=== PATIENT | female | born 1970 | race African-American/Black ===

== ENCOUNTER 2016-12-22 17:27 | Emergency (ER) | payer MEDICARE, OTHER ==
--- NOTE | 2016-12-22 18:18 | ER Document Report ---
ED Medical Screen (RME) - General Mode of Arrival: Ambulatory Information source: Patient TRAVEL OUTSIDE OF THE [place] IN LAST 30 DAYS: No - General Chief Complaint: R arm pain, swollen face Stated Complaint: RIGHT ARM PAIN/SWOLLEN FACE Time Seen by Provider: 12/22/16 18:12 Notes: Patient is a 46-year-old female that presents to the emergency department today with complaints of right-sided arm pain. Patient is on blood thinners (20 mg Eloquis) secondary to a "clotting problem". Patient is a MWF dialysis patient with a clot in her left upper chest. (TA GREGORY) - Related Data Allergies/Adverse Reactions: montelukast sodium [From Singulair] Allergy (Intermediate, Verified 05/28/16 07: 24) Shortness of Breath codeine Allergy (Mild, Verified 05/28/16 07:24) Swelling of Throat erythromycin base [Erythromycin Base] Allergy (Verified 05/28/16 07:24) sob, hives hydrocodone bitartrate [From Vicodin] Allergy (Verified 05/28/16 07:24) sob, hives ondansetron HCl [From Zofran] Allergy (Verified 05/28/16 07:24) sob, rash oxycodone HCl [From Percocet] Allergy (Verified 05/28/16 07:24) sob, rash penicillin G [Penicillin G] Allergy (Verified 05/28/16 07:24) sob, rash latex Allergy (Severe, Uncoded 07/25/15 11:47) sob, hives adhesives Adverse Reaction (Severe, Uncoded 07/25/15 11:47) hung Past Medical History - Social History Family history: Hypertension, Other - kidney failure - Past Medical History Cardiac Medical History: Reports: Hx Hypertension Pulmonary Medical History: Reports: Hx Asthma, Hx Pneumonia, Hx Sleep Apnea Neurological Medical History: Reports: Hx Migraine Endocrine Medical History: Reports: Hx Hypothyroidism Renal/ Medical History: Reports: Hx End Stage Renal Disease, Hx Hemodialysis. Denies: Hx Peritoneal Dialysis GI Medical History: Reports: Hx Gastroesophageal Reflux Disease, Hx Ulcer Musculoskeltal Medical History: Reports Hx Arthritis Past Surgical History: Reports: Hx Appendectomy, Hx Hysterectomy, Hx Oral Surgery, Hx Thyroid Surgery - thyroidectomy, Hx Tubal Ligation, Hx Vascular Surgery - left port in chest-put in on 06/23/12 - Immunizations Immunizations up to date: Yes Hx Diphtheria, Pertussis, Tetanus Vaccination: Yes Review of Systems - Review of Systems Neurological/Psychological: See HPI, Other - pain in right arm pit area Course - Re-evaluation Re-evalutation: 12/22/16 19:08 I personally performed the services described in the documentation, reviewed and edited the documentation which was dictated to the scribe in my presence, and it accurately records my words and actions. (ARLEY VELÁSQUEZ) - Vital Signs Vital signs: Temp Pulse Resp BP Pulse Ox 98.7 F 96 20 145/99 H 97 12/22/16 17:42 12/22/16 17:42 12/22/16 19:00 12/22/16 17:42 12/22/16 17:42 Scribe Documentation - Scribe Written by Traceye:: Dudley Edward, 12/22/2016 [id number] acting as scribe for :: Estelita
--- NOTE | 2016-12-22 18:41 | ER Document Report ---
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 Described as a constant, stabbing, moderate pain. Nothing improves or worsens the pain. No history of similar symptoms in the past. Denies any associated weakness, numbness but does state that she feels that her arm is somewhat more swollen than normal. She has not seen her primary care doctor regarding today's concerns. TRAVEL OUTSIDE OF THE [place] IN LAST 30 DAYS: No - Related Data Allergies/Adverse Reactions: montelukast sodium [From Singulair] Allergy (Intermediate, Verified 12/22/16 19: 10) Shortness of Breath codeine Allergy (Mild, Verified 12/22/16 19:10) Swelling of Throat erythromycin base [Erythromycin Base] Allergy (Verified 12/22/16 19:10) sob, hives hydrocodone bitartrate [From Vicodin] Allergy (Verified 12/22/16 19:10) sob, hives ondansetron HCl [From Zofran] Allergy (Verified 12/22/16 19:10) sob, rash oxycodone HCl [From Percocet] Allergy (Verified 12/22/16 19:10) sob, rash penicillin G [Penicillin G] Allergy (Verified 12/22/16 19:10) sob, rash latex Allergy (Severe, Uncoded 12/22/16 19:10) sob, hives adhesives Adverse Reaction (Severe, Uncoded 12/22/16 19:10) hung Past Medical History - General Information source: Patient - Social History Smoking Status: Never Smoker Frequency of alcohol use: None Drug Abuse: None Lives with: Spouse/Significant other Family History: Reviewed & Not Pertinent - Past Medical History Cardiac Medical History: Reports: Hx Hypertension Pulmonary Medical History: Reports: Hx Asthma, Hx Pneumonia, Hx Sleep Apnea Neurological Medical History: Reports: Hx Migraine Endocrine Medical History: Reports: Hx Hypothyroidism Renal/ Medical History: Reports: Hx End Stage Renal Disease, Hx Hemodialysis. Denies: Hx Peritoneal Dialysis GI Medical History: Reports: Hx Gastroesophageal Reflux Disease, Hx Ulcer Musculoskeltal Medical History: Reports Hx Arthritis Past Surgical History: Reports: Hx Appendectomy, Hx Hysterectomy, Hx Oral Surgery, Hx Thyroid Surgery - thyroidectomy, Hx Tubal Ligation, Hx Vascular Surgery - left port in chest-put in on 06/23/12 - Immunizations Immunizations up to date: Yes Hx Diphtheria, Pertussis, Tetanus Vaccination: Yes Hx Pneumococcal Vaccination: 05/19/13 Review of Systems - Review of Systems Notes: Constitutional: Negative for fever. HENT: Negative for sore throat. Eyes: Negative for visual changes. Cardiovascular: Negative for chest pain. Respiratory: Negative for shortness of breath. Gastrointestinal: Negative for abdominal pain, vomiting or diarrhea. Genitourinary: Negative for dysuria. Musculoskeletal: Negative for back pain. Positive for right arm pain Skin: Negative for rash. Neurological: Negative for headaches, weakness or numbness. 10 point ROS negative except as marked above and in HPI. Physical Exam - Vital signs Vitals: Temp Pulse Resp BP Pulse Ox 98.7 F 96 18 145/99 H 97 12/22/16 17:42 12/22/16 17:42 12/22/16 17:42 12/22/16 17:42 12/22/16 17:42 Interpretation: Hypertensive Notes: PHYSICAL EXAMINATION: GENERAL: Well-appearing, well-nourished and in no acute distress. HEAD: Atraumatic, normocephalic. EYES: Pupils equal round and reactive to light, extraocular movements intact, sclera anicteric, conjunctiva are normal. ENT: nares patent, oropharynx clear without exudates. Moist mucous membranes. NECK: Normal range of motion, supple without lymphadenopathy LUNGS: Breath sounds clear to auscultation bilaterally and equal. No wheezes rales or rhonchi. HEART: Regular rate and rhythm without murmurs ABDOMEN: Soft, nontender, normoactive bowel sounds. No guarding, no rebound. No masses appreciated. EXTREMITIES: Normal range of motion, no pitting or edema. No cyanosis. Palpation of the right axillary region with appreciable lymphadenopathy that is soft, mobile NEUROLOGICAL: No focal neurological deficits. Moves all extremities spontaneously and on command. PSYCH: Normal mood, normal affect. SKIN: Warm, Dry, normal turgor, no rashes or lesions noted. Course - Re-evaluation Re-evalutation: 12/22/16 18:37 Presentation of right axillary pain without any appreciable swelling to the right side versus left. There is some palpable pain to the right axillary lymph nodes suggestive of likely reactive lymphadenopathy is source of patient' s pain from an unclear source at this time. No breast mass or swelling and again given that the lymphadenopathy is painful is to be atypical for malignancy presentation. Given her history of prior clots will obtain a right upper extremity ultrasound to evaluate for an acute DVT although again this seems unlikely given history and patient's antiplatelet status on apixaban. 12/22/16 22:29 Patient's venous and arterial ultrasound does not demonstrate any new acute clot. This report was received from Dr. Morrissey. Again this is consistent with my suspicion the patient likely has axillary lymphadenopathy.At this time will discharge with return precautions and follow-up recommendations. Verbal discharge instructions given a the bedside and opportunity for questions given. Medication warnings reviewed. Patient is in agreement with this plan and has verbalized understanding of return precautions and the need for primary care follow-up in the next 24-72 hours. - Vital Signs Vital signs: Temp Pulse Resp BP Pulse Ox 98.7 F 96 20 145/99 H 97 12/22/16 17:42 12/22/16 17:42 12/22/16 19:00 12/22/16 17:42 12/22/16 17:42 - Laboratory Result Diagrams: 12/22/16 18:50 12/22/16 18:50 Laboratory results interpreted by me: 12/22/16 12/22/16 12/22/16 18:50 18:50 18:50 RBC 3.05 L Hgb 10.2 L Hct 30.1 L MCV 99 H RDW 16.6 H PT 17.2 H BUN 28 H Creatinine 7.22 H Est GFR ( Amer) 7 L Est GFR (Non-Af Amer) 6 L Direct Bilirubin 0.5 H Discharge - Discharge Clinical Impression: Axillary lymphadenopathy Condition: Good Disposition: HOME, SELF-CARE Additional Instructions: Your symptoms appear to be related to inflamed lymph nodes in your right arm pit. This should resolve in the next 7-10 days. Your ultrasounds today do not show any new clots. Please follow closely with your primary care doctor. Return for any worsening of your symptoms of any increased pain, weakness, numbness, fever greater than 101, or any other symptoms that are worrisome to you. You may purchase a product called Aspercreme with lidocaine to apply to the area as needed for pain.
[2016-12-22 19:13] LABS: ABSOLUTE BASOPHILS # (AUTO) 0.1 10^3/uL (0.0-0.2); ABSOLUTE EOSINOPHILS # (AUTO) 0.2 10^3/uL (0.0-0.6); ABSOLUTE LYMPHOCYTES (AUTO) 1.3 10^3/uL (0.5-4.7); ABSOLUTE NEUT (AUTO) 5.2 10^3/uL (1.7-8.2); BASOPHILS % (AUTO) 0.7 % (0-2); EOSINOPHILS % (AUTO) 2.1 % (0-6); HEMATOCRIT 30.1 % (36.0-47.0); HEMOGLOBIN 10.2 g/dL (12.0-15.5); HGB HCT DIFFERENCE 0.5; MEAN CORPUSCULAR HEMOGLOBIN 33.3 pg (27.0-33.4); MEAN CORPUSCULAR HGB CONC 33.7 g/dL (32.0-36.0); MEAN CORPUSCULAR VOLUME 99 fl (80-97); MONOCYTES % (AUTO) 12.4 % (3-13); RED BLOOD COUNT 3.05 10^6/uL (3.72-5.28); RED CELL DISTRIBUTION WIDTH 16.6 % (11.5-14.0); SEGMENTED NEUTROPHILS % (AUTO) 67.8 % (42-78); WHITE BLOOD COUNT 7.7 10^3/uL (4.0-10.5)
[2016-12-22 19:19] LABS: PROTHROMBIN TIME 17.2 SEC (11.4-15.4)
[2016-12-22 19:20] LABS: PARTIAL THROMBOPLASTIN TIME 35.5 SEC (23.5-35.8)
[2016-12-22 19:35] LABS: ALANINE AMINOTRANSFERASE 24 U/L (9-52); ALBUMIN 4.1 g/dL (3.5-5.0); ALKALINE PHOSPHATASE 81 U/L (38-126); ANION GAP 17 (5-19); ASPARTATE AMINO TRANSFERASE 27 U/L (14-36); BILIRUBIN,DIRECT 0.5 mg/dL (0.0-0.4); BILIRUBIN,TOTAL 0.5 mg/dL (0.2-1.3); BLOOD UREA NITROGEN 28 mg/dL (7-20); CARBON DIOXIDE 24 mmol/L (22-30); CHLORIDE 98 mmol/L (98-107); CREATININE RESULT 7.22 mg/dL (0.52-1.25); GLUCOSE 89 mg/dL (75-110); POTASSIUM 4.4 mmol/L (3.6-5.0); SODIUM 138.5 mmol/L (137-145); TOTAL PROTEIN 7.3 g/dL (6.3-8.2)
[2016-12-22 22:47] VITALS: BP 142/80
--- NOTE | 2016-12-22 23:24 | XCELERA REPORT ---
[address] [address] Upper Extremity Venous Evaluation Name: DESIREE ARITA Age: 46 yrs Gender: Female : 1970 Patient Status: Emergency Patient Location: ER Study Date: 12/22/2016 07:52 PM Procedure: Unilateral duplex scan of the right upper extremity veins was performed, including responses to compression and other maneuvers. Reason For Study: h/o clots, R axillary pain Ordering Physician: ARLEY VELÁSQUEZ Performed By: Lavinia Brian Right Side Venous Evaluation Shrunken, Internal Jugular vein with no flow. Otherwise normal vessel filling wall to wall, compression and augmentation as well as Colour flow down to the forearm veins. Left Sided Venous Evaluation Incidental finding of occluded Internal Jugular vein. Critical Findings Discussed with Dr Marie at about 2230. 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 : ARLEY VELÁSQUEZ > Lukas Morrissey
--- NOTE | 2016-12-22 23:28 | XCELERA REPORT ---
[address] [address] Upper Extremity Arterial Evaluation Name: DESIREE ARITA Age: 46 yrs Gender: Female : 1970 Patient Status: Emergency Patient Location: ER Study Date: 12/22/2016 08:16 PM Procedure: A duplex scan of the upper extremity arteries was performed on the right. Reason For Study: h/o clots, R axillary pain Ordering Physician: ARLEY VELÁSQUEZ Performed By: Lavinia Brian Measurements and Calculations Right Left Prox SCLA PSV 123.8 cm/sec Ax A PSV 73.1 cm/sec Prox Brach A PSV 78.6 cm/sec Dist Brach A PSV 72.7 cm/sec Dist Rad A PSV 91.7 cm/sec Dist Ulnar A PSV 58.9 cm/sec Ax A PSV 73.1 cm/sec Dist Brach A PSV 72.7 cm/sec Dist Rad A PSV 91.7 cm/sec Dist Ulnar A PSV 58.9 cm/sec Prox Brach A PSV 78.6 cm/sec Right Side Arterial Evaluation Normal velocity and triphasic waveforms noted from the Common Carotid artery to the forearm vessels. 0 % stenosis noted. Critical Findings Calld in to Dr Marie at about 2230. Interpretation Summary No hemodynamically significant lesions noted in the right upper extremity arteries, on duplex imaging, at rest. : ARLEY VELÁSQUEZ [place] >
== END 2016-12-22 22:45 | disposition home or self-care (01) ==
LOC: ER 17:27
DX: R59.0 Localized enlarged lymph nodes (principal); M79.601 Pain in right arm; I10 Essential (primary) hypertension; I12.0 Hypertensive chronic kidney disease with stage 5 chronic kidney disease or end stage renal disease; N18.6 End stage renal disease; Z99.2 Dependence on renal dialysis; Z88.0 Allergy status to penicillin; Z88.3 Allergy status to other anti-infective agents; Z88.6 Allergy status to analgesic agent; Z91.040 Latex allergy status; Z90.710 Acquired absence of both cervix and uterus
CPT/HCPCS: 36415; 80053; 85025; 85610; 85730; 93931; 93971; 99284

== ENCOUNTER 2017-03-09 10:03 | Emergency (ER) | payer MEDICARE, OTHER, MEDICAID ==
[2017-03-09] MEDS ORDERED: HYDROMORPHONE HCL INJ/PF 2 MG/ML AMPULE IM ONE (10:13)
[2017-03-09] MEDS ORDERED: HYDROMORPHONE HCL INJ/PF 2 MG/ML AMPULE IV ONE (10:16)
--- NOTE | 2017-03-09 10:17 | ER Document Report ---
ED Medical Screen (RME) - General Chief Complaint: Back Pain Stated Complaint: BACK PAIN Time Seen by Provider: 03/09/17 10:09 Notes: Patient presents complaining of severe low back pain. It does radiate across both sides of her low back. She states she has not had this pain to this degree in the past. It did start this morning and has gotten worse. No problems with urination. Patient is a dialysis patient but states she does make urine. No recent injuries or trauma. She states she has had over 80 abdominal surgeries but no current abdominal complaints. TRAVEL OUTSIDE OF THE [place] IN LAST 30 DAYS: No - Related Data Allergies/Adverse Reactions: montelukast sodium [From Singulair] Allergy (Intermediate, Verified 03/09/17 10: 07) Shortness of Breath codeine Allergy (Mild, Verified 03/09/17 10:07) Swelling of Throat erythromycin base [Erythromycin Base] Allergy (Verified 03/09/17 10:07) sob, hives hydrocodone bitartrate [From Vicodin] Allergy (Verified 03/09/17 10:07) sob, hives ondansetron HCl [From Zofran] Allergy (Verified 03/09/17 10:07) sob, rash oxycodone HCl [From Percocet] Allergy (Verified 03/09/17 10:07) sob, rash penicillin G [Penicillin G] Allergy (Verified 03/09/17 10:07) sob, rash latex Allergy (Severe, Uncoded 03/09/17 10:07) sob, hives adhesives Adverse Reaction (Severe, Uncoded 03/09/17 10:07) hung Past Medical History - Social History Chew tobacco use (# tins/day): No Frequency of alcohol use: None Drug Abuse: None Family history: Hypertension, Other - kidney failure - Past Medical History Cardiac Medical History: Reports: Hx Hypertension Pulmonary Medical History: Reports: Hx Asthma, Hx Pneumonia, Hx Sleep Apnea Neurological Medical History: Reports: Hx Migraine Endocrine Medical History: Reports: Hx Hypothyroidism Renal/ Medical History: Reports: Hx End Stage Renal Disease, Hx Hemodialysis. Denies: Hx Peritoneal Dialysis GI Medical History: Reports: Hx Gastroesophageal Reflux Disease, Hx Ulcer Musculoskeltal Medical History: Reports Hx Arthritis Past Surgical History: Reports: Hx Appendectomy, Hx Hysterectomy, Hx Oral Surgery, Hx Thyroid Surgery - thyroidectomy, Hx Tubal Ligation, Hx Vascular Surgery - left port in chest-put in on 06/23/12 - Immunizations Immunizations up to date: Yes Hx Diphtheria, Pertussis, Tetanus Vaccination: Yes Physical Exam - Vital signs Vitals: Temp Pulse Resp BP Pulse Ox 98.5 F 94 18 148/103 H 98 03/09/17 10:06 03/09/17 10:06 03/09/17 10:06 03/09/17 10:06 03/09/17 10:06 Course - Vital Signs Vital signs: Temp Pulse Resp BP Pulse Ox 98.5 F 94 18 148/103 H 98 03/09/17 10:06 03/09/17 10:06 03/09/17 10:06 03/09/17 10:06 03/09/17 10:06
[2017-03-09 10:52] LABS: ABSOLUTE EOSINOPHILS # (AUTO) 0.5 10^3/uL (0.0-0.6); ABSOLUTE LYMPHOCYTES (AUTO) 1.5 10^3/uL (0.5-4.7); ABSOLUTE MONOCYTES (AUTO) 0.8 10^3/uL (0.1-1.4); ABSOLUTE NEUT (AUTO) 7.4 10^3/uL (1.7-8.2); BASOPHILS % (AUTO) 0.4 % (0-2); EOSINOPHILS % (AUTO) 4.5 % (0-6); HEMATOCRIT 32.7 % (36.0-47.0); HGB HCT DIFFERENCE 0.3; LYMPHOCYTES % (AUTO) 14.6 % (13-45); MEAN CORPUSCULAR HEMOGLOBIN 32.9 pg (27.0-33.4); MEAN CORPUSCULAR HGB CONC 33.7 g/dL (32.0-36.0); MEAN CORPUSCULAR VOLUME 98 fl (80-97); RED BLOOD COUNT 3.36 10^6/uL (3.72-5.28); RED CELL DISTRIBUTION WIDTH 15.3 % (11.5-14.0); SEGMENTED NEUTROPHILS % (AUTO) 72.5 % (42-78); WHITE BLOOD COUNT 10.2 10^3/uL (4.0-10.5)
[2017-03-09 11:03] LABS: APPEARANCE,URINE CLEAR; BILIRUBIN,URINE NEGATIVE (NEGATIVE); GLUCOSE, URINE 50 mg/dL (NEGATIVE); KETONES,URINE NEGATIVE (NEGATIVE); LEUKOCYTE ESTERASE,URINE NEGATIVE (NEGATIVE); NITRITE,URINE NEGATIVE (NEGATIVE); PROTEIN,URINE NEGATIVE (NEGATIVE); URINE SPECIFIC GRAVITY 1.003; UROBILINOGEN,URINE NEGATIVE mg/dL (<2.0)
[2017-03-09] MEDS ORDERED: METOCLOPRAMIDE HCL INJ/PF 10 MG/2 ML SDV IV ONE (11:18)
[2017-03-09 11:26] LABS: ALANINE AMINOTRANSFERASE 27 U/L (9-52); ALBUMIN 4.8 g/dL (3.5-5.0); ALKALINE PHOSPHATASE 143 U/L (38-126); ANION GAP 17 (5-19); ASPARTATE AMINO TRANSFERASE 28 U/L (14-36); BILIRUBIN,DIRECT 0.5 mg/dL (0.0-0.4); BILIRUBIN,TOTAL 0.5 mg/dL (0.2-1.3); BLOOD UREA NITROGEN 17 mg/dL (7-20); CALCIUM 9.5 mg/dL (8.4-10.2); CARBON DIOXIDE 26 mmol/L (22-30); CHLORIDE 98 mmol/L (98-107); CREATININE RESULT 5.67 mg/dL (0.52-1.25); GLUCOSE 81 mg/dL (75-110); POTASSIUM 3.4 mmol/L (3.6-5.0); SODIUM 141.4 mmol/L (137-145); TOTAL PROTEIN 8.4 g/dL (6.3-8.2)
[2017-03-09] MEDS ORDERED: PROMETHAZINE HCL 25 MG TABLET PO ONE (12:22)
[2017-03-09] MEDS ORDERED: DIAZEPAM INJ 10 MG/2 ML DISP.SYRIN IV ONE (13:01)
--- NOTE | 2017-03-09 13:01 | ER Document Report ---
ED General - General Chief Complaint: Back Pain Stated Complaint: BACK PAIN Time Seen by Provider: 03/09/17 10:09 Mode of Arrival: Ambulatory Information source: Patient Notes: 46-year-old female who receives dialysis on Wednesdays and Fridays who was at dialysis today presents with complaints of back spasm. Patient not denies any abdominal pain denies any fevers chills nausea vomiting or diarrhea Patient notes similar episode in the past when she had a kidney infection TRAVEL OUTSIDE OF THE [place] IN LAST 30 DAYS: No - HPI Onset: This morning Onset/Duration: Sudden Quality of pain: Achy Severity: Mild Pain Level: 1 Associated symptoms: Body/muscle aches Exacerbated by: Movement Relieved by: Denies Similar symptoms previously: No Recently seen / treated by doctor: No - Related Data Allergies/Adverse Reactions: montelukast sodium [From Singulair] Allergy (Intermediate, Verified 03/09/17 10: 07) Shortness of Breath codeine Allergy (Mild, Verified 03/09/17 10:07) Swelling of Throat erythromycin base [Erythromycin Base] Allergy (Verified 03/09/17 10:07) sob, hives hydrocodone bitartrate [From Vicodin] Allergy (Verified 03/09/17 10:07) sob, hives ondansetron HCl [From Zofran] Allergy (Verified 03/09/17 10:07) sob, rash oxycodone HCl [From Percocet] Allergy (Verified 03/09/17 10:07) sob, rash penicillin G [Penicillin G] Allergy (Verified 03/09/17 10:07) sob, rash latex Allergy (Severe, Uncoded 03/09/17 10:07) sob, hives adhesives Adverse Reaction (Severe, Uncoded 03/09/17 10:07) hung Past Medical History - Social History Smoking Status: Never Smoker Cigarette use (# per day): No Chew tobacco use (# tins/day): No Smoking Education Provided: No Frequency of alcohol use: None Drug Abuse: None Family History: Reviewed & Not Pertinent - Past Medical History Cardiac Medical History: Reports: Hx Hypertension Pulmonary Medical History: Reports: Hx Asthma, Hx Pneumonia, Hx Sleep Apnea Neurological Medical History: Reports: Hx Migraine Endocrine Medical History: Reports: Hx Hypothyroidism Renal/ Medical History: Reports: Hx End Stage Renal Disease, Hx Hemodialysis. Denies: Hx Peritoneal Dialysis GI Medical History: Reports: Hx Gastroesophageal Reflux Disease, Hx Ulcer Musculoskeltal Medical History: Reports Hx Arthritis Past Surgical History: Reports: Hx Appendectomy, Hx Hysterectomy, Hx Oral Surgery, Hx Thyroid Surgery - thyroidectomy, Hx Tubal Ligation, Hx Vascular Surgery - left port in chest-put in on 06/23/12 - Immunizations Immunizations up to date: Yes Hx Diphtheria, Pertussis, Tetanus Vaccination: Yes Hx Pneumococcal Vaccination: 05/19/13 Review of Systems - Review of Systems Notes: REVIEW OF SYSTEMS: CONSTITUTIONAL : Denies fever, chills, or sweats. Denies recent illness. EENT: Denies eye, ear, throat, or mouth pain or symptoms. Denies nasal or sinus congestion or discharge. Denies throat, tongue, or mouth swelling or difficulty swallowing. CARDIOVASCULAR: Denies chest pain. Denies palpitations or racing or irregular heart beat. Denies ankle edema. RESPIRATORY: Denies cough, cold, or chest congestion. Denies shortness of breath, difficulty breathing, or wheezing. GASTROINTESTINAL: Denies abdominal pain or distention. Denies nausea, vomiting , or diarrhea. Denies blood in vomitus, stools, or per rectum. Denies black, tarry stools. Denies constipation. GENITOURINARY: Denies difficulty urinating, painful urination, burning, frequency, blood in urine, or discharge. FEMALE GENITOURINARY: Denies vaginal bleeding, heavy or abnormal periods, irregular periods. Denies vaginal discharge or odor. MUSCULOSKELETAL: Admits to bilateral flank pain worsened with movement SKIN: Denies rash, lesions or sores. HEMATOLOGIC : Denies easy bruising or bleeding. LYMPHATIC: Denies swollen, enlarged glands. NEUROLOGICAL: Denies confusion or altered mental status. Denies passing out or loss of consciousness. Denies dizziness or lightheadedness. Denies headache. Denies weakness or paralysis or loss of use of either side. Denies problems with gait or speech. Denies sensory loss, numbness, or tingling. Denies seizures. PSYCHIATRIC: Denies anxiety or stress. Denies depression, suicidal ideation, or homicidal ideation. ALL OTHER SYSTEMS REVIEWED AND NEGATIVE. PHYSICAL EXAMINATION: GENERAL: Well-appearing, well-nourished and in no acute distress. HEAD: Atraumatic, normocephalic. EYES: Pupils equal round and reactive to light, extraocular movements intact, conjunctiva are normal. ENT: Nares patent, oropharynx clear without exudates. Moist mucous membranes. NECK: Normal range of motion, supple without lymphadenopathy LUNGS: Breath sounds clear to auscultation bilaterally and equal. No wheezes rales or rhonchi. HEART: Regular rate and rhythm without murmurs ABDOMEN: Soft, nontender, nondistended abdomen. No guarding, no rebound. No masses appreciated. Female : deferred Musculoskeletal: Tenderness on palpation of bilateral flanks, no CVA tenderness NEUROLOGICAL: Cranial nerves grossly intact. Normal speech, normal gait. Normal sensory, motor exams PSYCH: Normal mood, normal affect. SKIN: Warm, Dry, normal turgor, no rashes or lesions noted. Dictation was performed using [employer] voice recognition software Physical Exam - Vital signs Vitals: Temp Pulse Resp BP Pulse Ox 98.5 F 94 18 148/103 H 98 03/09/17 10:06 03/09/17 10:06 03/09/17 10:06 03/09/17 10:03/09/17 10:06 Course - Re-evaluation Re-evalutation: 03/09/17 16:24 Patient's incision is consistent with a musculoskeletal spasm. Otherwise she is in no distress Lab work noted no significant abnormality no signs of infection Patient will be treated with Valium and very close follow-up with primary care physician After performing a Medical Screening Examination, I estimate there is LOW risk for EXPANDING OR RUPTURED ABDOMINAL AORTIC ANEURYSM, CAUDA EQUINA SYNDROME, EPIDURAL MASS LESION, or HERNIATED DISK CAUSING SEVERE SPINAL STENOSIS, thus I consider the discharge disposition reasonable. I have reevaluated this patient multiple times and no significant life threatening changes are noted. The patient and I have discussed the diagnosis and risks, and we agree with discharging home and close follow-up. We also discussed returning to the Emergency Department immediately if new or worsening symptoms occur with the understanding that symptoms and presentations can change. We have discussed the symptoms which are most concerning (e.g., saddle anesthesia, urinary or bowel incontinence or retention, changing or worsening pain) that necessitate immediate return. - Vital Signs Vital signs: Temp Pulse Resp BP Pulse Ox 97.8 F 87 16 136/89 H 97 03/09/17 13:44 03/09/17 13:44 03/09/17 13:44 03/09/17 13:44 03/09/17 13:44 - Laboratory Result Diagrams: 03/09/17 10:40 03/09/17 10:40 Laboratory results interpreted by me: 03/09/17 03/09/17 03/09/17 10:40 10:40 10:40 RBC 3.36 L Hgb 11.0 L Hct 32.7 L MCV 98 H RDW 15.3 H Potassium 3.4 L Creatinine 5.67 H Est GFR ( Amer) 10 L Est GFR (Non-Af Amer) 8 L Direct Bilirubin 0.5 H Alkaline Phosphatase 143 H Total Protein 8.4 H Urine Glucose (UA) 50 H Urine Blood SMALL H Discharge - Discharge Clinical Impression: Flank pain Chronic kidney disease Qualifiers: Chronic kidney disease stage: on chronic dialysis Qualified Code(s): N18.6 - End stage renal disease; Z99.2 - Dependence on renal dialysis Condition: Stable Disposition: HOME, SELF-CARE Instructions: Low Back Pain ([facility]) Prescriptions: Diazepam [Valium 5 mg Tablet] 5 mg PO QIDP PRN #15 tablet PRN Reason: Referrals: JOSE ALEJANDRO GASTELUM DO [Primary Care Provider] - Follow up tomorrow
[2017-03-09 13:45] VITALS: BP 136/89
== END 2017-03-09 13:46 | disposition home or self-care (01) ==
LOC: ER 10:03
DX: N18.6 End stage renal disease (principal); R10.9 Unspecified abdominal pain; M54.9 Dorsalgia, unspecified; Z99.2 Dependence on renal dialysis
CPT/HCPCS: 99283; 96372; 96374; 96375; 36415; 85025; 80053; 81001; J3360; J2765; J1170; A9270

== ENCOUNTER 2017-09-01 19:29 | Observation (INO) | payer MEDICARE, OTHER, MEDICAID ==
--- NOTE | 2017-09-01 20:18 | RADIOLOGY REPORT (SQ) ---
EXAM DESCRIPTION: CT HEAD WITHOUT COMPLETED DATE/TIME: 09/01/2017 8:04 pm REASON FOR STUDY: EYE ISSUES ON ELEQUIS COMPARISON: 07/26/2014. TECHNIQUE: Axial images acquired through the brain without intravenous contrast. Images reviewed wi th bone, brain and subdural windows. Images stored on PACS. All CT scanners at this facility use dose modulation, iterative reconstruction, and/or weight based d osing when appropriate to reduce radiation dose to as low as reasonably achievable (ALARA). [facility]: Dose Right [facility]: CareDose [facility]: Dose Right [facility]: Teradose 4D [facility]: DealerSocket RADIATION DOSE: CT Rad equipment meets quality standard of care and radiation dose reduction techniq ues were employed. CTDIvol: 64.6 mGy. DLP: 1034 mGy-cm. mGy. LIMITATIONS: None. FINDINGS: VENTRICLES: Normal size and contour. CEREBRUM: No masses. No hemorrhage. No midline shift. No evidence for acute infarction. Normal gra y/white matter differentiation. No areas of low density in the white matter. CEREBELLUM: No masses. No hemorrhage. No alteration of density. No evidence for acute infarction. EXTRAAXIAL SPACES: No fluid collections. No masses. ORBITS AND GLOBE: No intra- or extraconal masses. Normal contour of globe without masses. CALVARIUM: No fracture. PARANASAL SINUSES: No fluid or mucosal thickening. SOFT TISSUES: No mass or hematoma. OTHER: No other significant finding. IMPRESSION: NORMAL BRAIN CT WITHOUT CONTRAST. EVIDENCE OF ACUTE STROKE: NO. COMMENT: Quality ID # [id number]: Final reports with documentation of one or more dose reduction techniques (e.g., Automated exposure control, adjustment of the mA and/or kV according to patient size, use of iterative reconstruction technique) TECHNICAL DOCUMENTATION: JOB ID: [id number]- All Rights Reserved
--- NOTE | 2017-09-01 20:23 | RADIOLOGY REPORT (SQ) ---
EXAM DESCRIPTION: CT ORBIT/SELLA WITHOUT COMPLETED DATE/TIME: 09/01/2017 8:04 pm REASON FOR STUDY: Eye Problem COMPARISON: None. TECHNIQUE: Noncontrasted images through the orbits windowed for bone and soft tissue. Additional co kayley and sagittal reconstructed images reviewed. All images stored on PACS. All CT scanners at this facility use dose modulation, iterative reconstruction, and/or weight based d osing when appropriate to reduce radiation dose to as low as reasonably achievable (ALARA). [facility]: Dose Right [facility]: CareDose [facility]: Dose Right [facility]: Teradose 4D [facility]: Smart PulseOn RADIATION DOSE: CT Rad equipment meets quality standard of care and radiation dose reduction techniq ues were employed. CTDIvol: 30.4 mGy. DLP: 365 mGy-cm. mGy. LIMITATIONS: None. FINDINGS: FACIAL BONES: No fracture or bone lesion. ORBITS: Intact. No fracture. Symmetric intact globes and retroorbital soft tissues. Bilateral prop tosis. PARANASAL SINUSES: Clear. No significant mucosal thickening, mass or fluid. No nasal polyps. Maxilla ry sinus outlets are patent. SOFT TISSUES: No mass or edema. INFERIOR BRAIN: Limited view. No acute findings. OTHER: No other significant finding. IMPRESSION: BILATERAL PROPTOSIS. NO OTHER FINDINGS. TECHNICAL DOCUMENTATION: JOB ID: [id number] Quality ID # [id number]: Final reports with documentation of one or more dose reduction techniques (e.g., Au tomated exposure control, adjustment of the mA and/or kV according to patient size, use of iterative reconstruction technique) 2010 [employer]- All Rights Reserved
--- NOTE | 2017-09-01 20:28 | ER Document Report ---
ED Medical Screen (RME) - General Mode of Arrival: Ambulatory Information source: Patient TRAVEL OUTSIDE OF THE [place] IN LAST 30 DAYS: No - HPI Patient complains to provider of: Right eye bleeding and swelling Onset: This morning Associated Symptoms: Other - see notes above <CYNDIE BYRD - Last Filed: 09/01/17 20:19> <RADHA STREETER - Last Filed: 09/03/17 10:57> - General Chief Complaint: Eye Problem Stated Complaint: EYE PROBLEM Time Seen by Provider: 09/01/17 20:08 Notes: 47 year old female with history of blood clots (treated with Eliquis) presents to the ED referred from her coroner technician complaining of right eye bleeding and pain that started earlier today. Patient reports that she was playing with her grandchild when she felt like she had something in her right eye. Patient looked at a mirror and saw some bleeding. Over the course of the next few hours the patient noticed increasing bleeding. Patient is additionally complaining of dizziness, right eye swelling, and blurry vision out of the right eye. Jackhammer Operator: Dr. Mejia (CYNDIE BYRD) - Related Data Allergies/Adverse Reactions: montelukast sodium [From Singulair] Allergy (Intermediate, Verified 03/09/17 10: 07) Shortness of Breath codeine Allergy (Mild, Verified 03/09/17 10:07) Swelling of Throat erythromycin base [Erythromycin Base] Allergy (Verified 03/09/17 10:07) sob, hives hydrocodone bitartrate [From Vicodin] Allergy (Verified 03/09/17 10:07) sob, hives ondansetron HCl [From Zofran] Allergy (Verified 03/09/17 10:07) sob, rash oxycodone HCl [From Percocet] Allergy (Verified 03/09/17 10:07) sob, rash penicillin G [Penicillin G] Allergy (Verified 03/09/17 10:07) sob, rash latex Allergy (Severe, Uncoded 03/09/17 10:07) sob, hives adhesives Adverse Reaction (Severe, Uncoded 03/09/17 10:07) hung Past Medical History - General Information source: Patient - Social History Chew tobacco use (# tins/day): No Frequency of alcohol use: None Drug Abuse: None Family history: Hypertension, Other - kidney failure - Past Medical History Cardiac Medical History: Reports: Hx Hypertension Pulmonary Medical History: Reports: Hx Asthma, Hx Pneumonia, Hx Sleep Apnea Neurological Medical History: Reports: Hx Migraine Endocrine Medical History: Reports: Hx Hypothyroidism Renal/ Medical History: Reports: Hx End Stage Renal Disease, Hx Hemodialysis. Denies: Hx Peritoneal Dialysis GI Medical History: Reports: Hx Gastroesophageal Reflux Disease, Hx Ulcer Musculoskeltal Medical History: Reports Hx Arthritis Past Surgical History: Reports: Hx Appendectomy, Hx Hysterectomy, Hx Oral Surgery, Hx Thyroid Surgery - thyroidectomy, Hx Tubal Ligation, Hx Vascular Surgery - left port in chest-put in on 06/23/12 - Immunizations Immunizations up to date: Yes Hx Diphtheria, Pertussis, Tetanus Vaccination: Yes <CYNDIE BYRD - Last Filed: 09/01/17 20:19> Review of Systems - Review of Systems Constitutional: No symptoms reported EENT: See HPI, Eye pain - right, Blurred vision - right, Other - right eye bleeding Cardiovascular: No symptoms reported Respiratory: No symptoms reported Gastrointestinal: No symptoms reported Genitourinary: No symptoms reported Female Genitourinary: No symptoms reported Musculoskeletal: No symptoms reported Skin: No symptoms reported Hematologic/Lymphatic: No symptoms reported Neurological/Psychological: No symptoms reported -: Yes All other systems reviewed and negative <CYNDIE BYRD - Last Filed: 09/01/17 20:19> Physical Exam - General General appearance: Alert In distress: None - HEENT Head: Normocephalic, Atraumatic Eyes: Other - unilateral hemiopsia to the right eye. No: Normal Conjunctiva: Other - Subconjnctival hematoma. No hyphema. Pupils: PERRL Anterior chamber: Normal. No: Hyphema - Respiratory Respiratory status: No respiratory distress Breath sounds: Normal - Cardiovascular Rhythm: Regular Heart sounds: Normal auscultation - Abdominal Inspection: Normal - Back Back: Normal - Neurological Neuro grossly intact: Yes Cognition: Normal Orientation: AAOx4 Stefanie Coma Scale Eye Opening: Spontaneous Stefanie Coma Scale Verbal: Oriented Stefanie Coma Scale Motor: Obeys Commands Harris Coma Scale Total: 15 Cerebellar coordination: Gait ataxia - mild, Truncal ataxia - mild. No: Normal <CYNDIE BYRD - Last Filed: 09/01/17 20:19> - Vital signs Vitals: Temp Pulse Resp BP Pulse Ox 98.7 F 98 18 145/88 H 96 09/01/17 20:23 09/01/17 20:23 09/01/17 20:23 09/01/17 20:23 09/01/17 20:23 Course - Laboratory Result Diagrams: 09/01/17 22:25 09/02/17 04:50 <RADHA STREETER - Last Filed: 09/03/17 10:57> - Vital Signs Vital signs: Temp Pulse Resp BP Pulse Ox 97.8 F 88 16 136/81 H 98 09/02/17 11:45 09/02/17 11:45 09/02/17 11:45 09/02/17 11:45 09/02/17 11:45 - Laboratory Laboratory results interpreted by me: 09/01/17 09/01/17 09/01/17 22:25 22:25 22:25 WBC 11.5 H RBC 3.58 L Hgb 11.6 L Hct 35.3 L MCV 99 H RDW 14.4 H PT 18.6 H BUN 42 H Creatinine 10.05 H Est GFR ( Amer) 5 L Est GFR (Non-Af Amer) 4 L Doctor's Discharge <CYNDIE BYRD - Last Filed: 09/01/17 20:19> <RADHA STREETER - Last Filed: 09/03/17 10:57> - Discharge Clinical Impression: Ataxia Headache Qualifiers: Headache type: unspecified Headache chronicity pattern: acute headache Intractability: not intractable Qualified Code(s): R51 - Headache Subconjunctival bleed Qualifiers: Laterality: right Qualified Code(s): H11.31 - Conjunctival hemorrhage, right eye Condition: Good Disposition: HOME, SELF-CARE Scribe Documentation - Scribe Written by Scribe:: Dudley Whalen, [id number] acting as scribe for :: Maximiliano <CYNDIE BYRD - Last Filed: 09/01/17 20:19>
[2017-09-01 22:41] LABS: ABSOLUTE EOSINOPHILS # (AUTO) 0.1 10^3/uL (0.0-0.6); ABSOLUTE LYMPHOCYTES (AUTO) 2.7 10^3/uL (0.5-4.7); ABSOLUTE MONOCYTES (AUTO) 1.4 10^3/uL (0.1-1.4); ABSOLUTE NEUT (AUTO) 7.2 10^3/uL (1.7-8.2); BASOPHILS % (AUTO) 0.4 % (0-2); EOSINOPHILS % (AUTO) 1.1 % (0-6); HEMATOCRIT 35.3 % (36.0-47.0); HEMOGLOBIN 11.6 g/dL (12.0-15.5); LYMPHOCYTES % (AUTO) 23.7 % (13-45); MEAN CORPUSCULAR HEMOGLOBIN 32.3 pg (27.0-33.4); MEAN CORPUSCULAR HGB CONC 32.8 g/dL (32.0-36.0); MEAN CORPUSCULAR VOLUME 99 fl (80-97); MONOCYTES % (AUTO) 12.3 % (3-13); PLATELET COUNT 192 10^3/uL (150-450); RED BLOOD COUNT 3.58 10^6/uL (3.72-5.28); RED CELL DISTRIBUTION WIDTH 14.4 % (11.5-14.0); SEGMENTED NEUTROPHILS % (AUTO) 62.5 % (42-78); TOTAL CELLS COUNTED % (AUTO) 100 %; WHITE BLOOD COUNT 11.5 10^3/uL (4.0-10.5)
[2017-09-01 22:48] LABS: INTERNATIONAL RATION (INR) 1.46; PROTHROMBIN TIME 18.6 SEC (11.4-15.4)
[2017-09-01 22:59] LABS: ALBUMIN 4.9 g/dL (3.5-5.0); ANION GAP 18 (5-19); BLOOD UREA NITROGEN 42 mg/dL (7-20); CALCIUM 9.3 mg/dL (8.4-10.2); CARBON DIOXIDE 24 mmol/L (22-30); CHLORIDE 102 mmol/L (98-107); GLUCOSE 96 mg/dL (75-110); POTASSIUM 3.8 mmol/L (3.6-5.0); SODIUM 143.7 mmol/L (137-145); TOTAL PROTEIN 7.6 g/dL (6.3-8.2)
[2017-09-01 23:00] LABS: ALANINE AMINOTRANSFERASE 19 U/L (9-52); ALKALINE PHOSPHATASE 83 U/L (38-126); ASPARTATE AMINO TRANSFERASE 16 U/L (14-36); BILIRUBIN,TOTAL 0.3 mg/dL (0.2-1.3)
[2017-09-01] MEDS ORDERED: FENTANYL CITRATE INJ/PF 100 MCG/2 ML AMPUL IV ONE (23:14)
--- NOTE | 2017-09-01 23:52 | ER Document Report ---
ED General - General Chief Complaint: Eye Problem Stated Complaint: EYE PROBLEM Time Seen by Provider: 09/01/17 20:08 Mode of Arrival: Ambulatory Notes: Patient is a 47-year-old female who presents with complaint of onset of symptoms just before lunch this morning. She says that she started to have some headache. She denies some blurred vision worse in the right eye. She then noticed that her gait was off. She does have a history of a clotting disorder is on Eliquis. She eventually developed some conjunctival hemorrhage in the right eye. She saw Dr. Hay who referred her to Dr. Mejia. Dr. Mejia is the operations logistics analyst. He did evaluate her. I did talk to him on phone. He says that she has some subconjunctival hemorrhage as well as some hemianopsia. Eye pressures since office were normal. He said he want her to be checked make sure is no evidence of intracranial hemorrhage being that she is on blood thinners. See if this was negative. She is going follow-up in his office in a week. She currently says that he still has mild headache that is almost completely resolved. Headache was not sudden onset. She does admit that she is having difficulty walking. She says she feels as if the floor is unsteady and floating. She has never had symptoms like this before. She does have a history of some clotting in her jugular veins. TRAVEL OUTSIDE OF THE [place] IN LAST 30 DAYS: No - Related Data Allergies/Adverse Reactions: montelukast sodium [From Singulair] Allergy (Intermediate, Verified 03/09/17 10: 07) Shortness of Breath codeine Allergy (Mild, Verified 03/09/17 10:07) Swelling of Throat erythromycin base [Erythromycin Base] Allergy (Verified 03/09/17 10:07) sob, hives hydrocodone bitartrate [From Vicodin] Allergy (Verified 03/09/17 10:07) sob, hives ondansetron HCl [From Zofran] Allergy (Verified 03/09/17 10:07) sob, rash oxycodone HCl [From Percocet] Allergy (Verified 03/09/17 10:07) sob, rash penicillin G [Penicillin G] Allergy (Verified 03/09/17 10:07) sob, rash latex Allergy (Severe, Uncoded 03/09/17 10:07) sob, hives adhesives Adverse Reaction (Severe, Uncoded 03/09/17 10:07) hung Past Medical History - General Information source: Patient - Social History Smoking Status: Never Smoker Chew tobacco use (# tins/day): No Frequency of alcohol use: None Drug Abuse: None Family History: Reviewed & Not Pertinent Patient has suicidal ideation: No Patient has homicidal ideation: No - Past Medical History Cardiac Medical History: Reports: Hx Hypertension Pulmonary Medical History: Reports: Hx Asthma, Hx Pneumonia, Hx Sleep Apnea Neurological Medical History: Reports: Hx Migraine Endocrine Medical History: Reports: Hx Hypothyroidism Renal/ Medical History: Reports: Hx End Stage Renal Disease, Hx Hemodialysis. Denies: Hx Peritoneal Dialysis GI Medical History: Reports: Hx Gastroesophageal Reflux Disease, Hx Ulcer Musculoskeltal Medical History: Reports Hx Arthritis Past Surgical History: Reports: Hx Appendectomy, Hx Hysterectomy, Hx Oral Surgery, Hx Thyroid Surgery - thyroidectomy, Hx Tubal Ligation, Hx Vascular Surgery - left port in chest-put in on 06/23/12 - Immunizations Immunizations up to date: Yes Hx Diphtheria, Pertussis, Tetanus Vaccination: Yes Hx Pneumococcal Vaccination: 05/19/13 Review of Systems - Review of Systems Notes: My Normal Review Basic REVIEW OF SYSTEMS: CONSTITUTIONAL : Denies fever, chills, or sweats. Denies recent illness. EENT: Subconjunctival hemorrhage in the right eye. CARDIOVASCULAR: Denies chest pain. RESPIRATORY: Denies cough, cold, or chest congestion. Denies shortness of breath, difficulty breathing, or wheezing. GASTROINTESTINAL: Denies abdominal pain. Denies nausea, vomiting, or diarrhea. Denies constipation. Last BM: MUSCULOSKELETAL: Denies neck or back pain or joint pain or swelling. SKIN: Denies rash or skin lesions. NEUROLOGICAL: Denies altered mental status or loss of consciousness. Denies headache. Denies weakness or paralysis or loss of use of either side. Denies problems with gait or speech. Denies sensory or motor loss. ALL OTHER SYSTEMS REVIEWED AND NEGATIVE. Physical Exam - Vital signs Vitals: Temp Pulse Resp BP Pulse Ox 98.7 F 98 18 145/88 H 96 09/01/17 20:23 09/01/17 20:23 09/01/17 20:23 09/01/17 20:23 09/01/17 20:23 - Notes Notes: General Appearance: Well nourished, alert, cooperative, no acute distress, no obvious discomfort. Vitals: reviewed, See vital signs table. Head: no swelling or tenderness to the head Eyes: PERRL, EOMI, subconjunctival hemorrhage in the right eye. Patient does seem to have decreased vision over the right lateral gaze. She does have good extraocular motion. Left eye seems to have appropriate vision. Patient's right pupil is slightly dilated in comparison to the left; however, Dr. Mejia says that he did dilate his pupil prior to patient coming to the ER. Mouth: No decreasd moisture Neck: Supple, no neck tenderness, No thyromegaly Lungs: No wheezing, No rales, No rhonci, No accessory muscle use, good air exchange bilaterally. Heart: Normal rate, Regular rythm, No murmur, no rub Abdomen: Normal BS, soft, No rigidity, No abdominal tenderness, No guarding, no rebound, no abdominal masses, no organomegaly Extremities: strength 5/5 in all extremities, good pulses in all extremities, no swelling or tenderness in the extremities, no edema. Skin: warm, dry, appropriate color, no rash Neuro: speech clear, oriented x 3, normal affect, responds appropriately to questions. Cranial nerves II through XII are intact with exception of of visual field defect in right lateral gaze. When patient stands she is very unsteady on her feet. If I do not support her then she would fall. She is unable to take any steps for due to her unsteadiness. On finger-nose testing patient misses her nose every time and has a hard time hit my finger. Cerebellar signs are abnormal. Course - Re-evaluation Re-evalutation: 09/02/17 00:02 I did speak with the halfway house counselor who says that we have the ability to dialyze patient in the am. Patient's vending machine collector is Dr. Matta. 09/02/17 04:42 Patient's requested that I did speak with Dr. Matta before she is willing to be admitted. I did speak with Dr. Matta says she is able to dialyze the patient this morning and explained to her why we are admitting the patient. She is agreeable to this. I did speak with hospitalist, Dr. Brown, who agreed to admit the patient. My concern is that patient could potentially have cerebral infarct based on her major defect or cerebellar signs with ataxia, coordination of the extremities, and her history of clotting disorder. I did discuss this with the patient and her their understanding of this. Patient says she does not have any metal in her body and therefore should be able to have an MRI obtained in the morning. Dictation of this chart was performed using voice recognition software; therefore, there may be some unintended grammatical errors. - Vital Signs Vital signs: Temp Pulse Resp BP Pulse Ox 97.9 F 93 15 155/97 H 99 09/02/17 01:16 09/02/17 01:16 09/02/17 03:27 09/02/17 01:16 09/02/17 03:27 - Laboratory Result Diagrams: 09/01/17 22:25 09/01/17 22:25 Laboratory results interpreted by me: 09/01/17 09/01/17 09/01/17 22:25 22:25 22:25 WBC 11.5 H RBC 3.58 L Hgb 11.6 L Hct 35.3 L MCV 99 H RDW 14.4 H PT 18.6 H BUN 42 H Creatinine 10.05 H Est GFR ( Amer) 5 L Est GFR (Non-Af Amer) 4 L Discharge - Discharge Clinical Impression: Ataxia Headache Qualifiers: Headache type: unspecified Headache chronicity pattern: acute headache Intractability: not intractable Qualified Code(s): R51 - Headache Subconjunctival bleed Qualifiers: Laterality: right Qualified Code(s): H11.31 - Conjunctival hemorrhage, right eye Condition: Stable Disposition: ADMITTED OBSERVATION Admitting Provider: Hospitalist Unit Admitted: Telemetry
[2017-09-02] MEDS ORDERED: DOCUSATE SODIUM 100 MG CAPSULE PO PRN ×2 (01:13→10:03)
[2017-09-02] MEDS ORDERED: ACETAMINOPHEN 325 MG TABLET PO PRN (01:13)
[2017-09-02] MEDS ORDERED: TRAMADOL HCL 50 MG TABLET PO PRN (01:13)
--- NOTE | 2017-09-02 01:45 | PDOC H&P ---
History of Present Illness Admission Date/PCP: 09/02/17 00:09 JOSE ALEJANDRO GASTELUM DO Patient complains of: Redness of the eye and disequilibrium History of Present Illness: DESIREE ARITA is a 47 year old female who was in her normal state of health until the day prior to her admission. At that time she developed redness of her eye and so went to see an title i assistant. She was diagnosed as a sub- conjunctival hemorrhage, however it also appeared that she had a field cut. She was referred to the emergency room. Here she was evaluated including a CT and was admitted to our care. Past Medical History Cardiac Medical History: Reports: Hypertension Pulmonary Medical History: Reports: Asthma, Pneumonia, Sleep Apnea Neurological Medical History: Reports: Migraine Endocrine Medical History: Reports: Hypothyroidism Renal/ Medical History: Reports: End Stage Renal Disease GI Medical History: Reports: Gastroesophageal Reflux Disease Musculoskeltal Medical History: Reports: Arthritis Hematology: Reports: Anemia Past Surgical History Past Surgical History: Reports: Appendectomy, Hysterectomy, Tubal Ligation, Vascular Surgery - left port in chest-put in on 06/23/12 Social History Information Source: Patient Lives with: Family Smoking Status: Never Smoker Frequency of Alcohol Use: None Hx Recreational Drug Use: No Drugs: None Hx Prescription Drug Abuse: No - Advance Directive Resuscitation Status: Full Code Family History Family History: None Parental Family History Reviewed: Yes Children Family History Reviewed: Yes Sibling(s) Family History Reviewed.: Yes Medication/Allergy Home Medications: Albuterol Sulfate [Ventolin HFA MDI 8 gm (ER Disp)] 90 mcg IH Q6H PRN 11/05/11 Docusate Sodium [Colace 100 mg Capsule] 100 mg PO DAILY PRN 11/05/11 Levothyroxine Sodium [Synthroid 0.1 mg Tablet] 150 mcg PO DAILY 11/05/11 Omeprazole [Prilosec 20 mg Capsule] 20 mg PO BID 11/05/11 Butalb/Acetaminophen/Caffeine [Fioricet (50-325-40 mg) Tablet] 1 tab PO ASDIR PRN 12/14/12 Aspirin [Aspirin 81 mg Chewable Tablet] 81 mg PO DAILY 01/13/13 Methocarbamol 500 mg PO TID PRN 02/23/13 Amlodipine/Atorvastatin [Amlodipine-Atorvast 10-10 mg] 1 each PO DAILY 03/28/16 Apixaban [Eliquis 5 mg Tablet] 5 mg PO BID 03/28/16 Budesonide/Formoterol Fumarate [Symbicort Hfa 160-4.5 Mcg Inhaler 6 gm] 2 puff IH Q12 03/28/16 Calcium Acetate [Phoslo] 667 mg PO TID 03/28/16 Calcium Carbonate [Calcium] 500 mg PO BID 03/28/16 Fluticasone Propionate [Flonase Nasal Scio 50 Mcg/Scio 16 gm] 2 sprays NASL Q12 03/28/16 Folic Acid/Vit B Complex and C [Denise-Joshua Tablet] 0.8 mg PO DAILY 03/28/16 Hydralazine HCl 100 mg PO BID 03/28/16 Metoprolol Tartrate [Lopressor 50 mg Tablet] 50 mg PO Q12H 03/28/16 Morphine Sulfate [Morphine Ir 15 mg Tablet] 15 mg PO DAILY PRN 03/28/16 Promethazine HCl [Phenergan 25 mg Tablet] 25 mg PO ASDIR PRN 03/28/16 Sevelamer Carbonate [Renvela] 800 mg PO TID 03/28/16 Sodium Bicarbonate 650 mg PO DAILY 03/28/16 Diazepam [Valium 5 mg Tablet] 5 mg PO QIDP PRN #15 tablet 03/09/17 Allergies/Adverse Reactions: montelukast sodium [From Singulair] Allergy (Intermediate, Verified 03/09/17 10: 07) Shortness of Breath codeine Allergy (Mild, Verified 03/09/17 10:07) Swelling of Throat erythromycin base [Erythromycin Base] Allergy (Verified 03/09/17 10:07) sob, hives hydrocodone bitartrate [From Vicodin] Allergy (Verified 03/09/17 10:07) sob, hives ondansetron HCl [From Zofran] Allergy (Verified 03/09/17 10:07) sob, rash oxycodone HCl [From Percocet] Allergy (Verified 03/09/17 10:07) sob, rash penicillin G [Penicillin G] Allergy (Verified 03/09/17 10:07) sob, rash latex Allergy (Severe, Uncoded 03/09/17 10:07) sob, hives adhesives Adverse Reaction (Severe, Uncoded 03/09/17 10:07) hung Review of Systems Constitutional: PRESENT: headache(s). ABSENT: anorexia, chills, fatigue, fever( s), night sweats, weakness Eyes: PRESENT: as per HPI Ears: ABSENT: hearing changes Nose, Mouth, and Throat: PRESENT: headache(s) Cardiovascular: ABSENT: dyspnea on exertion, edema, orthropnea, palpitations Respiratory: ABSENT: cough, dyspnea, hemoptysis Gastrointestinal: ABSENT: constipation, diarrhea Genitourinary: ABSENT: dysuria Neurological: PRESENT: dizziness, vertigo. ABSENT: abnormal gait, abnormal movements, abnormal speech, confusion, convulsions, focal weakness, frequent falls, lack of coordination, restless legs, syncope Psychiatric: ABSENT: anxiety, depression Hematologic/Lymphatic: ABSENT: easy bleeding, easy bruising Physical Exam Vital Signs: Temp Pulse Resp BP Pulse Ox 97.9 F 93 14 155/97 H 95 09/02/17 01:16 09/02/17 01:16 09/02/17 01:16 09/02/17 01:16 09/02/17 01:16 General appearance: PRESENT: no acute distress, cooperative, well-nourished, other - High facies Head exam: PRESENT: atraumatic, normocephalic Eye exam: PRESENT: EOMI, PERRLA. ABSENT: nystagmus Ear exam: PRESENT: normal external ear exam Neck exam: ABSENT: carotid bruit, JVD, meningismus Respiratory exam: PRESENT: clear to auscultation diego, symmetrical, unlabored. ABSENT: accessory muscle use Cardiovascular exam: PRESENT: systolic murmur, tachycardia. ABSENT: irregular rhythm GI/Abdominal exam: PRESENT: normal bowel sounds, soft. ABSENT: guarding, organolmegaly, tenderness Rectal exam: PRESENT: deferred Extremities exam: ABSENT: joint swelling Musculoskeletal exam: ABSENT: deformity, tenderness Neurological exam: PRESENT: alert, awake, oriented to person, oriented to place , oriented to time, oriented to situation, other - Right temporal quadrantanopsia Psychiatric exam: PRESENT: appropriate affect, normal mood. ABSENT: agitated, anxious Skin exam: PRESENT: dry, warm Results Laboratory Results: 09/01/17 09/01/17 09/01/17 22:25 22:25 22:25 WBC 11.5 H Hgb 11.6 L Hct 35.3 L Plt Count 192 PT 18.6 H INR 1.46 Sodium 143.7 Potassium 3.8 Chloride 102 Carbon Dioxide 24 Anion Gap 18 BUN 42 H Creatinine 10.05 H EKG Comments: pending Impressions: Head CT 09/01/17 00:00 IMPRESSION: NORMAL BRAIN CT WITHOUT CONTRAST. EVIDENCE OF ACUTE STROKE: NO. Orbit CT 09/01/17 00:00 IMPRESSION: BILATERAL PROPTOSIS. NO OTHER FINDINGS. Assessment & Plan - Diagnosis (1) TIA (transient ischemic attack) Qualifiers: Transient cerebral ischemia type: other Qualified Code(s): G45.8 - Other transient cerebral ischemic attacks and related syndromes Is this a current diagnosis for this admission?: Yes (2) ESRD (end stage renal disease) on dialysis Is this a current diagnosis for this admission?: Yes (3) Rheumatoid arthritis Qualifiers: Rheumatoid arthritis location: unspecified site Rheumatoid factor presence : unspecified presence Qualified Code(s): M06.9 - Rheumatoid arthritis, unspecified Is this a current diagnosis for this admission?: Yes (4) HTN (hypertension) Qualifiers: Hypertension type: unspecified Qualified Code(s): I10 - Essential (primary ) hypertension Is this a current diagnosis for this admission?: Yes (5) Asthma Qualifiers: Asthma severity: mild Asthma persistence: unspecified Asthma complication type: uncomplicated Qualified Code(s): J45.909 - Unspecified asthma, uncomplicated Is this a current diagnosis for this admission?: Yes (6) Headache Qualifiers: Headache type: unspecified Headache chronicity pattern: acute headache Intractability: not intractable Qualified Code(s): R51 - Headache Is this a current diagnosis for this admission?: Yes (7) Subconjunctival bleed Qualifiers: Laterality: right Qualified Code(s): H11.31 - Conjunctival hemorrhage, right eye Is this a current diagnosis for this admission?: Yes (8) Migraine Qualifiers: Migraine type: without aura Status migrainosus presence: without status migrainosus Intractability: not intractable Qualified Code(s): G43.009 - Migraine without aura, not intractable, without status migrainosus Is this a current diagnosis for this admission?: Yes - Time Time Spent: 30 to 50 Minutes - Plan Summary Plan Summary: Patient has a history of hypercoagulable syndrome. She is currently on Eliquis for management of this. CT does not show acute hemorrhage. She will have an MRI later this morning. For further evaluation of her murmur she will have a 2D echo. She will continue on prednisone for treatment of her rheumatoid arthritis. She will not be placed on DVT prophylaxis as she has therapeutically anticoagulated.
[2017-09-02 05:11] LABS: ANION GAP 15 (5-19); BLOOD UREA NITROGEN 47 mg/dL (7-20); CALCIUM 9.1 mg/dL (8.4-10.2); CARBON DIOXIDE 23 mmol/L (22-30); CHLORIDE 103 mmol/L (98-107); CHOLESTEROL 148.26 mg/dL (0-200); GLUCOSE 91 mg/dL (75-110); SODIUM 141.1 mmol/L (137-145); TRIGLYCERIDES 77 mg/dL (<150)
[2017-09-02 05:21] LABS: DIRECT LDL 55 mg/dL (<100)
[2017-09-02] MEDS ORDERED: LANSOPRAZOLE 30 MG TAB.RAP.DR PO SCH (06:00)
--- NOTE | 2017-09-02 09:59 | RADIOLOGY REPORT (SQ) ---
EXAM DESCRIPTION: MRI HEAD WITHOUT COMPLETED DATE/TIME: 09/02/2017 7:53 am REASON FOR STUDY: cva COMPARISON: MRI brain 06/16/2011, 12/13/2013 CT soft tissue neck 12/09/2011 CT brain 09/01/2017 TECHNIQUE: Multiplanar imaging includes non-contrasted T1, T2, FLAIR, and diffusion with ADC map seq uences. Images stored on PACS. Additional thin section axial and coronal T1 and fat-sat T2 images through the orbits were obtained. LIMITATIONS: None. FINDINGS: ANATOMY: No development of anomalies. Normal vascular flow voids. Pituitary fossa demonstr ates an empty sella, stable compared to previous studies best shown on sagittal image 13. CSF SPACES: Normal in size and contour. No hemorrhage. CEREBRUM: Sulci and gyri normal in size and contour. Normal white matter signal on FLAIR imaging. No evidence of hemorrhage, mass, or extraaxial fluid collection. POSTERIOR FOSSA: No signal alteration. No hemorrhage. No edema, masses or mass effect. Internal hoa tory canals, cerebello-pontine angles, mastoids normal. DIFFUSION IMAGING: Negative for acute or sub-acute infarction. ORBITS: There is stable mild bilateral proptosis, unchanged from 2010. Globes, optic nerves, intra a nd extraconal orbital fat unremarkable. PARANASAL SINUSES: No fluid levels. Mucosa normal. OTHER: No other significant finding. IMPRESSION: NORMAL MRI OF THE BRAIN WITHOUT INTRAVENOUS GADOLINIUM CONTRAST. EVIDENCE OF ACUTE STROKE: NO. TECHNICAL DOCUMENTATION: JOB ID: [id number]- All Rights Reserved
[2017-09-02] MEDS ORDERED: (PENDING PHARMACY ID) (Sennosides [Senna] 8.6 MG) PO PRN (10:03)
[2017-09-02] MEDS ORDERED: HYDROMORPHONE HCL 2 MG TABLET PO PRN (10:03)
[2017-09-02] MEDS ORDERED: METHOCARBAMOL 500 MG TABLET PO PRN (10:03)
[2017-09-02] MEDS ORDERED: PROMETHAZINE HCL 25 MG TABLET PO PRN (10:03)
[2017-09-02] MEDS ORDERED: CALCIUM ACETATE 667 MG CAPSULE PO PRN (10:03)
[2017-09-02] MEDS ORDERED: BUTALB/ACETAMINOPHEN/CAFFEINE 1 TAB EACH PO PRN (10:03)
[2017-09-02] MEDS ORDERED: DIPHENHYDRAMINE HCL 25 MG CAPSULE PO PRN (10:03)
[2017-09-02] MEDS ORDERED: DIAZEPAM 5 MG TABLET PO PRN (10:03)
[2017-09-02] MEDS ORDERED: (PENDING PHARMACY ID) (Hydralazine Hcl [Hydralazine Hcl] 100 MG) PO SCH (10:15)
[2017-09-02] MEDS ORDERED: (PENDING PHARMACY ID) (Levothyroxine Sodium [Synthroid] 137 MCG) PO SCH (10:15)
[2017-09-02] MEDS ORDERED: CALCIUM ACETATE 667 MG CAPSULE PO SCH (11:00)
[2017-09-02] MEDS ORDERED: SENNOSIDES/DOCUSATE 8.6-50 MG 1 EACH TABLET PO PRN (11:19)
[2017-09-02] MEDS ORDERED: AMLODIPINE BESYLATE 10 MG TABLET PO ONE (11:30)
[2017-09-02] MEDS ORDERED: ASPIRIN 81 MG TABLET, ENT COATED PO SCH (12:00)
[2017-09-02] MEDS ORDERED: SODIUM BICARBONATE 650 MG TABLET PO SCH (12:00)
[2017-09-02 12:07] VITALS: BP 136/81
--- NOTE | 2017-09-02 12:13 | RADIOLOGY REPORT (SQ) ---
EXAM DESCRIPTION: CAROTID DOPPLER COMPLETED DATE/TIME: 09/02/2017 12:04 pm REASON FOR STUDY: cva COMPARISON: None. TECHNIQUE: Grayscale ultrasound, Doppler velocity and spectra, and color Doppler images acquired of the extra-cranial carotid and vertebral arteries. Images stored on PACS. LIMITATIONS: None. FINDINGS: RIGHT CAROTID CCA Velocities: Within normal limits. ICA Velocities Peak systolic 0.96 m/s. End diastolic 0.46 m/s. Proximal ICA/CCA peak systolic ratio 1.1. Spectra normal. No significant plaque. LEFT CAROTID CCA Velocities: Within normal limits. ICA Velocities Peak systolic 1.01 m/s. End diastolic 0.35 m/s. Proximal ICA/CCA peak systolic ratio 1.8. Spectra normal. No significant plaque. VERTEBRAL ARTERIES: Antegrade flow. Normal waveforms. SUBCLAVIAN ARTERIES: Not imaged. OTHER: No other significant finding. IMPRESSION: NO HEMODYNAMICALLY SIGNIFICANT STENOSIS. COMMENT: Quality ID #[id number]: Velocity criteria are extrapolated from the diameter data as defined by t he Society of Radiologists in Ultrasound Consensus Conference. Radiology 2003: 229; 340-346. TECHNICAL DOCUMENTATION: JOB ID: [id number] [employer]- All Rights Reserved
--- NOTE | 2017-09-02 15:49 | DISCHARGE SUMMARY E ---
Discharge Summary NAME: DESIREE ARITA : 1970 AGE: 47Y ADMITTED: 09/02/2017 DISCHARGED: 09/02/2017 CODE STATUS: FULL CODE. PRIMARY CARE PROVIDER: Marina Peralta MD OUTPATIENT JACK STRIP ASSEMBLER: Emi Matta MD OUTPATIENT CARTOGRAPHIC DRAFTER: Stephan Vasquez MD DISCHARGE DIAGNOSES 1. SUBCONJUNCTIVAL HEMORRHAGE AND SUBSEQUENT DIFFICULTY WITH VISION WHICH IS NOW RESOLVED. 2. END-STAGE RENAL DISEASE WITH DIALYSIS. 3. RHEUMATOID ARTHRITIS. 4. HYPERTENSION. 5. ASTHMA. 6. HISTORY OF MIGRAINE HEADACHES. 7. HYPERTENSION. DISCHARGE MEDICATIONS: 1. Humira 40 mg subcu every 2 weeks. 2. Norvasc 10 mg p.o. daily. 3. Aspirin 81 mg p.o. daily. 4. Fioricet 50/325/40 one tablet p.o. q.6 h. p.r.n. 5. PhosLo as directed. 6. PhosLo with meals. 7. Valium 5 mg p.o. t.i.d. p.r.n. 8. Benadryl 25 mg p.o. daily p.r.n. 9. Colace 100 mg p.o. b.i.d. p.r.n. 10. Auryxia 420 mg p.o. before meals. 11. Flonase 2 sprays nasally daily. 12. Advair 500/50 one inhalation daily. 13. Renal capsule 0.8 mg p.o. daily. 14. Hydralazine 100 mg p.o. q.12 h. 15. Dilaudid 1 mg p.o. q.4 h. p.r.n.. 16. Synthroid 137 mcg p.o. daily. 17. Lidoderm 5% one patch daily. 18. Robaxin 1000 mg p.o. b.i.d. p.r.n. 19. Lopressor 100 mg p.o. q.12 h. 20. Bactroban 2% ointment 1 topical application b.i.d. 21. Omeprazole 20 mg p.o. daily. 22. Prednisone 5 mg p.o. daily. 23. Phenergan 25 mg p.o. q.8 h. p.r.n. 24. Senna 8.6 mg p.o. daily p.r.n. 25. Sodium bicarbonate 650 mg p.o. daily. DIET: Renal. ACTIVITY: As tolerated. CONDITION: Stable DIAGNOSTICS: Lab values are as follows: Hematology on 09/01/2017: WBC of 11.5 Hemoglobin 11.6, hematocrit 35.3, platelet count is 192,000. Coagulation on 09/01/2017: PT is 18.6, INR is 1.46. Chemistry obtained on 09/02/2017: Sodium is 141, potassium is 4.0, chloride is 103, carbon dioxide is 23, BUN 47, creatinine is 10.38, glucose 91, calcium is 9.1, bilirubin 0.3, AST 16, ALT is 19, alk phos 83, total protein is 7.6, albumin 4.9. Triglycerides are 77, cholesterol 148, LDL of 55, VLDL of 15, HDL is 58. Head CT obtained on 09/01/2017 reveals a normal brain CT without contrast. CT of the orbitus obtained on 09/01/2017 reveals no significant findings. Head MRI obtained on 09/02/2017 reveals normal MRI of the brain. Carotid Doppler study obtained on 09/02/2017 reveals no hemodynamically significant stenosis. EKG obtained on 09/02/2017 sinus. PHYSICAL EXAMINATION: GENERAL: On examination, the patient is a well-developed, well-nourished 47-year-old female who is awake, alert and oriented to person, place, time and situation. She is verbal, conversational, ambulatory. Does not appear to be in any acute distress. VITAL SIGNS: As follows: Temperature is 97.8, pulse 88, respirations 16, blood pressure is 136/81, oxygen saturation is 98% on room air. SKIN: Warm and dry. No rashes. Not diaphoretic. HEENT: Pupils equal, round, reactive to light and accommodation. Conjunctivae pink. There is no evidence of JVP. CARDIOVASCULAR: Heart is regular; there is no murmur or rub. CHEST: Is clear, symmetrical, unlabored. ABDOMEN: Soft, nontender, nondistended. BACK: No CVA tenderness or sacral edema. EXTREMITIES: No clubbing, cyanosis, edema. PSYCHIATRIC: Appropriate affect, pleasant mood. HISTORY OF PRESENT ILLNESS: The patient is a 47-year-old female with a past medical history of end-stage renal disease. The patient presented to the emergency department with a chief complaint of redness of the eye and disequilibrium. The patient had been seen earlier in the day by Dr. Vasquez with hematology. The patient appeared to have a subconjunctival hemorrhage and therefore was referred to ophthalmology. The patient subsequently had her eye dilated and during the patient's exam, it appeared she had limited peripheral vision. The patient stated she walked outside after having her eyes dilated and felt dizzy and almost overwhelmed. The patient communicated this to her weaving instructor who recommended the patient come to the emergency department for evaluation. Upon presentation in the emergency department, the patient was found to have blood pressures in acceptable range. No evidence of unilateral weakness, no difficulty swallowing, and the patient was referred to the hospitalist for observation and management. HOSPITAL COURSE: Patient was observed in continuous telemetry. The patient had significant improvement of symptoms over the course of the day. The patient was resumed on her home medications. The patient's MRI and carotid Doppler's were found to be unremarkable. The patient had no unexplained symptomatology. I did discuss discharge with the patient; she was quite eager with this. I asked the patient to contact [facility] to see if she could dialyze today as today is one of her regular days, or tomorrow. The patient was agreeable to this and the patient proceeded with discharge. However, [facility] notified the patient that she should dialyze here and not go to the center; however, the patient's discharge still stands. The patient most likely will be dialyzed on site here, and she can follow up at her regular day at [facility]. DISCHARGE PLAN: The patient is advised to follow up with primary care provider within 1 to 2 weeks for hospital followup. Time spent on this discharge including assessment, plan, physical examination, patient education, and review of records, multispecialty collaboration, and multiple visits is 60 minutes. DICTATING PHYSICIAN: FANG MARADIAGA NP [id number] PHY#: [id number] ID: [id number] JOB#: [id number] ACCT: [id number] cc:JASPER MCGHEE M.D. FANG MARADIAGA NP > MTDD
[2017-09-02] MEDS ORDERED: HYDRALAZINE HCL 50 MG TABLET PO SCH (18:00)
[2017-09-02] MEDS ORDERED: METOPROLOL TARTRATE 50 MG TABLET PO SCH (18:00)
[2017-09-02] MEDS ORDERED: MUPIROCIN 2% OINTMENT 22 GM TP SCH (18:00)
[2017-09-03] MEDS ORDERED: LEVOTHYROXINE SODIUM 0.025 MG TABLET PO SCH (06:00)
[2017-09-03] MEDS ORDERED: LANSOPRAZOLE 15 MG TAB.RAP.DR PO SCH (06:00)
[2017-09-03] MEDS ORDERED: LEVOTHYROXINE SODIUM 0.112 MG TABLET PO SCH (06:00)
--- NOTE | 2017-09-03 09:55 | XCELERA REPORT ---
[address] [address] Transthoracic Echocardiogram Report Name: DESIREE ARITA Age: 47 yrs Gender: Female : 1970 Patient Status: Inpatient Patient [address] Study Date: 09/02/2017 09:23 AM Height: 64 in Weight: 154 lb BSA: 1.8 m2 Procedure: A complete two-dimensional transthoracic echocardiogram was performed (2D, M-mode, spectral and color flow Doppler). The study was technically adequate with some images being suboptimal in quality. Reason For Study: cva Ordering Physician: JASPER MCGHEE Performed By: Lavinia Brian Interpretation Summary The left ventricular ejection fraction is normal. Doppler measurements suggest impaired left ventricular relaxation, which is associated with grade I/IV or mild diastolic dysfunction There is mild concentric left ventricular hypertrophy. The left ventricle is grossly normal size. Wall motion cannot be accurately commented on, but no definite regional wall motion abnormalities noted. The right ventricular systolic function is normal. The right atrium is normal in size The left atrial size is normal. There is a trace amount of mitral regurgitation There is no mitral valve stenosis. There is no aortic valve stenosis No aortic regurgitation is present. The aortic root is not well visualized. The inferior vena cava appeared normal and decreased > 50% with respiration (RAP 5-10 mmHg) There is no pericardial effusion. MMode/2D Measurements & Calculations RVDd: 3.2 cm LVIDd: 3.7 cm FS: 38.7 % Ao root diam: 2.7 cm IVSd: 0.99 cm LVIDs: 2.3 cm EDV(Teich): 58.1 ml LVPWd: 0.95 cm ESV(Teich): 17.5 ml Ao root area: 5.9 cm2 EF(Teich): 69.9 % Doppler Measurements & Calculations MV E max collins: MV dec slope: Ao V2 max: LV V1 max P.6 cm/sec 153.5 cm/sec 4.2 mmHg MV A max collins: 616.2 cm/sec2 Ao max PG: LV V1 max: 91.4 cm/sec MV dec time: 9.4 mmHg 102.7 cm/sec MV E/A: 0.85 0.13 sec PA V2 max: TR max collins: 83.7 cm/sec 284.2 cm/sec PA max PG: TR max P.4 mmHg 2.8 mmHg Left Ventricle The left ventricle is grossly normal size. There is mild concentric left ventricular hypertrophy. The left ventricular ejection fraction is normal. Doppler measurements suggest impaired left ventricular relaxation, which is associated with grade I/IV or mild diastolic dysfunction. Wall motion cannot be accurately commented on, but no definite regional wall motion abnormalities noted. Right Ventricle The right ventricle is grossly normal size. There is normal right ventricular wall thickness. The right ventricular systolic function is normal. Atria The right atrium is normal in size. The left atrial size is normal. Interarterial septum not well visualized and not well dopplered. Cannot comment on ASD/PFO presence. Mitral Valve The mitral valve is grossly normal. There is no mitral valve stenosis. There is a trace amount of mitral regurgitation. Aortic Valve The aortic valve is grossly normal. There is no aortic valve stenosis. No aortic regurgitation is present. Tricuspid Valve The tricuspid valve is not well visualized, but is grossly normal. There is no tricuspid stenosis. There is a mild amount of tricuspid regurgitation. There is mild pulmonary hypertension by echo. Right ventricular systolic pressure is estimated to be elevated at 30-40mmHg. Pulmonic Valve The pulmonic valve is not well visualized. Great Vessels The aortic root is not well visualized. The inferior vena cava appeared normal and decreased > 50% with respiration (RAP 5-10 mmHg). Effusions There is no pericardial effusion. : JASPER MCGHEE > Han Lott
[2017-09-03] MEDS ORDERED: PREDNISONE 5 MG TABLET PO SCH (10:00)
[2017-09-03] MEDS ORDERED: LIDOCAINE 5% (700 MG) TRANSDERMAL ADH..PATCH TP SCH (10:00)
[2017-09-03] MEDS ORDERED: FLUTICASONE/SALMETEROL DISKUS 500-50 MCG/DOSE IH SCH (10:00)
[2017-09-03] MEDS ORDERED: AMLODIPINE BESYLATE 10 MG TABLET PO SCH (10:00)
[2017-09-03] MEDS ORDERED: FLUTICASONE NASAL SPRAY 50 MCG/SPRY 120 SPRAY/16 GM NASL SCH (10:00)
== END 2017-09-02 12:00 | disposition home or self-care (01) ==
LOC: ER 19:29 → EH 09-02 00:09
PROVIDERS: ADMIT Internal Medicine; ATTEND Internal Medicine
DX: H11.31 Conjunctival hemorrhage, right eye (principal); I12.0 Hypertensive chronic kidney disease with stage 5 chronic kidney disease or end stage renal disease; N18.6 End stage renal disease; J45.909 Unspecified asthma, uncomplicated; Z99.2 Dependence on renal dialysis; M06.9 Rheumatoid arthritis, unspecified; G43.009 Migraine without aura, not intractable, without status migrainosus; E03.9 Hypothyroidism, unspecified; H53.461 Homonymous bilateral field defects, right side; D68.59 Other primary thrombophilia; R26.81 Unsteadiness on feet; R26.0 Ataxic gait; Z86.69 Personal history of other diseases of the nervous system and sense organs; Z90.49 Acquired absence of other specified parts of digestive tract; Z79.899 Other long term (current) drug therapy; Z79.01 Long term (current) use of anticoagulants
CPT/HCPCS: 99285; 96374; 36415 ×2; 85025; 85610; 80048; 80053; 80061; 93306; 93880; 70551; 70450; 70480; 97163; 97167; A9270 ×3; J3010; J3490; G8978; G8979; G8980; G8987; G8988; G8989; G0378

== ENCOUNTER 2017-10-11 18:33 | Emergency (ER) | payer MEDICARE, OTHER, MEDICAID ==
[2017-10-11] MEDS ORDERED: DEXAMETHASONE SOD PHOS INJ 10 MG/1 ML VIAL IV ONE (18:43)
[2017-10-11] MEDS ORDERED: LORAZEPAM INJ 2 MG/1 ML VIAL IV ONE (18:43)
[2017-10-11] MEDS ORDERED: RACEPINEPHRINE HCL 2.25% NEB 0.5 ML AMPUL NEB ONE (18:43)
[2017-10-11] MEDS ORDERED: LIDOCAINE 2% INJ-PF (20 MG/ML) 10 ML AMPUL NEB ONE (18:43)
--- NOTE | 2017-10-11 18:45 | ER Document Report ---
ED General - General Chief Complaint: Respiratory Distress Stated Complaint: DIFFICULTY BREATHING Time Seen by Provider: 10/11/17 18:43 Cannot obtain history due to: Unstable vital signs Notes: Patient is a 47-year-old female with a past medical history of chronic kidney disease, dialysis dependent who presents in acute respiratory distress. Initial history is quite limited secondary to patient's distress. She has apparently had a laundromat prior to arrival. She had acute onset of severe shortness of breath with drooling, and feeling like she was unable to take a deep breath in. She has no history of similar symptoms in the past. She has no history of restrictive or obstructive lung disease. She did not miss dialysis, last session was yesterday. History is otherwise limited secondary to the acuity of this patient's presentation. TRAVEL OUTSIDE OF THE [place] IN LAST 30 DAYS: No - Related Data Allergies/Adverse Reactions: montelukast sodium [From Singulair] Allergy (Intermediate, Verified 10/11/17 18: 34) Shortness of Breath codeine Allergy (Mild, Verified 10/11/17 18:34) Swelling of Throat erythromycin base [Erythromycin Base] Allergy (Verified 10/11/17 18:34) sob, hives hydrocodone bitartrate [From Vicodin] Allergy (Verified 10/11/17 18:34) sob, hives ondansetron HCl [From Zofran] Allergy (Verified 10/11/17 18:34) sob, rash oxycodone HCl [From Percocet] Allergy (Verified 10/11/17 18:34) sob, rash penicillin G [Penicillin G] Allergy (Verified 10/11/17 18:34) sob, rash latex Allergy (Severe, Uncoded 10/11/17 18:34) sob, hives adhesives Adverse Reaction (Severe, Uncoded 10/11/17 18:34) hung Past Medical History - General Information source: Patient, Relative - Social History Smoking Status: Never Smoker Frequency of alcohol use: None Drug Abuse: None Lives with: Family Family History: Reviewed & Not Pertinent - Past Medical History Cardiac Medical History: Reports: Hx Hypertension Pulmonary Medical History: Reports: Hx Asthma, Hx Pneumonia, Hx Sleep Apnea Neurological Medical History: Reports: Hx Migraine Endocrine Medical History: Reports: Hx Hypothyroidism Renal/ Medical History: Reports: Hx End Stage Renal Disease, Hx Hemodialysis. Denies: Hx Peritoneal Dialysis GI Medical History: Reports: Hx Gastroesophageal Reflux Disease, Hx Ulcer Musculoskeltal Medical History: Reports Hx Arthritis Past Surgical History: Reports: Hx Appendectomy, Hx Hysterectomy, Hx Oral Surgery, Hx Thyroid Surgery - thyroidectomy, Hx Tubal Ligation, Hx Vascular Surgery - left port in chest-put in on 06/23/12 - Immunizations Immunizations up to date: Yes Hx Diphtheria, Pertussis, Tetanus Vaccination: Yes Hx Pneumococcal Vaccination: 05/19/13 Review of Systems - Review of Systems Notes: Constitutional: Negative for fever. HENT: Positive for throat tightness, difficulty swallowing Eyes: Negative for visual changes. Cardiovascular: Negative for chest pain. Respiratory: Positive for shortness of breath. Gastrointestinal: Negative for abdominal pain, positive for nausea Genitourinary: Negative for dysuria. Musculoskeletal: Negative for back pain. Skin: Negative for rash. Neurological: Negative for headaches, weakness or numbness. 10 point ROS negative except as marked above and in HPI. Physical Exam - Vital signs Vitals: Resp BP Pulse Ox 27 H 151/109 H 100 10/11/17 18:44 10/11/17 18:44 10/11/17 18:44 Interpretation: Tachypneic Notes: PHYSICAL EXAMINATION: GENERAL: Appears extremely uncomfortable, in distress HEAD: Atraumatic, normocephalic. EYES: Pupils equal round and reactive to light, extraocular movements intact, sclera anicteric, conjunctiva are normal. ENT: nares patent, no oropharyngeal edema or swelling, hypersalivation NECK:supple without lymphadenopathy LUNGS: Mild inspiratory stridor. Good air movement throughout. Moderate respiratory distress. HEART: Regular tachycardia without murmurs ABDOMEN: Soft, nontender, normoactive bowel sounds. No guarding, no rebound. No masses appreciated. EXTREMITIES: Normal range of motion, no pitting or edema. No cyanosis. NEUROLOGICAL: No focal neurological deficits. Moves all extremities spontaneously and on command. PSYCH: Moderately anxious but appropriate to situation SKIN: Warm, Dry, normal turgor, no rashes or lesions noted. Course - Re-evaluation Re-evalutation: 10/11/17 18:44 Patient presents in acute respiratory distress, mild stridor on inspiration, although good air movement throughout, no wheezing or rales. Patient appears to be extremely uncomfortable, unable to phonate. Patient was immediately brought to room and I immediately assess the patient. She was immediately placed on telemetry. Racemic epinephrine nebulizer as well as nebulized lidocaine were initiated. An IV access was established. Patient was given 10 mg of dexamethasone IV. She has also been given 2 mg of lorazepam as she is extremely anxious and this may be contributing to vocal cord spasming at this time. A stat portable soft tissue neck as well as chest x-ray have been ordered. Laboratories will be obtained. Patient is critically ill at this time will require frequent reassessments given her respiratory distress and risk for respiratory decompensation. 10/11/17 19:24 Patient's work of breathing is gradually improving. She is not able to speak. Will continue to reassess frequently. 10/11/17 20:04 Patient's work of breathing is markedly improved, she no longer has any stridor. She is resting calmly. Respiratory rate of 13, 100% on room air. Will continue to monitor. Soft tissue neck and chest x-ray are negative for any acute findings. 10/11/17 20:22 Patient continues to do very well, drinking fluids now without any difficulty. Vitals remain within normal limits. Speaking without difficulty. At this time will discharge with return precautions and follow-up recommendations. Verbal discharge instructions given a the bedside and opportunity for questions given. Medication warnings reviewed. Patient is in agreement with this plan and has verbalized understanding of return precautions and the need for primary care follow-up in the next 24-72 hours. - Vital Signs Vital signs: Temp Pulse Resp BP Pulse Ox 98.2 F 26 H 136/81 H 100 10/11/17 20:34 10/11/17 20:01 10/11/17 20:01 10/11/17 20:01 - Laboratory Result Diagrams: 10/11/17 18:50 10/11/17 18:50 Laboratory results interpreted by me: 10/11/17 10/11/17 18:50 18:50 WBC 13.9 H RBC 3.38 L Hgb 10.9 L Hct 32.8 L RDW 14.2 H Absolute Neutrophils 8.5 H BUN 39 H Creatinine 10.68 H Est GFR ( Amer) 5 L Est GFR (Non-Af Amer) 4 L - Diagnostic Test Radiology reviewed: Image reviewed, Reports reviewed Radiology results interpreted by me: 10/12/17 03:04 Chest x-ray: No acute infiltrate or pneumothorax Critical Care Note - Critical Care Note Total time excluding time spent on procedures (mins): 38 Comments: Critical care time spent obtaining history from patient or surrogate, discussions with consultants, development of treatment plan with patient or surrogate, evaluation of patient's response to treatment, examination of patient , ordering and performing treatments and interventions, ordering and review of laboratory studies, re-evaluation of patient's condition, ordering and review of radiographic studies and review of old charts Discharge - Discharge Clinical Impression: Respiratory distress, Stridor, Spasm of vocal cords Condition: Good Disposition: HOME, SELF-CARE Additional Instructions: You were seen today for severe shortness of breath likely due to vocal cord spasming. Your symptoms have improved here with treatment. Please return to the emergency department immediately if you develop recurrence of your symptoms , feel he cannot breathe, persistent vomiting in the past out, or have any other symptoms that are worrisome to you. Referrals: JOSE ALEJANDRO GASTELUM, [Primary Care Provider] - Follow up as needed
[2017-10-11 19:01] LABS: ABSOLUTE BASOPHILS # (AUTO) 0.1 10^3/uL (0.0-0.2); ABSOLUTE EOSINOPHILS # (AUTO) 0.2 10^3/uL (0.0-0.6); ABSOLUTE LYMPHOCYTES (AUTO) 3.8 10^3/uL (0.5-4.7); ABSOLUTE MONOCYTES (AUTO) 1.2 10^3/uL (0.1-1.4); ABSOLUTE NEUT (AUTO) 8.5 10^3/uL (1.7-8.2); BASOPHILS % (AUTO) 0.9 % (0-2); EOSINOPHILS % (AUTO) 1.5 % (0-6); HEMATOCRIT 32.8 % (36.0-47.0); HEMOGLOBIN 10.9 g/dL (12.0-15.5); LYMPHOCYTES % (AUTO) 27.6 % (13-45); MEAN CORPUSCULAR HEMOGLOBIN 32.1 pg (27.0-33.4); MEAN CORPUSCULAR HGB CONC 33.1 g/dL (32.0-36.0); MEAN CORPUSCULAR VOLUME 97 fl (80-97); MONOCYTES % (AUTO) 8.8 % (3-13); PLATELET COUNT 159 10^3/uL (150-450); RED BLOOD COUNT 3.38 10^6/uL (3.72-5.28); RED CELL DISTRIBUTION WIDTH 14.2 % (11.5-14.0); SEGMENTED NEUTROPHILS % (AUTO) 61.2 % (42-78); TOTAL CELLS COUNTED % (AUTO) 100 %; WHITE BLOOD COUNT 13.9 10^3/uL (4.0-10.5)
[2017-10-11 19:30] LABS: ANION GAP 17 (5-19); BLOOD UREA NITROGEN 39 mg/dL (7-20); CALCIUM 8.9 mg/dL (8.4-10.2); CARBON DIOXIDE 22 mmol/L (22-30); CHLORIDE 103 mmol/L (98-107); GLUCOSE 108 mg/dL (75-110); POTASSIUM 4.2 mmol/L (3.6-5.0); SODIUM 142.2 mmol/L (137-145)
--- NOTE | 2017-10-11 20:01 | RADIOLOGY REPORT (SQ) ---
EXAM DESCRIPTION: SOFT TISSUE NECK COMPLETED DATE/TIME: 10/11/2017 7:39 pm REASON FOR STUDY: stridor, respiratory distress COMPARISON: None. NUMBER OF VIEWS: Two views. TECHNIQUE: AP and lateral radiographic image of the soft tissues of the neck. LIMITATIONS: Positioning. Neck not extended. FINDINGS: EPIGLOTTIS: Not well visualized. PREVERTEBRAL SOFT TISSUES: Normal. No soft tissue swelling. SUBGLOTTIC AREA: Normal. No narrowing. RETROPHARYNGEAL SPACE: Normal. No soft tissue masses. BONES: No significant findings. LUNG APICES: Normal. OTHER: No radiopaque foreign body. No other significant finding. IMPRESSION: NEGATIVE STUDY OF THE SOFT TISSUES OF THE NECK. TECHNICAL DOCUMENTATION: JOB ID: [id number] [employer]- All Rights Reserved Reading location - IP/workstation name: [email or web address]
--- NOTE | 2017-10-11 20:02 | RADIOLOGY REPORT (SQ) ---
EXAM DESCRIPTION: CHEST SINGLE VIEW COMPLETED DATE/TIME: 10/11/2017 7:39 pm REASON FOR STUDY: stridor, respiratory distress COMPARISON: 05/28/2016 EXAM PARAMETERS: NUMBER OF VIEWS: One view. TECHNIQUE: Single frontal radiographic view of the chest acquired. RADIATION DOSE: NA LIMITATIONS: None. FINDINGS: LUNGS AND PLEURA: No opacities, masses or pneumothorax. No pleural effusion. MEDIASTINUM AND HILAR STRUCTURES: No masses. Contour normal. HEART AND VASCULAR STRUCTURES: Stable heart size. BONES: No acute findings. HARDWARE: None in the chest. OTHER: Left-sided central line with tip overlying cavoatrial junction. IMPRESSION: NO ACUTE RADIOGRAPHIC FINDING IN THE CHEST. TECHNICAL DOCUMENTATION: JOB ID: [id number] [employer]- All Rights Reserved Reading location - IP/workstation name: [email or web address]
[2017-10-11 20:07] VITALS: BP 136/81
== END 2017-10-11 20:43 | disposition home or self-care (01) ==
LOC: ER 18:33
DX: J80 Acute respiratory distress syndrome (principal); J38.5 Laryngeal spasm; I12.0 Hypertensive chronic kidney disease with stage 5 chronic kidney disease or end stage renal disease; N18.6 End stage renal disease; Z99.2 Dependence on renal dialysis; Z90.710 Acquired absence of both cervix and uterus; Z88.6 Allergy status to analgesic agent; Z88.0 Allergy status to penicillin; Z91.040 Latex allergy status; Z88.3 Allergy status to other anti-infective agents
CPT/HCPCS: 94640; 99285; 96374; 96375; 36415; 85025; 80048; 71045; 70360; J2060; J3490 ×2; J1100

== ENCOUNTER 2018-01-07 08:51 | Emergency (ER) | payer MEDICARE, OTHER, MEDICAID ==
--- NOTE | 2018-01-07 10:19 | ER Document Report ---
ED Dialysis Cath/Shunt Problem - General Chief Complaint: Dialysis Catheter Problem Stated Complaint: PORT ISSUE Time Seen by Provider: 01/07/18 09:37 Notes: 47-year-old female patient to the emergency department after accidentally cutting the access port to her dialysis catheter located in the left subclavian chest. Had significant amount of bleeding. Denies any shortness of breath or pain at this time. States that the catheter was placed by her vascular surgeon at [facility] in [facility]. TRAVEL OUTSIDE OF THE [place] IN LAST 30 DAYS: No - HPI Onset: Just prior to arrival Onset/Duration: Sudden - Related Data Allergies/Adverse Reactions: montelukast sodium [From Singulair] Allergy (Intermediate, Verified 10/11/17 18: 34) Shortness of Breath codeine Allergy (Mild, Verified 10/11/17 18:34) Swelling of Throat erythromycin base [Erythromycin Base] Allergy (Verified 10/11/17 18:34) sob, hives hydrocodone bitartrate [From Vicodin] Allergy (Verified 10/11/17 18:34) sob, hives ondansetron HCl [From Zofran] Allergy (Verified 10/11/17 18:34) sob, rash oxycodone HCl [From Percocet] Allergy (Verified 10/11/17 18:34) sob, rash penicillin G [Penicillin G] Allergy (Verified 10/11/17 18:34) sob, rash latex Allergy (Severe, Uncoded 10/11/17 18:34) sob, hives adhesives Adverse Reaction (Severe, Uncoded 10/11/17 18:34) hung Past Medical History - General Information source: Patient - Social History Smoking Status: Never Smoker Frequency of alcohol use: None Drug Abuse: None Lives with: Family Family History: Reviewed & Not Pertinent Patient has suicidal ideation: No Patient has homicidal ideation: No - Past Medical History Cardiac Medical History: Reports: Hx Hypertension Pulmonary Medical History: Reports: Hx Asthma, Hx Pneumonia, Hx Sleep Apnea Neurological Medical History: Reports: Hx Migraine Endocrine Medical History: Reports: Hx Hypothyroidism Renal/ Medical History: Reports: Hx End Stage Renal Disease, Hx Hemodialysis. Denies: Hx Peritoneal Dialysis GI Medical History: Reports: Hx Gastroesophageal Reflux Disease, Hx Ulcer Musculoskeltal Medical History: Reports Hx Arthritis Past Surgical History: Reports: Hx Appendectomy, Hx Hysterectomy, Hx Oral Surgery, Hx Thyroid Surgery - thyroidectomy, Hx Tubal Ligation, Hx Vascular Surgery - left port in chest-put in on 06/23/12 - Immunizations Immunizations up to date: Yes Hx Diphtheria, Pertussis, Tetanus Vaccination: Yes Hx Pneumococcal Vaccination: 05/19/13 Review of Systems - Review of Systems Constitutional: No symptoms reported EENT: No symptoms reported Cardiovascular: No symptoms reported Respiratory: Short of breath Gastrointestinal: No symptoms reported Hematologic/Lymphatic: See HPI, Blood clots, Easy bleeding, Easy bruising Physical Exam - Vital signs Vitals: Resp 7 L 01/07/18 11:00 Interpretation: Normal - Respiratory Respiratory status: No respiratory distress Chest status: Nontender, Other - She has a dialysis catheter left subclavian area. There is small amount of blood coming out of the severed port Breath sounds: Normal Chest palpation: Normal - Cardiovascular Rhythm: Regular Heart sounds: Normal auscultation Murmur: Yes - Abdominal Inspection: Normal Distension: No distension Bowel sounds: Normal Tenderness: Nontender Organomegaly: No organomegaly - Neurological Neuro grossly intact: Yes Cognition: Normal Orientation: AAOx4 Walton Coma Scale Eye Opening: Spontaneous Stefanie Coma Scale Verbal: Oriented Walton Coma Scale Motor: Obeys Commands Walton Coma Scale Total: 15 Speech: Normal Motor strength normal: LUE, RUE, LLE, RLE Sensory: Normal - Skin Skin Temperature: Warm Skin Moisture: Dry Skin Color: Normal Course - Re-evaluation Re-evalutation: 01/07/18 11:23 Surgeon called immediately after evaluating patient. Clamp was placed across the severed port. No active bleeding at this time. Chest x-ray and labs ordered. Consulted with vascular surgeon at [facility]. Will transfer there. This is at patient's request. 01/07/18 13:02 Patient stable for transfer at this time - Vital Signs Vital signs: Temp Pulse Resp BP Pulse Ox 98.7 F 12 151/91 H 98 01/07/18 12:06 01/07/18 12:07 01/07/18 12:07 01/07/18 12:07 - Laboratory Result Diagrams: 01/07/18 11:45 01/07/18 11:45 Laboratory results interpreted by me: 01/07/18 11:45 RBC 3.65 L MCV 100 H RDW 14.8 H Discharge - Discharge Clinical Impression: Dialysis catheter clot or failure Condition: Good Disposition: [facility] Referrals: JOSE ALEJANDRO GASTELUM DO [Primary Care Provider] - Follow up as needed
--- NOTE | 2018-01-07 11:15 | RADIOLOGY REPORT (SQ) ---
EXAM DESCRIPTION: CHEST SINGLE VIEW COMPLETED DATE/TIME: 01/07/2018 10:58 am REASON FOR STUDY: sob COMPARISON: 10/11/2017 EXAM PARAMETERS: NUMBER OF VIEWS: One view. TECHNIQUE: Single frontal radiographic view of the chest acquired. RADIATION DOSE: NA LIMITATIONS: None. FINDINGS: LUNGS AND PLEURA: No opacities, masses or pneumothorax. No pleural effusion. MEDIASTINUM AND HILAR STRUCTURES: No masses. Contour normal. HEART AND VASCULAR STRUCTURES: Heart normal in size. Normal vasculature. BONES: No acute findings. HARDWARE: A dual-lumen catheter remains in place on the left. OTHER: No other significant finding. IMPRESSION: No acute cardiopulmonary imaging findings. TECHNICAL DOCUMENTATION: JOB ID: [id number] [employer]- All Rights Reserved Reading location - IP/workstation name: [email or web address]
[2018-01-07 12:14] LABS: ABSOLUTE LYMPHOCYTES (AUTO) 1.7 10^3/uL (0.5-4.7); ABSOLUTE MONOCYTES (AUTO) 1.1 10^3/uL (0.1-1.4); ABSOLUTE NEUT (AUTO) 6.8 10^3/uL (1.7-8.2); BASOPHILS % (AUTO) 0.3 % (0-2); EOSINOPHILS % (AUTO) 0.3 % (0-6); HEMATOCRIT 36.6 % (36.0-47.0); LYMPHOCYTES % (AUTO) 17.3 % (13-45); MEAN CORPUSCULAR HEMOGLOBIN 32.9 pg (27.0-33.4); MEAN CORPUSCULAR HGB CONC 32.7 g/dL (32.0-36.0); MEAN CORPUSCULAR VOLUME 100 fl (80-97); MONOCYTES % (AUTO) 11.4 % (3-13); PLATELET COUNT 188 10^3/uL (150-450); RED BLOOD COUNT 3.65 10^6/uL (3.72-5.28); RED CELL DISTRIBUTION WIDTH 14.8 % (11.5-14.0); SEGMENTED NEUTROPHILS % (AUTO) 70.7 % (42-78); TOTAL CELLS COUNTED % (AUTO) 100 %; WHITE BLOOD COUNT 9.6 10^3/uL (4.0-10.5)
--- NOTE | 2018-01-07 12:57 | PDOC CONSULTATION ---
Consultation Consult Date: 01/07/18 Consult reason:: Cut arterial port of HD catheter History of Present Illness Admission Date/PCP: JOSE ALEJANDRO GASTELUM DO Patient complains of: bleeding from cut arterial port of HD catheter History of Present Illness: DESIREE ARITA is a 47 year old female who inadvertently cut the arterial port of HD catheter this am. A lot of bleeding noted and went to ED immediately. Had HD catheter placed in [place] and HD here at [place]. Last HD yesterday. Patient is on Xarelto for hypercoagulable condition. Past Medical History Cardiac Medical History: Reports: Hypertension Pulmonary Medical History: Reports: Asthma, Pneumonia, Sleep Apnea Neurological Medical History: Reports: Migraine Endocrine Medical History: Reports: Hypothyroidism Renal/ Medical History: Reports: End Stage Renal Disease GI Medical History: Reports: Gastroesophageal Reflux Disease Musculoskeltal Medical History: Reports: Arthritis Hematology: Reports: Anemia Past Surgical History Past Surgical History: Reports: Appendectomy, Hysterectomy, Tubal Ligation, Vascular Surgery - left port in chest-put in on 06/23/12 Social History Lives with: Family Smoking Status: Never Smoker Frequency of Alcohol Use: None Hx Recreational Drug Use: No Drugs: None Hx Prescription Drug Abuse: No Family History Family History: Reviewed & Not Pertinent Parental Family History Reviewed: Yes Children Family History Reviewed: No Sibling(s) Family History Reviewed.: No Medication/Allergy Home Medications: Adalimumab [Humira Pen] 40 mg SQ [id number] 09/02/17 Amlodipine Besylate [Norvasc 10 mg Tablet] 10 mg PO DAILY 09/02/17 Aspirin [Ecotrin 81 mg EC Tablet] 81 mg PO DAILY 09/02/17 Butalb/Acetaminophen/Caffeine [Fioricet (50-325-40 mg) Tablet] 1 tab PO Q6HP PRN 09/02/17 Calcium Acetate [Phoslo 667 mg Capsule] 1,334 mg PO ASDIR PRN 09/02/17 Calcium Acetate [Phoslo 667 mg Capsule] 2,668 mg PO AC 09/02/17 Diazepam [Valium 5 mg Tablet] 5 mg PO TIDP PRN 09/02/17 Diphenhydramine HCl [Benadryl 25 mg Capsule] 25 mg PO DAILYP PRN 09/02/17 Docusate Sodium [Colace 100 mg Capsule] 100 mg PO BIDP PRN 09/02/17 Ferric Citrate [Auryxia] 420 mg PO AC 09/02/17 Fluticasone Propionate [Flonase Nasal Hills 50 Mcg/[place]ills 16 gm] 2 sprays NASL DAILY 09/02/17 Fluticasone/Salmeterol [Advair 500-50 Diskus 28 Dose] 1 inh IH DAILY 09/02/17 Folic Acid/Vit B Complex and C [Denise-Joshua Tablet] 0.8 mg PO DAILY 09/02/17 Hydralazine HCl 100 mg PO Q12 09/02/17 Hydromorphone HCl [Dilaudid 2 mg Tablet] 1 mg PO Q4HP PRN 09/02/17 Levothyroxine Sodium [Synthroid] 137 mcg PO Q6AM 09/02/17 Lidocaine [Lidoderm 5% (700 mg) Transdermal Patch] 1 patch TP DAILY 09/02/17 Methocarbamol [Robaxin 500 mg Tablet] 1,000 mg PO BID PRN 09/02/17 Metoprolol Tartrate [Lopressor 50 mg Tablet] 100 mg PO Q12 09/02/17 Mupirocin [Bactroban 2% Ointment 22 gm] 1 applic TP BID 09/02/17 Omeprazole 20 mg PO DAILY 09/02/17 Prednisone [Deltasone 5 mg Tablet] 5 mg PO DAILY 09/02/17 Promethazine HCl [Phenergan 25 mg Tablet] 25 mg PO Q8HP PRN 09/02/17 Sennosides [Senna] 8.6 mg PO DAILYP PRN 09/02/17 Sodium Bicarbonate [Sodium Bicarbonate 650 mg Tablet] 650 mg PO DAILY 09/02/17 Allergies/Adverse Reactions: montelukast sodium [From Singulair] Allergy (Intermediate, Verified 10/11/17 18: 34) Shortness of Breath codeine Allergy (Mild, Verified 10/11/17 18:34) Swelling of Throat erythromycin base [Erythromycin Base] Allergy (Verified 10/11/17 18:34) sob, hives hydrocodone bitartrate [From Vicodin] Allergy (Verified 10/11/17 18:34) sob, hives ondansetron HCl [From Zofran] Allergy (Verified 10/11/17 18:34) sob, rash oxycodone HCl [From Percocet] Allergy (Verified 10/11/17 18:34) sob, rash penicillin G [Penicillin G] Allergy (Verified 10/11/17 18:34) sob, rash latex Allergy (Severe, Uncoded 10/11/17 18:34) sob, hives adhesives Adverse Reaction (Severe, Uncoded 10/11/17 18:34) hung Review of Systems Constitutional: PRESENT: other - no fever/chills Eyes: PRESENT: other - no visual/hearing changes Cardiovascular: PRESENT: other - no chest pains/cough Neurological: PRESENT: other - no seizures Hematologic/Lymphatic: PRESENT: other - no easy bruising Physical Exam Vital Signs: Temp Pulse Resp BP Pulse Ox 98.7 F 12 151/91 H 98 01/07/18 12:06 01/07/18 12:07 01/07/18 12:07 01/07/18 12:07 Intake & Output 01/06/18 01/07/18 01/08/18 06:59 06:59 06:59 Weight 68.039 kg General appearance: PRESENT: no acute distress Head exam: PRESENT: atraumatic Eye exam: PRESENT: conjunctiva pink Mouth exam: PRESENT: moist Neck exam: PRESENT: full ROM Respiratory exam: PRESENT: clear to auscultation diego Cardiovascular exam: PRESENT: RRR, other - Left Internal Jugular HD catheter with complete transection of one port(arterial end). Has blood coming out with deep breathing and air blood going back in with some air on deep breathing. This was immediately clamped. No significant amount of air ingress. Pulses: PRESENT: normal radial pulses Vascular exam: PRESENT: normal capillary refill GI/Abdominal exam: PRESENT: soft Rectal exam: PRESENT: deferred Extremities exam: PRESENT: full ROM Musculoskeletal exam: PRESENT: ambulatory Neurological exam: PRESENT: alert, oriented to person, oriented to place, oriented to time, oriented to situation Psychiatric exam: PRESENT: appropriate affect Skin exam: PRESENT: normal color, warm Results Laboratory Results: 01/07/18 11:45 01/07/18 11:45 01/07/18 01/07/18 11:45 11:45 WBC 9.6 RBC 3.65 L Hgb 12.0 Hct 36.6 MCV 100 H MCH 32.9 MCHC 32.7 RDW 14.8 H Plt Count 188 Seg Neutrophils % 70.7 Lymphocytes % 17.3 Monocytes % 11.4 Eosinophils % 0.3 Basophils % 0.3 Absolute Neutrophils 6.8 Absolute Lymphocytes 1.7 Absolute Monocytes 1.1 Absolute Eosinophils 0.0 Absolute Basophils 0.0 Sodium Cancelled Potassium Cancelled Chloride Cancelled Carbon Dioxide Cancelled Anion Gap Cancelled BUN Cancelled Creatinine Cancelled Est GFR ( Amer) Cancelled Est GFR (Non-Af Amer) Cancelled Glucose Cancelled Calcium Cancelled Total Bilirubin Cancelled AST Cancelled ALT Cancelled Alkaline Phosphatase Cancelled Total Protein Cancelled Albumin Cancelled Impressions: Chest X-Ray 01/07/18 10:18 IMPRESSION: No acute cardiopulmonary imaging findings. Assessment & Plan - Diagnosis (1) Hemodialysis catheter dysfunction Is this a current diagnosis for this admission?: Yes - Time Time Spent: 30 to 50 Minutes - Plan Summary Plan Summary: Cut catheter end clamped with a hemostat. Since patient on Xarelto and catheter placed in [place], they have better knowledge of the patient and they can fixed the HD catheter problem better than we can. OK to transfer patient to [place].
[2018-01-07 13:06] VITALS: BP 134/90
[2018-01-07 13:22] LABS: ALANINE AMINOTRANSFERASE 21 U/L (9-52); ALBUMIN 4.2 g/dL (3.5-5.0); ALKALINE PHOSPHATASE 65 U/L (38-126); ANION GAP 17 (5-19); ASPARTATE AMINO TRANSFERASE 35 U/L (14-36); BILIRUBIN,DIRECT 0.5 mg/dL (0.0-0.4); BILIRUBIN,TOTAL 0.5 mg/dL (0.2-1.3); BLOOD UREA NITROGEN 38 mg/dL (7-20); CALCIUM 9.2 mg/dL (8.4-10.2); CARBON DIOXIDE 27 mmol/L (22-30); CHLORIDE 104 mmol/L (98-107); GLUCOSE 77 mg/dL (75-110); POTASSIUM 4.3 mmol/L (3.6-5.0); SODIUM 147.5 mmol/L (137-145); TOTAL PROTEIN 7.2 g/dL (6.3-8.2)
== END 2018-01-07 13:17 | disposition short-term general hospital (02) ==
LOC: ER 08:51
DX: Z49.01 Encounter for fitting and adjustment of extracorporeal dialysis catheter (principal); I12.0 Hypertensive chronic kidney disease with stage 5 chronic kidney disease or end stage renal disease; N18.6 End stage renal disease; J45.909 Unspecified asthma, uncomplicated; R06.02 Shortness of breath; Z88.8 Allergy status to other drugs, medicaments and biological substances; Z88.5 Allergy status to narcotic agent; Z88.1 Allergy status to other antibiotic agents; Z88.0 Allergy status to penicillin; Z91.040 Latex allergy status
CPT/HCPCS: 36415; 71045; 80053; 85025; 99285

== ENCOUNTER 2018-02-18 20:12 | Emergency (ER) | payer MEDICARE, OTHER, MEDICAID ==
[2018-02-18] MEDS ORDERED: HYDROMORPHONE HCL 2 MG TABLET PO ONE (21:59)
[2018-02-18] MEDS ORDERED: VALACYCLOVIR HCL 500 MG TABLET PO ONE (21:59)
[2018-02-18 23:34] LABS: ABSOLUTE EOSINOPHILS # (AUTO) 0.3 10^3/uL (0.0-0.6); ABSOLUTE LYMPHOCYTES (AUTO) 2.1 10^3/uL (0.5-4.7); ABSOLUTE MONOCYTES (AUTO) 1.1 10^3/uL (0.1-1.4); ABSOLUTE NEUT (AUTO) 4.6 10^3/uL (1.7-8.2); BASOPHILS % (AUTO) 0.6 % (0-2); HEMATOCRIT 35.9 % (36.0-47.0); LYMPHOCYTES % (AUTO) 25.3 % (13-45); MEAN CORPUSCULAR HEMOGLOBIN 32.7 pg (27.0-33.4); MEAN CORPUSCULAR HGB CONC 33.5 g/dL (32.0-36.0); MEAN CORPUSCULAR VOLUME 98 fl (80-97); PLATELET COUNT 168 10^3/uL (150-450); RED BLOOD COUNT 3.67 10^6/uL (3.72-5.28); RED CELL DISTRIBUTION WIDTH 14.2 % (11.5-14.0); SEGMENTED NEUTROPHILS % (AUTO) 56.1 % (42-78); TOTAL CELLS COUNTED % (AUTO) 100 %; WHITE BLOOD COUNT 8.2 10^3/uL (4.0-10.5)
[2018-02-18 23:52] LABS: ALANINE AMINOTRANSFERASE 21 U/L (9-52); ALBUMIN 4.5 g/dL (3.5-5.0); ALKALINE PHOSPHATASE 98 U/L (38-126); ANION GAP 16 (5-19); ASPARTATE AMINO TRANSFERASE 21 U/L (14-36); BILIRUBIN,DIRECT 0.5 mg/dL (0.0-0.4); BILIRUBIN,TOTAL 0.5 mg/dL (0.2-1.3); BLOOD UREA NITROGEN 35 mg/dL (7-20); CALCIUM 9.4 mg/dL (8.4-10.2); CARBON DIOXIDE 27 mmol/L (22-30); CHLORIDE 100 mmol/L (98-107); GLUCOSE 85 mg/dL (75-110); POTASSIUM 4.2 mmol/L (3.6-5.0); SODIUM 143.1 mmol/L (137-145); TOTAL PROTEIN 7.4 g/dL (6.3-8.2)
--- NOTE | 2018-02-19 00:07 | ER Document Report ---
ED General - General Chief Complaint: Nausea/Vomiting/Diarrhea Stated Complaint: BACK PAIN,NAUSEA Time Seen by Provider: 02/18/18 21:56 Mode of Arrival: Ambulatory Information source: Patient Notes: Patient with complaint of right flank pain and rash to right flank. Patient reports that the pain started Thursday and the rash started a few days later. Patient also reports that she vomited several days ago twice but has not since. Denies any fevers or urinary symptoms. Patient is a dialysis patient. TRAVEL OUTSIDE OF THE [place] IN LAST 30 DAYS: No - Related Data Allergies/Adverse Reactions: montelukast sodium [From Singulair] Allergy (Intermediate, Verified 02/21/18 13: 55) Shortness of Breath codeine Allergy (Mild, Verified 02/21/18 13:55) Swelling of Throat erythromycin base [Erythromycin Base] Allergy (Verified 02/21/18 13:55) sob, hives hydrocodone bitartrate [From Vicodin] Allergy (Verified 02/21/18 13:55) sob, hives ondansetron HCl [From Zofran] Allergy (Verified 02/21/18 13:55) sob, rash oxycodone HCl [From Percocet] Allergy (Verified 02/21/18 13:55) sob, rash penicillin G [Penicillin G] Allergy (Verified 02/21/18 13:55) sob, rash latex Allergy (Severe, Uncoded 02/21/18 13:55) sob, hives adhesives Adverse Reaction (Severe, Uncoded 02/21/18 13:55) hung Past Medical History - General Information source: Patient - Social History Smoking Status: Never Smoker Chew tobacco use (# tins/day): No Frequency of alcohol use: None Drug Abuse: None Family History: Reviewed & Not Pertinent Patient has suicidal ideation: No Patient has homicidal ideation: No - Past Medical History Cardiac Medical History: Reports: Hx Hypertension Pulmonary Medical History: Reports: Hx Asthma, Hx Pneumonia, Hx Sleep Apnea Neurological Medical History: Reports: Hx Migraine Endocrine Medical History: Reports: Hx Hypothyroidism Renal/ Medical History: Reports: Hx End Stage Renal Disease, Hx Hemodialysis. Denies: Hx Peritoneal Dialysis GI Medical History: Reports: Hx Gastroesophageal Reflux Disease, Hx Ulcer Musculoskeletal Medical History: Reports Hx Arthritis Past Surgical History: Reports: Hx Appendectomy, Hx Hysterectomy, Hx Oral Surgery, Hx Thyroid Surgery - thyroidectomy, Hx Tubal Ligation, Hx Vascular Surgery - left port in chest-put in on 06/23/12 - Immunizations Immunizations up to date: Yes Hx Diphtheria, Pertussis, Tetanus Vaccination: Yes Hx Pneumococcal Vaccination: 05/19/13 Review of Systems - Review of Systems Constitutional: No symptoms reported EENT: No symptoms reported Cardiovascular: No symptoms reported Respiratory: No symptoms reported Gastrointestinal: No symptoms reported Genitourinary: No symptoms reported Female Genitourinary: No symptoms reported Musculoskeletal: See HPI Skin: See HPI Hematologic/Lymphatic: No symptoms reported Neurological/Psychological: No symptoms reported Physical Exam - Vital signs Vitals: Temp Pulse Resp BP Pulse Ox 98 F 95 18 153/103 H 99 02/18/18 20:15 02/18/18 20:15 02/18/18 20:15 02/18/18 20:15 02/18/18 20:15 - Notes Notes: PHYSICAL EXAMINATION: GENERAL: Well-appearing, well-nourished and in no acute distress. HEAD: Atraumatic, normocephalic. EYES: Pupils equal round and reactive to light, extraocular movements intact, conjunctiva are normal. ENT: Nares patent, oropharynx clear without exudates. Moist mucous membranes. NECK: Normal range of motion, supple without lymphadenopathy LUNGS: Breath sounds clear to auscultation bilaterally and equal. No wheezes rales or rhonchi. HEART: Regular rate and rhythm without murmurs ABDOMEN: Soft, nontender, nondistended abdomen. No guarding, no rebound. No masses appreciated. Female : No CVA tenderness. Musculoskeletal: Normal range of motion, no pitting or edema. No cyanosis. NEUROLOGICAL: Cranial nerves grossly intact. Normal speech, normal gait. Normal sensory, motor exams PSYCH: Normal mood, normal affect. SKIN: Warm, Dry, normal turgor, Linear rash to right flank consistent with shingles. Course - Re-evaluation Re-evalutation: Linear rash to patients right flank consistent with shingles. Rash forde not cross the midline. Pain preceeded rash. Examination otherwise benign. Patient is a dialysis patient and her BUN/creatinine are elevated but at patient baseline. Will discharge patient on valacyclovir and analgesics. - Vital Signs Vital signs: Temp Pulse Resp BP Pulse Ox 97.8 F 88 18 121/79 97 02/19/18 00:24 02/19/18 00:24 02/18/18 20:15 02/19/18 00:26 02/19/18 00:24 - Laboratory Result Diagrams: 02/18/18 23:11 02/18/18 23:11 Laboratory results interpreted by me: 02/18/18 02/18/18 23:11 23:11 RBC 3.67 L Hct 35.9 L MCV 98 H RDW 14.2 H Monocytes % 14.0 H BUN 35 H Creatinine 11.22 H Est GFR ( Amer) 4 L Est GFR (Non-Af Amer) 4 L Direct Bilirubin 0.5 H Discharge - Discharge Clinical Impression: Shingles Qualifiers: Herpes zoster complications: without complications Qualified Code(s): B02.9 - Zoster without complications Condition: Stable Disposition: HOME, SELF-CARE Additional Instructions: Shingles You have shingles. Shingles is caused by the chicken pox virus, The virus has been surviving dormant in a nerve cell since you had chicken pox years ago. The virus has spread down a nerve root to reach the skin. Typically, an band-like area of pain and skin sensitivity develops, then small blisters erupt in the area. Shingles lasts two or three weeks, but sometimes leaves persistent pain. You are contagious -- you can give children chicken pox. But you can't give anyone shingles. Antiviral medicines (such as acyclovir or famciclovir) can help, but the rash usually worsens for about a week. Pain medication is often given if the area hurts. Antihistamines such as Benadryl may be necessary for itching if it does not respond to soda baths and calamine lotion. Sometimes cortisone medicine or nerve-block shots are necessary if pain is severe. If the area remains severely painful as the sores heal, or if you suspect an infection developing in the sores, see your doctor. Prescriptions: Morphine Sulfate [Morphine Ir 15 mg Tablet] 15 mg PO Q4HP PRN #12 tablet PRN Reason: Valacyclovir HCl [Valacyclovir] 1,000 mg PO Q8 #21 tablet Referrals: JOSE ALEJANDRO GASTELUM, [Primary Care Provider] - Follow up as needed
[2018-02-19] MEDS ORDERED: HYDROMORPHONE HCL 2 MG TABLET PO ONE (00:09)
[2018-02-19 00:27] VITALS: BP 121/79
== END 2018-02-19 00:27 | disposition home or self-care (01) ==
LOC: ER 20:12
DX: B02.9 Zoster without complications (principal); R11.2 Nausea with vomiting, unspecified; R19.7 Diarrhea, unspecified; Z88.1 Allergy status to other antibiotic agents; Z88.8 Allergy status to other drugs, medicaments and biological substances; Z88.0 Allergy status to penicillin; Z91.040 Latex allergy status; J45.909 Unspecified asthma, uncomplicated; G47.30 Sleep apnea, unspecified; E03.9 Hypothyroidism, unspecified; I12.0 Hypertensive chronic kidney disease with stage 5 chronic kidney disease or end stage renal disease; N18.6 End stage renal disease; Z99.2 Dependence on renal dialysis; K21.9 Gastro-esophageal reflux disease without esophagitis; M19.90 Unspecified osteoarthritis, unspecified site; Z90.710 Acquired absence of both cervix and uterus
CPT/HCPCS: 99283; 36415; 85025; 80053; A9270 ×3

== ENCOUNTER 2018-02-21 13:31 | Emergency (ER) | payer MEDICARE, OTHER, MEDICAID ==
--- NOTE | 2018-02-21 13:52 | ER Document Report ---
ED General - General Chief Complaint: Nausea/Vomiting Stated Complaint: NAUSEA/VOMITING Time Seen by Provider: 02/21/18 13:51 TRAVEL OUTSIDE OF THE [place] IN LAST 30 DAYS: No - Related Data Allergies/Adverse Reactions: montelukast sodium [From Singulair] Allergy (Intermediate, Verified 02/21/18 13: 34) Shortness of Breath codeine Allergy (Mild, Verified 02/21/18 13:34) Swelling of Throat erythromycin base [Erythromycin Base] Allergy (Verified 02/21/18 13:34) sob, hives hydrocodone bitartrate [From Vicodin] Allergy (Verified 02/21/18 13:34) sob, hives ondansetron HCl [From Zofran] Allergy (Verified 02/21/18 13:34) sob, rash oxycodone HCl [From Percocet] Allergy (Verified 02/21/18 13:34) sob, rash penicillin G [Penicillin G] Allergy (Verified 02/21/18 13:34) sob, rash latex Allergy (Severe, Uncoded 10/11/17 18:34) sob, hives adhesives Adverse Reaction (Severe, Uncoded 10/11/17 18:34) hung Past Medical History - Social History Family History: Reviewed & Not Pertinent - Past Medical History Cardiac Medical History: Reports: Hx Hypertension Pulmonary Medical History: Reports: Hx Asthma, Hx Pneumonia, Hx Sleep Apnea Neurological Medical History: Reports: Hx Migraine Endocrine Medical History: Reports: Hx Hypothyroidism Renal/ Medical History: Reports: Hx End Stage Renal Disease, Hx Hemodialysis. Denies: Hx Peritoneal Dialysis GI Medical History: Reports: Hx Gastroesophageal Reflux Disease, Hx Ulcer Musculoskeletal Medical History: Reports Hx Arthritis Past Surgical History: Reports: Hx Appendectomy, Hx Hysterectomy, Hx Oral Surgery, Hx Thyroid Surgery - thyroidectomy, Hx Tubal Ligation, Hx Vascular Surgery - left port in chest-put in on 06/23/12 - Immunizations Immunizations up to date: Yes Hx Diphtheria, Pertussis, Tetanus Vaccination: Yes Hx Pneumococcal Vaccination: 05/19/13 Physical Exam - Vital signs Vitals: Temp Pulse Resp BP Pulse Ox 98.7 F 95 16 146/88 H 97 02/21/18 13:39 02/21/18 13:39 02/21/18 13:39 02/21/18 13:39 02/21/18 13:39 Course - Vital Signs Vital signs: Temp Pulse Resp BP Pulse Ox 98.7 F 95 16 146/88 H 97 02/21/18 13:39 02/21/18 13:39 02/21/18 13:39 02/21/18 13:39 02/21/18 13:39 Discharge - Discharge Referrals: JOSE ALEJANDRO GASTELUM DO [Primary Care Provider] - Follow up as needed
[2018-02-21] MEDS ORDERED: METOCLOPRAMIDE HCL INJ/PF 10 MG/2 ML SDV IV ONE (13:53)
--- NOTE | 2018-02-21 13:55 | ER Document Report ---
ED Medical Screen (RME) - General Chief Complaint: Nausea/Vomiting Stated Complaint: NAUSEA/VOMITING Time Seen by Provider: 02/21/18 13:51 Mode of Arrival: Ambulatory Information source: Patient Notes: 47-year-old female with hypertension, end-stage renal disease, recent diagnosis of shingles presents with complaint of right flank pain, nausea, vomiting. Patient was seen here 2 days ago and diagnosed with shingles and sent home on acyclovir. She states since that time she has had consistent vomiting. She has been unable to tolerate any food fluids or medications. I have greeted and performed a rapid initial assessment of this patient. A comprehensive ED assessment and evaluation of the patient including analysis of labs and imaging ( if obtained) and completion of medical decision making will be conducted by an additional ED provider. PHYSICAL EXAMINATION: GENERAL: Well-appearing, well-nourished and in no acute distress. HEAD: Atraumatic, normocephalic. EYES: Pupils equal round extraocular movements intact, conjunctiva are normal. ENT: Nares patent NECK: Normal range of motion LUNGS: No respiratory distress Musculoskeletal: Normal range of motion NEUROLOGICAL: Normal speech, normal gait. PSYCH: Normal mood, normal affect. TRAVEL OUTSIDE OF THE [place] IN LAST 30 DAYS: No - Related Data Allergies/Adverse Reactions: montelukast sodium [From Singulair] Allergy (Intermediate, Verified 02/21/18 13: 55) Shortness of Breath codeine Allergy (Mild, Verified 02/21/18 13:55) Swelling of Throat erythromycin base [Erythromycin Base] Allergy (Verified 02/21/18 13:55) sob, hives hydrocodone bitartrate [From Vicodin] Allergy (Verified 02/21/18 13:55) sob, hives ondansetron HCl [From Zofran] Allergy (Verified 02/21/18 13:55) sob, rash oxycodone HCl [From Percocet] Allergy (Verified 02/21/18 13:55) sob, rash penicillin G [Penicillin G] Allergy (Verified 02/21/18 13:55) sob, rash latex Allergy (Severe, Uncoded 02/21/18 13:55) sob, hives adhesives Adverse Reaction (Severe, Uncoded 02/21/18 13:55) hung Past Medical History - Social History Chew tobacco use (# tins/day): No Frequency of alcohol use: None Drug Abuse: None Family history: Hypertension, Other - kidney failure - Past Medical History Cardiac Medical History: Reports: Hx Hypertension Pulmonary Medical History: Reports: Hx Asthma, Hx Pneumonia, Hx Sleep Apnea Neurological Medical History: Reports: Hx Migraine Endocrine Medical History: Reports: Hx Hypothyroidism Renal/ Medical History: Reports: Hx End Stage Renal Disease, Hx Hemodialysis. Denies: Hx Peritoneal Dialysis GI Medical History: Reports: Hx Gastroesophageal Reflux Disease, Hx Ulcer Musculoskeltal Medical History: Reports Hx Arthritis Past Surgical History: Reports: Hx Appendectomy, Hx Hysterectomy, Hx Oral Surgery, Hx Thyroid Surgery - thyroidectomy, Hx Tubal Ligation, Hx Vascular Surgery - left port in chest-put in on 06/23/12 - Immunizations Immunizations up to date: Yes Hx Diphtheria, Pertussis, Tetanus Vaccination: Yes Physical Exam - Vital signs Vitals: Temp Pulse Resp BP Pulse Ox 98.7 F 95 16 146/88 H 97 02/21/18 13:39 02/21/18 13:39 02/21/18 13:39 02/21/18 13:39 02/21/18 13:39 Course - Vital Signs Vital signs: Temp Pulse Resp BP Pulse Ox 98.7 F 95 16 146/88 H 97 02/21/18 13:39 02/21/18 13:39 02/21/18 13:39 02/21/18 13:39 02/21/18 13:39 Doctor's Discharge - Discharge Referrals: JOSE ALEJANDRO GASTELUM DO [Primary Care Provider] - Follow up as needed
--- NOTE | 2018-02-21 14:35 | ER Document Report ---
ED General - General Chief Complaint: Nausea/Vomiting Stated Complaint: NAUSEA/VOMITING Time Seen by Provider: 02/21/18 13:51 Mode of Arrival: Ambulatory Notes: 47-year-old female with a history of hypertension, end-stage renal disease, shingles presents emergency department with complaints of nausea, vomiting, generalized weakness. Patient states that she was seen in the emergency department 2 days ago and diagnosed with shingles. She was sent home on acyclovir. Patient states that she has had intermittent vomiting since then. She did not make her dialysis appointment on Thursday. Patient follows up with Dr. Matta, nephrology. TRAVEL OUTSIDE OF THE [place] IN LAST 30 DAYS: No - HPI Onset: Other - 4 days Onset/Duration: Constant Quality of pain: No pain Severity: None Associated symptoms: Nausea, Vomiting, Weakness Exacerbated by: Denies Relieved by: Denies Similar symptoms previously: No Recently seen / treated by doctor: Yes - Related Data Allergies/Adverse Reactions: montelukast sodium [From Singulair] Allergy (Intermediate, Verified 02/21/18 13: 55) Shortness of Breath codeine Allergy (Mild, Verified 02/21/18 13:55) Swelling of Throat erythromycin base [Erythromycin Base] Allergy (Verified 02/21/18 13:55) sob, hives hydrocodone bitartrate [From Vicodin] Allergy (Verified 02/21/18 13:55) sob, hives ondansetron HCl [From Zofran] Allergy (Verified 02/21/18 13:55) sob, rash oxycodone HCl [From Percocet] Allergy (Verified 02/21/18 13:55) sob, rash penicillin G [Penicillin G] Allergy (Verified 02/21/18 13:55) sob, rash latex Allergy (Severe, Uncoded 02/21/18 13:55) sob, hives adhesives Adverse Reaction (Severe, Uncoded 02/21/18 13:55) hung Past Medical History - General Information source: Patient - Social History Smoking Status: Never Smoker Chew tobacco use (# tins/day): No Frequency of alcohol use: None Drug Abuse: None Family History: Reviewed & Not Pertinent Patient has suicidal ideation: No Patient has homicidal ideation: No - Past Medical History Cardiac Medical History: Reports: Hx Hypertension Pulmonary Medical History: Reports: Hx Asthma, Hx Pneumonia, Hx Sleep Apnea Neurological Medical History: Reports: Hx Migraine Endocrine Medical History: Reports: Hx Hypothyroidism Renal/ Medical History: Reports: Hx End Stage Renal Disease, Hx Hemodialysis. Denies: Hx Peritoneal Dialysis GI Medical History: Reports: Hx Gastroesophageal Reflux Disease, Hx Ulcer Musculoskeletal Medical History: Reports Hx Arthritis Past Surgical History: Reports: Hx Appendectomy, Hx Hysterectomy, Hx Oral Surgery, Hx Thyroid Surgery - thyroidectomy, Hx Tubal Ligation, Hx Vascular Surgery - left port in chest-put in on 06/23/12 - Immunizations Immunizations up to date: Yes Hx Diphtheria, Pertussis, Tetanus Vaccination: Yes Hx Pneumococcal Vaccination: 05/19/13 Review of Systems - Review of Systems Constitutional: Weakness EENT: No symptoms reported Cardiovascular: No symptoms reported Respiratory: No symptoms reported Gastrointestinal: Nausea, Vomiting Genitourinary: No symptoms reported Female Genitourinary: No symptoms reported Musculoskeletal: No symptoms reported Skin: Lesions Hematologic/Lymphatic: No symptoms reported Neurological/Psychological: No symptoms reported -: Yes All other systems reviewed and negative Physical Exam - Vital signs Vitals: Temp Pulse Resp BP Pulse Ox 98.7 F 95 16 146/88 H 97 02/21/18 13:39 02/21/18 13:39 02/21/18 13:39 02/21/18 13:39 02/21/18 13:39 Interpretation: Normal - Notes Notes: PHYSICAL EXAMINATION: GENERAL: Well-appearing, well-nourished and in no acute distress. HEAD: Atraumatic, normocephalic. EYES: Pupils equal round and reactive to light, extraocular movements intact, conjunctiva are normal. ENT: Nares patent, oropharynx clear without exudates. Moist mucous membranes. NECK: Normal range of motion, supple without lymphadenopathy LUNGS: Breath sounds clear to auscultation bilaterally and equal. No wheezes rales or rhonchi. HEART: Regular rate and rhythm without murmurs ABDOMEN: Soft, nontender, nondistended abdomen. No guarding, no rebound. No masses appreciated. Female : deferred Musculoskeletal: Normal range of motion, no pitting or edema. No cyanosis. NEUROLOGICAL: Cranial nerves grossly intact. Normal speech, normal gait. Normal sensory, motor exams PSYCH: Normal mood, normal affect. SKIN: Warm, Dry, normal turgor, Shingles to R flank Course - Re-evaluation Re-evalutation: 02/21/18 17:32 I spoke with the patient's hog ringer, Dr. Matta. I went over the patient' s lab work with her. She does not feel that we need to treat the patient's potassium at this time. She feels that if we can control the patient's nausea then we can discharge her home and she can get outpatient dialysis tomorrow morning as scheduled. She does recommend a 500 cc bolus of fluids. On reevaluation, patient is feeling better. Nausea has resolved. Patient resting comfortably in the room. I discussed the plan of care with the patient and her family. They are agreeable with discharge home and getting dialysis done in the morning. Patient instructed to take the medication prescribed as directed, to follow-up with her primary care physician this week, and to return for worsening symptoms. - Vital Signs Vital signs: Temp Pulse Resp BP Pulse Ox 98.7 F 95 16 146/88 H 98 02/21/18 13:39 02/21/18 13:39 02/21/18 16:50 02/21/18 13:39 02/21/18 16:50 - Laboratory Result Diagrams: 02/21/18 15:06 02/21/18 15:06 Laboratory results interpreted by me: 02/21/18 02/21/18 02/21/18 15:06 15:06 16:11 RDW 14.2 H Potassium 5.3 H Chloride 95 L Anion Gap 20 H BUN 67 H Creatinine 18.18 H Est GFR ( Amer) 3 L Est GFR (Non-Af Amer) 2 L Urine Protein 30 H Urine Glucose (UA) 50 H Urine Blood SMALL H Discharge - Discharge Clinical Impression: Hyperkalemia Nausea & vomiting Qualifiers: Vomiting type: unspecified Vomiting Intractability: non-intractable Qualified Code(s): R11.2 - Nausea with vomiting, unspecified Renal failure Qualifiers: Renal failure chronicity: chronic Chronic kidney disease stage: unspecified stage Qualified Code(s): N18.9 - Chronic kidney disease, unspecified Condition: Stable Disposition: HOME, SELF-CARE Instructions: Antinausea Medication ([facility]) Prescriptions: Promethazine HCl [Phenergan 25 mg Tablet] 1 tab PO Q6H PRN #15 tablet PRN Reason: Referrals: JOSE ALEJANDRO GASTELUM DO [Primary Care Provider] - Follow up as needed
[2018-02-21 15:19] LABS: ABSOLUTE EOSINOPHILS # (AUTO) 0.1 10^3/uL (0.0-0.6); ABSOLUTE MONOCYTES (AUTO) 0.7 10^3/uL (0.1-1.4); ABSOLUTE NEUT (AUTO) 5.6 10^3/uL (1.7-8.2); BASOPHILS % (AUTO) 0.5 % (0-2); EOSINOPHILS % (AUTO) 0.7 % (0-6); HEMATOCRIT 36.9 % (36.0-47.0); HEMOGLOBIN 12.4 g/dL (12.0-15.5); LYMPHOCYTES % (AUTO) 13.3 % (13-45); MEAN CORPUSCULAR HEMOGLOBIN 32.8 pg (27.0-33.4); MEAN CORPUSCULAR HGB CONC 33.7 g/dL (32.0-36.0); MEAN CORPUSCULAR VOLUME 97 fl (80-97); MONOCYTES % (AUTO) 8.9 % (3-13); PLATELET COUNT 166 10^3/uL (150-450); RED CELL DISTRIBUTION WIDTH 14.2 % (11.5-14.0); SEGMENTED NEUTROPHILS % (AUTO) 76.6 % (42-78); TOTAL CELLS COUNTED % (AUTO) 100 %; WHITE BLOOD COUNT 7.3 10^3/uL (4.0-10.5)
[2018-02-21 15:42] LABS: BLOOD UREA NITROGEN 67 mg/dL (7-20); CALCIUM 9.2 mg/dL (8.4-10.2); GLUCOSE 79 mg/dL (75-110); POTASSIUM 5.3 mmol/L (3.6-5.0)
[2018-02-21 15:48] LABS: CARBON DIOXIDE 29 mmol/L (22-30); CHLORIDE 95 mmol/L (98-107)
[2018-02-21 15:59] LABS: ANION GAP 20 (5-19)
[2018-02-21] MEDS ORDERED: PROMETHAZINE HCL INJ 25 MG/1 ML VIAL IV ONE (16:40)
[2018-02-21] MEDS ORDERED: NORMAL SALINE 500 ML IV ONE (16:59)
[2018-02-21 17:10] LABS: APPEARANCE,URINE CLEAR; BILIRUBIN,URINE NEGATIVE (NEGATIVE); COLOR,URINE STRAW; GLUCOSE, URINE 50 mg/dL (NEGATIVE); KETONES,URINE NEGATIVE (NEGATIVE); LEUKOCYTE ESTERASE,URINE NEGATIVE (NEGATIVE); NITRITE,URINE NEGATIVE (NEGATIVE); PROTEIN,URINE 30 mg/dL (NEGATIVE); URINE SPECIFIC GRAVITY 1.006; UROBILINOGEN,URINE NEGATIVE mg/dL (<2.0)
[2018-02-21 17:51] VITALS: BP 157/96
== END 2018-02-21 18:01 | disposition home or self-care (01) ==
LOC: ER 13:31
DX: I12.0 Hypertensive chronic kidney disease with stage 5 chronic kidney disease or end stage renal disease (principal); N18.6 End stage renal disease; R11.2 Nausea with vomiting, unspecified; E87.5 Hyperkalemia; Z99.2 Dependence on renal dialysis; J45.909 Unspecified asthma, uncomplicated
CPT/HCPCS: 99284; 96361; 96374; 96375; 36415; 85025; 80048; 81001; J2765; J2550; J7040

== ENCOUNTER 2018-03-18 12:35 | Emergency (ER) | payer MEDICARE, OTHER, MEDICAID ==
--- NOTE | 2018-03-18 15:30 | ER Document Report ---
ED Medical Screen (RME) - General Chief Complaint: Dizziness Stated Complaint: DIZZY Time Seen by Provider: 03/18/18 15:22 Mode of Arrival: Ambulatory TRAVEL OUTSIDE OF THE [place] IN LAST 30 DAYS: No - HPI Notes: 03/18/18 15:30 47-year-old female with a medical history of end-stage renal disease, migraines , RA, asthma presents to the ED today for complaints of when she stands up, she has a racing heart, dizziness and feels like she is going to pass out, this started at 10 AM this morning. Has not tried any [id number] medications. Patient sees Dr. Peralta who is her primary care provider, Dr. Olson his design architect and Dr. Hans Renee whom she sees for blood clots in the past. Patient is on blood thinners and she does go to dialysis. Patient had dialysis yesterday at [facility], she states the symptoms started today not right after dialysis. Patient reports she was vomiting on Thursday but that has since resolved. S1-S2 regular, lungs CTA microcomputer technician +2 in BLE PERRLA I have greeted and performed a rapid initial assessment of this patient. A comprehensive ED assessment and evaluation of the patient, analysis of test results and completion of medical decision making process will be conducted by an additional ED providers. 03/18/18 15:33 - Related Data Allergies/Adverse Reactions: montelukast sodium [From Singulair] Allergy (Intermediate, Verified 03/18/18 15: 20) Shortness of Breath codeine Allergy (Mild, Verified 03/18/18 15:20) Swelling of Throat erythromycin base [Erythromycin Base] Allergy (Verified 03/18/18 15:20) sob, hives hydrocodone bitartrate [From Vicodin] Allergy (Verified 03/18/18 15:20) sob, hives ondansetron HCl [From Zofran] Allergy (Verified 03/18/18 15:20) sob, rash oxycodone HCl [From Percocet] Allergy (Verified 03/18/18 15:20) sob, rash penicillin G [Penicillin G] Allergy (Verified 03/18/18 15:20) sob, rash valacyclovir Allergy (Verified 03/18/18 15:20) latex Allergy (Severe, Uncoded 03/18/18 15:20) sob, hives adhesives Adverse Reaction (Severe, Uncoded 03/18/18 15:20) hung Past Medical History - Social History Family history: Hypertension, Other - kidney failure - Past Medical History Cardiac Medical History: Reports: Hx Hypertension Pulmonary Medical History: Reports: Hx Asthma, Hx Pneumonia, Hx Sleep Apnea Neurological Medical History: Reports: Hx Migraine Endocrine Medical History: Reports: Hx Hypothyroidism Renal/ Medical History: Reports: Hx End Stage Renal Disease, Hx Hemodialysis. Denies: Hx Peritoneal Dialysis GI Medical History: Reports: Hx Gastroesophageal Reflux Disease, Hx Ulcer Musculoskeltal Medical History: Reports Hx Arthritis Past Surgical History: Reports: Hx Appendectomy, Hx Hysterectomy, Hx Oral Surgery, Hx Thyroid Surgery - thyroidectomy, Hx Tubal Ligation, Hx Vascular Surgery - left port in chest-put in on 06/23/12 - Immunizations Immunizations up to date: Yes Hx Diphtheria, Pertussis, Tetanus Vaccination: Yes Physical Exam - Vital signs Vitals: Temp Pulse Resp BP Pulse Ox 98.3 F 120 H 18 134/90 H 99 03/18/18 13:01 03/18/18 13:01 03/18/18 13:01 03/18/18 13:01 03/18/18 13:01 Course - Vital Signs Vital signs: Temp Pulse Resp BP Pulse Ox 98.3 F 120 H 18 134/90 H 99 03/18/18 13:01 03/18/18 13:01 03/18/18 13:01 03/18/18 13:01 03/18/18 13:01 Doctor's Discharge - Discharge Referrals: JOSE ALEJANDRO PERALTA DO [Primary Care Provider] - Follow up as needed
--- NOTE | 2018-03-18 16:02 | RADIOLOGY REPORT (SQ) ---
EXAM DESCRIPTION: CHEST SINGLE VIEW COMPLETED DATE/TIME: 03/18/2018 3:53 pm REASON FOR STUDY: Palpitations, dizziness COMPARISON: 05/28/2016 EXAM PARAMETERS: NUMBER OF VIEWS: One view. TECHNIQUE: Single frontal radiographic view of the chest acquired. RADIATION DOSE: NA LIMITATIONS: None. FINDINGS: LUNGS AND PLEURA: No opacities, masses or pneumothorax. No pleural effusion. MEDIASTINUM AND HILAR STRUCTURES: No masses. Contour normal. HEART AND VASCULAR STRUCTURES: Heart normal in size. Normal vasculature. BONES: No acute findings. HARDWARE: Venous access catheter unchanged. OTHER: No other significant finding. IMPRESSION: NO ACUTE RADIOGRAPHIC FINDING IN THE CHEST. TECHNICAL DOCUMENTATION: JOB ID: [id number] [employer]- All Rights Reserved Reading location - IP/workstation name: [email or web address]
[2018-03-18 17:18] LABS: ABSOLUTE EOSINOPHILS # (AUTO) 0.2 10^3/uL (0.0-0.6); ABSOLUTE MONOCYTES (AUTO) 0.8 10^3/uL (0.1-1.4); ABSOLUTE NEUT (AUTO) 5.5 10^3/uL (1.7-8.2); BASOPHILS % (AUTO) 0.5 % (0-2); HEMOGLOBIN 11.5 g/dL (12.0-15.5); LYMPHOCYTES % (AUTO) 23.4 % (13-45); MEAN CORPUSCULAR HEMOGLOBIN 32.1 pg (27.0-33.4); MEAN CORPUSCULAR VOLUME 97 fl (80-97); MONOCYTES % (AUTO) 9.6 % (3-13); PLATELET COUNT 158 10^3/uL (150-450); RED CELL DISTRIBUTION WIDTH 14.7 % (11.5-14.0); SEGMENTED NEUTROPHILS % (AUTO) 64.5 % (42-78); TOTAL CELLS COUNTED % (AUTO) 100 %; WHITE BLOOD COUNT 8.5 10^3/uL (4.0-10.5)
[2018-03-18 17:32] LABS: ALANINE AMINOTRANSFERASE 16 U/L (9-52); ALBUMIN 4.6 g/dL (3.5-5.0); ALKALINE PHOSPHATASE 71 U/L (38-126); ANION GAP 18 (5-19); ASPARTATE AMINO TRANSFERASE 25 U/L (14-36); BILIRUBIN,DIRECT 0.5 mg/dL (0.0-0.4); BILIRUBIN,TOTAL 0.5 mg/dL (0.2-1.3); BLOOD UREA NITROGEN 34 mg/dL (7-20); CALCIUM 9.3 mg/dL (8.4-10.2); CREATINE KINASE 109 U/L (30-135); GLUCOSE 78 mg/dL (75-110); TOTAL PROTEIN 7.9 g/dL (6.3-8.2)
[2018-03-18 17:45] LABS: CREATINE KINASE MB 0.51 ng/mL (<4.55); NT PRO BNP 3430 pg/mL (<125)
[2018-03-18 17:47] LABS: CARBON DIOXIDE 27 mmol/L (22-30); CHLORIDE 101 mmol/L (98-107); POTASSIUM 4.5 mmol/L (3.6-5.0); SODIUM 146.2 mmol/L (137-145)
[2018-03-18 17:50] LABS: TROPONIN I < 0.012 ng/mL
--- NOTE | 2018-03-18 19:57 | ER Document Report ---
ED General - General Mode of Arrival: Ambulatory TRAVEL OUTSIDE OF THE [place] IN LAST 30 DAYS: No <REVA BOYLE - Last Filed: 03/18/18 20:05> <RADHA STREETER - Last Filed: 03/19/18 13:36> - General Chief Complaint: Dizziness Stated Complaint: DIZZY Time Seen by Provider: 03/18/18 15:22 Notes: Patient is a 47-year-old female with ESRD ( MWF dialysis) presents to the emergency department complaining of light headedness and heart palpitations onset this morning. Patient states she was vomiting 2 days ago and had dialysis yesterday further stating "all of that was too much for my system". She stated this morning she woke up and began to have lightheadedness when standing and shortness of breath on exertion. She also complains of heart palpitations further stating when standing it feels like her heart is pounding. She also reports having a cough. Patient states that she had similar symptoms 6 years ago which was attributed to dehydration. She states she was given fluids and felt better. (REVA BOYLE) - Related Data Allergies/Adverse Reactions: montelukast sodium [From Singulair] Allergy (Intermediate, Verified 03/18/18 15: 20) Shortness of Breath codeine Allergy (Mild, Verified 03/18/18 15:20) Swelling of Throat erythromycin base [Erythromycin Base] Allergy (Verified 03/18/18 15:20) sob, hives hydrocodone bitartrate [From Vicodin] Allergy (Verified 03/18/18 15:20) sob, hives ondansetron HCl [From Zofran] Allergy (Verified 03/18/18 15:20) sob, rash oxycodone HCl [From Percocet] Allergy (Verified 03/18/18 15:20) sob, rash penicillin G [Penicillin G] Allergy (Verified 03/18/18 15:20) sob, rash valacyclovir Allergy (Verified 03/18/18 15:20) latex Allergy (Severe, Uncoded 03/18/18 15:20) sob, hives adhesives Adverse Reaction (Severe, Uncoded 03/18/18 15:20) hung Past Medical History - General Information source: Patient - Social History Smoking Status: Never Smoker Chew tobacco use (# tins/day): No Frequency of alcohol use: None Drug Abuse: None Family History: Reviewed & Not Pertinent Patient has suicidal ideation: No Patient has homicidal ideation: No - Past Medical History Cardiac Medical History: Reports: Hx Hypertension Pulmonary Medical History: Reports: Hx Asthma, Hx Pneumonia, Hx Sleep Apnea Neurological Medical History: Reports: Hx Migraine Endocrine Medical History: Reports: Hx Hypothyroidism Renal/ Medical History: Reports: Hx End Stage Renal Disease, Hx Hemodialysis GI Medical History: Reports: Hx Gastroesophageal Reflux Disease, Hx Ulcer Musculoskeletal Medical History: Reports Hx Arthritis Past Surgical History: Reports: Hx Appendectomy, Hx Hysterectomy, Hx Oral Surgery, Hx Thyroid Surgery - thyroidectomy, Hx Tubal Ligation, Hx Vascular Surgery - left port in chest-put in on 06/23/12 - Immunizations Immunizations up to date: Yes Hx Diphtheria, Pertussis, Tetanus Vaccination: Yes Hx Pneumococcal Vaccination: 05/19/13 <REVA BOYLE - Last Filed: 03/18/18 20:05> Review of Systems - Review of Systems Constitutional: No symptoms reported EENT: No symptoms reported Cardiovascular: See HPI, Palpitations, Heart racing, Lightheaded Respiratory: No symptoms reported Gastrointestinal: No symptoms reported Genitourinary: No symptoms reported Female Genitourinary: No symptoms reported Musculoskeletal: No symptoms reported Skin: No symptoms reported Hematologic/Lymphatic: No symptoms reported Neurological/Psychological: No symptoms reported -: Yes All other systems reviewed and negative <REVA BOYLE - Last Filed: 03/18/18 20:05> Physical Exam <REVA BOYLE - Last Filed: 03/18/18 20:05> <RADHA STREETER - Last Filed: 03/19/18 13:36> - Vital signs Vitals: Temp Pulse Resp BP Pulse Ox 98.3 F 120 H 18 134/90 H 99 03/18/18 13:01 03/18/18 13:01 03/18/18 13:01 03/18/18 13:01 03/18/18 13:01 - Notes Notes: GENERAL: Alert, interacts well. No acute distress. HEAD: Normocephalic, atraumatic. EYES: Pupils equal, round, and reactive to light. Extraocular movements intact. ENT: Oral mucosa moist, tongue midline. NECK: Full range of motion. Supple. Trachea midline. LUNGS: Clear to auscultation bilaterally, no wheezes, rales, or rhonchi. No respiratory distress. Port in right anterior chest wall. HEART: Mild tachycardia. No murmurs, gallops, or rubs. ABDOMEN: Soft, non-tender. Non-distended. Bowel sounds present in all 4 quadrants. EXTREMITIES: Moves all 4 extremities spontaneously. No edema. NEUROLOGICAL: Alert and oriented x3. Normal speech. PSYCH: Normal affect, normal mood. SKIN: Warm, dry, normal turgor. No rashes or lesions noted. (REVA BOYLE) Course - Laboratory Result Diagrams: 03/18/18 16:48 03/18/18 16:15 <REVA BOYLE - Last Filed: 03/18/18 20:05> - Laboratory Result Diagrams: 03/18/18 16:48 03/18/18 16:15 <RADHA STREETER - Last Filed: 03/19/18 13:36> - Re-evaluation Re-evalutation: 03/18/18 23:14 Patient's labs within normal limits are trending within her baseline, no concerning EKG findings. Patient was provided 1 L of fluids. Afterwards, patient states that she feels much better was able to stand walk around the room without any symptoms. She did ask for work excuse to be able to rest for the next several days. Return precautions provided and she was instructed to call her instrument lens generator of her stay at the emergency department tonight. It appears that she was down on her fluid status as she had had multiple bouts of vomiting 2 days ago and then dialysis. 03/19/18 13:35 (RADHA STREETER) - Vital Signs Vital signs: Temp Pulse Resp BP Pulse Ox 98.3 F 120 H 21 H 145/95 H 100 03/18/18 23:25 03/18/18 13:01 03/18/18 23:25 03/18/18 23:25 03/18/18 23:25 - Laboratory Laboratory results interpreted by me: 03/18/18 03/18/18 03/18/18 16:15 16:15 16:48 RBC 3.60 L Hgb 11.5 L Hct 35.0 L RDW 14.7 H Sodium 146.2 H BUN 34 H Creatinine 9.12 H Est GFR ( Amer) 6 L Est GFR (Non-Af Amer) 5 L Phosphorus 6.0 H Direct Bilirubin 0.5 H NT-Pro-B Natriuret Pep 3430 H Urine Protein Urine Glucose (UA) 03/18/18 20:50 RBC Hgb Hct RDW Sodium BUN Creatinine Est GFR ( Amer) Est GFR (Non-Af Amer) Phosphorus Direct Bilirubin NT-Pro-B Natriuret Pep Urine Protein 30 H Urine Glucose (UA) 50 H Discharge <REVA BOYLE - Last Filed: 03/18/18 20:05> <RADHA STREETER - Last Filed: 03/19/18 13:36> - Discharge Clinical Impression: Dehydration Disposition: HOME, SELF-CARE Forms: Return to Work Referrals: JOSE ALEJANDRO GASTELUM, [Primary Care Provider] - Follow up as needed Scribe Attestation: 03/19/18 13:36 I personally performed the services described in the documentation, reviewed and edited the documentation which was dictated to the scribe in my presence, and it accurately records my words and actions. (RADHA STREETER) Scribe Documentation - Scribe Written by Traceye:: Dudley Hammond, 03/18/2018 20:00 acting as scribe for :: Maximiliano <REVA BOYLE - Last Filed: 03/18/18 20:05>
[2018-03-18] MEDS ORDERED: NORMAL SALINE 250 ML IV ONE (20:03)
[2018-03-18 21:45] LABS: APPEARANCE,URINE CLEAR; BILIRUBIN,URINE NEGATIVE (NEGATIVE); COLOR,URINE STRAW; GLUCOSE, URINE 50 mg/dL (NEGATIVE); KETONES,URINE NEGATIVE (NEGATIVE); LEUKOCYTE ESTERASE,URINE NEGATIVE (NEGATIVE); NITRITE,URINE NEGATIVE (NEGATIVE); PROTEIN,URINE 30 mg/dL (NEGATIVE); URINE SPECIFIC GRAVITY 1.005; UROBILINOGEN,URINE NEGATIVE mg/dL (<2.0)
[2018-03-18 23:32] VITALS: BP 145/95
--- NOTE | 2018-03-18 23:32 | EKG REPORT ---
SEVERITY:- BORDERLINE ECG - SINUS TACHYCARDIA LEFT AXIS DEVIATION BORDERLINE R WAVE PROGRESSION, ANTERIOR LEADS : Confirmed by: Kaylee Frausto MD 18-Mar-2018 23:31:58
== END 2018-03-18 23:33 | disposition home or self-care (01) ==
LOC: ER 12:35
DX: E86.0 Dehydration (principal); R42 Dizziness and giddiness; R00.2 Palpitations; E03.9 Hypothyroidism, unspecified; I12.0 Hypertensive chronic kidney disease with stage 5 chronic kidney disease or end stage renal disease; N18.6 End stage renal disease; Z99.2 Dependence on renal dialysis; Z88.6 Allergy status to analgesic agent; Z88.3 Allergy status to other anti-infective agents; Z98.51 Tubal ligation status; Z91.040 Latex allergy status; Z88.0 Allergy status to penicillin
CPT/HCPCS: 93005; 99284; 96360; 96361; 36415; 82553; 82550; 83735; 84100; 85025; 80053; 81001; 84484; 83880; 71045; 93010; J7050

== ENCOUNTER 2018-05-09 15:34 | Emergency (ER) | payer MEDICARE, OTHER ==
[2018-05-09] MEDS ORDERED: MAG HYDROX/AL HYDROX/SIMETH SUSP 30 ML UDCUP PO ONE (16:05)
[2018-05-09] MEDS ORDERED: METOCLOPRAMIDE HCL ORAL SOLN 10 MG/10 ML UDCUP PO ONE ×2 (16:05→20:42)
[2018-05-09] MEDS ORDERED: LIDOCAINE 2% VISCOUS SOLN 20 ML UDCUP PO ONE ×2 (16:05→20:42)
--- NOTE | 2018-05-09 16:07 | ER Document Report ---
ED Medical Screen (RME) - General Chief Complaint: Sore Throat Stated Complaint: SORE THROAT Time Seen by Provider: 05/09/18 16:05 Mode of Arrival: Ambulatory Information source: Patient Notes: This is a 47-year-old female with a history of end-stage renal disease ( hemodialysis), rheumatoid arthritis, asthma, VTE (Eliquis) and GI bleeding. Patient presents to the emergency room with pain on swallowing both with solids and liquids. Patient has had symptoms for the past month. TRAVEL OUTSIDE OF THE [place] IN LAST 30 DAYS: No - Related Data Allergies/Adverse Reactions: montelukast sodium [From Singulair] Allergy (Intermediate, Verified 05/09/18 15: 35) Shortness of Breath codeine Allergy (Mild, Verified 05/09/18 15:35) Swelling of Throat erythromycin base [Erythromycin Base] Allergy (Verified 05/09/18 15:35) sob, hives hydrocodone bitartrate [From Vicodin] Allergy (Verified 05/09/18 15:35) sob, hives ondansetron HCl [From Zofran] Allergy (Verified 05/09/18 15:35) sob, rash oxycodone HCl [From Percocet] Allergy (Verified 05/09/18 15:35) sob, rash penicillin G [Penicillin G] Allergy (Verified 05/09/18 15:35) sob, rash valacyclovir Allergy (Verified 05/09/18 15:35) latex Allergy (Severe, Uncoded 05/09/18 15:35) sob, hives adhesives Adverse Reaction (Severe, Uncoded 05/09/18 15:35) hung Past Medical History - Social History Family history: Hypertension, Other - kidney failure - Past Medical History Cardiac Medical History: Reports: Hx Hypertension Pulmonary Medical History: Reports: Hx Asthma, Hx Pneumonia, Hx Sleep Apnea Neurological Medical History: Reports: Hx Migraine Endocrine Medical History: Reports: Hx Hypothyroidism Renal/ Medical History: Reports: Hx End Stage Renal Disease, Hx Hemodialysis. Denies: Hx Peritoneal Dialysis GI Medical History: Reports: Hx Gastroesophageal Reflux Disease, Hx Ulcer Musculoskeltal Medical History: Reports Hx Arthritis Past Surgical History: Reports: Hx Appendectomy, Hx Hysterectomy, Hx Oral Surgery, Hx Thyroid Surgery - thyroidectomy, Hx Tubal Ligation, Hx Vascular Surgery - left port in chest-put in on 06/23/12 - Immunizations Immunizations up to date: Yes Hx Diphtheria, Pertussis, Tetanus Vaccination: Yes Physical Exam - Vital signs Vitals: Temp Pulse Resp BP Pulse Ox 98.7 F 122 H 18 143/85 H 96 05/09/18 15:38 05/09/18 15:38 05/09/18 15:38 05/09/18 15:38 05/09/18 15:38 Course - Vital Signs Vital signs: Temp Pulse Resp BP Pulse Ox 98.7 F 122 H 18 143/85 H 96 05/09/18 15:38 05/09/18 15:38 05/09/18 15:38 05/09/18 15:38 05/09/18 15:38 Doctor's Discharge - Discharge Referrals: JOSE ALEJANDRO GASTELUM DO [Primary Care Provider] - Follow up as needed
--- NOTE | 2018-05-09 17:10 | ER Document Report ---
ED General - General Chief Complaint: Sore Throat Stated Complaint: SORE THROAT Time Seen by Provider: 05/09/18 16:05 Mode of Arrival: Ambulatory Information source: Patient Notes: Patient is a 47-year-old female comes emergency room with a 1 month onset of difficulty swallowing. Patient states that she started having just small amounts of time when she had a difficult time swelling but in the last several days has become more constant. States that this morning felt like she was swallowing razor blades. She denies having any fever. Patient is a dialysis patient as well with a history of hypertension migraines and a clotting problem. She does still urinate. But says that it hurts when she drinks water or food. TRAVEL OUTSIDE OF THE [place] IN LAST 30 DAYS: No - HPI Onset: Other - Month Onset/Duration: Waxing and waning, Worse Quality of pain: Other - Razor blades Severity: Moderate Pain Level: 3 Associated symptoms: Sore throat Exacerbated by: Other - Swallowing Relieved by: Denies Similar symptoms previously: Yes Recently seen / treated by doctor: No - Related Data Allergies/Adverse Reactions: montelukast sodium [From Singulair] Allergy (Intermediate, Verified 05/09/18 15: 35) Shortness of Breath codeine Allergy (Mild, Verified 05/09/18 15:35) Swelling of Throat erythromycin base [Erythromycin Base] Allergy (Verified 05/09/18 15:35) sob, hives hydrocodone bitartrate [From Vicodin] Allergy (Verified 05/09/18 15:35) sob, hives ondansetron HCl [From Zofran] Allergy (Verified 05/09/18 15:35) sob, rash oxycodone HCl [From Percocet] Allergy (Verified 05/09/18 15:35) sob, rash penicillin G [Penicillin G] Allergy (Verified 05/09/18 15:35) sob, rash valacyclovir Allergy (Verified 05/09/18 15:35) latex Allergy (Severe, Uncoded 05/09/18 15:35) sob, hives adhesives Adverse Reaction (Severe, Uncoded 05/09/18 15:35) hung Past Medical History - General Information source: Patient - Social History Smoking Status: Never Smoker Cigarette use (# per day): No Chew tobacco use (# tins/day): No Smoking Education Provided: No Frequency of alcohol use: Social Drug Abuse: None Lives with: Family Family History: Reviewed & Not Pertinent Patient has suicidal ideation: No Patient has homicidal ideation: No - Past Medical History Cardiac Medical History: Reports: Hx Hypertension Pulmonary Medical History: Reports: Hx Asthma, Hx Pneumonia, Hx Sleep Apnea Neurological Medical History: Reports: Hx Migraine Endocrine Medical History: Reports: Hx Hypothyroidism Renal/ Medical History: Reports: Hx End Stage Renal Disease, Hx Hemodialysis. Denies: Hx Peritoneal Dialysis GI Medical History: Reports: Hx Gastroesophageal Reflux Disease, Hx Ulcer Musculoskeletal Medical History: Reports Hx Arthritis Past Surgical History: Reports: Hx Appendectomy, Hx Hysterectomy, Hx Oral Surgery, Hx Thyroid Surgery - thyroidectomy, Hx Tubal Ligation, Hx Vascular Surgery - left port in chest-put in on 06/23/12 - Immunizations Immunizations up to date: Yes Hx Diphtheria, Pertussis, Tetanus Vaccination: Yes Hx Pneumococcal Vaccination: 05/19/13 Review of Systems - Review of Systems Constitutional: No symptoms reported EENT: Throat pain, Difficulty swallowing Cardiovascular: No symptoms reported Respiratory: No symptoms reported Gastrointestinal: No symptoms reported Genitourinary: No symptoms reported Female Genitourinary: No symptoms reported Musculoskeletal: No symptoms reported Skin: No symptoms reported Hematologic/Lymphatic: No symptoms reported Neurological/Psychological: No symptoms reported -: Yes All other systems reviewed and negative Physical Exam - Vital signs Vitals: Temp Pulse Resp BP Pulse Ox 98.7 F 122 H 18 143/85 H 96 05/09/18 15:38 05/09/18 15:38 05/09/18 15:38 05/09/18 15:38 05/09/18 15:38 Interpretation: Hypertensive, Tachycardic - Notes Notes: Patient is a well-nourished well-developed female who is in no apparent distress. She is quite anxious though. Talks very fast. - General General appearance: Alert, Anxious - HEENT Head: Normocephalic, Atraumatic Eyes: Normal. No: Periorbital edema Conjunctiva: Normal Pupils: PERRL Ears: Normal External canal: Normal Tympanic membrane: Normal. No: Bulging, Hemotympanum, Injected, Loss of landmarks, Perforation, Purulent effusion, Retracted, Serous effusion Hearing loss: No: Left, Right, Conduction loss, Sensorineural loss Sinus: Maxillary, Redness, Swelling Nasal: Swelling, Clear rhinorrhea. No: Bloody discharge, Sebastien deformity, Ecchymosis, Epistaxis, Purulent discharge, Septal hematoma Mouth/Lips: Normal Mucous membranes: Moist Pharynx: Erythema, Post nasal drainage. No: Normal, Blood in hypopharynx, Exudate, Peritonsillar abscess, Retropharyngeal abscess, Tonsillar hypertrophy, Uvular edema, Potential airway comprom. Neck: Supple. No: Normal, Anterior cervical chain, Posterior cervical chain, Carotid bruit, Kernig's, Lymphadenopathy, Meningismus, Neck mass, Shotty nodes, Subcutaneous emphysema, Thyroid nodule, Thyromegally - Respiratory Chest status: Nontender Breath sounds: Normal. No: Rales, Rhonchi, Stridor, Wheezing Chest palpation: Normal - Cardiovascular Rhythm: Tachycardia Heart sounds: Normal auscultation Murmur: No - Abdominal Inspection: Normal Distension: No distension Bowel sounds: Normal Tenderness: Nontender. No: Tender, McBurney's point, Norman's sign, Guarding Organomegaly: No organomegaly. No: Hepatomegaly, Splenomegaly, Mass, Other - Neurological Neuro grossly intact: Yes Cognition: Normal Orientation: AAOx4 Stefanie Coma Scale Eye Opening: Spontaneous [place] Coma Scale Verbal: Oriented Stefanie Coma Scale Motor: Obeys Commands Stefanie Coma Scale Total: 15 Speech: Normal - Skin Skin Temperature: Hot Skin Moisture: Dry Skin Color: Normal Course - Re-evaluation Re-evalutation: 05/09/18 20:44 I have been on patient and evaluate her a couple times throughout her stay here. She got fair relief with the GI cocktail. I had a ordered inflammatory markers on patient and they were excessively high 84 and a sed rate and 324 on the CRP. I was a loss for explaining this. Patient had told me she only had a history of a clotting factor problem, a dialysis patient and migraine headache and hypertension. I did not look at patient's medications and therefore did not know that she had left out rheumatoid arthritis and her medications run out extensive list of stuff that would cause esophagitis. So I have talked to Dr. Marie and he is the one inform you of her past medical history that she did not. So we are going to go ahead and send her home with Carafjuan and I am going to give her another GI cocktail here. She is to follow-up with her primary care provider Roma tomorrow. She has a GI wilson but she does not remember who it is or what his name is but she knows where he is location is so she will push to see him again. She needs a upper GI ED in order to find out what is going on. Given her bleeding disorder it will take some combination of physicians to clear her for that procedure. - Vital Signs Vital signs: Temp Pulse Resp BP Pulse Ox 98.7 F 104 H 18 143/85 H 97 05/09/18 15:38 05/09/18 17:39 05/09/18 15:38 05/09/18 15:38 05/09/18 17:39 - Laboratory Result Diagrams: 05/09/18 18:00 05/09/18 18:00 Laboratory results interpreted by me: 05/09/18 05/09/18 05/09/18 18:00 18:00 19:50 WBC 11.6 H RBC 3.21 L Hgb 10.3 L Hct 30.7 L RDW 14.3 H Plt Count 142 L Monocytes % 13.6 H Absolute Neutrophils 8.3 H Absolute Monocytes 1.6 H ESR 82 H Chloride 97 L Carbon Dioxide 20 L Anion Gap 20 H BUN 56 H Creatinine 12.05 H Est GFR ( Amer) 4 L Est GFR (Non-Af Amer) 3 L Lactic Acid 0.6 L Direct Bilirubin 0.6 H C-Reactive Protein 323.5 H Discharge - Discharge Clinical Impression: Reflux esophagitis Condition: Stable Instructions: Antacid Therapy ([facility]), Esophagitis ([facility]), Prilosec (Acid Pump Inhibitor) ([facility]), Sucralfate ([facility]) Additional Instructions: Home tonight and rest. Her going to add Carafate to your regime before each meal and at bedtime. You need to follow-up with Dr. Brandon tomorrow and you need to see a GI wilson as soon as possible. Since you have seen someone in the past find out from her who it is and contact them. In the meantime continue with your omeprazole and the Carafate. Should you have any concerns or problems return to ER for repeat exam Prescriptions: Sucralfate [Carafate Susp 1 Gm/10 Ml Udcup] 10 ml PO QID #800 ml Forms: Elevated Blood Pressure Referrals: NIRAV,JOSE ALEJANDRO MARIA, DO [Primary Care Provider] - Follow up as needed
--- NOTE | 2018-05-09 17:39 | RADIOLOGY REPORT (SQ) ---
EXAM DESCRIPTION: SOFT TISSUE NECK COMPLETED DATE/TIME: 05/09/2018 5:27 pm REASON FOR STUDY: difficulty swallowing. COMPARISON: None. NUMBER OF VIEWS: Two views. TECHNIQUE: AP and lateral radiographic image of the soft tissues of the neck. LIMITATIONS: None. FINDINGS: EPIGLOTTIS: Normal. Contour normal. Aryepiglottic folds normal. PREVERTEBRAL SOFT TISSUES: Normal. No soft tissue swelling. SUBGLOTTIC AREA: Normal. No narrowing. RETROPHARYNGEAL SPACE: Normal. No soft tissue masses. BONES: No significant findings. LUNG APICES: Normal. OTHER: Left IJ tunneled catheter. . No other significant finding. IMPRESSION: No acute findings. TECHNICAL DOCUMENTATION: JOB ID: [id number] 2010 [employer]- All Rights Reserved Reading location - IP/workstation name: [employer]
[2018-05-09 18:08] LABS: ABSOLUTE EOSINOPHILS # (AUTO) 0.1 10^3/uL (0.0-0.6); ABSOLUTE LYMPHOCYTES (AUTO) 1.6 10^3/uL (0.5-4.7); ABSOLUTE MONOCYTES (AUTO) 1.6 10^3/uL (0.1-1.4); ABSOLUTE NEUT (AUTO) 8.3 10^3/uL (1.7-8.2); BASOPHILS % (AUTO) 0.2 % (0-2); EOSINOPHILS % (AUTO) 0.6 % (0-6); HEMATOCRIT 30.7 % (36.0-47.0); HEMOGLOBIN 10.3 g/dL (12.0-15.5); LYMPHOCYTES % (AUTO) 13.7 % (13-45); MEAN CORPUSCULAR HEMOGLOBIN 32.3 pg (27.0-33.4); MEAN CORPUSCULAR HGB CONC 33.7 g/dL (32.0-36.0); MEAN CORPUSCULAR VOLUME 96 fl (80-97); MONOCYTES % (AUTO) 13.6 % (3-13); PLATELET COUNT 142 10^3/uL (150-450); RED BLOOD COUNT 3.21 10^6/uL (3.72-5.28); RED CELL DISTRIBUTION WIDTH 14.3 % (11.5-14.0); SEGMENTED NEUTROPHILS % (AUTO) 71.9 % (42-78); TOTAL CELLS COUNTED % (AUTO) 100 %; WHITE BLOOD COUNT 11.6 10^3/uL (4.0-10.5)
[2018-05-09 18:34] LABS: ALANINE AMINOTRANSFERASE 23 U/L (9-52); ALKALINE PHOSPHATASE 95 U/L (38-126); ASPARTATE AMINO TRANSFERASE 17 U/L (14-36); BILIRUBIN,DIRECT 0.6 mg/dL (0.0-0.4); BILIRUBIN,TOTAL 0.6 mg/dL (0.2-1.3); BLOOD UREA NITROGEN 56 mg/dL (7-20); CALCIUM 8.4 mg/dL (8.4-10.2); CHLORIDE 97 mmol/L (98-107); GLUCOSE 84 mg/dL (75-110); POTASSIUM 4.9 mmol/L (3.6-5.0); TOTAL PROTEIN 7.3 g/dL (6.3-8.2)
[2018-05-09 18:37] LABS: CARBON DIOXIDE 20 mmol/L (22-30); SODIUM 137.3 mmol/L (137-145)
[2018-05-09 18:49] LABS: ERYTHROCYTE SEDIMENTATION RATE 82 mm/hr (0-20)
[2018-05-09 19:06] LABS: ANION GAP 20 (5-19)
[2018-05-09 19:07] LABS: C-REACTIVE PROTEIN 323.5 mg/L (<10.0)
--- NOTE | 2018-05-09 19:59 | RADIOLOGY REPORT (SQ) ---
EXAM DESCRIPTION: CHEST SINGLE VIEW COMPLETED DATE/TIME: 05/09/2018 7:43 pm REASON FOR STUDY: cough COMPARISON: 03/18/2018 TECHNIQUE: Single frontal radiographic view of the chest acquired. NUMBER OF VIEWS: One view. LIMITATIONS: None. FINDINGS: LUNGS AND PLEURA: No pneumothorax. No consolidation or pleural effusion. MEDIASTINUM AND HILAR STRUCTURES: Stable. HEART AND VASCULAR STRUCTURES: Stable. BONES: No acute findings. HARDWARE: Left IJ tunneled catheter in stable position. OTHER: No other significant finding. IMPRESSION: NO ACUTE FINDINGS. TECHNICAL DOCUMENTATION: JOB ID: [id number] [id number] 2010 [employer]- All Rights Reserved Reading location - IP/workstation name: [email or web address]
[2018-05-09] MEDS ORDERED: MAGNESIUM HYDROXIDE SUSP 30 ML UDCUP PO ONE (20:43)
[2018-05-09 20:53] LABS: APPEARANCE,URINE CLOUDY; BILIRUBIN,URINE NEGATIVE (NEGATIVE); COLOR,URINE COLORLESS; GLUCOSE, URINE 50 mg/dL (NEGATIVE); KETONES,URINE NEGATIVE (NEGATIVE); LEUKOCYTE ESTERASE,URINE NEGATIVE (NEGATIVE); NITRITE,URINE NEGATIVE (NEGATIVE); PROTEIN,URINE 30 mg/dL (NEGATIVE); URINE SPECIFIC GRAVITY 1.006; UROBILINOGEN,URINE NEGATIVE mg/dL (<2.0)
[2018-05-09 21:32] VITALS: BP 137/78
== END 2018-05-09 21:30 | disposition home or self-care (01) ==
LOC: ER 15:34
DX: K21.0 Gastro-esophageal reflux disease with esophagitis (principal); D68.9 Coagulation defect, unspecified; R13.10 Dysphagia, unspecified; R09.82 Postnasal drip; J34.89 Other specified disorders of nose and nasal sinuses; I12.0 Hypertensive chronic kidney disease with stage 5 chronic kidney disease or end stage renal disease; N18.6 End stage renal disease; Z99.2 Dependence on renal dialysis; J45.909 Unspecified asthma, uncomplicated; Z88.8 Allergy status to other drugs, medicaments and biological substances; Z88.5 Allergy status to narcotic agent; Z88.1 Allergy status to other antibiotic agents; Z88.0 Allergy status to penicillin; Z91.040 Latex allergy status; Z88.3 Allergy status to other anti-infective agents
CPT/HCPCS: 99283; 36415; 87070; 87880; 83605; 85025; 85652; 86140; 86308; 80053; 81001; 71045; 70360; J3490 ×2; A9270

== ENCOUNTER → 2018-06-08 | Outpatient (CLI) | payer MEDICARE, OTHER ==
--- NOTE | 2018-06-08 14:17 | RADIOLOGY REPORT (SQ) ---
EXAM DESCRIPTION: CERV SP 4 OR 5 VIEWS COMPLETED DATE/TIME: 06/08/2018 2:07 pm REASON FOR STUDY: M54.2 CERVICALGIA NECK PAIN M54.2 CERVICALGIA COMPARISON: February 2016 NUMBER OF VIEWS: Five views. TECHNIQUE: AP, lateral, obliques and odontoid radiographic images acquired of the cervical spine. LIMITATIONS: None. FINDINGS: MINERALIZATION: Normal. ALIGNMENT: There is some mild loss of the normal cervical lordosis P VERTEBRAE: Vertebral bodies of normal height. DISCS: There is decrease in the C4-C5 and to a lesser extent the C5-C6 disc space heights with associ ated osteophytic lipping FORAMINA: No osteophytes or foraminal narrowing. LATERAL AND POSTERIOR ELEMENTS: Facets, lateral masses and spinous processes without significant find ings. HARDWARE: None in the spine. SOFT TISSUES: No masses or calcifications. Lung apices clear. OTHER: No other significant finding. IMPRESSION: Degenerative changes as noted above TECHNICAL DOCUMENTATION: JOB ID: [id number] [employer]- All Rights Reserved Reading location - IP/workstation name: [email or web address]
== END ==
LOC: RAD 13:39
PROVIDERS: ATTEND Student in an Organized Health Care Education/Training Program
DX: M54.2 Cervicalgia (principal); M47.892 Other spondylosis, cervical region
CPT/HCPCS: 72050

== ENCOUNTER 2018-09-05 15:48 | Emergency (ER) | payer MEDICARE, OTHER ==
--- NOTE | 2018-09-05 16:18 | ER Document Report ---
ED Medical Screen (RME) - General Chief Complaint: Abdominal Pain Stated Complaint: PELVIC PAIN Time Seen by Provider: 09/05/18 16:09 Primary Care Provider: JOSE ALEJANDRO GASTELUM DO [Primary Care Provider] - Follow up as needed Notes: 48-year-old female patient on dialysis reports onset 3 days ago of suprapubic pelvic pain. She did go to dialysis on Thursday. The pain is not gotten any better. She notices that the pain is worse when she tries to walk and urinate. She states she usually urinates without difficulty but now it only trickles out and she is not urinating the volume that she should. She is not sure if she is actually being able to empty her bladder. I have greeted and performed a rapid initial assessment of this patient. A comprehensive ED assessment and evaluation of the patient, analysis of test results and completion of the medical decision making process will be conducted by additional ED providers. TRAVEL OUTSIDE OF THE [place] IN LAST 30 DAYS: No - Related Data Allergies/Adverse Reactions: montelukast sodium [From Singulair] Allergy (Intermediate, Verified 05/09/18 15:35) Shortness of Breath codeine Allergy (Mild, Verified 05/09/18 15:35) Swelling of Throat erythromycin base [Erythromycin Base] Allergy (Verified 05/09/18 15:35) sob, hives hydrocodone bitartrate [From Vicodin] Allergy (Verified 05/09/18 15:35) sob, hives ondansetron HCl [From Zofran] Allergy (Verified 05/09/18 15:35) sob, rash oxycodone HCl [From Percocet] Allergy (Verified 05/09/18 15:35) sob, rash penicillin G [Penicillin G] Allergy (Verified 05/09/18 15:35) sob, rash valacyclovir Allergy (Verified 05/09/18 15:35) latex Allergy (Severe, Uncoded 05/09/18 15:35) sob, hives adhesives Adverse Reaction (Severe, Uncoded 05/09/18 15:35) hung Past Medical History - Social History Chew tobacco use (# tins/day): No Frequency of alcohol use: None Drug Abuse: None Family history: Hypertension, Other - kidney failure - Past Medical History Cardiac Medical History: Reports: Hx Hypertension Pulmonary Medical History: Reports: Hx Asthma, Hx Pneumonia, Hx Sleep Apnea Neurological Medical History: Reports: Hx Migraine Endocrine Medical History: Reports: Hx Hypothyroidism Renal/ Medical History: Reports: Hx End Stage Renal Disease, Hx Hemodialysis, Hx Peritoneal Dialysis GI Medical History: Reports: Hx Gastroesophageal Reflux Disease, Hx Ulcer Musculoskeltal Medical History: Reports Hx Arthritis Past Surgical History: Reports: Hx Appendectomy, Hx Hysterectomy, Hx Oral Surgery, Hx Thyroid Surgery - thyroidectomy, Hx Tubal Ligation, Hx Vascular Surgery - left port in chest-put in on 06/23/12 - Immunizations Immunizations up to date: Yes Hx Diphtheria, Pertussis, Tetanus Vaccination: Yes Physical Exam - Vital signs Vitals: Temp Pulse Resp BP Pulse Ox 98.4 F 88 16 140/85 H 98 09/05/18 15:54 09/05/18 15:54 09/05/18 15:54 09/05/18 15:54 09/05/18 15:54 Course - Vital Signs Vital signs: Temp Pulse Resp BP Pulse Ox 98.4 F 88 16 140/85 H 98 09/05/18 15:54 09/05/18 15:54 09/05/18 15:54 09/05/18 15:54 09/05/18 15:54 Doctor's Discharge - Discharge Referrals: JOSE ALEJANDRO GASTELUM DO [Primary Care Provider] - Follow up as needed
[2018-09-05 16:46] LABS: ABSOLUTE BASOPHILS # (AUTO) 0.1 10^3/uL (0.0-0.2); ABSOLUTE EOSINOPHILS # (AUTO) 0.2 10^3/uL (0.0-0.6); ABSOLUTE LYMPHOCYTES (AUTO) 1.6 10^3/uL (0.5-4.7); ABSOLUTE MONOCYTES (AUTO) 0.9 10^3/uL (0.1-1.4); ABSOLUTE NEUT (AUTO) 6.5 10^3/uL (1.7-8.2); BASOPHILS % (AUTO) 0.7 % (0-2); EOSINOPHILS % (AUTO) 2.5 % (0-6); HEMATOCRIT 34.7 % (36.0-47.0); HEMOGLOBIN 11.6 g/dL (12.0-15.5); LYMPHOCYTES % (AUTO) 16.9 % (13-45); MEAN CORPUSCULAR HEMOGLOBIN 32.7 pg (27.0-33.4); MEAN CORPUSCULAR HGB CONC 33.3 g/dL (32.0-36.0); MEAN CORPUSCULAR VOLUME 98 fl (80-97); MONOCYTES % (AUTO) 9.8 % (3-13); PLATELET COUNT 173 10^3/uL (150-450); RED BLOOD COUNT 3.53 10^6/uL (3.72-5.28); RED CELL DISTRIBUTION WIDTH 14.4 % (11.5-14.0); SEGMENTED NEUTROPHILS % (AUTO) 70.1 % (42-78); TOTAL CELLS COUNTED % (AUTO) 100 %; WHITE BLOOD COUNT 9.3 10^3/uL (4.0-10.5)
--- NOTE | 2018-09-05 16:55 | ER Document Report ---
ED General - General Chief Complaint: Abdominal Pain Stated Complaint: PELVIC PAIN Time Seen by Provider: 09/05/18 16:09 Primary Care Provider: JOSE ALEJANDRO GASTELUM DO [Primary Care Provider] - Follow up as needed TRAVEL OUTSIDE OF THE [place] IN LAST 30 DAYS: No - HPI Notes: Patient is a 48-year-old female with a history of hypertension, end-stage renal disease (on dialysis every Thursday, Thursday, Thursday), asthma, appendectomy, and hysterectomy who presents to the emergency department complaining of suprapubic pain, increased urinary urgency with voiding small amounts, and occasional left flank pain that began over the last several days. She has had urinary retention in the past. Patient states that her last dialysis session was Thursday and she completed without any difficulties. She has otherwise been eating and drinking without difficulties. She is having normal bowel movements. No other recent illness. No other concerns or complaints. No vaginal odor or discharge. Patient states that she has no concern of STD or STI she is not sexually active. Denies any headache, fever, neck pain, URI, sore throat, chest pain, palpitations, syncope, cough, shortness of breath, wheeze, dyspnea, nausea/vomiting/diarrhea, loss of control of bowel or bladder, numbness /tingling, saddle anesthesia, muscle paralysis/weakness, or rash. - Related Data Allergies/Adverse Reactions: montelukast sodium [From Singulair] Allergy (Intermediate, Verified 05/09/18 15:35) Shortness of Breath codeine Allergy (Mild, Verified 05/09/18 15:35) Swelling of Throat erythromycin base [Erythromycin Base] Allergy (Verified 05/09/18 15:35) sob, hives hydrocodone bitartrate [From Vicodin] Allergy (Verified 05/09/18 15:35) sob, hives ondansetron HCl [From Zofran] Allergy (Verified 05/09/18 15:35) sob, rash oxycodone HCl [From Percocet] Allergy (Verified 05/09/18 15:35) sob, rash penicillin G [Penicillin G] Allergy (Verified 05/09/18 15:35) sob, rash valacyclovir Allergy (Verified 05/09/18 15:35) latex Allergy (Severe, Uncoded 05/09/18 15:35) sob, hives adhesives Adverse Reaction (Severe, Uncoded 05/09/18 15:35) hung Past Medical History - Social History Smoking Status: Never Smoker Chew tobacco use (# tins/day): No Frequency of alcohol use: None Drug Abuse: None Family History: Reviewed & Not Pertinent Patient has suicidal ideation: No Patient has homicidal ideation: No - Past Medical History Cardiac Medical History: Reports: Hx Hypertension Pulmonary Medical History: Reports: Hx Asthma, Hx Pneumonia, Hx Sleep Apnea Neurological Medical History: Reports: Hx Migraine Endocrine Medical History: Reports: Hx Hypothyroidism Renal/ Medical History: Reports: Hx End Stage Renal Disease, Hx Hemodialysis, Hx Peritoneal Dialysis GI Medical History: Reports: Hx Gastroesophageal Reflux Disease, Hx Ulcer Musculoskeletal Medical History: Reports Hx Arthritis Past Surgical History: Reports: Hx Appendectomy, Hx Hysterectomy, Hx Oral Surgery, Hx Thyroid Surgery - thyroidectomy, Hx Tubal Ligation, Hx Vascular Surgery - left port in chest-put in on 06/23/12 - Immunizations Immunizations up to date: Yes Hx Diphtheria, Pertussis, Tetanus Vaccination: Yes Hx Pneumococcal Vaccination: 05/19/13 Review of Systems - Review of Systems -: Yes All other systems reviewed and negative Physical Exam - Vital signs Vitals: Temp Pulse Resp BP Pulse Ox 98.4 F 88 16 140/85 H 98 09/05/18 15:54 09/05/18 15:54 09/05/18 15:54 09/05/18 15:54 09/05/18 15:54 - Notes Notes: PHYSICAL EXAMINATION: GENERAL: Well-appearing, well-nourished and in no acute distress. A&Ox4. Answers questions appropriately. HEAD: Atraumatic, normocephalic. EYES: Pupils equal round and reactive to light, extraocular movements intact, sc abdulkadir anicteric, conjunctiva are normal. ENT: Nares patent and without discharge. oropharynx clear without exudates. No tonsilar hypertrophy or erythema. Moist mucous membranes. NECK: Normal range of motion, supple without lymphadenopathy LUNGS: Breath sounds clear to auscultation bilaterally and equal. No wheezes rales or rhonchi. HEART: Regular rate and rhythm without murmurs, rubs, gallops. ABDOMEN: Soft, nondistended abdomen. No guarding, no rebound. No masses appreciated. Normal bowel sounds present. + mild left CVA tenderness. + mild suprapubic tenderness. Musculoskeletal: FROM to passive/active. Strength 5+/5. Extremities: No cyanosis, clubbing, or edema b/l. Peripheral pulses 2+. Capillary refill less than 3 seconds. NEUROLOGICAL: Cranial nerves grossly intact. Normal speech, normal gait. Normal sensory, motor exams PSYCH: Normal mood, normal affect. SKIN: Warm, Dry, normal turgor, no rashes or lesions noted. Course - Re-evaluation Re-evalutation: 09/05/18 18:02 Pt provided a urine sample of approx 5cc, but continued to feel the urge to urinate. A pimentel was placed and minimal to no urine was found so the pimentel was then removed. Her blood work is unremarkable, but her UA shows hematuria. Due to her flank pain and hematuria, we will obtain a CT scan for possible stone after review with Dr. Plummer. Pt is in agreement with plan. Patient is otherwise nontoxic-appearing and is tolerating p.o. without difficulty. 09/05/18 18:20 Patient is an afebrile, well-hydrated, 48-year-old female who presents to the emergency department with dysuria unspecified. Vitals are acceptable. PE is otherwise unremarkable. As mentioned above, lab work was unremarkable aside from the hematuria. CT unremarkable for acute pathology consistent to pain described. There is interval adenopathy noted near the pancreas which I will have the patient review with her PCM. Report provided. No further labs or imaging warranted. Patient is a surgical history significant for appendectomy a nd hysterectomy. Low suspicion/risk for acute appendicitis, bowel obstruction, acute cholecystitis, acute cholangitis, perforated diverticulitis, incarcerated hernia, pancreatitis, perforated ulcer, peritonitis, sepsis, pelvic inflammatory disease, ectopic , tubo-ovarian abscess, ovarian torsion, or other systemic emergent condition at this time. Patient is aware that her condition can change from initial presentation and she needs to monitor symptoms closely and seek medical attention if any acute changes. Conservative measures otherwise for symptoms. Recheck with your PCM in 3-5 days. Consider consult with a urologist. Return to the ED with any worsening/concerning symptoms otherwise as reviewed in discharge. Patient is in agreement. - Vital Signs Vital signs: Temp Pulse Resp BP Pulse Ox 98.4 F 88 16 140/85 H 98 09/05/18 15:54 09/05/18 15:54 09/05/18 15:54 09/05/18 15:54 09/05/18 15:54 - Laboratory Result Diagrams: 09/05/18 16:22 09/05/18 16:22 Laboratory results interpreted by me: 09/05/18 09/05/18 09/05/18 16:22 16:22 16:48 RBC 3.53 L Hgb 11.6 L Hct 34.7 L MCV 98 H RDW 14.4 H BUN 56 H Creatinine 11.58 H Est GFR ( Amer) 4 L Est GFR (Non-Af Amer) 3 L Direct Bilirubin 0.5 H Urine Protein 30 H Urine Glucose (UA) 50 H Urine Blood LARGE H Discharge - Discharge Clinical Impression: Dysuria, Suprapubic pain Condition: Stable Disposition: HOME, SELF-CARE Instructions: Abdominal Pain ([facility]) Additional Instructions: Maintain adequate fluid intake (i.e. water, cranberry juice) Proper hygenic technique Keep the skin clean Tylenol as needed Take medications as directed F/u with your PCM in 3-5 days for a recheck Keep dialysis session appointments Consider consult with a Urologist for ongoing/worsening symptoms. Return to the ED with any worsening symptoms and/or development of fever, headache, chest pain, palpitations, syncope, shortness of breath, trouble breathing, abdominal pain, n/v/d, blood in stool/urine, loss of control of bowel/bladder, urinary retention, or other worsening symptoms that are concerning to you. Forms: Elevated Blood Pressure Referrals: JOSE ALEJANDRO GASTELUM DO [Primary Care Provider] - Follow up in 3-5 days
[2018-09-05 17:07] LABS: ALANINE AMINOTRANSFERASE 27 U/L (9-52); ALBUMIN 4.5 g/dL (3.5-5.0); ALKALINE PHOSPHATASE 105 U/L (38-126); ANION GAP 12 (5-19); ASPARTATE AMINO TRANSFERASE 22 U/L (14-36); BILIRUBIN,DIRECT 0.5 mg/dL (0.0-0.4); BILIRUBIN,TOTAL 0.5 mg/dL (0.2-1.3); BLOOD UREA NITROGEN 56 mg/dL (7-20); CALCIUM 8.6 mg/dL (8.4-10.2); CARBON DIOXIDE 29 mmol/L (22-30); CHLORIDE 99 mmol/L (98-107); GLUCOSE 88 mg/dL (75-110); POTASSIUM 4.6 mmol/L (3.6-5.0); SODIUM 140.4 mmol/L (137-145); TOTAL PROTEIN 7.1 g/dL (6.3-8.2)
[2018-09-05 17:27] LABS: APPEARANCE,URINE SLIGHTLY-CLOUDY; BILIRUBIN,URINE NEGATIVE (NEGATIVE); COLOR,URINE STRAW; GLUCOSE, URINE 50 mg/dL (NEGATIVE); KETONES,URINE NEGATIVE (NEGATIVE); LEUKOCYTE ESTERASE,URINE NEGATIVE (NEGATIVE); NITRITE,URINE NEGATIVE (NEGATIVE); PROTEIN,URINE 30 mg/dL (NEGATIVE); URINE SPECIFIC GRAVITY 1.006; UROBILINOGEN,URINE NEGATIVE mg/dL (<2.0)
--- NOTE | 2018-09-05 18:15 | RADIOLOGY REPORT (SQ) ---
EXAM DESCRIPTION: CT LTD RENAL STONE PROTOCOL ON COMPLETED DATE/TIME: 09/05/2018 6:02 pm REASON FOR STUDY: left flank, hematuria COMPARISON: 04/04/2015 TECHNIQUE: CT scan of the abdomen and pelvis performed without intravenous or oral contrast. Images reviewed with lung, soft tissue, and bone windows. Reconstructed coronal and sagittal MPR images revi ewed. All images stored on PACS. All CT scanners at this facility use dose modulation, iterative reconstruction, and/or weight based d osing when appropriate to reduce radiation dose to as low as reasonably achievable (ALARA). [facility]: Dose Right [facility]: CareDose [facility]: Dose Right [facility]: Teradose 4D [facility]: righTune RADIATION DOSE: mGy. LIMITATIONS: None. FINDINGS: LOWER CHEST: No significant findings. No nodules or infiltrates. NON-CONTRASTED LIVER, SPLEEN, ADRENALS: Evaluation limited by lack of IV contrast. No identified sign ificant masses. PANCREAS: Pancreas is very poorly defined and there appears to be extensive adenopathy along the panc reas and the upper aorta caval chain. Difficult to assess because of lack of IV contrast. GALLBLADDER: No identified stones by CT criteria. No inflammatory changes to suggest cholecystitis. RIGHT KIDNEY AND URETER: Renal atrophy. No significant calcifications. No hydronephrosis or hydro ureter. LEFT KIDNEY AND URETER: Renal atrophy. No significant calcifications. No hydronephrosis or hydrou reter. AORTA AND RETROPERITONEUM: No aneurysm. No retroperitoneal masses or adenopathy. BOWEL AND PERITONEAL CAVITY: No obvious masses or inflammatory changes. No free fluid. Diverticulosi s. APPENDIX: Normal. PELVIS, BLADDER, AND ABDOMINAL WALL:No abnormal masses. No free fluid. Bladder normal. BONES: No significant findings. OTHER: No other significant finding. IMPRESSION: Apparent interval development of upper abdominal adenopathy along the pancreas and upper aortocaval chain. Difficult to assess because of lack of IV contrast and low BMI. Small kidneys. No obstruction. COMMENT: Quality ID # [id number]: Final reports with documentation of one or more dose reduction techniques (e.g., Automated exposure control, adjustment of the mA and/or kV according to patient size, use of iterative reconstruction technique) TECHNICAL DOCUMENTATION: JOB ID: [id number] [employer]- All Rights Reserved Reading location - IP/workstation name: [email or web address]
[2018-09-05 19:26] VITALS: BP 148/88
== END 2018-09-05 19:26 | disposition home or self-care (01) ==
LOC: ER 15:48
DX: R10.2 Pelvic and perineal pain (principal); R30.0 Dysuria; I12.0 Hypertensive chronic kidney disease with stage 5 chronic kidney disease or end stage renal disease; N18.6 End stage renal disease; Z99.2 Dependence on renal dialysis; K21.9 Gastro-esophageal reflux disease without esophagitis; Z90.710 Acquired absence of both cervix and uterus; E03.9 Hypothyroidism, unspecified; Z88.6 Allergy status to analgesic agent; Z88.0 Allergy status to penicillin; Z91.040 Latex allergy status
CPT/HCPCS: 36415; 51701; 76380; 80053; 81001; 85025; 99284

== ENCOUNTER 2018-12-30 11:21 | Emergency (ER) | payer MEDICARE, OTHER ==
[2018-12-30] MEDS ORDERED: ACETAMINOPHEN 325 MG TABLET PO ONE (12:07)
[2018-12-30] MEDS ORDERED: NORMAL SALINE 1000 ML 250 ML IV ONE (12:08)
[2018-12-30 12:09] LABS: HEMATOCRIT 35.2 % (36.0-47.0); HEMOGLOBIN 11.6 g/dL (12.0-15.5); MEAN CORPUSCULAR HEMOGLOBIN 33.1 pg (27.0-33.4); MEAN CORPUSCULAR HGB CONC 33.1 g/dL (32.0-36.0); MEAN CORPUSCULAR VOLUME 100 fl (80-97); PLATELET COUNT 152 10^3/uL (150-450); RED BLOOD COUNT 3.52 10^6/uL (3.72-5.28); RED CELL DISTRIBUTION WIDTH 15.1 % (11.5-14.0); WHITE BLOOD COUNT 16.3 10^3/uL (4.0-10.5)
[2018-12-30 12:10] LABS: VENOUS BLOOD BASE EXCESS 1.9 mmol/L; VENOUS BLOOD HCO3 25.3 mmol/L (20-32); VENOUS BLOOD PCO2 36.1 mmHg (35-63); VENOUS BLOOD PH 7.46 (7.30-7.42)
[2018-12-30 12:15] LABS: PROTHROMBIN TIME 17.9 SEC (11.4-15.4)
--- NOTE | 2018-12-30 12:21 | ER Document Report ---
Entered by REVA BOYLE SCRIBE 12/30/18 1159 Acting as scribe for:FRANCIA BUENO MD ED General - General Chief Complaint: Breathing Difficulty Stated Complaint: BLEEDING AT SURGERY SITE/CATHETER Time Seen by Provider: 12/30/18 11:45 Primary Care Provider: JOSE ALEJANDRO GASTELUM DO [Primary Care Provider] - Follow up as needed Mode of Arrival: Ambulatory Information source: Patient Notes: Patient is a 48 year old female with ESRD (MWF dialysis) presents to the emergency department complaining of multiple symptoms including upper back pain, shortness of breath, fever and general malaise onset 5 days ago. Patient states her symptoms have been progressively worsening since. Patient states she does make urine. Patient states she had her PermCath replaced with a HeRO cath 1 week ago (12/23/18) at [facility]. She states the cath was replaced due to a complication and reports when the PermCath was removed, there was copious clots. She states the new cath was accessed on 12/27/18 and 12/29/18. Patient was previously prescribed Eliquis. She states she took a dose a Eliquis on 12/20/2018 and on 12/23/18. TRAVEL OUTSIDE OF THE [place] IN LAST 30 DAYS: No - Related Data Allergies/Adverse Reactions: montelukast sodium [From Singulair] Allergy (Intermediate, Verified 05/09/18 15:35) Shortness of Breath codeine Allergy (Mild, Verified 05/09/18 15:35) Swelling of Throat erythromycin base [Erythromycin Base] Allergy (Verified 05/09/18 15:35) sob, hives hydrocodone bitartrate [From Vicodin] Allergy (Verified 05/09/18 15:35) sob, hives ondansetron HCl [From Zofran] Allergy (Verified 05/09/18 15:35) sob, rash oxycodone HCl [From Percocet] Allergy (Verified 05/09/18 15:35) sob, rash penicillin G [Penicillin G] Allergy (Verified 05/09/18 15:35) sob, rash valacyclovir Allergy (Verified 05/09/18 15:35) latex Allergy (Severe, Uncoded 05/09/18 15:35) sob, hives adhesives Adverse Reaction (Severe, Uncoded 05/09/18 15:35) hung Past Medical History - General Information source: Patient - Social History Smoking Status: Never Smoker Cigarette use (# per day): No Chew tobacco use (# tins/day): No Smoking Education Provided: No Frequency of alcohol use: None Family History: Reviewed & Not Pertinent - Past Medical History Cardiac Medical History: Reports: Hx Hypertension Pulmonary Medical History: Reports: Hx Asthma, Hx Pneumonia, Hx Sleep Apnea Neurological Medical History: Reports: Hx Migraine Endocrine Medical History: Reports: Hx Hypothyroidism Renal/ Medical History: Reports: Hx End Stage Renal Disease, Hx Hemodialysis, Hx Peritoneal Dialysis GI Medical History: Reports: Hx Gastroesophageal Reflux Disease, Hx Ulcer Musculoskeletal Medical History: Reports Hx Arthritis Past Surgical History: Reports: Hx Appendectomy, Hx Hysterectomy, Hx Oral Surgery, Hx Thyroid Surgery - thyroidectomy, Hx Tubal Ligation, Hx Vascular Surgery - left port in chest-put in on 06/23/12 - Immunizations Immunizations up to date: Yes Hx Diphtheria, Pertussis, Tetanus Vaccination: Yes Hx Pneumococcal Vaccination: 05/19/13 Review of Systems - Review of Systems Constitutional: See HPI, Fever, Malaise EENT: No symptoms reported Cardiovascular: No symptoms reported Respiratory: See HPI, Short of breath Gastrointestinal: No symptoms reported Genitourinary: No symptoms reported Female Genitourinary: No symptoms reported Musculoskeletal: See HPI, Back pain Skin: No symptoms reported Hematologic/Lymphatic: No symptoms reported Neurological/Psychological: No symptoms reported -: Yes All other systems reviewed and negative Physical Exam - Vital signs Vitals: Temp 101.4 F H 12/30/18 14:37 - Notes Notes: GENERAL: Alert, interacts well. Appears very uncomfortable.. HEAD: Normocephalic, atraumatic. EYES: Pupils equal, round, and reactive to light. Extraocular movements intact. ENT: Oral mucosa moist, tongue midline. NECK: Full range of motion. Supple. Trachea midline. LUNGS: The patient is tachypneic with shallow respirations. Clear to auscultation bilaterally, no wheezes, rales, or rhonchi. HEART: Tachycardic. No murmurs, gallops, or rubs. ABDOMEN: Soft, non-tender. Non-distended. Bowel sounds present in all 4 quadrants. No guarding, rigidity, or rebound. EXTREMITIES: Moves all 4 extremities spontaneously. LUE is ecchymotic and grossly swollen. The posterior medial surgical incision is healing well. The graft area is very tender to palpate and is erythematous. No lower extremity edema. Radial and dorsalis pedis pulses 2/4 bilaterally. No cyanosis. NEUROLOGICAL: Alert and oriented x3. Normal speech. PSYCH: Normal affect, normal mood. SKIN: Very warm, dry, normal turgor. No rashes or lesions noted. Course - Re-evaluation Re-evalutation: 12/30/18 15:23 The case was discussed with Dr. Martinez before doing the CTA, he called in a dialysis nurse to have her dialyzed after the procedure was done. After the CTA chest was done, Dr. Martinez came down see the patient. After further evaluation he has concluded the patient most likely has an infection of the newly placed hero graft, and may be becoming septic. He did discuss the case with Dr Coronado at [facility], she feels the patient should be transferred to [facility] where they will see if the graft needs to be removed. The [facility] transfer center called me and gave me the name of the accepting physician, and stated they expected to have a bed in the next 1 hour but were not certain. The plan at this time is to dialyze the patient. When a bed is assigned, then transport can be called to arrive about the time the patient finishes dialysis. She is receiving Fortaz and vancomycin on the recommendation of Dr. Martinez. She is also going to receive additional IV fluids to see if that will help with her tachycardia. - Vital Signs Vital signs: Temp Pulse Resp BP Pulse Ox 101.4 F H 12/30/18 14:37 - Laboratory Result Diagrams: 12/30/18 11:53 12/30/18 11:53 Laboratory results interpreted by me: 12/30/18 12/30/18 12/30/18 11:53 11:53 11:53 WBC 16.3 H RBC 3.52 L Hgb 11.6 L Hct 35.2 L MCV 100 H RDW 15.1 H Seg Neuts % (Manual) 88 H Lymphocytes % (Manual) 6 L Abs Neuts (Manual) 14.3 H PT 17.9 H VBG pH Sodium 135.7 L Chloride 94 L BUN 49 H Creatinine 11.30 H Est GFR ( Amer) 4 L Est GFR (Non-Af Amer) 4 L Direct Bilirubin 0.6 H 12/30/18 11:53 WBC RBC Hgb Hct MCV RDW Seg Neuts % (Manual) Lymphocytes % (Manual) Abs Neuts (Manual) PT VBG pH 7.46 H Sodium Chloride BUN Creatinine Est GFR ( Amer) Est GFR (Non-Af Amer) Direct Bilirubin - Diagnostic Test Radiology reviewed: Image reviewed, Reports reviewed - Chest x-ray is unremarkable. CTa of the chest is negative for pulmonary embolus. There are small pleural effusions and dependent airspace disease most consistent with atelectasis. - EKG Interpretation by Me EKG shows normal: Sinus rhythm, [place], Intervals, ST-T Waves. abnormal: QRS Complexes - Borderline R wave progression in anterior leads Rate: Tachycardia - 141 [place]/QRS: Left axis deviation - Transfer of Care Care transferred to following provider: Dr. Samuel Notes: 12/30/18 15:28 Patient care is turned over to Dr. Samuel. The current problem list and recommended plans have been discussed. She will follow patient during the time she is in the emergency room until she is transported to [facility]. Critical Care Note - Critical Care Note Total time excluding time spent on procedures (mins): 65 Discharge - Discharge Clinical Impression: Tachycardia, Infection of the HeRO dialysis graft, ESRD (end stage renal disease) on dialysis, Pleuritic chest pain Fever Qualifiers: Fever type: unspecified Qualified Code(s): R50.9 - Fever, unspecified Leukocytosis Qualifiers: Leukocytosis type: unspecified Qualified Code(s): D72.829 - Elevated white blood cell count, unspecified High blood pressure Qualifiers: Hypertension type: renovascular hypertension Qualified Code(s): I15.0 - Re novascular hypertension Condition: Good Disposition: [facility] Referrals: JOSE ALEJANDRO GASTELUM DO [Primary Care Provider] - Follow up as needed Scribe Attestation: 12/30/18 14:50 I personally performed the services described in the documentation, reviewed and edited the documentation which was dictated to the scribe in my presence, and it accurately records my words and actions. I personally performed the services described in the documentation, reviewed and edited the documentation which was dictated to the scribe in my presence, and it accurately records my words and actions.
[2018-12-30] MEDS ORDERED: METHYLPREDNISOLONE INJ 125 MG/2 ML SDV IV ONE (12:30)
[2018-12-30] MEDS ORDERED: DIPHENHYDRAMINE HCL 50 MG/ML VIAL IV ONE (12:30)
[2018-12-30 12:34] LABS: ABSOLUTE NEUTROPHILS# (MANUAL) 14.3 10^3/uL (1.7-8.2); BASOPHILS % (MANUAL) 0 % (0-2); EOSINOPHILS % (MANUAL) 0 % (0-6); LYMPHOCYTES % (MANUAL) 6 % (13-45); MONOCYTES % (MANUAL) 6 % (3-13); SEGMENTED NEUTROPHILS % (MAN) 88 % (42-78); TOTAL CELLS COUNTED 100
[2018-12-30 12:36] LABS: ALANINE AMINOTRANSFERASE 12 U/L (9-52); ALKALINE PHOSPHATASE 96 U/L (38-126); ANION GAP 17 (5-19); ASPARTATE AMINO TRANSFERASE 20 U/L (14-36); BILIRUBIN,DIRECT 0.6 mg/dL (0.0-0.4); BILIRUBIN,TOTAL 0.6 mg/dL (0.2-1.3); BLOOD UREA NITROGEN 49 mg/dL (7-20); CARBON DIOXIDE 25 mmol/L (22-30); CHLORIDE 94 mmol/L (98-107); CREATINE KINASE 126 U/L (30-135); GLUCOSE 104 mg/dL (75-110); SODIUM 135.7 mmol/L (137-145); TOTAL PROTEIN 7.3 g/dL (6.3-8.2)
[2018-12-30 12:37] LABS: ANISOCYTOSIS SLIGHT; PLATELET COMMENT ADEQUATE; PLATELET LARGE PRESENT
[2018-12-30 12:46] LABS: CREATINE KINASE MB 1.03 ng/mL (<4.55); TROPONIN I 0.027 ng/mL
--- NOTE | 2018-12-30 12:49 | RADIOLOGY REPORT (SQ) ---
EXAM DESCRIPTION: CHEST SINGLE VIEW COMPLETED DATE/TIME: 12/30/2018 12:29 pm REASON FOR STUDY: bed 4 sepsis protocol COMPARISON: None. EXAM PARAMETERS: NUMBER OF VIEWS: One view. TECHNIQUE: Single frontal radiographic view of the chest acquired. RADIATION DOSE: NA LIMITATIONS: None. FINDINGS: LUNGS AND PLEURA: No opacities, masses or pneumothorax. No pleural effusion. MEDIASTINUM AND HILAR STRUCTURES: No masses. Contour normal. HEART AND VASCULAR STRUCTURES: Heart normal in size. Normal vasculature. BONES: No acute findings. HARDWARE: None in the chest. OTHER: No other significant finding. IMPRESSION: NO ACUTE RADIOGRAPHIC FINDING IN THE CHEST. TECHNICAL DOCUMENTATION: JOB ID: [id number] [employer]- All Rights Reserved Reading location - IP/workstation name: [email or web address]
--- NOTE | 2018-12-30 14:34 | RADIOLOGY REPORT (SQ) ---
EXAM DESCRIPTION: CTA CHEST COMPLETED DATE/TIME: 12/30/2018 2:03 pm REASON FOR STUDY: Recent hero cath, fever, tachycardia, dyspnea COMPARISON: 03/27/2016 TECHNIQUE: CT scan of the chest performed using helical scanning technique with dynamic intravenous contrast injection. Images reviewed with lung, soft tissue and bone windows. Reconstructed coronal and sagittal MPR images reviewed. Additional 3 dimensional post-processing performed to develop Maximal Intensity Projection images (SC P). All images stored on PACS. All CT scanners at this facility use dose modulation, iterative reconstruction, and/or weight based d osing when appropriate to reduce radiation dose to as low as reasonably achievable (ALARA). [facility]: Dose Right [facility]: CareDose [facility]: Dose Right [facility]: Teradose 4D [facility]: ScaleArc CONTRAST TYPE AND DOSE: contrast/concentration: Isovue 350.00 mg/ml; Total Contrast Delivered: 77.0 ml; Total Saline Delivered: 80.0 ml Contrast bolus optimized for the pulmonary arteries. Not diagnostic for the aorta. RENAL FUNCTION: On hemodialysis. RADIATION DOSE: CT Rad equipment meets quality standard of care and radiation dose reduction techniq ues were employed. CTDIvol: 20.3 - 56.2 mGy. DLP: 762 mGy-cm. . LIMITATIONS: Motion. FINDINGS: LUNGS AND PLEURA: Small pleural effusions and dependent airspace disease most consistent w ith atelectasis. No infiltrate. AORTA AND GREAT VESSELS: No aneurysm. Contrast bolus not optimized for the aorta. HEART: Cardiomegaly. Small pericardial effusion. PULMONARY ARTERIES: No emboli visualized in the main pulmonary arteries or the segmental branches. HILAR AND MEDIASTINAL STRUCTURES: No identified masses or abnormal nodes. HARDWARE: None in the chest. UPPER ABDOMEN: No significant findings. Limited exam. THYROID AND OTHER SOFT TISSUES: No masses. No adenopathy. BONES: No acute or significant finding. 3D MIPS: Confirm above findings. OTHER: Left-sided central line tip in the cavoatrial junction. IMPRESSION: No evidence of pulmonary embolus. COMMENT: Quality ID # [id number]: Final reports with documentation of one or more dose reduction techniques (e.g., Automated exposure control, adjustment of the mA and/or kV according to patient size, use of iterative reconstruction technique) TECHNICAL DOCUMENTATION: JOB ID: [id number] [employer]- All Rights Reserved Reading location - IP/workstation name: [email or web address]
[2018-12-30] MEDS ORDERED: VANCOMYCIN HCL INJ 1000 MG VIAL IV ONE (14:42)
[2018-12-30] MEDS ORDERED: CEFTAZIDIME INJ 1 GM VIAL IV ONE (14:44)
--- NOTE | 2018-12-30 15:27 | PDOC CONSULTATION ---
Consultation Consult Date: 12/30/18 Provider Consulted: Kelsea SHAH Consult reason:: HD after having CTA. History of Present Illness Admission Date/PCP: JOSE ALEJANDRO GASTELUM DO History of Present Illness: DESIREE ARITA is a 48 year old female with a h/o ESRD on HD on thursday - and thursday , Hypertension, h/o recurrent DVT, Asthma, sleep apnea was admitted with a h/o fever , chills, bleeding from around the recently placed HERO dialysis graft at [facility] last . She had her last dialysis yesterday. She has pain of her left arm and its swollen and tender.She also c/o of a pleuritic mid back pain with ?dyspnea.No cough. Evaluations in the ER reveals she has tenderness over the left AVG which is swollen as well. Dr. Downs at the ER wanted to have a CT angiogram done because of questionable shortness of breath and it came back negative.Labs and medications were reviewed with Dr Birch. Past Medical History Cardiac Medical History: Reports: Hypertension-primary Pulmonary Medical History: Reports: Asthma, Pneumonia, Sleep Apnea Neurological Medical History: Reports: Migraine Endocrine Medical History: Reports: Hypothyroidism Renal/ Medical History: Reports: End Stage Renal Disease, Secondary Hyperparathyroidism GI Medical History: Reports: Gastroesophageal Reflux Disease Musculoskeltal Medical History: Reports: Arthritis Past Surgical History Past Surgical History: Reports: Appendectomy, Hysterectomy, Tubal Ligation, Vascular Surgery - left port in chest-put in on 06/23/12 Social History Smoking Status: Never Smoker Frequency of Alcohol Use: None Hx Recreational Drug Use: No Drugs: None Hx Prescription Drug Abuse: No Family History Parental Family History Reviewed: No Children Family History Reviewed: No Sibling(s) Family History Reviewed.: No Medication/Allergy Home Medications: Adalimumab [Humira Pen] 40 mg SQ [id number] 09/02/17 Amlodipine Besylate [Norvasc 10 mg Tablet] 10 mg PO DAILY 09/02/17 Aspirin [Ecotrin 81 mg EC Tablet] 81 mg PO DAILY 09/02/17 Butalb/Acetaminophen/Caffeine [Fioricet (50-325-40 mg) Tablet] 1 tab PO Q6HP PRN 09/02/17 Calcium Acetate [Phoslo 667 mg Capsule] 1,334 mg PO ASDIR PRN 09/02/17 Calcium Acetate [Phoslo 667 mg Capsule] 2,668 mg PO AC 09/02/17 Diazepam [Valium 5 mg Tablet] 5 mg PO TIDP PRN 09/02/17 Diphenhydramine HCl [Benadryl 25 mg Capsule] 25 mg PO DAILYP PRN 09/02/17 Docusate Sodium [Colace 100 mg Capsule] 100 mg PO BIDP PRN 09/02/17 Ferric Citrate [Auryxia] 420 mg PO AC 09/02/17 Fluticasone Propionate [Flonase Nasal [place] 50 Mcg/[place] 16 gm] 2 sprays NASL DAILY 09/02/17 Fluticasone/Salmeterol [Advair 500-50 Diskus 28 Dose] 1 inh IH DAILY 09/02/17 Folic Acid/Vit B Complex and C [Denise-Joshua Tablet] 0.8 mg PO DAILY 09/02/17 Hydralazine HCl 100 mg PO Q12 09/02/17 Hydromorphone HCl [Dilaudid 2 mg Tablet] 1 mg PO Q4HP PRN 09/02/17 Levothyroxine Sodium [Synthroid] 137 mcg PO Q6AM 09/02/17 Lidocaine [Lidoderm 5% (700 mg) Transdermal Patch] 1 patch TP DAILY 09/02/17 Methocarbamol [Robaxin 500 mg Tablet] 1,000 mg PO BID PRN 09/02/17 Metoprolol Tartrate [Lopressor 50 mg Tablet] 100 mg PO Q12 09/02/17 Mupirocin [Bactroban 2% Ointment 22 gm] 1 applic TP BID 09/02/17 Omeprazole 20 mg PO DAILY 09/02/17 Prednisone [Deltasone 5 mg Tablet] 5 mg PO DAILY 09/02/17 Promethazine HCl [Phenergan 25 mg Tablet] 25 mg PO Q8HP PRN 09/02/17 Sennosides [Senna] 8.6 mg PO DAILYP PRN 09/02/17 Sodium Bicarbonate [Sodium Bicarbonate 650 mg Tablet] 650 mg PO DAILY 09/02/17 Morphine Sulfate [Morphine Ir 15 mg Tablet] 15 mg PO Q4HP PRN #12 tablet 02/19/18 Valacyclovir HCl [Valacyclovir] 1,000 mg PO Q8 #21 tablet 02/19/18 Promethazine HCl [Phenergan 25 mg Tablet] 1 tab PO Q6H PRN #15 tablet 02/21/18 Sucralfate [Carafate Susp 1 Gm/10 Ml Udcup] 10 ml PO QID #800 ml 05/09/18 Allergies/Adverse Reactions: montelukast sodium [From Singulair] Allergy (Intermediate, Verified 05/09/18 15:35) Shortness of Breath codeine Allergy (Mild, Verified 05/09/18 15:35) Swelling of Throat erythromycin base [Erythromycin Base] Allergy (Verified 05/09/18 15:35) sob, hives hydrocodone bitartrate [From Vicodin] Allergy (Verified 05/09/18 15:35) sob, hives ondansetron HCl [From Zofran] Allergy (Verified 05/09/18 15:35) sob, rash oxycodone HCl [From Percocet] Allergy (Verified 05/09/18 15:35) sob, rash penicillin G [Penicillin G] Allergy (Verified 05/09/18 15:35) sob, rash valacyclovir Allergy (Verified 05/09/18 15:35) latex Allergy (Severe, Uncoded 05/09/18 15:35) sob, hives adhesives Adverse Reaction (Severe, Uncoded 05/09/18 15:35) hung Review of Systems Constitutional: PRESENT: chills, fatigue, fever(s), weakness. ABSENT: anorexia, headache(s) Nose, Mouth, and Throat: ABSENT: mouth pain, sore throat Cardiovascular: ABSENT: chest pain, dyspnea on exertion, edema, orthropnea, palpitations Respiratory: ABSENT: dyspnea, hemoptysis Gastrointestinal: ABSENT: abdominal pain, diarrhea, dysphagia, heartburn, hematemesis, hematochezia Genitourinary: ABSENT: difficulty urinating, dysuria, hematuria Integumentary: ABSENT: lesions, pruritus, rash Neurological: ABSENT: abnormal gait, abnormal movements, focal weakness, frequent falls Hematologic/Lymphatic: PRESENT: easy bleeding. ABSENT: easy bruising Physical Exam Vital Signs: Temp Pulse Resp BP Pulse Ox 101.4 F H 12/30/18 14:37 Intake & Output 12/29/18 12/30/18 12/31/18 06:59 06:59 06:59 Intake Total 250 Balance 250 General appearance: PRESENT: mild distress Eye exam: PRESENT: EOMI, PERRLA. ABSENT: periorbital swelling Ear exam: PRESENT: normal external ear exam Mouth exam: PRESENT: moist, neck supple Neck exam: ABSENT: lymphadenopathy, meningismus, tenderness, thyromegaly, tracheal deviation Respiratory exam: PRESENT: clear to auscultation diego. ABSENT: crackles Cardiovascular exam: PRESENT: +S1, +S2. ABSENT: diastolic murmur, rubs GI/Abdominal exam: PRESENT: normal bowel sounds, soft. ABSENT: organomegaly, tenderness Extremities exam: ABSENT: pedal edema Musculoskeletal exam: PRESENT: tenderness - Distended over the left upper arm area where the graft is. Her whole left arm is swollen all the way down. Neurological exam: PRESENT: alert, awake, oriented to person, oriented to place Psychiatric exam: PRESENT: appropriate affect Skin exam: ABSENT: cyanosis, erythema, mottled, rash Results Laboratory Results: 12/30/18 11:53 12/30/18 11:53 12/30/18 12/30/18 12/30/18 11:53 11:53 11:53 WBC 16.3 H RBC 3.52 L Hgb 11.6 L Hct 35.2 L MCV 100 H MCH 33.1 MCHC 33.1 RDW 15.1 H Plt Count 152 Seg Neutrophils % Not Reportable Lymphocytes % Not Reportable Monocytes % Not Reportable Eosinophils % Not Reportable Basophils % Not Reportable Absolute Neutrophils Not Reportable Absolute Lymphocytes Not Reportable Absolute Monocytes Not Reportable Absolute Eosinophils Not Reportable Absolute Basophils Not Reportable VBG pH VBG pCO2 VBG HCO3 VBG Base Excess Sodium 135.7 L Potassium 5.0 Chloride 94 L Carbon Dioxide 25 Anion Gap 17 BUN 49 H Creatinine 11.30 H Est GFR ( Amer) 4 L Est GFR (Non-Af Amer) 4 L Glucose 104 Lactic Acid 1.3 Calcium 9.0 Total Bilirubin 0.6 AST 20 ALT 12 Alkaline Phosphatase 96 Total Protein 7.3 Albumin 4.0 12/30/18 11:53 WBC RBC Hgb Hct MCV MCH MCHC RDW Plt Count Seg Neutrophils % Lymphocytes % Monocytes % Eosinophils % Basophils % Absolute Neutrophils Absolute Lymphocytes Absolute Monocytes Absolute Eosinophils Absolute Basophils VBG pH 7.46 H VBG pCO2 36.1 VBG HCO3 25.3 VBG Base Excess 1.9 Sodium Potassium Chloride Carbon Dioxide Anion Gap BUN Creatinine Est GFR ( Amer) Est GFR (Non-Af Amer) Glucose Lactic Acid Calcium Total Bilirubin AST ALT Alkaline Phosphatase Total Protein Albumin 05/23/19 05/23/19 11:53 11:53 Creatine Kinase 126 CK-MB (CK-2) 1.03 Troponin I 0.027 Impressions: Chest X-Ray 12/30/18 11:37 IMPRESSION: NO ACUTE RADIOGRAPHIC FINDING IN THE CHEST. Chest/Abdomen CTA 12/30/18 12:30 IMPRESSION: No evidence of pulmonary embolus. Assessment & Plan - Diagnosis (1) Infection of AV graft for dialysis Plan: Highly suggestive when patient is rather septic as well. As per discussions done with Dr. Birch immediate cultures are being done and stat antibiotics should be given to this patient. Further went on to have a discussion with Dr. Hester's ANP Junaid. She suggested patient be transferred back to them to make sure if this could be treated through and through or whether the graft need to be removed. If bed availability is an issue at [facility], then patient will need to be admitted under the hospitalist and I did discuss with Dr. Owusu/hospitalist who was also in the ER. I also discussed the case with Dr. Matta who will be covering this patient in my absence from today till Thursday. (2) ESRD (end stage renal disease) on dialysis Plan: Will get a temporary femoral dialysis catheter for a short HD as she just had a CTA done and she still has decent residual renal function left.Her full HD is due for tomorrow.I am off later today and DR Matta is covering me till Thursday. (3) Fever Qualifiers: Fever type: unspecified Qualified Code(s): R50.9 - Fever, unspecified Is this a current diagnosis for this admission?: Yes Plan: She is septic likely from the graft infection.She is scheduled for transfer back to Dr Hester at [facility] once bed available.Meanwhile cultures are being drawn and broad-spectrum antibiotics are being administered which will be repeated again tomorrow postdialysis. (4) HTN (hypertension) Qualifiers: Hypertension type: renovascular hypertension Qualified Code(s): I15.0 - Renovascular hypertension Plan: Currently uncontrolled.Titrate her meds. (5) Recurrent deep vein thrombosis (DVT) Plan: History of. And patient is on Eliquis and follows with heme oncologist for this. (6) Sepsis Plan: Patient is obviously septic as seen by symptoms and leukocytosis. Patient is being cultured followed by broad-spectrum antibiotics. There is a high likelihood that the patient can decompensate and discussions have been done appropriately with the ER physicians as well as the hospitalist.
[2018-12-30] MEDS ORDERED: LIDOCAINE 1% INJ (10 MG/ML) 10 ML MDV INJ ONE (15:59)
--- NOTE | 2018-12-30 17:39 | EKG REPORT ---
SEVERITY:- ABNORMAL ECG - SINUS TACHYCARDIA LAD, CONSIDER LAFB OR INFERIOR INFARCT BORDERLINE R WAVE PROGRESSION, ANTERIOR LEADS : Confirmed by: Han Lott 30-Dec-2018 17:37:43
--- NOTE | 2018-12-30 18:22 | PDOC PROGRESS REPORT ---
Subjective Progress Note for:: 12/30/18 Subjective:: I am seeing the patient during dialysis treatment this afternoon. So far patient is tolerating the procedure well to temporary trialysis catheter that was displaced for today's dialysis treatment. Patient received contrast for CTA and so does favor during dialysis treatment. Her blood pressure is elevated. Aside from the swelling on her left arm and left side of the chest that was initially noted by Dr. Martinez she otherwise does not have any other new complain ts. Reason For Visit: BLEEDING AT SURGERY SITE/CATHETER Physical Exam Vital Signs: Temp Pulse Resp BP Pulse Ox 101.4 F H 26 H 180/113 H 93 12/30/18 14:37 12/30/18 17:00 12/30/18 17:00 12/30/18 17:00 Intake & Output 12/29/18 12/30/18 12/31/18 06:59 06:59 06:59 Intake Total 250 Balance 250 Weight 68.3 kg Vitals during dialysis: Blood pressure 177/116, heart rate of 118, temperature of 101.1, oxygen saturation 97% and respiration of 19. Exam: General appearance: PRESENT: no acute distress, cooperative, well-developed, well-nourished Head exam: PRESENT: atraumatic, normocephalic; her face is swollen than usual. Eye exam: PRESENT: conjunctiva pink, PERRLA. ABSENT: scleral icterus Neck exam: ABSENT: JVD; there is an obvious swelling on the left side of the neck down to her left side of the chest Respiratory exam: PRESENT: Normal breath sounds. ABSENT: crackles, rales, rhonchi, unlabored, wheezes Cardiovascular exam: PRESENT: Regular rate rhythm -+S1, +S2. ABSENT: diastolic murmur, systolic murmur GI/Abdominal exam: PRESENT: normal bowel sounds, soft. ABSENT: guarding, mass, tenderness Extremities exam: ABSENT: No edema; as previously noted on previous earlier exams by other providers her left arm is swollen, bruised, and warm to touch it a good bruit over her hero graft. Neurological exam: PRESENT: alert, awake, oriented to person, place and time. Skin exam: PRESENT: dry, warm, Cardiovascular exam: PRESENT: +S1, +S2. ABSENT: diastolic murmur, rubs GI/Abdominal exam: PRESENT: normal bowel sounds, soft. ABSENT: organomegaly, tenderness Results Laboratory Results: 12/30/18 11:53 12/30/18 11:53 12/30/18 12/30/18 12/30/18 11:53 11:53 11:53 WBC 16.3 H RBC 3.52 L Hgb 11.6 L Hct 35.2 L MCV 100 H MCH 33.1 MCHC 33.1 RDW 15.1 H Plt Count 152 Seg Neutrophils % Not Reportable Lymphocytes % Not Reportable Monocytes % Not Reportable Eosinophils % Not Reportable Basophils % Not Reportable Absolute Neutrophils Not Reportable Absolute Lymphocytes Not Reportable Absolute Monocytes Not Reportable Absolute Eosinophils Not Reportable Absolute Basophils Not Reportable VBG pH VBG pCO2 VBG HCO3 VBG Base Excess Sodium 135.7 L Potassium 5.0 Chloride 94 L Carbon Dioxide 25 Anion Gap 17 BUN 49 H Creatinine 11.30 H Est GFR ( Amer) 4 L Est GFR (Non-Af Amer) 4 L Glucose 104 Lactic Acid 1.3 Calcium 9.0 Total Bilirubin 0.6 AST 20 ALT 12 Alkaline Phosphatase 96 Total Protein 7.3 Albumin 4.0 12/30/18 11:53 WBC RBC Hgb Hct MCV MCH MCHC RDW Plt Count Seg Neutrophils % Lymphocytes % Monocytes % Eosinophils % Basophils % Absolute Neutrophils Absolute Lymphocytes Absolute Monocytes Absolute Eosinophils Absolute Basophils VBG pH 7.46 H VBG pCO2 36.1 VBG HCO3 25.3 VBG Base Excess 1.9 Sodium Potassium Chloride Carbon Dioxide Anion Gap BUN Creatinine Est GFR ( Amer) Est GFR (Non-Af Amer) Glucose Lactic Acid Calcium Total Bilirubin AST ALT Alkaline Phosphatase Total Protein Albumin 12/30/18 12/30/18 11:53 11:53 Creatine Kinase 126 CK-MB (CK-2) 1.03 Troponin I 0.027 Impressions: Chest X-Ray 12/30/18 11:37 IMPRESSION: NO ACUTE RADIOGRAPHIC FINDING IN THE CHEST. Chest/Abdomen CTA 12/30/18 12:30 IMPRESSION: No evidence of pulmonary embolus. Assessment & Plan - Diagnosis (1) ESRD (end stage renal disease) on dialysis Is this a current diagnosis for this admission?: Yes Plan: We will do dialysis today for 1.5 hours, using the patient's right inguinal tri alysis catheter, with 2 potassium bath, blood flow rate of 350 mL per minute, dialysate flow rate of 800 mL per minute, ultrafiltration none, no heparin and no Procrit. Patient will be monitored by our dialysis nurse carefully throughout dialysis treatment. (2) HTN (hypertension) Qualifiers: Hypertension type: renovascular hypertension Qualified Code(s): I15.0 - Renovascular hypertension Is this a current diagnosis for this admission?: Yes (3) Infection of AV graft for dialysis Is this a current diagnosis for this admission?: Yes Plan: Dr. Martinez has discussed the case with Dr. Coronado's nurse practitioner at [facility] and the plan is to transfer the patient to [place] for further management. Fortunately the patient just got accepted for transfer and she has a low bed waiting for her. She will be transferred to [place] as soon as dialysis is completed today. (4) Sepsis Is this a current diagnosis for this admission?: Yes Plan: Due to the infected hero graft. Patient was already initiated on IV antibiotics here prior to transfer. - Time Time with patient: 15-25 minutes
[2018-12-30 18:46] LABS: APPEARANCE,URINE SLIGHTLY-CLOUDY; BILIRUBIN,URINE NEGATIVE (NEGATIVE); COLOR,URINE STRAW; GLUCOSE, URINE 50 mg/dL (NEGATIVE); KETONES,URINE NEGATIVE (NEGATIVE); LEUKOCYTE ESTERASE,URINE TRACE (NEGATIVE); NITRITE,URINE NEGATIVE (NEGATIVE); PROTEIN,URINE NEGATIVE (NEGATIVE); URINE SPECIFIC GRAVITY 1.006; UROBILINOGEN,URINE NEGATIVE mg/dL (<2.0)
[2018-12-30] MEDS ORDERED: HYDROMORPHONE HCL INJ/PF 2 MG/ML AMPULE IV ONE (19:14)
--- NOTE | 2018-12-30 19:36 | ER Document Report ---
Doctor's Note Notes: 12/30/18 19:36 Care of this patient was turned over to me at the end of Dr. Birch's shift. In short she is being transferred to [place] for sepsis and evaluation of her recent hero graft. Patient is stable. Her pain is controlled after some pain medication here. She has no acute complaints or concerns and is eager for tra nsfer. She is stable.
[2018-12-30 19:38] VITALS: BP 126/96
--- NOTE | 2018-12-30 22:55 | OPERATIVE REPORT E ---
Operative Report NAME: DESIREE ARITA : 1970 AGE: 48Y DATE OF SURGERY: 12/30/2018 ROOM: PREOPERATIVE DIAGNOSIS: PATIENT WITH INFECTED HERO HEMODIALYSIS SHUNT, NEEDED A TEMPORARY HEMODIALYSIS ACCESS. POSTOPERATIVE DIAGNOSIS: PATIENT WITH INFECTED HERO HEMODIALYSIS SHUNT, NEEDED A TEMPORARY HEMODIALYSIS ACCESS. OPERATION: Placement of Trialysis catheter in the right femoral vein under ultrasound guidance. SURGEON: CAIO GODINEZ M.D. ANESTHESIA: Local. INDICATIONS: This is a 48-year-old female who needed temporary hemodialysis access since the Hero shunt appears to be infected. PROCEDURE: Patient was placed in supine position and the right groin prepped and draped in the usual sterile fashion. With the use of the ultrasound, the right femoral vein was identified and anesthesia infiltrated around the groin area. Right femoral vein was then cannulated and blood aspirated, dark blood, nonpulsatile. Guidewire passed through the needle and needle removed. The puncture site dilated and a 30-cm Trialysis catheter inserted through the guidewire, inserted through the hub. All the 3 ports aspirated and bled easily and infused saline easily. The catheter was then anchored to the skin with 3-0 nylon. Sterile dressings placed over the operative site. Needle, instrument and sponge counts correct. Estimated blood loss was minimal. Transparent sterile dressings placed over the catheter. Patient tolerated procedure well. DICTATING PHYSICIAN: CAIO GODINEZ M.D. [id number] PHY#: [id number] ID: [id number] JOB#: [id number] ACCT: [id number] cc:CAIO GODINEZ M.D. >
== END 2018-12-30 19:58 | disposition short-term general hospital (02) ==
LOC: ER 11:21
DX: T85.79XA Infection and inflammatory reaction due to other internal prosthetic devices, implants and grafts, initial encounter (principal); R00.0 Tachycardia, unspecified; I12.0 Hypertensive chronic kidney disease with stage 5 chronic kidney disease or end stage renal disease; N18.6 End stage renal disease; R07.81 Pleurodynia; D72.829 Elevated white blood cell count, unspecified; I15.0 Renovascular hypertension; Z99.2 Dependence on renal dialysis; R06.02 Shortness of breath; M54.6 Pain in thoracic spine; R50.9 Fever, unspecified; R53.81 Other malaise
CPT/HCPCS: 93005; 36415; 87040; 87086; 82553; 82550; 85025; 85610; 87077; 87088; 80053; 81001; 84484; 87186; 82803; 83605; 71045; 71275; 93010; A9270; J0713; J1200; J2930; J1170; J7030; J3370

== ENCOUNTER 2019-01-18 19:36 | Emergency (ER) | payer MEDICARE, OTHER ==
--- NOTE | 2019-01-18 20:16 | ER Document Report ---
ED Medical Screen (RME) - General Chief Complaint: General Weakness Stated Complaint: WEAKNESS,POST OP BLEEDING Time Seen by Provider: 01/18/19 20:07 Primary Care Provider: JOSE ALEJANDRO GASTELUM DO [Primary Care Provider] - Follow up as needed Notes: Patient is a 48-year-old female known dialysis patient with a fistula in her left upper arm. Discharge from [facility] on Thursday for continued care of hospital- acquired pneumonia. States on Thursday patient went to dialysis. States today after physical therapy as well as with patient he noticed excessive bleeding from the left upper arm from the fistula site. states "it was just spurting everywhere." States he applied to pressure dressings and then presented to the emergency room. Patient and are stating that the patient was "feeling fine" all day until this episode of bleeding started. GENERAL: very lethargic, very weak, can sit up straight on commands but then slumped over to the right side. Patient is unable to do full CVA scale. Has no facial droop, no slurred speech, weakness in both arms she is unable to perform pronator drift. EXTREMITIES: Moves all 4 extremities spontaneously. Left upper extremity bandaged, no obvious bleeding noted. I have alerted charge nurse the patient needs placement into room. I have greeted and performed a rapid initial assessment of this patient. A comprehensive ED assessment and evaluation of the patient, analysis of test results and completion of the medical decision making process will be conducted by additional ED providers. I have specifically instructed the patient or family members with the patient to immediately return to any nursing staff should anything change in the patient's condition or with their chief complaint. This medical record was dictated with voice recognizing software. There may be grammatical, syntax errors that are unintended. TRAVEL OUTSIDE OF THE [place] IN LAST 30 DAYS: No - Related Data Allergies/Adverse Reactions: montelukast sodium [From Singulair] Allergy (Intermediate, Verified 01/10/19 19:15) Shortness of Breath codeine Allergy (Mild, Verified 01/10/19 19:15) Swelling of Throat erythromycin base [Erythromycin Base] Allergy (Verified 01/10/19 19:15) sob, hives hydrocodone bitartrate [From Vicodin] Allergy (Verified 01/10/19 19:15) sob, hives ondansetron HCl [From Zofran] Allergy (Verified 01/10/19 19:15) sob, rash oxycodone HCl [From Percocet] Allergy (Verified 01/10/19 19:15) sob, rash penicillin G [Penicillin G] Allergy (Verified 01/10/19 19:15) sob, rash valacyclovir Allergy (Verified 01/10/19 19:15) latex Allergy (Severe, Uncoded 01/10/19 19:15) sob, hives adhesives Adverse Reaction (Severe, Uncoded 01/10/19 19:15) hung Past Medical History - Social History Family history: Hypertension, Other - kidney failure - Past Medical History Cardiac Medical History: Reports: Hx Hypertension Pulmonary Medical History: Reports: Hx Asthma, Hx Pneumonia, Hx Sleep Apnea Neurological Medical History: Reports: Hx Migraine Endocrine Medical History: Reports: Hx Hypothyroidism Renal/ Medical History: Reports: Hx End Stage Renal Disease, Hx Hemodialysis, Hx Peritoneal Dialysis GI Medical History: Reports: Hx Gastroesophageal Reflux Disease, Hx Ulcer Musculoskeltal Medical History: Reports Hx Arthritis Past Surgical History: Reports: Hx Appendectomy, Hx Hysterectomy, Hx Oral Surgery, Hx Thyroid Surgery - thyroidectomy, Hx Tubal Ligation, Hx Vascular Surgery - left port in chest-put in on 06/23/12 - Immunizations Immunizations up to date: Yes Hx Diphtheria, Pertussis, Tetanus Vaccination: Yes Physical Exam - Vital signs Vitals: Temp Pulse Resp BP Pulse Ox 98.9 F 107 H 18 135/91 H 95 01/18/19 19:50 01/18/19 19:50 01/18/19 19:50 01/18/19 19:50 01/18/19 19:50 Course - Vital Signs Vital signs: Temp Pulse Resp BP Pulse Ox 98.9 F 107 H 18 135/91 H 95 01/18/19 19:50 01/18/19 19:50 01/18/19 19:50 01/18/19 19:50 01/18/19 19:50 Doctor's Discharge - Discharge Referrals: JOSE ALEJANDRO GASTELUM DO [Primary Care Provider] - Follow up as needed
[2019-01-18 21:10] LABS: ABSOLUTE BASOPHILS # (AUTO) 0.1 10^3/uL (0.0-0.2); ABSOLUTE LYMPHOCYTES (AUTO) 0.6 10^3/uL (0.5-4.7); ABSOLUTE MONOCYTES (AUTO) 1.1 10^3/uL (0.1-1.4); ABSOLUTE NEUT (AUTO) 6.6 10^3/uL (1.7-8.2); BASOPHILS % (AUTO) 0.8 % (0-2); EOSINOPHILS % (AUTO) 0.3 % (0-6); HEMATOCRIT 25.9 % (36.0-47.0); HEMOGLOBIN 8.6 g/dL (12.0-15.5); LYMPHOCYTES % (AUTO) 7.5 % (13-45); MEAN CORPUSCULAR HEMOGLOBIN 32.3 pg (27.0-33.4); MEAN CORPUSCULAR HGB CONC 33.4 g/dL (32.0-36.0); MEAN CORPUSCULAR VOLUME 97 fl (80-97); PLATELET COUNT 216 10^3/uL (150-450); RED BLOOD COUNT 2.67 10^6/uL (3.72-5.28); RED CELL DISTRIBUTION WIDTH 16.7 % (11.5-14.0); SEGMENTED NEUTROPHILS % (AUTO) 78.4 % (42-78); TOTAL CELLS COUNTED % (AUTO) 100 %; WHITE BLOOD COUNT 8.4 10^3/uL (4.0-10.5)
[2019-01-18 21:27] LABS: INTERNATIONAL RATION (INR) 1.31
--- NOTE | 2019-01-18 21:39 | RADIOLOGY REPORT (SQ) ---
EXAM DESCRIPTION: XR CHEST 2 VIEWS COMPLETED DATE/TME: 01/18/2019 20:13 CLINICAL HISTORY: 48 years Female weakness COMPARISON: 01/10/2019. FINDINGS: Cardiac size is stable. Moderate left and small right effusions with basilar atelectasis or infiltrate. This is improved when compared to the previous examination. IMPRESSION: Interval improvement in bilateral pleural effusions and basilar atelectasis or infiltrate when compared to the previous exam CLINICAL HISTORY: 48 years, Female, weakness COMPARISON: None. NUMBER OF VIEWS: TECHNIQUE: LIMITATIONS: None. FINDINGS: IMPRESSION: copyright 2010 [facility]- All Rights Reserved
--- NOTE | 2019-01-18 22:08 | ER Document Report ---
ED General - General Chief Complaint: General Weakness Stated Complaint: WEAKNESS,POST OP BLEEDING Time Seen by Provider: 01/18/19 20:07 Primary Care Provider: JOSE ALEJANDRO GASTELUM DO [Primary Care Provider] - Follow up as needed Notes: Patient is a 48-year-old female with chronic kidney disease with dialysis depend ence who presents with bleeding from a prior fistula site in her left upper extremity. Patient had a hero graft placed at [place] which subsequently became infected and required removal. A dressing was placed last week upon discharge from the hospital and she states that she has had some intermittent bloody oozing from the area since that time. The patient reports that earlier today she had a moderate to severe amount of bleeding from the area and saturating through multiple bandages and getting on her clothes and sheets. Bleeding was controlled with direct pressure. No obvious triggering factor. Symptoms were severe and present now resolved. States that since the episode she does feel f atigued and somewhat lightheaded but denies chest pain or shortness of breath. Has not seen her primary doctor regarding today's concerns. TRAVEL OUTSIDE OF THE [place] IN LAST 30 DAYS: No - Related Data Allergies/Adverse Reactions: montelukast sodium [From Singulair] Allergy (Intermediate, Verified 01/10/19 19:15) Shortness of Breath codeine Allergy (Mild, Verified 01/10/19 19:15) Swelling of Throat erythromycin base [Erythromycin Base] Allergy (Verified 01/10/19 19:15) sob, hives hydrocodone bitartrate [From Vicodin] Allergy (Verified 01/10/19 19:15) sob, hives ondansetron HCl [From Zofran] Allergy (Verified 01/10/19 19:15) sob, rash oxycodone HCl [From Percocet] Allergy (Verified 01/10/19 19:15) sob, rash penicillin G [Penicillin G] Allergy (Verified 01/10/19 19:15) sob, rash valacyclovir Allergy (Verified 01/10/19 19:15) latex Allergy (Severe, Uncoded 01/10/19 19:15) sob, hives adhesives Adverse Reaction (Severe, Uncoded 01/10/19 19:15) hung Past Medical History - General Information source: Patient - Social History Smoking Status: Never Smoker Frequency of alcohol use: None Drug Abuse: None Lives with: Family Family History: Reviewed & Not Pertinent Patient has suicidal ideation: No Patient has homicidal ideation: No - Past Medical History Cardiac Medical History: Reports: Hx Hypertension Pulmonary Medical History: Reports: Hx Asthma, Hx Pneumonia, Hx Sleep Apnea Neurological Medical History: Reports: Hx Migraine Endocrine Medical History: Reports: Hx Hypothyroidism Renal/ Medical History: Reports: Hx End Stage Renal Disease, Hx Hemodialysis, Hx Peritoneal Dialysis GI Medical History: Reports: Hx Gastroesophageal Reflux Disease, Hx Ulcer Musculoskeletal Medical History: Reports Hx Arthritis Past Surgical History: Reports: Hx Appendectomy, Hx Hysterectomy, Hx Oral Surgery, Hx Thyroid Surgery - thyroidectomy, Hx Tubal Ligation, Hx Vascular Surgery - left port in chest-put in on 06/23/12 - Immunizations Immunizations up to date: Yes Hx Diphtheria, Pertussis, Tetanus Vaccination: Yes Hx Pneumococcal Vaccination: 05/19/13 Review of Systems - Review of Systems Notes: Constitutional: Negative for fever. HENT: Negative for sore throat. Eyes: Negative for visual changes. Cardiovascular: Negative for chest pain. Respiratory: Negative for shortness of breath. Gastrointestinal: Negative for abdominal pain, vomiting or diarrhea. Genitourinary: Negative for dysuria. Musculoskeletal: Negative for back pain. Skin: Positive for wound to the left proximal biceps region Neurological: Negative for headaches, weakness or numbness. 10 point ROS negative except as marked above and in HPI. Physical Exam - Vital signs Vitals: Temp Pulse Resp BP Pulse Ox 98.9 F 107 H 18 135/91 H 95 01/18/19 19:50 01/18/19 19:50 01/18/19 19:50 01/18/19 19:50 01/18/19 19:50 Interpretation: Tachycardic Notes: PHYSICAL EXAMINATION: GENERAL: Well-appearing, well-nourished and in no acute distress. HEAD: Atraumatic, normocephalic. EYES: Pupils equal round and reactive to light, extraocular movements intact, sclera anicteric, conjunctiva are normal. ENT: nares patent, oropharynx clear without exudates. Moderately dry mucous membranes. NECK: Normal range of motion, supple without lymphadenopathy LUNGS: Breath sounds clear to auscultation bilaterally and equal. No wheezes rales or rhonchi. HEART: Regular rate and rhythm without murmurs ABDOMEN: Soft, nontender, normoactive bowel sounds. No guarding, no rebound. No masses appreciated. EXTREMITIES: no pitting or edema. No cyanosis. NEUROLOGICAL: No focal neurological deficits. Moves all extremities spontaneously and on command. PSYCH: Normal mood, normal affect. SKIN: Warm, Dry, normal turgor, there is an open wound to the left proximal biceps region with no active bleeding, induration or erythema Course - Re-evaluation Re-evalutation: 01/18/19 22:02 Patient presents with bleeding from a form of fistula, hero graft site, has terminated after direct pressure was applied at home. The graft was removed at [place] due to becoming infected and patient is currently dependent on a femoral dialysis catheter. There is no active bleeding at the time of my evaluation. The patient's hemoglobin is actually increased from 8.3-8.6. Patient is otherwise nontoxic appearance, vitals with exception of mild tachycardia which the patient does report is her baseline. Current heart rate is 106. Review of medical record does corroborate the patient has some mild tachycardia at baseline. Remainder of labs are at baseline. Wound has been cleaned, dressed and patient will be following up with her primary doctor. At this time will discharge with return precautions and follow-up recommendations. Verbal discharge instructions given a the bedside and opportunity for questions given. Medication warnings reviewed. Patient is in agreement with this plan and has verbalized understanding of return precautions and the need for primary care follow-up in the next 24-72 hours. - Vital Signs Vital signs: Temp Pulse Resp BP Pulse Ox 98.9 F 107 H 20 129/89 H 99 01/18/19 23:01 01/18/19 19:50 01/18/19 23:01 01/18/19 23:01 01/18/19 23:01 - Laboratory Result Diagrams: 01/18/19 20:50 01/18/19 21:48 Laboratory results interpreted by me: 01/18/19 01/18/19 01/18/19 20:50 20:50 21:48 RBC 2.67 L Hgb 8.6 L Hct 25.9 L RDW 16.7 H Seg Neutrophils % 78.4 H Lymphocytes % 7.5 L PT 17.0 H BUN 27 H Creatinine 8.50 H Est GFR ( Amer) 6 L Est GFR (Non-Af Amer) 5 L Calcium 8.2 L - Diagnostic Test Radiology reviewed: Image reviewed, Reports reviewed Radiology results interpreted by me: 01/18/19 22:06 Chest x-ray: No acute infiltrate Discharge - Discharge Clinical Impression: Hemorrhage from wound, Chronic anticoagulation Anemia Qualifiers: Anemia type: unspecified type Qualified Code(s): D64.9 - Anemia, unspecified Condition: Stable Disposition: HOME, SELF-CARE Additional Instructions: Your blood counts have actually improved from 8.3-8.6. Please return to the emergency department if you have recurrent bleeding, pass out, have worsening pain to the area, develop fever greater than 100.4 F, or have any other symptoms that are worrisome to you. Referrals: JOSE ALEJANDRO GASTELUM, [Primary Care Provider] - Follow up as needed
[2019-01-18 22:36] LABS: ANION GAP 12 (5-19); BLOOD UREA NITROGEN 27 mg/dL (7-20); CALCIUM 8.2 mg/dL (8.4-10.2); CARBON DIOXIDE 25 mmol/L (22-30); CHLORIDE 102 mmol/L (98-107); GLUCOSE 94 mg/dL (75-110); POTASSIUM 3.8 mmol/L (3.6-5.0); SODIUM 138.8 mmol/L (137-145)
[2019-01-18 23:21] VITALS: BP 129/89
--- NOTE | 2019-01-19 07:35 | EKG REPORT ---
SEVERITY:- BORDERLINE ECG - SINUS RHYTHM BORDERLINE LEFT AXIS DEVIATION CONSIDER ANTERIOR INFARCT : Confirmed by: Zach Hauser MD 19-Jan-2019 07:34:59
== END 2019-01-18 23:21 | disposition home or self-care (01) ==
LOC: ER 19:36
DX: R53.1 Weakness (principal); D64.9 Anemia, unspecified; T82.838A Hemorrhage due to vascular prosthetic devices, implants and grafts, initial encounter; Y84.1 Kidney dialysis as the cause of abnormal reaction of the patient, or of later complication, without mention of misadventure at the time of the procedure; I12.0 Hypertensive chronic kidney disease with stage 5 chronic kidney disease or end stage renal disease; N18.6 End stage renal disease; Z79.01 Long term (current) use of anticoagulants; Z99.2 Dependence on renal dialysis; Z90.710 Acquired absence of both cervix and uterus; Z91.040 Latex allergy status; Z88.3 Allergy status to other anti-infective agents
CPT/HCPCS: 36415; 71046; 80048; 85025; 85610; 85730; 93005; 93010; 99285

== ENCOUNTER 2019-01-27 06:58 | Emergency (ER) | payer MEDICARE, OTHER ==
[2019-01-27] MEDS ORDERED: OXYCODONE-ACETAMINOPHEN 5-325 MG TABLET PO ONE (08:09)
[2019-01-27] MEDS ORDERED: FENTANYL CITRATE INJ/PF 100 MCG/2 ML AMPUL IV ONE (08:58)
[2019-01-27 09:05] LABS: ABSOLUTE EOSINOPHILS # (AUTO) 0.2 10^3/uL (0.0-0.6); ABSOLUTE LYMPHOCYTES (AUTO) 0.9 10^3/uL (0.5-4.7); ABSOLUTE MONOCYTES (AUTO) 0.7 10^3/uL (0.1-1.4); HEMOGLOBIN 8.6 g/dL (12.0-15.5); RED CELL DISTRIBUTION WIDTH 17.3 % (11.5-14.0); TOTAL CELLS COUNTED % (AUTO) 100 %
[2019-01-27 09:13] LABS: ABSOLUTE NEUT (AUTO) 6.5 10^3/uL (1.7-8.2); BASOPHILS % (AUTO) 0.5 % (0-2); EOSINOPHILS % (AUTO) 2.8 % (0-6); HEMATOCRIT 26.5 % (36.0-47.0); LYMPHOCYTES % (AUTO) 10.7 % (13-45); MEAN CORPUSCULAR HEMOGLOBIN 32.1 pg (27.0-33.4); MEAN CORPUSCULAR HGB CONC 32.5 g/dL (32.0-36.0); MEAN CORPUSCULAR VOLUME 99 fl (80-97); MONOCYTES % (AUTO) 8.6 % (3-13); PLATELET COUNT 188 10^3/uL (150-450); RED BLOOD COUNT 2.68 10^6/uL (3.72-5.28); SEGMENTED NEUTROPHILS % (AUTO) 77.4 % (42-78); WHITE BLOOD COUNT 8.4 10^3/uL (4.0-10.5)
[2019-01-27] MEDS ORDERED: FENTANYL CITRATE INJ/PF 100 MCG/2 ML AMPUL IM ONE (09:15)
[2019-01-27 09:25] LABS: ANION GAP 13 (5-19); BLOOD UREA NITROGEN 62 mg/dL (7-20); CARBON DIOXIDE 27 mmol/L (22-30); CHLORIDE 100 mmol/L (98-107); GLUCOSE 76 mg/dL (75-110); POTASSIUM 4.7 mmol/L (3.6-5.0); SODIUM 139.7 mmol/L (137-145)
--- NOTE | 2019-01-27 10:18 | EKG REPORT ---
SEVERITY:- BORDERLINE ECG - SINUS RHYTHM BORDERLINE LEFT AXIS DEVIATION BORDERLINE R WAVE PROGRESSION, ANTERIOR LEADS : Confirmed by: Kaylee Frausto MD 27-Jan-2019 10:18:06
--- NOTE | 2019-01-27 10:38 | ER Document Report ---
ED General - General Chief Complaint: Chest Pain Stated Complaint: RAPID HEART RATE Time Seen by Provider: 01/27/19 08:07 Primary Care Provider: RADHA WHITAKER PA-C [Primary Care Provider] - Follow up as needed Notes: 48-year-old female presents with left arm pain, at the site of a explanted infected fistula which was explanted over a month ago. Is having pain ever since then but has worsened pain and warmth in the lateral area of her triceps. Wound continues to heal by secondary intention with slight bloody drainage. Denies fever. Blood pressure was good at dialysis but was slightly tachycardic. Sent here for further evaluation. Currently being dialyzed through right groin catheter. TRAVEL OUTSIDE OF THE [place] IN LAST 30 DAYS: No - Related Data Allergies/Adverse Reactions: montelukast sodium [From Singulair] Allergy (Intermediate, Verified 01/10/19 19:15) Shortness of Breath codeine Allergy (Mild, Verified 01/10/19 19:15) Swelling of Throat erythromycin base [Erythromycin Base] Allergy (Verified 01/10/19 19:15) sob, hives hydrocodone bitartrate [From Vicodin] Allergy (Verified 01/10/19 19:15) sob, hives ondansetron HCl [From Zofran] Allergy (Verified 01/10/19 19:15) sob, rash oxycodone HCl [From Percocet] Allergy (Verified 01/10/19 19:15) sob, rash penicillin G [Penicillin G] Allergy (Verified 01/10/19 19:15) sob, rash valacyclovir Allergy (Verified 01/10/19 19:15) latex Allergy (Severe, Uncoded 01/10/19 19:15) sob, hives adhesives Adverse Reaction (Severe, Uncoded 01/10/19 19:15) hung Past Medical History - Social History Smoking Status: Unknown if Ever Smoked Family History: Reviewed & Not Pertinent Patient has suicidal ideation: No Patient has homicidal ideation: No - Past Medical History Cardiac Medical History: Reports: Hx Hypertension Pulmonary Medical History: Reports: Hx Asthma, Hx Pneumonia, Hx Sleep Apnea Neurological Medical History: Reports: Hx Migraine Endocrine Medical History: Reports: Hx Hypothyroidism Renal/ Medical History: Reports: Hx End Stage Renal Disease, Hx Hemodialysis. Denies: Hx Peritoneal Dialysis GI Medical History: Reports: Hx Gastroesophageal Reflux Disease, Hx Ulcer Musculoskeletal Medical History: Reports Hx Arthritis Past Surgical History: Reports: Hx Appendectomy, Hx Hysterectomy, Hx Oral Surgery, Hx Thyroid Surgery - thyroidectomy, Hx Tubal Ligation, Hx Vascular Surgery - left port in chest-put in on 06/23/12 - Immunizations Immunizations up to date: Yes Hx Diphtheria, Pertussis, Tetanus Vaccination: Yes Hx Pneumococcal Vaccination: 05/19/13 Review of Systems - Review of Systems Notes: REVIEW OF SYSTEMS GEN: Denies fever, chills, weight loss ENT: Denies sore throat, nasal discharge, ear pain EYES: Denies blurry vision, eye pain, discharge CV: Denies chest pain, palpitations, edema RESP: Denies cough, shortness of breath, wheezing GI: Denies abdominal pain, nausea, vomiting, diarrhea MSK: Arm pain SKIN: Denies rash, skin lesions LYMPH: Denies swollen glands/lymph nodes NEURO: Denies headache, focal weakness or numbness, dizziness PSYCH: Denies depression, suicidal or homicidal ideation PHYSICAL EXAMINATION General: No acute distress, well-nourished Head: Atraumatic, normocephalic ENT: Mouth normal, oropharynx moist, no exudates or tonsillar enlargement Eyes: Conjunctiva normal, pupils equal, lids normal Neck: No JVD, supple, no guarding CVS: Normal rate, regular rhythm, no murmurs Resp: No resp distress, equal and normal breath sounds bilaterally GI: Nondistended, soft, no tenderness to palpation, no rebound or guarding Ext: Back: No CVA or midline TTP Skin: No rash, warm Lymphatic: No lymphadeopathy noted Neuro: Awake, alert. Face symmetric. GCS 15. Physical Exam - Vital signs Vitals: Temp Pulse Resp BP Pulse Ox 97.6 F 96 16 141/95 H 100 01/27/19 07:11 01/27/19 07:11 01/27/19 07:11 01/27/19 07:11 01/27/19 07:11 Course - Re-evaluation Re-evalutation: 01/27/19 13:05 Patient seen for evaluation above complaints. Suspect postoperative pain. Has history of DVT in left upper extremity. Order ultrasound. This shows chronic DVT in the IJ and subacute in the axillary. Already on Eliquis and aspirin, no signs of pulmonary embolus at this time. Her ultrasound also showed, per the tech some superficial femoral phlebitis next to the area of her explanted fistula. This could be the cause of her increasing pain. Already on anticoagulation recommend hot packs. There are no signs of infection of the wound at this time the patient stable to follow-up with her primary continue on all the same meds. Also asked her to [facility]. I have discussed with the patient there likely diagnosis, aftercare plan, follow-up plans and my usual and customary return precautions. They verbalized understanding of this. - Vital Signs Vital signs: Temp Pulse Resp BP Pulse Ox 98.3 F 96 14 131/104 H 96 01/27/19 10:49 01/27/19 07:11 01/27/19 11:00 01/27/19 10:49 01/27/19 11:00 - Laboratory Result Diagrams: 01/27/19 08:40 01/27/19 08:40 Laboratory results interpreted by me: 01/27/19 01/27/19 08:40 08:40 RBC 2.68 L Hgb 8.6 L Hct 26.5 L MCV 99 H RDW 17.3 H Lymphocytes % 10.7 L BUN 62 H Creatinine 11.05 H Est GFR ( Amer) 4 L Est GFR (Non-Af Amer) 4 L Calcium 8.0 L - Diagnostic Test Radiology reviewed: Reports reviewed Discharge - Discharge Clinical Impression: Superficial thrombophlebitis Qualifiers: Superficial thrombophlebitis-Involved body area: upper extremity Laterality: left Qualified Code(s): I80.8 - Phlebitis and thrombophlebitis of other sites Condition: Good Disposition: HOME, SELF-CARE Additional Instructions: There are some small vein clots in your armyou also have old ones in your neck and armpit, which is unchanged today. There is no sign of infection from your wound. Please follow-up with your vascular team within 1 week. Return to the emergency room for worse pain fever or pus from the wound. Referrals: RADHA WHITAKER PA-C [Primary Care Provider] - Follow up as needed
[2019-01-27 10:51] VITALS: BP 131/104
--- NOTE | 2019-01-27 13:53 | XCELERA REPORT ---
[address] [address] Upper Extremity Venous Evaluation Name: DESIREE ARITA Age: 48 yrs Gender: Female : 1970 Patient Status: Emergency Patient Location: ER Study Date: 01/27/2019 09:24 AM Procedure: Unilateral duplex scan of the left upper extremity veins was performed, including responses to compression and other maneuvers. Reason For Study: swelling pain recent graft explant Ordering Physician: CHLOE RUBIN Performed By: Salome Ontiveros Left Sided Venous Evaluation Abnormal vessel filling , partial compression and , some Colour flow, echogenic content, in the Internal Jugular veins. Also in Cephalic vein. Interpretation Summary Chronic DVT in both Internal Jugular veins. Superficial phlebitis in the Cephalic vein, on the left. : CHLOE RUBIN > Lukas Morrissey
== END 2019-01-27 11:18 | disposition home or self-care (01) ==
LOC: ER 06:58
DX: I80.8 Phlebitis and thrombophlebitis of other sites (principal); I82.C23 Chronic embolism and thrombosis of internal jugular vein, bilateral; I82.609 Acute embolism and thrombosis of unspecified veins of unspecified upper extremity; I12.0 Hypertensive chronic kidney disease with stage 5 chronic kidney disease or end stage renal disease; N18.6 End stage renal disease; Z99.2 Dependence on renal dialysis; J45.909 Unspecified asthma, uncomplicated; Z79.02 Long term (current) use of antithrombotics/antiplatelets; Z79.82 Long term (current) use of aspirin; Z98.890 Other specified postprocedural states; Z88.8 Allergy status to other drugs, medicaments and biological substances; Z88.5 Allergy status to narcotic agent; Z88.1 Allergy status to other antibiotic agents; Z88.0 Allergy status to penicillin; Z91.040 Latex allergy status; Z88.3 Allergy status to other anti-infective agents
CPT/HCPCS: 93005; 99284; 96372; 96374; 36415; 87040; 85025; 80048; 93971 ×2; 93010; J3010

== ENCOUNTER → 2019-03-07 | Outpatient (CLI) | payer MEDICARE, OTHER ==
--- NOTE | 2019-03-07 16:01 | XCELERA REPORT ---
[address] [address] Upper Extremity Venous Evaluation Name: DESIREE ARITA Age: 48 yrs Gender: Female : 1970 Patient Status: Outpatient Patient Location: Study Date: 03/07/2019 01:15 PM Procedure: Unilateral duplex scan of the left upper extremity veins was performed, including responses to compression and other maneuvers. Reason For Study: LUE SWELLING Ordering Physician: ILANA VICTORIA Performed By: Lavinia Brian Left Sided Venous Evaluation Abnormal vessel filling , no compression, echogenic content normal size in the left Internal Jugular vein. Similarly with less echogenicity in one of two Brachial veins. Normal flow otherwise down to the forearm veins. Critical Findings Discussed with YSABEL Victoria at about 1500. Interpretation Summary Continued evidence of left Internal Jugular DVT, Subacute in Brachial vein. : ILANA VICTORIA > Lukas Morrissey
== END ==
LOC: SP 12:39
PROVIDERS: ATTEND Physician Assistant Medical
DX: I74.2 Embolism and thrombosis of arteries of the upper extremities (principal)
CPT/HCPCS: 93971

== ENCOUNTER → 2019-06-21 | Outpatient (CLI) | payer MEDICARE, OTHER ==
--- NOTE | 2019-06-21 13:02 | XCELERA REPORT ---
[address] [address] Lower Extremity Arterial Evaluation Name: DESIREE ARITA Age: 48 yrs Gender: Female : 1970 Patient Status: Outpatient Patient Location: Study Date: 06/21/2019 08:11 AM Procedure: A color flow and duplex scan of the lower extremity arteries was performed bilaterally with velocity and waveform anaylsis. Reason For Study: PVD Ordering Physician: RADHA WHITAKER Performed By: Anshul Gallagher Measurements and Calculations Right Left TESTING ENGINEER PSV 158.9 142.2 cm/sec Prox PFA PSV -80.5 -82.9 cm/sec Prox SFA PSV 83.8 96.5 cm/sec Mid SFA PSV -104.8 -94.8 cm/sec Dist SFA PSV -77.3 -82.9 cm/sec Prox Pop A PSV 43.0 48.3 cm/sec Dist GLENIS PSV 16.3 65.3 cm/sec Dist DANCE HALL HOSTESS PSV 86.4 57.5 cm/sec Gordon Pedis PSV 50.3 46.3 cm/sec Right Side Arterial Evaluation Normal velocity and triphasic waveforms noted from the Common Femoral artery to the infrageniculate vessels . Ankle Brachial index not requested. Left Side Arterial Evaluation Normal velocity and triphasic waveforms noted from the Common Femoral artery to the infrageniculate vessels . Ankle Brachial index not requested. Interpretation Summary No hemodynamically significant lesions in the bilateral lower extremities, on duplex imaging, at rest. : RADHA WHITAKER > Lukas Morrissey
--- NOTE | 2019-06-21 13:05 | XCELERA REPORT ---
[address] [facility] [address] [facility] Ven[facility] Procedure: Color flow and duplex imaging bilaterally of the veins of the lower extremities as well as the Common Femoral veins. Right Sided Venous Evaluation A large bore hemodialysis catheter is present in the Femoral vein. Sited about the Sapheno Femoral junction. Normal vessel filling wall to wall, compression and augmentation as well as Colour flow down to the infrageniculate veins. Interpretation Summary No duplex evidence of DVT or obstruction in the bilateral lower extremities. A Hemodialysis catheter is noted in the right Femoral system. Name: DESIREE ARITA Age: 48 yrs Gender: Female : 1970 Patient Status: Outpatient Patient Location: Study Date: 06/21/2019 08:36 AM Reason For Study: PVD Ordering Physician: RADHA WHITAKER Performed By: Anshul Gallagher : RADHA WHITAKER > Lukas Morrissey
== END ==
LOC: SP 07:39
PROVIDERS: ATTEND Physician Assistant
DX: I73.9 Peripheral vascular disease, unspecified (principal)
CPT/HCPCS: 93925; 93970

== ENCOUNTER 2019-07-09 14:09 | Emergency (ER) | payer MEDICARE, OTHER ==
[2019-07-09] MEDS ORDERED: MORPHINE SULFATE IR 15 MG TABLET PO ONE ×2 (14:21→20:32)
[2019-07-09] MEDS ORDERED: PROMETHAZINE HCL 25 MG TABLET PO ONE (14:22)
--- NOTE | 2019-07-09 14:24 | ER Document Report ---
ED Medical Screen (RME) - General Chief Complaint: Leg Pain Stated Complaint: PAIN IN RIGHT THIGH/NAUSEA Time Seen by Provider: 07/09/19 14:18 Primary Care Provider: RADHA WHITAKER PA-C [Primary Care Provider] - Follow up as needed Mode of Arrival: Ambulatory Information source: Patient Notes: Patient is a 48-year-old female dialysis patient with history of DVTs presenting with right lower extremity pain. Patient reports pain in the region of the right thigh. She states pain started this morning and is severe. She denies any direct trauma to the area. She is wearing pants in triage so the evaluation is limited. I do not see any unilateral leg swelling on initial exam. She is on blood thinners. She has multiple medication allergies. I have greeted and performed a rapid initial assessment of this patient. A comprehensive ED assessment and evaluation of the patient, analysis of test results and completion of the medical decision making process will be conducted by additional ED providers. I have specifically instructed the patient or family members with the patient to immediately return to any nursing staff should anything change in the patient's condition or with their chief complaint. This medical record was dictated with voice recognizing software. There may be grammatical, syntax errors that are unintended. TRAVEL OUTSIDE OF THE [place] IN LAST 30 DAYS: No - Related Data Allergies/Adverse Reactions: montelukast sodium [From Singulair] Allergy (Intermediate, Verified 07/09/19 14:18) Shortness of Breath codeine Allergy (Mild, Verified 07/09/19 14:18) Swelling of Throat erythromycin base [Erythromycin Base] Allergy (Verified 07/09/19 14:18) sob, hives hydrocodone bitartrate [From Vicodin] Allergy (Verified 07/09/19 14:18) sob, hives ondansetron HCl [From Zofran] Allergy (Verified 07/09/19 14:18) sob, rash oxycodone HCl [From Percocet] Allergy (Verified 07/09/19 14:18) sob, rash penicillin G [Penicillin G] Allergy (Verified 07/09/19 14:18) sob, rash valacyclovir Allergy (Verified 07/09/19 14:18) latex Allergy (Severe, Uncoded 07/09/19 14:18) sob, hives adhesives Adverse Reaction (Severe, Uncoded 07/09/19 14:18) hung Past Medical History - Social History Chew tobacco use (# tins/day): No Frequency of alcohol use: None Drug Abuse: None Family history: Hypertension, Other - kidney failure - Past Medical History Cardiac Medical History: Reports: Hx Hypertension Pulmonary Medical History: Reports: Hx Asthma, Hx Pneumonia, Hx Sleep Apnea Neurological Medical History: Reports: Hx Migraine Endocrine Medical History: Reports: Hx Hypothyroidism Renal/ Medical History: Reports: Hx End Stage Renal Disease, Hx Hemodialysis. Denies: Hx Peritoneal Dialysis GI Medical History: Reports: Hx Gastroesophageal Reflux Disease, Hx Ulcer Musculoskeltal Medical History: Reports Hx Arthritis Past Surgical History: Reports: Hx Appendectomy, Hx Hysterectomy, Hx Oral Surgery, Hx Thyroid Surgery - thyroidectomy, Hx Tubal Ligation, Hx Vascular Surgery - left port in chest-put in on 06/23/12 - Immunizations Immunizations up to date: Yes Hx Diphtheria, Pertussis, Tetanus Vaccination: Yes Physical Exam - Vital signs Vitals: Temp Pulse Resp BP Pulse Ox 98.1 F 92 18 122/78 95 07/09/19 14:13 07/09/19 14:13 07/09/19 14:13 07/09/19 14:13 07/09/19 14:13 Course - Vital Signs Vital signs: Temp Pulse Resp BP Pulse Ox 98.1 F 92 18 122/78 95 07/09/19 14:13 07/09/19 14:13 07/09/19 14:13 07/09/19 14:13 07/09/19 14:13 Doctor's Discharge - Discharge Referrals: RADHA WHITAKER PA-C [Primary Care Provider] - Follow up as needed
--- NOTE | 2019-07-09 17:27 | ER Document Report ---
ED Extremity Problem, Lower - General Chief Complaint: Leg Pain Stated Complaint: PAIN IN RIGHT THIGH/NAUSEA Time Seen by Provider: 07/09/19 14:18 Primary Care Provider: RADHA WHITAKER PA-C [Primary Care Provider] - Follow up as needed Mode of Arrival: Ambulatory Notes: Patient is a 48-year-old female with a history of end-stage renal disease on dialysis and blood clot who presents to the emergency department with a chief complaint of right thigh pain. Patient reports she did wake up this morning with right anterior thigh pain. Patient reports she did attempt using muscle relaxer and heat with no relief. Patient reports she does have a history of DVTs. Patient reports last month she was diagnosed with a superficial blood clot to the left upper arm and around her neck area. Patient reports she is on Eliquis and aspirin for this. Patient denies injury or fall. TRAVEL OUTSIDE OF THE [place] IN LAST 30 DAYS: No - Related Data Allergies/Adverse Reactions: montelukast sodium [From Singulair] Allergy (Intermediate, Verified 07/09/19 14:18) Shortness of Breath codeine Allergy (Mild, Verified 07/09/19 14:18) Swelling of Throat erythromycin base [Erythromycin Base] Allergy (Verified 07/09/19 14:18) sob, hives hydrocodone bitartrate [From Vicodin] Allergy (Verified 07/09/19 14:18) sob, hives ondansetron HCl [From Zofran] Allergy (Verified 07/09/19 14:18) sob, rash oxycodone HCl [From Percocet] Allergy (Verified 07/09/19 14:18) sob, rash penicillin G [Penicillin G] Allergy (Verified 07/09/19 14:18) sob, rash valacyclovir Allergy (Verified 07/09/19 14:18) latex Allergy (Severe, Uncoded 07/09/19 14:18) sob, hives adhesives Adverse Reaction (Severe, Uncoded 07/09/19 14:18) hung Past Medical History - General Information source: Patient - Social History Smoking Status: Never Smoker Chew tobacco use (# tins/day): No Frequency of alcohol use: None Drug Abuse: None Lives with: Family Family History: Reviewed & Not Pertinent Patient has suicidal ideation: No Patient has homicidal ideation: No - Past Medical History Cardiac Medical History: Reports: Hx Hypertension Pulmonary Medical History: Reports: Hx Asthma, Hx Pneumonia, Hx Sleep Apnea EENT Medical History: Reports: None Neurological Medical History: Reports: Hx Migraine Endocrine Medical History: Reports: Hx Hypothyroidism Renal/ Medical History: Reports: Hx End Stage Renal Disease, Hx Hemodialysis. Denies: Hx Peritoneal Dialysis Malignancy Medical History: Reports: None GI Medical History: Reports: Hx Gastroesophageal Reflux Disease, Hx Ulcer Musculoskeletal Medical History: Reports Hx Arthritis Skin Medical History: Reports None Psychiatric Medical History: Reports: None Traumatic Medical History: Reports: None Infectious Medical History: Reports: None Past Surgical History: Reports: Hx Appendectomy, Hx Hysterectomy, Hx Oral Surgery, Hx Thyroid Surgery - thyroidectomy, Hx Tubal Ligation, Hx Vascular Surgery - left port in chest-put in on 06/23/12 - Immunizations Immunizations up to date: Yes Hx Diphtheria, Pertussis, Tetanus Vaccination: Yes Hx Pneumococcal Vaccination: 05/19/13 Review of Systems - Review of Systems Constitutional: No symptoms reported EENT: No symptoms reported Cardiovascular: No symptoms reported Respiratory: No symptoms reported Gastrointestinal: No symptoms reported Genitourinary: No symptoms reported Female Genitourinary: No symptoms reported Musculoskeletal: See HPI Skin: No symptoms reported Hematologic/Lymphatic: No symptoms reported Neurological/Psychological: No symptoms reported Physical Exam - Vital signs Vitals: Temp Pulse Resp BP Pulse Ox 98.1 F 92 18 122/78 95 07/09/19 14:13 07/09/19 14:13 07/09/19 14:13 07/09/19 14:13 07/09/19 14:13 Interpretation: Normal - Notes Notes: GENERAL: Well-appearing, well-nourished and in no acute distress. HEAD: Atraumatic, normocephalic. EYES: Pupils equal round and reactive to light, extraocular movements intact, sclera anicteric, conjunctiva are normal. ENT: TMs normal, nares patent, oropharynx clear without exudates. Moist mucous membranes. NECK: Normal range of motion, supple without lymphadenopathy or JVD. LUNGS: Breath sounds clear to auscultation bilaterally and equal. No wheezes rales or rhonchi. HEART: Regular rate and rhythm without murmurs, rubs or gallops. ABDOMEN: Soft, nontender, normoactive bowel sounds. No guarding, no rebound. No masses appreciated. BACK: No cervical, thoracic, lumbar midline tenderness. No saddle anesthesia, normal distal neurovascular exam. GENITOURINARY: Deferred. EXTREMITIES: Patient has a perm cath located to the upper anterior right thigh, 2x2 gauze dressing removing and there was dried blood noted at the insertion site but does not have any active bleeding, erythema or swelling. No obvious swelling to right upper thigh when compared to the left. NEUROLOGICAL: Cranial nerves II through XII grossly intact. Normal speech. PSYCH: Normal mood, normal affect. SKIN: Warm, Dry, normal turgor, no rashes or lesions noted. Course - Re-evaluation Re-evalutation: 07/09/19 17:26 Upon initial evaluation patient has not received her Doppler ultrasound as of yet. Patient reports that the dosage of pain medication and nausea medicine did help with her discomfort that was given in triage. Patient reports that she is concerned she potentially has a blood clot in her right upper thigh as she does have a history. Patient is on Eliquis and aspirin. Patient currently in no acute distress. Denies chest pain or shortness of breath. Patient reports she is a dialysis patient on Thursday, Thursday and Thursday and she did receive a full treatment yesterday. Patient reports the right upper thigh pain started today. 07/09/19 20:13 I did speak with Dr. Morrissey who is reading for ultrasound. He reports that the patient does have a clot around the perm cath in the right upper thigh. He reports this is considered a DVT because of its location in the femoral vein. Patient is already on adequate anticoagulation to include Eliquis, aspirin and does receive heparin at dialysis 3 times a week. I did discuss this with the patient and given her strict return precautions. I did inform her to follow-up with her surgeon on Thursday so they can further evaluate this. I did discuss this with my supervising physician Dr. Qureshi who is in agreement with discharge plane. Patient verbalized understanding. Patient did receive a dose of morphine by mouth earlier which she states did help with her pain. Patient reports she is allergic to multiple medications but has tolerated morphine in the past without any problems. - Vital Signs Vital signs: Temp Pulse Resp BP Pulse Ox 98.8 F 86 18 125/69 100 07/09/19 19:39 07/09/19 19:39 07/09/19 19:39 07/09/19 19:39 07/09/19 19:39 Discharge - Discharge Clinical Impression: Right leg pain DVT (deep venous thrombosis) Qualifiers: DVT location: lower extremity Affected thrombotic vein of extremity: femoral Chronicity: acute Laterality: right Qualified Code(s): I82.411 - Acute embolism and thrombosis of right femoral vein Condition: Stable Disposition: HOME, SELF-CARE Additional Instructions: *Today you are seen in the emergency department for right leg pain. It does appear that you have a DVT, which is a clot around the PermCath that is located in your right upper thigh. You are on adequate anticoagulation which is Eliquis, aspirin and even heparin that you receive at dialysis. I did speak with Dr. Morrissey who states you had a similar study performed 2 weeks ago and that there was clot at that time and it does appear to have gotten slightly worse. He does state that is okay to use the permacath for dialysis on Thursday. Please follow-up with dialysis on Thursday; you do need to make your surgeon and dialysis doctor aware of this so they can further evaluate this. Please continue taking your anticoagulation medication. I have given you a prescription for morphine. Do not drive or operate heavy machinery while on this medication. Please seek medical attention if you develop any severe swelling to your right upper leg, severe pain, shortness of breath, chest pain, leg discoloration, fever or any new or worsening symptoms. DVT Outpatient Treatment You have deep venous thrombosis (DVT) in your leg. DVT or phlebitis is blood clots within the large deep veins. This causes redness, warmth, and tenderness of the involved area. This problem is more likely to affect people who smoke, take estrogen, have had recent surgery, have been immobile, have had previous DVT, or who have serious underlying health conditions. Keep your legs elevated. A heating pad, 20 minutes every two hours, can help with leg pain. For now, keep walking to a minimum. Don't do any physical work, lifting, or exercise. If the doctor has recommended medication for you, it's important that you take it. DVT can cause serious complications. The clots can damage the valves in the veins, leading to chronic pain and swelling. If a clot breaks loose and floats upstream, it can stick in the lungs. A clot in the lungs, called pulmonary embolism, can be life-threatening. Call the doctor or return if you develop increasing leg pain and swelling, leg discoloration, fever, chest pain, or shortness of breath. Prescriptions: Morphine Sulfate [Morphine Ir 15 mg Tablet] 15 mg PO TID PRN #8 tablet PRN Reason: Referrals: RADHA WHITAKER PA-C [Primary Care Provider] - Follow up as needed
[2019-07-09 19:46] VITALS: BP 125/69
--- NOTE | 2019-07-10 14:35 | XCELERA REPORT ---
[address] [address] Lower Extremity Venous Evaluation Procedure: Color flow and duplex imaging of the veins of the right lower extremity as well as the left Common Femoral vein. Right Sided Venous Evaluation Abnormal vessel filling, partial compression. partial Colour flow , around dialysis catheter in Common Femoral. Veins distally normal, Iliac veins not visualized. Left Sided Venous Evaluation The left common femoral vein is fully compressible. Spontaneous and phasic flow is present in the left common femoral vein. Critical Findings Discussed with KATIE Nolan. In particular this finding is of questionable significance, since thrombus is frequently associated with indwelling venous catheters. The patient may be on anticoagulation. Interpretation Summary Thrombus(DVT), noted around and in relation to the catheter in the Common Femoral vein. The characteristics are comparable with chronic thrombus. Name: DESIREE ARITA Age: 48 yrs Gender: Female : 1970 Patient Status: Preadmit Patient Location: ER Study Date: 07/09/2019 06:21 PM Reason For Study: RLE pain, hx of DVT Ordering Physician: SAUMYA BUCKLEY Performed By: Lindsay Peck : SAUMYA BUCKLEY > Lukas Morrissey
== END 2019-07-09 20:40 | disposition home or self-care (01) ==
LOC: ER 14:09
DX: I82.411 Acute embolism and thrombosis of right femoral vein (principal); M79.651 Pain in right thigh; R11.0 Nausea; I12.0 Hypertensive chronic kidney disease with stage 5 chronic kidney disease or end stage renal disease; N18.6 End stage renal disease; Z99.2 Dependence on renal dialysis; Z91.040 Latex allergy status; Z88.0 Allergy status to penicillin; Z88.6 Allergy status to analgesic agent; Z88.3 Allergy status to other anti-infective agents
CPT/HCPCS: 99283; 93971 ×2; A9270 ×2

== ENCOUNTER 2019-10-09 19:43 | Emergency (ER) | payer MEDICARE, OTHER ==
[2019-10-09] MEDS ORDERED: PROMETHAZINE HCL INJ 25 MG/1 ML VIAL IV ONE (20:35)
[2019-10-09] MEDS ORDERED: HYDROMORPHONE HCL INJ/PF 2 MG/ML AMPULE IV ONE (20:35)
[2019-10-09 20:48] LABS: ABSOLUTE LYMPHOCYTES (AUTO) 0.8 10^3/uL (0.5-4.7); ABSOLUTE MONOCYTES (AUTO) 0.3 10^3/uL (0.1-1.4); ABSOLUTE NEUT (AUTO) 7.1 10^3/uL (1.7-8.2); HEMATOCRIT 37.9 % (36.0-47.0); HEMOGLOBIN 12.9 g/dL (12.0-15.5); LYMPHOCYTES % (AUTO) 9.6 % (13-45); MEAN CORPUSCULAR HEMOGLOBIN 33.4 pg (27.0-33.4); MEAN CORPUSCULAR VOLUME 98 fl (80-97); RED BLOOD COUNT 3.86 10^6/uL (3.72-5.28); RED CELL DISTRIBUTION WIDTH 16.3 % (11.5-14.0); SEGMENTED NEUTROPHILS % (AUTO) 86.4 % (42-78); TOTAL CELLS COUNTED % (AUTO) 100 %; WHITE BLOOD COUNT 8.2 10^3/uL (4.0-10.5)
--- NOTE | 2019-10-09 20:50 | ER Document Report ---
ED General - General Chief Complaint: Post Surgical Bleeding Stated Complaint: BLEEDING FROM DIALYSIS SHUNT Time Seen by Provider: 10/09/19 20:27 Primary Care Provider: RADHA WHITAKER PA-C [Primary Care Provider] - Follow up as needed TRAVEL OUTSIDE OF THE [place] IN LAST 30 DAYS: No - HPI Notes: Patient is a 49-year-old female who presents to the emergency department for evaluation. She has a complicated medical history. 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 She is currently a dialysis patient. They have been having difficulty with access. Earlier this week she had a tunneled catheter in her left femoral artery placed. This required revision, which was done earlier today. Patient started having a significant amount of bleeding from the area and was sent here in the emergency department for further evaluation. She is currently on Eliquis. She has pain in the groin area, she suspects is primarily from pressure to that area. Otherwise she is been eating and drinking normally. Taking her medications as prescribed. She currently p uts her pain at a 4 out of 5, worsened by pressure, nothing seems to make it better. - Related Data Allergies/Adverse Reactions: montelukast sodium [From Singulair] Allergy (Intermediate, Verified 07/09/19 14:18) Shortness of Breath codeine Allergy (Mild, Verified 07/09/19 14:18) Swelling of Throat banana Allergy (Verified 10/09/19 20:11) erythromycin base [Erythromycin Base] Allergy (Verified 07/09/19 14:18) sob, hives hydrocodone bitartrate [From Vicodin] Allergy (Verified 07/09/19 14:18) sob, hives ondansetron HCl [From Zofran] Allergy (Verified 07/09/19 14:18) sob, rash oxycodone HCl [From Percocet] Allergy (Verified 07/09/19 14:18) sob, rash penicillin G [Penicillin G] Allergy (Verified 07/09/19 14:18) sob, rash Penicillins Allergy (Verified 10/09/19 20:11) potassium Allergy (Verified 10/09/19 20:11) valacyclovir Allergy (Verified 07/09/19 14:18) latex Allergy (Severe, Uncoded 07/09/19 14:18) sob, hives analgesics Allergy (Uncoded 10/09/19 20:11) antiasthmatics Allergy (Uncoded 10/09/19 20:11) bronchodialators Allergy (Uncoded 10/09/19 20:11) iv contrast Allergy (Uncoded 10/09/19 20:11) microfiber tape Allergy (Uncoded 10/09/19 20:11) adhesives Adverse Reaction (Severe, Uncoded 07/09/19 14:18) hugn Home Medications: Advair 500 mcg daily, albuterol 2 puffs every 4 hours as need ed, amlodipine 10 mg daily, Eliquis 10 mg twice daily, aspirin 81 mg daily, Valium 5 mg 3 times daily as needed, Dilaudid 2 mg every 4 hours as needed, Fioricet 50/3 25/40 mg 1 every 6 hours as needed, Flonase 2 sprays daily in each nostril, lidocaine patch on for 12 hours daily, Robaxin 500 mg p.o. twice daily as needed, metoprolol milligrams twice daily, Mobic 7.5 mg twice daily, morphine 15 mg 3 times daily as needed, omeprazole 20 mg daily, magnesium oxide 400 mg orally on nondialysis days, Velphoro 2 tablets 3 times daily with meals, vitamin B12 p.o. daily, Actemra inject monthly, Denise-Joshua daily, sodium bicarbonate 650 mg daily, Synthroid 137 mcg daily Tums 2 tablets p.o. at bedtime Past Medical History - General Information source: Patient - Social History Smoking Status: Never Smoker Frequency of alcohol use: None Drug Abuse: None Family History: Reviewed & Not Pertinent Patient has suicidal ideation: No Patient has homicidal ideation: No - Past Medical History Cardiac Medical History: Reports: Hx Hypertension Pulmonary Medical History: Reports: Hx Asthma, Hx Pneumonia, Hx Sleep Apnea Neurological Medical History: Reports: Hx Migraine Endocrine Medical History: Reports: Hx Hypothyroidism Renal/ Medical History: Reports: Hx End Stage Renal Disease, Hx Hemodialysis. Denies: Hx Peritoneal Dialysis GI Medical History: Reports: Hx Gastroesophageal Reflux Disease, Hx Ulcer Musculoskeletal Medical History: Reports Hx Arthritis Past Surgical History: Reports: Hx Appendectomy, Hx Hysterectomy, Hx Oral Surgery, Hx Thyroid Surgery - thyroidectomy, Hx Tubal Ligation, Hx Vascular Surgery - left port in chest-put in on 06/23/12 - Immunizations Immunizations up to date: Yes Hx Diphtheria, Pertussis, Tetanus Vaccination: Yes Hx Pneumococcal Vaccination: 10/10/13 Review of Systems - Review of Systems Hematologic/Lymphatic: See HPI -: Yes All other systems reviewed and negative Physical Exam - Vital signs Vitals: Temp Pulse Resp BP Pulse Ox 98.5 F 90 20 201/81 H 100 10/09/19 19:49 10/09/19 19:49 10/09/19 19:49 10/09/19 19:49 10/09/19 19:49 - Notes Notes: Is a very pleasant 49-year-old female who appears her stated age, no acute distress. She does have facial edema and periorbital edema noted. Head is normocephalic and atraumatic, pupils are equal round, reactive to light. Oral mucosa is moist. Heart is regular in rhythm, lungs are clear to station bilaterally. Attention to the left groin yields a tunneled dialysis catheter in place. The most proximal incision is well approximated but does have small blood seeping from the area. She is neurovascularly intact distally to the left lower extremity. Skin is warm and dry. Patient is awake and alert, cooperative with examiner. Course - Re-evaluation Re-evalutation: 10/09/19 20:49 Patient presents to the emergency department for evaluation. She has bleeding from the site of her tunneled catheter. I did assess the area, small amount of Gelfoam was placed, ABD over top, and the patient placed in flexion at the hip to apply more pressure. We will reassess. Blood work is pending at this time, we will continue to monitor. 10/09/19 22:33 Patient had complete hemostasis after the application of Gelfoam. Pressure was removed and she continued to have good hemostasis. She is neurovascular intact distally. Her laboratory investigations revealed a mild hyperkalemia, but her blood pressure is down to 140/87. She is due to be dialyzed tomorrow. She is told that her potassium is mildly elevated, but this should be fine given her dialysis and less than 12 hours. She is told to leave the dressing on touch and in place. She is to return to the ER with worsening or new concerning symptoms of any sort. - Vital Signs Vital signs: Temp Pulse Resp BP Pulse Ox 98 F 73 18 140/87 H 100 10/09/19 22:29 10/09/19 22:29 10/09/19 22:29 10/09/19 22:29 10/09/19 22:29 - Laboratory Result Diagrams: 10/09/19 20:16 10/09/19 20:16 Laboratory results interpreted by me: 10/09/19 10/09/19 20:16 20:16 MCV 98 H RDW 16.3 H Lymph % (Auto) 9.6 L Seg Neutrophils % 86.4 H Potassium 5.4 H Carbon Dioxide 20 L BUN 93 H Creatinine 14.12 H Est GFR ( Amer) 3 L Est GFR (MDRD) Non-Af 3 L Glucose 131 H Calcium 8.1 L Discharge - Discharge Clinical Impression: Hyperkalemia, Postoperative bleeding from incision Condition: Stable Disposition: HOME, SELF-CARE Additional Instructions: On lab work today your potassium is mildly elevated at 5.4. This is not surprising given your need for dialysis. Please report to dialysis first thing tomorrow morning. Leave the bandage in place. If it starts bleeding again apply pressure. If you are unable to get it to stop bleeding after 30 minutes of well applied continuous pressure, return immediately to the emergency department for evaluation. Otherwise, contact your surgeon at [facility] and notify them of the bleeding issue you have had. Return to the ED with worsening or new concerning symptoms of any sort. Referrals: RADHA WHITAKER PA-C [Primary Care Provider] - Follow up as needed
[2019-10-09 20:58] LABS: ALBUMIN 4.5 g/dL (3.5-5.0); ALKALINE PHOSPHATASE 117 U/L (38-126); ANION GAP 17 (5-19); ASPARTATE AMINO TRANSFERASE 21 U/L (14-36); BILIRUBIN,DIRECT 0.4 mg/dL (0.0-0.4); BILIRUBIN,TOTAL 0.5 mg/dL (0.2-1.3); BLOOD UREA NITROGEN 93 mg/dL (7-20); CALCIUM 8.1 mg/dL (8.4-10.2); CARBON DIOXIDE 20 mmol/L (22-30); CHLORIDE 100 mmol/L (98-107); GLUCOSE 131 mg/dL (75-110); POTASSIUM 5.4 mmol/L (3.6-5.0); TOTAL PROTEIN 7.5 g/dL (6.3-8.2)
[2019-10-09 21:15] LABS: PLATELET COUNT 184 10^3/uL (150-450)
[2019-10-09 22:29] VITALS: BP 140/87
== END 2019-10-09 22:50 | disposition home or self-care (01) ==
LOC: ER 19:43
DX: T82.838A Hemorrhage due to vascular prosthetic devices, implants and grafts, initial encounter (principal); E87.5 Hyperkalemia; N18.6 End stage renal disease; Z99.2 Dependence on renal dialysis; Z79.01 Long term (current) use of anticoagulants; Z88.8 Allergy status to other drugs, medicaments and biological substances; Z79.899 Other long term (current) drug therapy; I10 Essential (primary) hypertension; J45.909 Unspecified asthma, uncomplicated
CPT/HCPCS: 99283; 96374; 96375; 86900; 86901; 36415; 86850; 85025; 80053; J1170; J2550

== ENCOUNTER → 2019-12-15 | Outpatient (CLI) | payer MEDICARE, OTHER ==
--- NOTE | 2019-12-15 16:14 | RADIOLOGY REPORT (SQ) ---
EXAM DESCRIPTION: VENOUS UNILATERAL LOWER IMAGES COMPLETED DATE/TIME: 12/15/2019 4:03 pm REASON FOR STUDY: RLE PAIN, SWELLING M79.661 PAIN IN RIGHT LOWER LEG R22.41 LOCALIZED SWELLING, MA SS AND LUMP, RIGHT LOWER LIMB COMPARISON: 07/09/2019 TECHNIQUE: Dynamic and static pond scale and color images acquired of the right leg venous system. S elected spectral images acquired with additional compression and augmentation maneuvers. The contrala teral common femoral vein and saphenofemoral junction were also imaged. Images stored on PACS. LIMITATIONS: None. FINDINGS: COMMON FEMORAL: Normal phasicity, compression and augmentation. No visualized echogenic ma terial on pond scale. No defects on color images. FEMORAL: Normal compression and augmentation. No visualized echogenic material on pond scale. No defe cts on color images. POPLITEAL: Normal compression, augmentation. No visualized echogenic material on pond scale. No defec ts on color images. CALF VESSELS: Normal compression, augmentation. No visualized echogenic material on pond scale. No de fects on color images. GSV and SSV: Normal compression, augmentation. No visualized echogenic material on pond scale. No def ects on color images. ANY DEEP VENOUS INSUFFICIENCY: Not evaluated. ANY EVIDENCE OF POPLITEAL CYST: No. OTHER: No other significant finding. CONTRALATERAL COMMON FEMORAL VEIN AND SAPHENOFEMORAL JUNCTION: Normal phasicity, compression and augmentation. No visualized echogenic material on pond scale. No de fects on color images. IMPRESSION: NO EVIDENCE DVT OR SVT IN THE RIGHT LEG. TECHNICAL DOCUMENTATION: JOB ID: [id number] 2010 [employer]- All Rights Reserved Reading location - IP/workstation name: [email or web address]
== END ==
LOC: SP 15:10
PROVIDERS: ATTEND Physician Assistant Medical
DX: M79.661 Pain in right lower leg (principal); M79.89 Other specified soft tissue disorders
CPT/HCPCS: 93971

== ENCOUNTER 2019-12-27 09:23 | Emergency (ER) | payer MEDICARE, OTHER ==
--- NOTE | 2019-12-27 09:34 | ER Document Report ---
ED Medical Screen (RME) - General Chief Complaint: Headache, Worst Ever Stated Complaint: HEAD PAIN Time Seen by Provider: 12/27/19 09:27 Mode of Arrival: Wheelchair Information source: Patient Notes: 49-year-old female patient presenting to the emergency department chief complaint of headache. Patient reports headache started last night, she thought it was a migraine. She states she took migraine medication without relief. Headache is located in the frontal area she states it is very severe. She reports this is the worst headache she is ever had. She also reports a family history of brain aneurysm. Patient crying clutching her head in triage. I have greeted and performed a rapid initial assessment of this patient. A comprehensive ED assessment and evaluation of the patient, analysis of test results and completion of the medical decision making process will be conducted by additional ED providers. I have specifically instructed the patient or family members with the patient to immediately return to any nursing staff should anything change in the patient's condition or with their chief complaint. TRAVEL OUTSIDE OF THE [place] IN LAST 30 DAYS: No - Related Data Allergies/Adverse Reactions: montelukast sodium [From Singulair] Allergy (Intermediate, Verified 07/09/19 14:18) Shortness of Breath codeine Allergy (Mild, Verified 07/09/19 14:18) Swelling of Throat banana Allergy (Verified 10/09/19 20:11) erythromycin base [Erythromycin Base] Allergy (Verified 07/09/19 14:18) sob, hives hydrocodone bitartrate [From Vicodin] Allergy (Verified 07/09/19 14:18) sob, hives ondansetron HCl [From Zofran] Allergy (Verified 07/09/19 14:18) sob, rash oxycodone HCl [From Percocet] Allergy (Verified 07/09/19 14:18) sob, rash penicillin G [Penicillin G] Allergy (Verified 07/09/19 14:18) sob, rash Penicillins Allergy (Verified 10/09/19 20:11) potassium Allergy (Verified 10/09/19 20:11) valacyclovir Allergy (Verified 07/09/19 14:18) latex Allergy (Severe, Uncoded 07/09/19 14:18) sob, hives analgesics Allergy (Uncoded 10/09/19 20:11) antiasthmatics Allergy (Uncoded 10/09/19 20:11) bronchodialators Allergy (Uncoded 10/09/19 20:11) iv contrast Allergy (Uncoded 10/09/19 20:11) microfiber tape Allergy (Uncoded 10/09/19 20:11) adhesives Adverse Reaction (Severe, Uncoded 07/09/19 14:18) hung Past Medical History - Social History Family history: Hypertension, Other - kidney failure - Past Medical History Cardiac Medical History: Reports: Hx Hypertension Pulmonary Medical History: Reports: Hx Asthma, Hx Pneumonia, Hx Sleep Apnea Neurological Medical History: Reports: Hx Migraine Endocrine Medical History: Reports: Hx Hypothyroidism Renal/ Medical History: Reports: Hx End Stage Renal Disease, Hx Hemodialysis. Denies: Hx Peritoneal Dialysis GI Medical History: Reports: Hx Gastroesophageal Reflux Disease, Hx Ulcer Musculoskeltal Medical History: Reports Hx Arthritis Past Surgical History: Reports: Hx Appendectomy, Hx Hysterectomy, Hx Oral Surgery, Hx Thyroid Surgery - thyroidectomy, Hx Tubal Ligation, Hx Vascular Surgery - left port in chest-put in on 06/23/12 - Immunizations Immunizations up to date: Yes Hx Diphtheria, Pertussis, Tetanus Vaccination: Yes Physical Exam - Vital signs Vitals: Temp Pulse Resp BP Pulse Ox 98.3 F 88 18 164/102 H 97 12/27/19 09:28 12/27/19 09:28 12/27/19 09:28 12/27/19 09:28 12/27/19 09:28 Course - Vital Signs Vital signs: Temp Pulse Resp BP Pulse Ox 98.3 F 88 18 164/102 H 97 12/27/19 09:28 12/27/19 09:28 12/27/19 09:28 12/27/19 09:28 12/27/19 09:28
[2019-12-27] MEDS ORDERED: PROCHLORPERAZINE EDISYLATE INJ 10 MG/2 ML VIAL IV ONE (09:45)
[2019-12-27] MEDS ORDERED: LORAZEPAM INJ 2 MG/1 ML VIAL IV ONE (10:00)
--- NOTE | 2019-12-27 10:05 | RADIOLOGY REPORT (SQ) ---
EXAM DESCRIPTION: CT HEAD WITHOUT IMAGES COMPLETED DATE/TIME: 12/27/2019 9:36 am REASON FOR STUDY: severe headache COMPARISON: 09/01/2017 TECHNIQUE: Axial images acquired through the brain without intravenous contrast. Images reviewed wi th bone, brain and subdural windows. Additional sagittal and coronal reconstructions were generated. Images stored on PACS. All CT scanners at this facility use dose modulation, iterative reconstruction, and/or weight based d osing when appropriate to reduce radiation dose to as low as reasonably achievable (ALARA). [facility]: Dose Right [facility]: CareDose [facility]: Dose Right [facility]: Teradose 4D [facility]: Precipio RADIATION DOSE: CT Rad equipment meets quality standard of care and radiation dose reduction techniq ues were employed. CTDIvol: 53.2 mGy. DLP: 884 mGy-cm. mGy. LIMITATIONS: None. FINDINGS: VENTRICLES: Normal size and contour. CEREBRUM: No masses. No hemorrhage. No midline shift. No evidence for acute infarction. Normal gra y/white matter differentiation. No areas of low density in the white matter. CEREBELLUM: No masses. No hemorrhage. No alteration of density. No evidence for acute infarction. EXTRAAXIAL SPACES: No fluid collections. No masses. ORBITS AND GLOBE: No intra- or extraconal masses. Normal contour of globe without masses. CALVARIUM: No fracture. PARANASAL SINUSES: Mucosal thickening within the ethmoid air cells. Paranasal sinuses and mastoid ai r cells are clear. SOFT TISSUES: No mass or hematoma. OTHER: No other significant finding. IMPRESSION: 1. No evidence of acute intracranial process. 2. Mucosal thickening throughout the ethmoid air cells. EVIDENCE OF ACUTE STROKE: NO. COMMENT: Quality ID # [id number]: Final reports with documentation of one or more dose reduction techniques (e.g., Automated exposure control, adjustment of the mA and/or kV according to patient size, use of iterative reconstruction technique) TECHNICAL DOCUMENTATION: JOB ID: [id number] 2010 [employer]- All Rights Reserved Reading location - IP/workstation name: [email or web address]
--- NOTE | 2019-12-27 10:26 | ER Document Report ---
ED Headache - General Chief Complaint: Headache, Worst Ever Stated Complaint: HEAD PAIN Time Seen by Provider: 12/27/19 09:27 Primary Care Provider: RADHA WHITAKER PA-C [Primary Care Provider] - Follow up as needed Mode of Arrival: Wheelchair Notes: 49-year-old female presents to the emergency department history of migraine headaches, end-stage renal disease on hemodialysis. She states that she has had most severe headache of her life involving the right frontal area. States it is a stabbing sharp pain with associated nausea, no vomiting. She took her Fioricet without relief. She presents to the emergency department in distress with tearfulness and pain. Review of her chart reveals in 2013 presentation to the hospital with severe headache which did not want to Fioricet. After CT scan the patient was admitted to the hospital for further evaluation and treatment. She was hospitalized for 48 hours, evaluation negative, treated with medications for migraine headache at that time. TRAVEL OUTSIDE OF THE [place] IN LAST 30 DAYS: No - Related Data Allergies/Adverse Reactions: montelukast sodium [From Singulair] Allergy (Intermediate, Verified 07/09/19 14:18) Shortness of Breath codeine Allergy (Mild, Verified 07/09/19 14:18) Swelling of Throat banana Allergy (Verified 10/09/19 20:11) erythromycin base [Erythromycin Base] Allergy (Verified 07/09/19 14:18) sob, hives hydrocodone bitartrate [From Vicodin] Allergy (Verified 07/09/19 14:18) sob, hives ondansetron HCl [From Zofran] Allergy (Verified 07/09/19 14:18) sob, rash oxycodone HCl [From Percocet] Allergy (Verified 07/09/19 14:18) sob, rash penicillin G [Penicillin G] Allergy (Verified 07/09/19 14:18) sob, rash Penicillins Allergy (Verified 10/09/19 20:11) potassium Allergy (Verified 10/09/19 20:11) valacyclovir Allergy (Verified 07/09/19 14:18) latex Allergy (Severe, Uncoded 07/09/19 14:18) sob, hives analgesics Allergy (Uncoded 10/09/19 20:11) antiasthmatics Allergy (Uncoded 10/09/19 20:11) bronchodialators Allergy (Uncoded 10/09/19 20:11) iv contrast Allergy (Uncoded 10/09/19 20:11) microfiber tape Allergy (Uncoded 10/09/19 20:11) adhesives Adverse Reaction (Severe, Uncoded 07/09/19 14:18) hung Past Medical History - General Information source: Patient - Social History Smoking Status: Unknown if Ever Smoked Frequency of alcohol use: None Drug Abuse: None Family History: Reviewed & Not Pertinent Patient has homicidal ideation: No - Past Medical History Cardiac Medical History: Reports: Hx Hypertension Pulmonary Medical History: Reports: Hx Asthma, Hx Pneumonia, Hx Sleep Apnea Neurological Medical History: Reports: Hx Migraine Endocrine Medical History: Reports: Hx Hypothyroidism Renal/ Medical History: Reports: Hx End Stage Renal Disease, Hx Hemodialysis. Denies: Hx Peritoneal Dialysis GI Medical History: Reports: Hx Gastroesophageal Reflux Disease, Hx Ulcer Musculoskeletal Medical History: Reports Hx Arthritis Past Surgical History: Reports: Hx Appendectomy, Hx Hysterectomy, Hx Oral Surgery, Hx Thyroid Surgery - thyroidectomy, Hx Tubal Ligation, Hx Vascular Surgery - left port in chest-put in on 06/23/12 - Immunizations Immunizations up to date: Yes Hx Diphtheria, Pertussis, Tetanus Vaccination: Yes Hx Pneumococcal Vaccination: 05/19/13 Review of Systems - Review of Systems Notes: Constitutional: Negative for fever. HENT: Negative for sore throat. Eyes: Negative for visual changes. Cardiovascular: Negative for chest pain. Respiratory: Negative for shortness of breath. Gastrointestinal: + Nausea Genitourinary: Negative for dysuria. Musculoskeletal: Negative for back pain. Skin: Negative for rash. Neurological: + severe headaches, no weakness or numbness. 10 point ROS negative except as marked above and in HPI. Physical Exam - Vital signs Vitals: Temp Pulse Resp BP Pulse Ox 98.3 F 88 18 164/102 H 97 12/27/19 09:28 12/27/19 09:28 12/27/19 09:28 12/27/19 09:28 12/27/19 09:28 - Notes Notes: PHYSICAL EXAMINATION: Physical Exam: General: Well-nourished well-developed 49-year-old female in moderate distress secondary to headache HEENT: NC/AT, pupils equal round and reactive to light, MM moist,nares clear, oropharynx clear, airway patent Neck: supple, no adenopathy, no masses. Good range of motion Lungs: clear, no wheezing, no rales no rhonchi CVS: Regular rate and rhythm no murmur gallop or rub Abdomen: Soft, active, nontender, no masses, no hepatosplenomegaly Ext: No edema, clubbing or cyanosis. Neuro: Alert and responsive, moving all 4 extremities on command, cranial nerves intact, no focal findings Skin: Intact no open lesions, no rash PSYCH: Tearful, anxious, apologetic. Course - Re-evaluation Re-evalutation: 12/27/19 10:25 Patient presented from triage with severe headache, describing it as the worst pain she is ever had, CT scan of the head was performed, no acute findings. Patient was recently dialyzed. She is given Compazine and Lorazepam in the emergency department for severe headache with nausea. Will await the results of the response to medication for further evaluation is needed. 12/27/19 12:32 States that she is now feeling better, she was given Toradol 30 mg IV in conjunction with Compazine and Lorazepam. I have asked her to rest today follow-up with dialysis tomorrow and follow-up with her primary care doctor as needed the patient agrees with this plan and is ready to be discharged. 12/27/19 13:21 Patient has developed puffiness of the eyelids bilaterally, question of adverse reaction to medications unsure. She is receiving Benadryl and Decadron in the emergency department short course of monitoring. - Vital Signs Vital signs: Temp Pulse Resp BP Pulse Ox 98.3 F 88 11 L 131/83 H 98 12/27/19 09:38 12/27/19 09:38 12/27/19 13:00 12/27/19 13:00 12/27/19 13:01 - Diagnostic Test Radiology reviewed: Image reviewed, Reports reviewed - CT scan noncontrast head: No acute intracranial process. Discharge - Discharge Clinical Impression: Severe headache Condition: Good Disposition: HOME, SELF-CARE Instructions: Headache ([facility]) Additional Instructions: These continue your usual medications, follow-up with dialysis in the a.m., follow-up with your primary care doctor as needed If your symptoms are worsening or if you have other concerns you may return to the emergency department for further evaluation and treatment that time. HOME CARE INSTRUCTIONS & INFORMATION: Thank you for choosing us for your medical needs. We hope you're satisfied with the care you received. After you leave, you must properly care for your problem and, at the same time, observe its progress. Any condition can change. Some illnesses can change rapidly over hours or days. If your condition worsens, return to the Emergency Department or see your physician promptly. ABOUT YOUR X-RAYS AND EKG'S: If you had an EKG or X-rays taken, they have been read by the Emergency Physician. The X-rays and EKG's will also be read by a Radiologist or Warning Analyst within 24 hours. If discrepancies are noted, you will be notified by telephone. Please be certain the ED has a correct telephone number & address where you can be reached. Also, realize that some fractures or abnormalities do not show up on initial X-rays. If your symptoms continue, see your physician. ABOUT YOUR LABORATORY TEST: If you had laboratory tests, the results have been reviewed by the Emergency Physician. Some test results (for example cultures) may not be available for several days. You will be contacted if any test result shows you need additional treatment. Please be certain the ED has a correct telephone number and address where you can be reached. ABOUT YOUR MEDICATIONS: You will receive instructions on how to take your medicine on the prescription label you receive. Additional information may be provided by the Pharmacy. If you have questions afterwards, call the ED for clarification or further instructions. Some prescribed medications may cause drowsiness. Do not perform tasks such as driving a car or operating machinery without consulting your Pharmacist. If you feel you need a refill of pain medication, your condition will need re-evaluation. Please do not call for a refill of any medication. ABOUT YOUR SIGNATURE: Signature of this document acknowledges to followin. Understanding that you received emergency treatment and that you may be released before al medical problems are known or treated. Please be certain the ED has a correct phone number & address where you can be reached. 2. Acknowledgement that you will arrange for follow-up care as recommended. 3. Authorization for the Emergency Physician to provide information to your follow-up Physician in order to maximize your care. AT ANY TIME, IF YOUR SYMPTOMS CHANGE SIGNIFICANTLY OR WORSEN OR YOU DEVELOP NEW SYMPTOMS, RETURN TO THE EMERGENCY DEPARTMENT IMMEDIATELY FOR RE-EVALUATION. OUR GOAL IS TO PROVIDE EXCELLENT MEDICAL CARE! WE HOPE THAT WE HAVE MET YOUR EXPECTATIONS DURING YOUR EMERGENCY DEPARTMENT VISIT AND THAT YOU FEEL YOU HAVE RECEIVED EXCELLENT CARE! Referrals: RADHA WHITAKER PA-C [Primary Care Provider] - Follow up as needed
[2019-12-27 13:06] VITALS: BP 131/83
[2019-12-27] MEDS ORDERED: DEXAMETHASONE SOD PHOS INJ 10 MG/1 ML VIAL IV ONE (13:20)
[2019-12-27] MEDS ORDERED: DIPHENHYDRAMINE HCL 50 MG/ML VIAL IV ONE (13:20)
[2019-12-27] MEDS ORDERED: DEXAMETHASONE SOD PHOS INJ 10 MG/1 ML VIAL IM ONE (13:35)
[2019-12-27] MEDS ORDERED: DIPHENHYDRAMINE HCL 50 MG/ML VIAL IM ONE (13:36)
== END 2019-12-27 14:52 | disposition home or self-care (01) ==
LOC: ER 09:23
DX: G43.909 Migraine, unspecified, not intractable, without status migrainosus (principal); I12.0 Hypertensive chronic kidney disease with stage 5 chronic kidney disease or end stage renal disease; N18.6 End stage renal disease; Z99.2 Dependence on renal dialysis; R11.0 Nausea; J45.909 Unspecified asthma, uncomplicated; Z88.8 Allergy status to other drugs, medicaments and biological substances; Z88.6 Allergy status to analgesic agent; Z88.5 Allergy status to narcotic agent; Z91.018 Allergy to other foods; Z88.1 Allergy status to other antibiotic agents; Z88.0 Allergy status to penicillin; Z91.040 Latex allergy status; Z91.041 Radiographic dye allergy status; Z91.048 Other nonmedicinal substance allergy status; Z88.3 Allergy status to other anti-infective agents
CPT/HCPCS: 99284; 96372; 96374; 96375; 70450; J1200; J2060; J0780; J1100

== ENCOUNTER 2020-03-16 17:04 | Emergency (ER) | payer MEDICARE, OTHER ==
--- NOTE | 2020-03-16 20:29 | ER Document Report ---
ED Medical Screen (RME) - General Chief Complaint: Back Pain Stated Complaint: LOW BACK PAIN, GROIN PAIN Time Seen by Provider: 03/16/20 20:00 Primary Care Provider: RADHA WHITAKER PA-C [Primary Care Provider] - Follow up as needed TRAVEL OUTSIDE OF THE [place] IN LAST 30 DAYS: No - HPI Notes: 03/16/20 20:37 49-year-old female with a history of chronic renal disease and asthma presents emergency room for shooting pain in her vagina as well as back pain. Patient reports that her back pain has been constant for the last 4 days and today around 2 PM she started with a shooting vaginal pain. Denies any discharge or vaginal bleeding. Reports she did have a complete hysterectomy done due to menorrhagia. Patient reports urinary frequency and burning with urination. No [id number] medications have been tried. Reports that pain is worse with time. Patient is tearful. Denies any chest pain or shortness of breath denies any fevers or chills. I have greeted and performed a rapid initial assessment of this patient. A comprehensive ED assessment and evaluation of the patient, analysis of test results and completion of the medical decision making process will be conducted by additional ED providers. PHYSICAL EXAMINATION: GENERAL: Well-appearing, well-nourished and in no acute distress. CV: s1, s2 regular LUNGS: No respiratory distress abd: lower pelvic pain on palpation. Musculoskeletal: Normal range of motion. Lower back pain on palpation . NEUROLOGICAL: Normal speech, normal gait. SKIN: Warm, Dry, normal turgor, no rashes or lesions noted. - Related Data Allergies/Adverse Reactions: montelukast sodium [From Singulair] Allergy (Intermediate, Verified 07/09/19 14:18) Shortness of Breath codeine Allergy (Mild, Verified 07/09/19 14:18) Swelling of Throat banana Allergy (Verified 10/09/19 20:11) erythromycin base [Erythromycin Base] Allergy (Verified 07/09/19 14:18) sob, hives hydrocodone bitartrate [From Vicodin] Allergy (Verified 07/09/19 14:18) sob, hives ondansetron HCl [From Zofran] Allergy (Verified 07/09/19 14:18) sob, rash oxycodone HCl [From Percocet] Allergy (Verified 07/09/19 14:18) sob, rash penicillin G [Penicillin G] Allergy (Verified 07/09/19 14:18) sob, rash Penicillins Allergy (Verified 10/09/19 20:11) potassium Allergy (Verified 10/09/19 20:11) valacyclovir Allergy (Verified 07/09/19 14:18) latex Allergy (Severe, Uncoded 07/09/19 14:18) sob, hives analgesics Allergy (Uncoded 10/09/19 20:11) antiasthmatics Allergy (Uncoded 10/09/19 20:11) bronchodialators Allergy (Uncoded 10/09/19 20:11) iv contrast Allergy (Uncoded 10/09/19 20:11) microfiber tape Allergy (Uncoded 10/09/19 20:11) adhesives Adverse Reaction (Severe, Uncoded 07/09/19 14:18) hung Past Medical History - Social History Family history: Hypertension, Other - kidney failure - Past Medical History Cardiac Medical History: Reports: Hx Hypertension Pulmonary Medical History: Reports: Hx Asthma, Hx Pneumonia, Hx Sleep Apnea Neurological Medical History: Reports: Hx Migraine Endocrine Medical History: Reports: Hx Hypothyroidism Renal/ Medical History: Reports: Hx End Stage Renal Disease, Hx Hemodialysis. Denies: Hx Peritoneal Dialysis GI Medical History: Reports: Hx Gastroesophageal Reflux Disease, Hx Ulcer Musculoskeltal Medical History: Reports Hx Arthritis Past Surgical History: Reports: Hx Appendectomy, Hx Hysterectomy, Hx Oral Surgery, Hx Thyroid Surgery - thyroidectomy, Hx Tubal Ligation, Hx Vascular Surgery - left port in chest-put in on 06/23/12 - Immunizations Immunizations up to date: Yes Hx Diphtheria, Pertussis, Tetanus Vaccination: Yes Physical Exam - Vital signs Vitals: Temp Pulse Resp BP Pulse Ox 98.8 F 90 18 147/78 H 97 03/16/20 17:08 03/16/20 17:08 03/16/20 17:08 03/16/20 17:08 03/16/20 17:08 Course - Vital Signs Vital signs: Temp Pulse Resp BP Pulse Ox 98.8 F 90 18 147/78 H 97 03/16/20 17:08 03/16/20 17:08 03/16/20 17:08 03/16/20 17:08 03/16/20 17:08 Doctor's Discharge - Discharge Referrals: RADHA WHITAKER PA-C [Primary Care Provider] - Follow up as needed
--- NOTE | 2020-03-16 21:01 | RADIOLOGY REPORT (SQ) ---
EXAM DESCRIPTION: US PELVIS TRANSVAGINAL COMPLETED DATE/TME: 03/16/2020 20:03 CLINICAL HISTORY: 49 years Female reports vaginal pain COMPARISON: None. TECHNIQUE: Transabdominal and transvaginal duplex imaging performed to evaluate the pelvis. FINDINGS: Uterus and ovaries are absent. No fluid or fluid collection. IMPRESSION: Absent uterus and ovaries No acute abnormality noted
[2020-03-16 21:26] LABS: APPEARANCE,URINE CLEAR; BILIRUBIN,URINE NEGATIVE (NEGATIVE); COLOR,URINE STRAW; GLUCOSE, URINE NEGATIVE (NEGATIVE); KETONES,URINE NEGATIVE (NEGATIVE); LEUKOCYTE ESTERASE,URINE NEGATIVE (NEGATIVE); NITRITE,URINE NEGATIVE (NEGATIVE); PROTEIN,URINE NEGATIVE (NEGATIVE); URINE SPECIFIC GRAVITY 1.004; UROBILINOGEN,URINE NEGATIVE mg/dL (<2.0)
--- NOTE | 2020-03-16 21:43 | RADIOLOGY REPORT (SQ) ---
EXAM DESCRIPTION: XR LUMBAR SPINE ANTEROPOSTERIOR, LATERAL, AND OBLIQUES COMPLETED DATE/TME: 03/16/2020 20:04 CLINICAL HISTORY: 49 years ,Female lower back pain COMPARISON: None. TECHNIQUE: Four views FINDINGS: Vertebral body alignment is unremarkable. No acute fractures are identified. IMPRESSION: No acute fracture is identified.
[2020-03-17 00:09] LABS: CHLAM PCR NOT DETECTED (NOT DETECT)
--- NOTE | 2020-03-17 03:59 | ER Document Report ---
ED General - General Chief Complaint: Back Pain Stated Complaint: LOW BACK PAIN, GROIN PAIN Time Seen by Provider: 03/16/20 20:00 Primary Care Provider: RADHA WHITAKER PA-C [Primary Care Provider] - Follow up in 3-5 days Notes: Patient is a 49-year-old female with a history of end-stage renal disease on dialysis (Thursday, most recent dialysis was within the past 24 hours on schedule) that comes emergency department for chief complaint of shooting pains on both sides of her lower back, shooting pain in her right groin that felt like it went down "towards my vagina". Patient is able to ambulate, s he denies numbness, fever/chills, vomiting. She states she has nausea but this is common and reoccurring with her dialysis she reports. She denies injury. She denies any current symptoms except for pain in her lower back when she moves. She states she is on muscle x-rays but these are not helping. TRAVEL OUTSIDE OF THE [place] IN LAST 30 DAYS: No - Related Data Allergies/Adverse Reactions: montelukast sodium [From Singulair] Allergy (Intermediate, Verified 07/09/19 14:18) Shortness of Breath codeine Allergy (Mild, Verified 07/09/19 14:18) Swelling of Throat banana Allergy (Verified 10/09/19 20:11) erythromycin base [Erythromycin Base] Allergy (Verified 07/09/19 14:18) sob, hives hydrocodone bitartrate [From Vicodin] Allergy (Verified 07/09/19 14:18) sob, hives ondansetron HCl [From Zofran] Allergy (Verified 07/09/19 14:18) sob, rash oxycodone HCl [From Percocet] Allergy (Verified 07/09/19 14:18) sob, rash penicillin G [Penicillin G] Allergy (Verified 07/09/19 14:18) sob, rash Penicillins Allergy (Verified 10/09/19 20:11) potassium Allergy (Verified 10/09/19 20:11) valacyclovir Allergy (Verified 07/09/19 14:18) latex Allergy (Severe, Uncoded 07/09/19 14:18) sob, hives analgesics Allergy (Uncoded 10/09/19 20:11) antiasthmatics Allergy (Uncoded 10/09/19 20:11) bronchodialators Allergy (Uncoded 10/09/19 20:11) iv contrast Allergy (Uncoded 10/09/19 20:11) microfiber tape Allergy (Uncoded 10/09/19 20:11) adhesives Adverse Reaction (Severe, Uncoded 07/09/19 14:18) hung Past Medical History - General Information source: Patient - Social History Smoking Status: Never Smoker Frequency of alcohol use: None Drug Abuse: None Lives with: Family Family History: Reviewed & Not Pertinent - Past Medical History Cardiac Medical History: Reports: Hx Hypertension Pulmonary Medical History: Reports: Hx Asthma, Hx Pneumonia, Hx Sleep Apnea Neurological Medical History: Reports: Hx Migraine Endocrine Medical History: Reports: Hx Hypothyroidism Renal/ Medical History: Reports: Hx End Stage Renal Disease, Hx Hemodialysis. Denies: Hx Peritoneal Dialysis GI Medical History: Reports: Hx Gastroesophageal Reflux Disease, Hx Ulcer Musculoskeletal Medical History: Reports Hx Arthritis Past Surgical History: Reports: Hx Appendectomy, Hx Hysterectomy, Hx Oral Surgery, Hx Thyroid Surgery - thyroidectomy, Hx Tubal Ligation, Hx Vascular Surgery - left port in chest-put in on 06/23/12 - Immunizations Immunizations up to date: Yes Hx Diphtheria, Pertussis, Tetanus Vaccination: Yes Hx Pneumococcal Vaccination: 05/19/13 Review of Systems - Review of Systems Constitutional: No symptoms reported EENT: No symptoms reported Cardiovascular: No symptoms reported Respiratory: No symptoms reported Gastrointestinal: See HPI Genitourinary: See HPI Female Genitourinary: See HPI Musculoskeletal: See HPI Skin: No symptoms reported Hematologic/Lymphatic: No symptoms reported Neurological/Psychological: No symptoms reported Physical Exam - Vital signs Vitals: Temp Pulse Resp BP Pulse Ox 98.8 F 90 18 147/78 H 97 03/16/20 17:08 03/16/20 17:08 03/16/20 17:08 03/16/20 17:08 03/16/20 17:08 - Notes Notes: GENERAL: Alert, interacts well. No acute distress. HEAD: Normocephalic, atraumatic. EYES: Pupils equal, round, and reactive to light. Extraocular movements intact. ENT: Oral mucosa moist, tongue midline. Oropharynx unremarkable. Airway patent. NECK: Full range of motion. Supple. Trachea midline. No lymphadenopathy. LUNGS: Clear to auscultation bilaterally, no wheezes, rales, or rhonchi. No respiratory distress. Non-tender chest wall. HEART: Regular rate and rhythm. No murmur ABDOMEN: Soft, non-tender. Non-distended. Bowel sounds present in all 4 quadrants. GENITOURINARY: Deferred EXTREMITIES: Dialysis catheter in place over the left anterior mid thigh. There is no surrounding erythema, swelling, or tenderness. There is some tenderness along the left groin and at the left hip but range of motion is intact and patient ambulates without difficulty. Normal distal neurovascular exam. Extremities otherwise unremarkable. BACK: no cervical, thoracic, lumbar midline tenderness. There is bilateral paralumbar muscular tenderness and some pain with movement. No saddle anesthesia, normal distal neurovascular exam. Moves all extremities in full range of motion. NEUROLOGICAL: Alert and oriented x3. Normal speech. Cranial nerves II through XII grossly intact. Strength 5/5 in all extremities. PSYCH: Normal affect, normal mood. SKIN: Warm, dry, normal turgor. No rashes or lesions noted. Course - Re-evaluation Re-evalutation: No laboratory work-up was performed by triage, however patient did have dialysis during the morning, she does make urine and urinalysis was reviewed and unremarkable, gonorrhea chlamydia negative, patient states she is not sexually active and has not been sexually active for several years. I did review pelvic ultrasound, patient has had a full hysterectomy and appendectomy, ultrasound with no acute findings, x-ray of the lumbar spine unremarkable. Patient does have pain over the left hip area, there is a dialysis port in place in the left anterior thigh but this is not erythematous, swollen, or tender. Patient has no fever. I offered to image the hip but patient declined. Patient has been waiting for 10+ hours due to extreme delay and lack of rooms in the emergency department, she states she would like symptom management and discharge. Patient was provided with this. Patient be provided with diazepam because of reported success when her muscle relaxer is not working for her lower back pain. Discussed follow-up and return precautions. Patient states appreciation and agreement. - Vital Signs Vital signs: Temp Pulse Resp BP Pulse Ox 98.4 F 85 16 139/79 H 98 03/17/20 04:20 03/17/20 04:20 03/17/20 04:20 03/17/20 04:20 03/17/20 04:20 - Laboratory Laboratory results interpreted by me: 03/16/20 20:48 Urine Blood SMALL H Discharge - Discharge Clinical Impression: Left groin pain Lower back pain Qualifiers: Chronicity: acute Back pain laterality: bilateral Sciatica presence: without sciatica Qualified Code(s): M54.5 - Low back pain Condition: Stable Disposition: HOME, SELF-CARE Additional Instructions: Your testing here does not show any concerning findings. If symptoms continue hip I recommend imaging of the hip. The imaging of your back does not show any concerning findings, apply heat to the area, you can take the prescribed diazepam instead of your muscle relaxer but I do not recommend combining these. Take with precautions. Follow-up with primary care. Return if you worsen including severe worsening pain, numbness, developing redness or swelling over the left leg or thigh, fever, or any other concerning symptoms. Prescriptions: Diazepam [Valium 5 mg Tablet] 1 tab PO TID PRN #10 tablet PRN Reason: Referrals: RADHA WHITAKER PA-C [Primary Care Provider] - Follow up in 3-5 days
[2020-03-17] MEDS ORDERED: MORPHINE SULFATE 10 MG/ML INJ IM ONE (04:02)
[2020-03-17] MEDS ORDERED: PROMETHAZINE HCL INJ 25 MG/1 ML VIAL IM ONE (04:02)
[2020-03-17 04:24] VITALS: BP 139/79
== END 2020-03-17 04:20 | disposition home or self-care (01) ==
LOC: ER 17:04
DX: M54.5 Low back pain (principal); R10.30 Lower abdominal pain, unspecified; R11.0 Nausea; M25.552 Pain in left hip; I12.0 Hypertensive chronic kidney disease with stage 5 chronic kidney disease or end stage renal disease; N18.6 End stage renal disease; Z99.2 Dependence on renal dialysis; J45.909 Unspecified asthma, uncomplicated; Z90.49 Acquired absence of other specified parts of digestive tract; Z90.710 Acquired absence of both cervix and uterus; Z88.8 Allergy status to other drugs, medicaments and biological substances; Z88.6 Allergy status to analgesic agent; Z88.5 Allergy status to narcotic agent; Z91.018 Allergy to other foods; Z88.1 Allergy status to other antibiotic agents; Z88.0 Allergy status to penicillin; Z91.041 Radiographic dye allergy status
CPT/HCPCS: 99284; 96372; 81001; 87491; 87591; 72110; 76830; J2270; J2550

== ENCOUNTER 2020-03-26 10:16 | Emergency (ER) | payer MEDICARE, OTHER ==
--- NOTE | 2020-03-26 13:10 | RADIOLOGY REPORT (SQ) ---
EXAM DESCRIPTION: CHEST SINGLE VIEW IMAGES COMPLETED DATE/TIME: 03/26/2020 1:00 pm REASON FOR STUDY: SOB COMPARISON: 01/18/2019 EXAM PARAMETERS: NUMBER OF VIEWS: One view. TECHNIQUE: Single frontal radiographic view of the chest acquired. RADIATION DOSE: NA LIMITATIONS: None. FINDINGS: LUNGS AND PLEURA: No opacities, masses or pneumothorax. No pleural effusion. MEDIASTINUM AND HILAR STRUCTURES: No masses. Contour normal. HEART AND VASCULAR STRUCTURES: Heart normal in size. Normal vasculature. BONES: No acute findings. HARDWARE: Dialysis catheter overlies the right atrium. It enters from below. OTHER: No other significant finding. IMPRESSION: NO ACUTE RADIOGRAPHIC FINDING IN THE CHEST. TECHNICAL DOCUMENTATION: JOB ID: [id number] 2010 [employer]- All Rights Reserved Reading location - IP/workstation name: [email or web address]
[2020-03-26] MEDS ORDERED: IPRATROPIUM/ALBUTEROL 0.5-2.5 MG/3 ML AMPUL NEB ONE (13:30)
[2020-03-26 16:22] LABS: ABSOLUTE BASOPHILS # (AUTO) 0.1 10^3/uL (0.0-0.2); ABSOLUTE EOSINOPHILS # (AUTO) 0.4 10^3/uL (0.0-0.6); ABSOLUTE MONOCYTES (AUTO) 0.7 10^3/uL (0.1-1.4); ABSOLUTE NEUT (AUTO) 5.3 10^3/uL (1.7-8.2); BASOPHILS % (AUTO) 0.6 % (0-2); EOSINOPHILS % (AUTO) 4.4 % (0-6); HEMATOCRIT 26.4 % (36.0-47.0); HEMOGLOBIN 9.1 g/dL (12.0-15.5); MEAN CORPUSCULAR HEMOGLOBIN 32.4 pg (27.0-33.4); MEAN CORPUSCULAR HGB CONC 34.3 g/dL (32.0-36.0); MEAN CORPUSCULAR VOLUME 94 fl (80-97); MONOCYTES % (AUTO) 8.8 % (3-13); PLATELET COUNT 126 10^3/uL (150-450); RED CELL DISTRIBUTION WIDTH 14.1 % (11.5-14.0); SEGMENTED NEUTROPHILS % (AUTO) 62.2 % (42-78); TOTAL CELLS COUNTED % (AUTO) 100 %; WHITE BLOOD COUNT 8.5 10^3/uL (4.0-10.5)
[2020-03-26 16:29] LABS: ALBUMIN 4.6 g/dL (3.5-5.0); ALKALINE PHOSPHATASE 144 U/L (38-126); ANION GAP 9 (5-19); ASPARTATE AMINO TRANSFERASE 36 U/L (14-36); BILIRUBIN,DIRECT 0.3 mg/dL (0.0-0.4); BILIRUBIN,TOTAL 0.6 mg/dL (0.2-1.3); BLOOD UREA NITROGEN 21 mg/dL (7-20); CALCIUM 8.7 mg/dL (8.4-10.2); CARBON DIOXIDE 30 mmol/L (22-30); CHLORIDE 100 mmol/L (98-107); GLUCOSE 93 mg/dL (75-110); POTASSIUM 3.8 mmol/L (3.6-5.0); TOTAL PROTEIN 7.5 g/dL (6.3-8.2)
[2020-03-26 17:20] VITALS: BP 130/80
--- NOTE | 2020-03-26 17:26 | ER Document Report ---
ED Respiratory Problem - General Chief Complaint: Shortness Of Breath Stated Complaint: SHORTNESS OF BREATH Time Seen by Provider: 03/26/20 13:18 Primary Care Provider: RADHA WHITAKER PA-C [Primary Care Provider] - Follow up as needed Mode of Arrival: Medic Information source: Patient Notes: 49-year-old woman presents to the emergency department history of asthma, c omplains of awakening this morning with shortness of breath. She uses an inhaler, does not have a nebulizer at home. She denies fever or productive cough. She is not a smoker. TRAVEL OUTSIDE OF THE [place] IN LAST 30 DAYS: No - Related Data Allergies/Adverse Reactions: montelukast sodium [From Singulair] Allergy (Intermediate, Verified 07/09/19 14:18) Shortness of Breath codeine Allergy (Mild, Verified 07/09/19 14:18) Swelling of Throat banana Allergy (Verified 10/09/19 20:11) erythromycin base [Erythromycin Base] Allergy (Verified 07/09/19 14:18) sob, hives hydrocodone bitartrate [From Vicodin] Allergy (Verified 07/09/19 14:18) sob, hives ondansetron HCl [From Zofran] Allergy (Verified 07/09/19 14:18) sob, rash oxycodone HCl [From Percocet] Allergy (Verified 07/09/19 14:18) sob, rash penicillin G [Penicillin G] Allergy (Verified 07/09/19 14:18) sob, rash Penicillins Allergy (Verified 10/09/19 20:11) potassium Allergy (Verified 10/09/19 20:11) valacyclovir Allergy (Verified 07/09/19 14:18) latex Allergy (Severe, Uncoded 07/09/19 14:18) sob, hives analgesics Allergy (Uncoded 10/09/19 20:11) antiasthmatics Allergy (Uncoded 10/09/19 20:11) bronchodialators Allergy (Uncoded 10/09/19 20:11) iv contrast Allergy (Uncoded 10/09/19 20:11) microfiber tape Allergy (Uncoded 10/09/19 20:11) adhesives Adverse Reaction (Severe, Uncoded 07/09/19 14:18) hung Home Medications: advair, methocarbamol, albuterol, metoprolol, amlodipine, morphine IR, ASA, omeprazole, bactroban, Mag Ox, Benadryl, valium, eliquis, dilaudid, actemra, colace, velphoro, fioricet, promethazine, flonase, gabapentin, synthroid, hydralazine, lidocaine patch Past Medical History - Social History Smoking Status: Never Smoker Frequency of alcohol use: None Drug Abuse: None Family History: Reviewed & Not Pertinent - Past Medical History Cardiac Medical History: Reports: Hx Hypertension Pulmonary Medical History: Reports: Hx Asthma, Hx Pneumonia, Hx Sleep Apnea Neurological Medical History: Reports: Hx Migraine Endocrine Medical History: Reports: Hx Hypothyroidism Renal/ Medical History: Reports: Hx End Stage Renal Disease, Hx Hemodialysis. Denies: Hx Peritoneal Dialysis GI Medical History: Reports: Hx Gastroesophageal Reflux Disease, Hx Ulcer Musculoskeletal Medical History: Reports Hx Arthritis Past Surgical History: Reports: Hx Appendectomy, Hx Hysterectomy, Hx Oral Surgery, Hx Thyroid Surgery - thyroidectomy, Hx Tubal Ligation, Hx Vascular Surgery - left port in chest-put in on 06/23/12 - Immunizations Immunizations up to date: Yes Hx Diphtheria, Pertussis, Tetanus Vaccination: Yes Hx Pneumococcal Vaccination: 05/19/13 Review of Systems - Review of Systems Notes: Constitutional: Negative for fever. HENT: Negative for sore throat. Eyes: Negative for visual changes. Cardiovascular: Negative for chest pain. Respiratory: + Shortness of breath, + wheezing. Gastrointestinal: Negative for abdominal pain, vomiting or diarrhea. Genitourinary: Negative for dysuria. Musculoskeletal: Negative for back pain. Skin: Negative for rash. Neurological: Negative for headaches, weakness or numbness. 10 point ROS negative except as marked above and in HPI. Physical Exam - Vital signs Vitals: Temp 98.4 F 03/26/20 10:17 - Notes Notes: PHYSICAL EXAMINATION: Physical Exam: General: Well-nourished well-developed woman in mild respiratory distress HEENT: NC/AT, pupils equal round and reactive to light, MM moist,nares clear, oropharynx clear, airway patent Neck: supple, no adenopathy, no masses. Good range of motion Lungs: Bilateral inspiratory wheezes CVS: Regular rate and rhythm no murmur gallop or rub Abdomen: Soft, active, nontender, no masses, no hepatosplenomegaly Ext: No edema, clubbing or cyanosis. Neuro: Alert and responsive, moving all 4 extremities on command, cranial nerves intact, no focal findings Skin: Intact no open lesions, no rash PSYCH: Normal mood, normal affect. Course - Re-evaluation Re-evalutation: 03/26/20 17:24 Patient is chronically taking prednisone, 30 mg daily, she is given duo nebs x3 with complete clearing of the wheezes. She continues to do well after 3 hours of emergency department observation. She is being discharged home to continue her medications. Asked her to follow-up with her primary care doctor with regards to home nebulizer treatment. Acknowledges understanding the plan stated she is ready to go home and is being discharged. - Vital Signs Vital signs: Temp Pulse Resp BP Pulse Ox 98.5 F 13 130/80 H 96 03/26/20 14:57 03/26/20 17:16 03/26/20 17:16 03/26/20 17:16 - Laboratory Result Diagrams: 03/26/20 15:54 03/26/20 15:54 Laboratory results interpreted by me: 03/26/20 03/26/20 15:54 15:54 RBC 2.80 L Hgb 9.1 L Hct 26.4 L RDW 14.1 H Plt Count 126 L BUN 21 H Creatinine 5.97 H Est GFR ( Amer) 9 L Est GFR (MDRD) Non-Af 7 L Alkaline Phosphatase 144 H 03/26/20 17:25 I have reviewed laboratory data and used this information for the treatment decisions regarding the patient. - Diagnostic Test Radiology reviewed: Image reviewed, Reports reviewed Radiology results interpreted by me: 03/26/20 17:25 Chest x-ray: No acute cardiopulmonary findings. - EKG Interpretation by Me Rate: Normal - EKG interpreted by me: Normal sinus rhythm, rate of 87, left axis deviation, poor R wave progression, no acute ST or T wave abnormality, no ischemic changes. No prior EKG is available for comparison. Discharge - Discharge Clinical Impression: Asthma exacerbation Qualifiers: Asthma severity: mild Asthma persistence: unspecified Qualified Code(s): J45.901 - Unspecified asthma with (acute) exacerbation Condition: Good Disposition: HOME, SELF-CARE Instructions: Asthma ([facility]) Additional Instructions: You were seen in the emergency department today with asthma exacerbation. Please continue your usual medications at home and follow-up with your primary care doctor as needed. If your symptoms worsen or if you have other concerns you may return to the emergency department for further evaluation and treatment HOME CARE INSTRUCTIONS & INFORMATION: Thank you for choosing us for your medical needs. We hope you're satisfied with the care you received. After you leave, you must properly care for your problem and, at the same time, observe its progress. Any condition can change. Some illnesses can change rapidly over hours or days. If your condition worsens, return to the Emergency Department or see your physician promptly. ABOUT YOUR X-RAYS AND EKG'S: If you had an EKG or X-rays taken, they have been read by the Emergency Physician. The X-rays and EKG's will also be read by a Radiologist or Marketing Manager within 24 hours. If discrepancies are noted, you w ill be notified by telephone. Please be certain the ED has a correct telephone number & address where you can be reached. Also, realize that some fractures or abnormalities do not show up on initial X-rays. If your symptoms continue, see your physician. ABOUT YOUR LABORATORY TEST: If you had laboratory tests, the results have been reviewed by the Emergency Physician. Some test results (for example cultures) may not be available for several days. You will be contacted if any test result shows you need additional treatment. Please be certain the ED has a correct telephone number and address where you can be reached. ABOUT YOUR MEDICATIONS: You will receive instructions on how to take your medicine on the prescription label you receive. Additional information may be provided by the Pharmacy. If you have questions afterwards, call the ED for clarification or further instructions. Some prescribed medications may cause drowsiness. Do not perform tasks such as driving a car or operating machinery without consulting your Pharmacist. If you feel you need a refill of pain medic ation, your condition will need re-evaluation. Please do not call for a refill of any medication. ABOUT YOUR SIGNATURE: Signature of this document acknowledges to followin. Understanding that you received emergency treatment and that you may be released before al medical problems are known or treated. Please be certain the ED has a correct phone number & address where you can be reached. 2. Acknowledgement that you will arrange for follow-up care as recommended. 3. Authorization for the Emergency Physician to provide information to your follow-up Physician in order to maximize your care. AT ANY TIME, IF YOUR SYMPTOMS CHANGE SIGNIFICANTLY OR WORSEN OR YOU DEVELOP NEW SYMPTOMS, RETURN TO THE EMERGENCY DEPARTMENT IMMEDIATELY FOR RE-EVALUATION. OUR GOAL IS TO PROVIDE EXCELLENT MEDICAL CARE! WE HOPE THAT WE HAVE MET YOUR EXPECTATIONS DURING YOUR EMERGENCY DEPARTMENT VISIT AND THAT YOU FEEL YOU HAVE RECEIVED EXCELLENT CARE! Referrals: RADHA WHTIAKER PA-C [Primary Care Provider] - Follow up as needed
--- NOTE | 2020-03-26 21:25 | EKG REPORT ---
SEVERITY:- BORDERLINE ECG - SINUS RHYTHM LEFT AXIS DEVIATION BORDERLINE R WAVE PROGRESSION, ANTERIOR LEADS : Confirmed by: Han Lott 26-Mar-2020 21:24:29
== END 2020-03-26 17:46 | disposition home or self-care (01) ==
LOC: ER 10:16
DX: J45.901 Unspecified asthma with (acute) exacerbation (principal); R06.02 Shortness of breath; K21.9 Gastro-esophageal reflux disease without esophagitis; E89.0 Postprocedural hypothyroidism; I12.0 Hypertensive chronic kidney disease with stage 5 chronic kidney disease or end stage renal disease; N18.6 End stage renal disease; Z99.2 Dependence on renal dialysis; Z79.899 Other long term (current) drug therapy; Z79.52 Long term (current) use of systemic steroids; Z79.51 Long term (current) use of inhaled steroids; Z79.82 Long term (current) use of aspirin; Z79.891 Long term (current) use of opiate analgesic; Z79.01 Long term (current) use of anticoagulants; Z88.8 Allergy status to other drugs, medicaments and biological substances; Z88.6 Allergy status to analgesic agent; Z88.5 Allergy status to narcotic agent; Z91.018 Allergy to other foods; Z88.1 Allergy status to other antibiotic agents; Z88.0 Allergy status to penicillin; Z91.040 Latex allergy status; Z91.041 Radiographic dye allergy status; Z91.048 Other nonmedicinal substance allergy status
CPT/HCPCS: 36415; 71045; 80053; 85025; 93005; 93010; 94640; 99285

== ENCOUNTER 2020-05-08 14:52 | Emergency (ER) | payer MEDICARE, OTHER ==
--- NOTE | 2020-05-08 16:19 | RADIOLOGY REPORT (SQ) ---
EXAM DESCRIPTION: L SPINE WHOLE IMAGES COMPLETED DATE/TIME: 05/08/2020 4:06 pm REASON FOR STUDY: lbp with vaginal bleeding COMPARISON: 03/16/2020 NUMBER OF VIEWS: Five views including obliques. TECHNIQUE: AP, lateral, oblique, and sacral radiographic images acquired of the lumbar spine. LIMITATIONS: None. FINDINGS: MINERALIZATION: Normal. SEGMENTATION: Normal. No transitional anatomy. ALIGNMENT: Normal. VERTEBRAE: Maintained height. No fracture or worrisome bone lesion. DISCS: Preserved height. No significant osteophytes or end plate irregularity. POSTERIOR ELEMENTS: Pedicles and facets are intact. No pars defect or posterior arch defects. HARDWARE: Tubing traversing the abdomen in a longitudinal fashion is of uncertain etiology or signifi cance, but appears unchanged in the study interval. PARASPINAL SOFT TISSUES: Normal. PELVIS: Intact as visualized. No fractures or worrisome bone lesions. SI joints intact. OTHER: No other significant finding. IMPRESSION: No evidence of acute osseous injury or significant degenerative change. Stable radiogra phic appearance of the lumbar spine. TECHNICAL DOCUMENTATION: JOB ID: [id number] 2010 [employer]- All Rights Reserved Reading location - IP/workstation name: [email or web address]
--- NOTE | 2020-05-08 16:27 | ER Document Report ---
ED Medical Screen (RME) - General Chief Complaint: Vaginal Bleeding Stated Complaint: VAGINAL BLEEDING Time Seen by Provider: 05/08/20 15:33 Primary Care Provider: RADHA WHITAKER PA-C [Primary Care Provider] - Follow up as needed TRAVEL OUTSIDE OF THE [place] IN LAST 30 DAYS: No - HPI Notes: 05/08/20 15:39 49-year-old female with a history of hypertension is a dialysis patient, went for dialysis yesterday at [facility] presents emergency room with complaints of vaginal bleeding that started today after having a complete hysterectomy years ago as well as lower back pain for the last 2 weeks. Reports vaginal bleeding is not enough to wear a pad or tampon. States that she was seen by her doctor for her lower back pain, urinalysis is pending. Reports nausea but denies any vomiting or diarrhea. Denies any chest pain or shortness of breath. Reports her mother from ovarian cancer. States her last colonoscopy was roughly 3 years ago. I have greeted and performed a rapid initial assessment of this patient. A comprehensive ED assessment and evaluation of the patient, analysis of test results and completion of the medical decision making process will be conducted by additional ED providers. PHYSICAL EXAMINATION: GENERAL: Well-appearing, well-nourished and in no acute distress. HEAD: Atraumatic, normocephalic. EYES: Pupils equal round extraocular movements intact, conjunctiva are normal. NECK: Normal range of motion CV: s1, s2 regular LUNGS: No respiratory distress abd: suprapubic tenderness - Related Data Allergies/Adverse Reactions: montelukast sodium [From Singulair] Allergy (Intermediate, Verified 07/09/19 14:18) Shortness of Breath codeine Allergy (Mild, Verified 07/09/19 14:18) Swelling of Throat banana Allergy (Verified 10/09/19 20:11) erythromycin base [Erythromycin Base] Allergy (Verified 07/09/19 14:18) sob, hives hydrocodone bitartrate [From Vicodin] Allergy (Verified 07/09/19 14:18) sob, hives ondansetron HCl [From Zofran] Allergy (Verified 07/09/19 14:18) sob, rash oxycodone HCl [From Percocet] Allergy (Verified 07/09/19 14:18) sob, rash penicillin G [Penicillin G] Allergy (Verified 07/09/19 14:18) sob, rash Penicillins Allergy (Verified 10/09/19 20:11) potassium Allergy (Verified 10/09/19 20:11) valacyclovir Allergy (Verified 07/09/19 14:18) latex Allergy (Severe, Uncoded 07/09/19 14:18) sob, hives analgesics Allergy (Uncoded 10/09/19 20:11) antiasthmatics Allergy (Uncoded 10/09/19 20:11) bronchodialators Allergy (Uncoded 10/09/19 20:11) iv contrast Allergy (Uncoded 10/09/19 20:11) microfiber tape Allergy (Uncoded 10/09/19 20:11) adhesives Adverse Reaction (Severe, Uncoded 07/09/19 14:18) hung Past Medical History - Social History Family history: Hypertension, Other - kidney failure - Past Medical History Cardiac Medical History: Reports: Hx Hypertension Pulmonary Medical History: Reports: Hx Asthma, Hx Pneumonia, Hx Sleep Apnea Neurological Medical History: Reports: Hx Migraine Endocrine Medical History: Reports: Hx Hypothyroidism Renal/ Medical History: Reports: Hx End Stage Renal Disease, Hx Hemodialysis. Denies: Hx Peritoneal Dialysis GI Medical History: Reports: Hx Gastroesophageal Reflux Disease, Hx Ulcer Musculoskeltal Medical History: Reports Hx Arthritis Past Surgical History: Reports: Hx Appendectomy, Hx Hysterectomy, Hx Oral Surgery, Hx Thyroid Surgery - thyroidectomy, Hx Tubal Ligation, Hx Vascular Surgery - left port in chest-put in on 06/23/12 - Immunizations Immunizations up to date: Yes Hx Diphtheria, Pertussis, Tetanus Vaccination: Yes Physical Exam - Vital signs Vitals: Temp Pulse Resp BP Pulse Ox 97.8 F 88 18 119/69 94 05/08/20 14:59 05/08/20 14:59 05/08/20 14:59 05/08/20 14:59 05/08/20 14:59 Course - Vital Signs Vital signs: Temp Pulse Resp BP Pulse Ox 97.8 F 88 18 119/69 94 05/08/20 14:59 05/08/20 14:59 05/08/20 14:59 05/08/20 14:59 05/08/20 14:59 Doctor's Discharge - Discharge Referrals: RADHA WHITAKER PA-C [Primary Care Provider] - Follow up as needed
--- NOTE | 2020-05-08 17:18 | RADIOLOGY REPORT (SQ) ---
EXAM DESCRIPTION: U/S NON-OB PELVIS LTD W/O DOP IMAGES COMPLETED DATE/TIME: 05/08/2020 4:50 pm REASON FOR STUDY: vaginal bleeding s/p complete [id number] COMPARISON: None. TECHNIQUE: Dynamic and static grayscale images acquired of the pelvis via transabdominal approach an d recorded on PACS. Additional selected color Doppler and spectral images recorded. LIMITATIONS: None. FINDINGS: UTERUS: Status posthysterectomy. ENDOMETRIAL STRIPE: Not applicable. CERVIX: Not applicable. RIGHT OVARY AND DOPPLER: Status post oophorectomy. LEFT OVARY AND DOPPLER: Status post oophorectomy. FREE FLUID: None noted. OTHER: No other significant finding. MEASUREMENTS: UTERUS: Not applicable ENDOMETRIAL STRIPE: Not applicable. RIGHT OVARY: Not applicable. LEFT OVARY: Not applicable. IMPRESSION: Status post hysterectomy and bilateral oophorectomy. No discrete abnormalities are visu alized within the pelvis. TECHNICAL DOCUMENTATION: JOB ID: [id number] 2010 [employer]- All Rights Reserved Rev-12/25 Reading location - IP/workstation name: [email or web address]
[2020-05-08] MEDS ORDERED: DIPHENHYDRAMINE HCL 50 MG CAPSULE PO ONE (21:06)
[2020-05-08] MEDS ORDERED: PROCHLORPERAZINE MALEATE 10 MG TABLET PO ONE (21:06)
[2020-05-08 21:15] LABS: APPEARANCE,URINE CLEAR; BILIRUBIN,URINE NEGATIVE (NEGATIVE); COLOR,URINE STRAW; GLUCOSE, URINE NEGATIVE (NEGATIVE); KETONES,URINE NEGATIVE (NEGATIVE); LEUKOCYTE ESTERASE,URINE NEGATIVE (NEGATIVE); NITRITE,URINE NEGATIVE (NEGATIVE); PROTEIN,URINE NEGATIVE (NEGATIVE); URINE SPECIFIC GRAVITY 1.005; UROBILINOGEN,URINE NEGATIVE mg/dL (<2.0)
[2020-05-08] MEDS ORDERED: BUTALB/ACETAMINOPHEN/CAFFEINE 1 TAB EACH PO ONE (22:30)
--- NOTE | 2020-05-08 22:31 | ER Document Report ---
ED General - General Chief Complaint: Urinary Problem Stated Complaint: VAGINAL BLEEDING Time Seen by Provider: 05/08/20 15:33 Primary Care Provider: RADHA WHITAKER PA-C [Primary Care Provider] - Follow up as needed TRAVEL OUTSIDE OF THE [place] IN LAST 30 DAYS: No - HPI Notes: 49-year-old female presents with concerns for vaginal bleeding. Patient states that earlier today she was using the restroom, she had just urinated, she noticed blood down there when wiping. There is no blood in the toilet bowl. She states that it was not enough blood to use a tampon or pad. It is not occurred since. She had a total hysterectomy several years ago. She denies recent sexual intercourse. She initially reports at the time of urination, she felt a lot of pressure and then urinated a lot. She is a dialysis patient, went yesterday to dialysis and plans to go tomorrow. She denies chest pain or shortness of breath. She also reports a migraine, she has a history of migraines, this feels the same. She also reports chronic lower back pain. - Related Data Allergies/Adverse Reactions: montelukast sodium [From Singulair] Allergy (Intermediate, Verified 05/08/20 15:44) Shortness of Breath codeine Allergy (Mild, Verified 05/08/20 15:44) Swelling of Throat banana Allergy (Verified 05/08/20 15:44) erythromycin base [Erythromycin Base] Allergy (Verified 05/08/20 15:44) sob, hives hydrocodone bitartrate [From Vicodin] Allergy (Verified 05/08/20 15:44) sob, hives ondansetron HCl [From Zofran] Allergy (Verified 05/08/20 15:44) sob, rash oxycodone HCl [From Percocet] Allergy (Verified 05/08/20 15:44) sob, rash penicillin G [Penicillin G] Allergy (Verified 05/08/20 15:44) sob, rash Penicillins Allergy (Verified 05/08/20 15:44) potassium Allergy (Verified 05/08/20 15:44) valacyclovir Allergy (Verified 05/08/20 15:44) latex Allergy (Severe, Uncoded 05/08/20 15:44) sob, hives analgesics Allergy (Uncoded 05/08/20 15:44) antiasthmatics Allergy (Uncoded 05/08/20 15:44) bronchodialators Allergy (Uncoded 05/08/20 15:44) iv contrast Allergy (Uncoded 05/08/20 15:44) microfiber tape Allergy (Uncoded 05/08/20 15:44) adhesives Adverse Reaction (Severe, Uncoded 05/08/20 15:44) hung Past Medical History - General Information source: Patient - Social History Smoking Status: Never Smoker Chew tobacco use (# tins/day): No Frequency of alcohol use: None Drug Abuse: None Family History: Reviewed & Not Pertinent - Past Medical History Cardiac Medical History: Reports: Hx Hypertension Pulmonary Medical History: Reports: Hx Asthma, Hx Pneumonia, Hx Sleep Apnea Neurological Medical History: Reports: Hx Migraine Endocrine Medical History: Reports: Hx Hypothyroidism Renal/ Medical History: Reports: Hx End Stage Renal Disease, Hx Hemodialysis. Denies: Hx Peritoneal Dialysis GI Medical History: Reports: Hx Gastroesophageal Reflux Disease, Hx Ulcer Musculoskeletal Medical History: Reports Hx Arthritis Past Surgical History: Reports: Hx Appendectomy, Hx Hysterectomy, Hx Oral Surgery, Hx Thyroid Surgery - thyroidectomy, Hx Tubal Ligation, Hx Vascular Surgery - left port in chest-put in on 06/23/12 - Immunizations Immunizations up to date: Yes Hx Diphtheria, Pertussis, Tetanus Vaccination: Yes Hx Pneumococcal Vaccination: 05/19/13 Review of Systems - Review of Systems Constitutional: denies: Fever EENT: No symptoms reported Cardiovascular: denies: Chest pain Respiratory: denies: Short of breath Gastrointestinal: denies: Abdominal pain Genitourinary: denies: Dysuria Female Genitourinary: Vaginal bleeding Musculoskeletal: Back pain Skin: No symptoms reported Neurological/Psychological: Headaches Physical Exam - Vital signs Vitals: Temp Pulse Resp BP Pulse Ox 97.8 F 88 18 119/69 94 05/08/20 14:59 05/08/20 14:59 05/08/20 14:59 05/08/20 14:59 05/08/20 14:59 - General General appearance: Appears well, Alert In distress: None - HEENT Head: Normocephalic, Atraumatic Extraocular movements intact: Yes Pupils: PERRL - Respiratory Breath sounds: Normal - Cardiovascular Rhythm: Regular - Abdominal Tenderness: Nontender - Genitourinary Notes: Pelvic exam performed with nurse catering driver. Normal external genitalia. No vaginal bleeding or dried blood in vaginal vault. There is a thick vaginal d ischarge present. She has no cervix as it has been surgically removed. - Back Back: No: CVA tenderness, Vertebra tenderness - Extremities General upper extremity: Normal ROM General lower extremity: Normal ROM. No: Edema - Neurological Neuro grossly intact: Yes Cognition: Normal Orientation: AAOx4 Speech: Normal Cranial nerves: Normal Motor strength normal: LUE Sensory: Normal - Psychological Associated symptoms: Normal affect - Skin Skin Temperature: Warm Course - Re-evaluation Re-evalutation: 49-year-old female with concerns for vaginal bleeding, 1 episode today, status post total hysterectomy. Based on her description, possible it might have been a vaginal discharge, will perform pelvic exam. She has a typical migraine headache, she is neurologically intact, no current IV access so we will start with oral Compazine/Benadryl. Lungs are clear, does not appear to be volume overloaded. Through the triage process she had a transvaginal ultrasound done which did not have any significant findings. 05/08/20 22:31 Patient reports continued migraine, will trial Fioricet 05/08/20 23:16 Pelvic exam performed. There is no evidence of bleeding. She does have some scant vaginal discharge. No tenderness or lesions. 05/08/20 23:46 Wet prep concerning for bacterial vaginosis, this could be a reason for discharge. Will prescribe patient Flagyl. 05/09/20 00:35 Patient updated on results. She is feeling better. Return precautions given, stable at time of discharge. - Vital Signs Vital signs: Temp Pulse Resp BP Pulse Ox 97.9 F 75 16 128/88 H 96 05/09/20 01:05 05/09/20 01:05 05/09/20 01:05 05/09/20 01:05 05/09/20 01:05 - Laboratory Result Diagrams: 05/08/20 20:05 05/08/20 20:05 Laboratory results interpreted by me: 05/08/20 20:53 Urine Blood SMALL H Discharge - Discharge Clinical Impression: Vaginal discharge Condition: Stable Disposition: HOME, SELF-CARE Instructions: Vaginosis, Bacterial ([facility]) Additional Instructions: Please begin a course of Flagyl for bacterial vaginosis. Do not drink any alcohol while taking this medication as it will cause severe nausea/vomiting. Please have close follow-up with your primary care doctor. Go to dialysis tomorrow as planned. Return to the emergency department for any concerning worsening symptoms. Prescriptions: Metronidazole [Flagyl 500 mg Tablet] 500 mg PO BID 7 Days #14 tablet Referrals: RADHA WHITAKER PA-C [Primary Care Provider] - Follow up as needed
[2020-05-08 23:28] LABS: BACTERIA (WET MOUNT) 4+ BACTERIA SEEN; EPITHELIALS (WET MOUNT) 3+ EPITHELIALS SEEN; T.VAGINALIS (WET MOUNT) NO TRICHOMONAS SEEN; WBCS (WET MOUNT) FEW WBCS SEEN; YEAST (WET MOUNT) NO YEAST SEEN
[2020-05-09 00:59] LABS: CHLAM PCR NOT DETECTED (NOT DETECT)
[2020-05-09 01:07] VITALS: BP 128/88
== END 2020-05-09 01:20 | disposition home or self-care (01) ==
LOC: ER 14:52
DX: N89.8 Other specified noninflammatory disorders of vagina (principal); G43.909 Migraine, unspecified, not intractable, without status migrainosus; M54.5 Low back pain; G89.29 Other chronic pain; I12.0 Hypertensive chronic kidney disease with stage 5 chronic kidney disease or end stage renal disease; N18.6 End stage renal disease; Z99.2 Dependence on renal dialysis; Z90.710 Acquired absence of both cervix and uterus; Z90.722 Acquired absence of ovaries, bilateral; Z90.49 Acquired absence of other specified parts of digestive tract; Z98.51 Tubal ligation status; J45.909 Unspecified asthma, uncomplicated; Z88.8 Allergy status to other drugs, medicaments and biological substances; Z88.6 Allergy status to analgesic agent; Z88.5 Allergy status to narcotic agent; Z91.018 Allergy to other foods; Z88.1 Allergy status to other antibiotic agents; Z88.0 Allergy status to penicillin; Z91.041 Radiographic dye allergy status; Z91.048 Other nonmedicinal substance allergy status
CPT/HCPCS: 99285; 87210; 81001; 87491; 87591; 72110; 76857; A9270 ×3; J3490; S0183

== ENCOUNTER → 2020-06-07 | Outpatient (CLI) | payer MEDICARE, OTHER ==
--- NOTE | 2020-06-07 14:04 | XCELERA REPORT ---
[address] [address] Transthoracic Echocardiogram Report Name: DESIREE ARITA Age: 49 yrs Gender: Female : 1970 Patient Status: Outpatient Patient Location: Study Date: 06/07/2020 09:12 AM History: HTN CP Height: 62 in Weight: 171 lb BSA: 1.8 m2 Procedure: A complete two-dimensional transthoracic echocardiogram was performed (2D, M-mode, spectral and color flow Doppler). Reason For Study: HTN, CP Previous Evaluation: A previous study was performed on 09/02/2017 LVEF Normal. History: HTN. Chest pain. Ordering Physician: SIMEON REYES Performed By: Lavinia Brian Interpretation Summary Left ventricular systolic function is normal. The Ejection Fraction estimate is 60-65% The right ventricle is normal in size and function. There is a trace amount of mitral regurgitation There is no aortic valve stenosis There is a mild amount of aortic regurgitation There is a moderate amount of tricuspid regurgitation There is moderate pulmonary hypertension by echo Small pericardial effusion. There are no echocardiographic indications of cardiac tamponade. MMode/2D Measurements & Calculations RVDd: 3.5 cm LVIDd: 4.0 cm FS: 38.4 % Ao root diam: 2.7 cm IVSd: 0.91 cm LVIDs: 2.4 cm EDV(Teich): 68.8 ml Ao root area: 5.5 cm2 LVPWd: 0.88 cm ESV(Teich): 21.2 ml LA dimension: 3.5 cm EF(Teich): 69.2 % Doppler Measurements & Calculations MV E max collins: MV P1/2t max collins: Ao V2 max: LV V1 max P.6 cm/sec 105.6 cm/sec 145.9 cm/sec 4.3 mmHg MV A max collins: MV P1/2t: 64.5 msec Ao max P.5 mmHgLV V1 max: 109.1 cm/sec MVA(P1/2t): 3.4 cm2 103.7 cm/sec MV E/A: 0.96 MV dec slope: 479.3 cm/sec2 MV dec time: 0.20 sec PA V2 max: TR max collins: MV P1/2t-pr_phl: 76.5 cm/sec 374.6 cm/sec 64.5 msec PA max P.3 mmHgTR max P.1 mmHg Left Ventricle The left ventricle is grossly normal size. There is mild concentric left ventricular hypertrophy. Left ventricular systolic function is normal. The Ejection Fraction estimate is 60-65%. Doppler measurements suggest pseudonormalized left ventricular relaxation, which is associated with grade II/IV or mild to moderate diastolic dysfunction. No regional wall motion abnormalities noted. Right Ventricle The right ventricle is normal in size and function. Atria The right atrium is normal. The left atrium is mildly dilated. The interatrial septum is intact with no evidence for an atrial septal defect. There is no Doppler evidence for an interatrial shunt. Mitral Valve The mitral valve is grossly normal. There is a trace amount of mitral regurgitation. Aortic Valve The aortic valve is mildly calcified. The aortic valve is sclerotic and shows some degree of functional abnormality. The aortic valve is trileaflet. The aortic valve opens well. There is no aortic valve stenosis. There is a mild amount of aortic regurgitation. Tricuspid Valve The tricuspid valve is not well visualized, but is grossly normal. There is no tricuspid stenosis. There is a moderate amount of tricuspid regurgitation. Right ventricular systolic pressure is estimated to be elevated at >60mmHg. There is moderate pulmonary hypertension by echo. Pulmonic Valve The pulmonic valve is not well seen, but is grossly normal. There is no pulmonic valvular stenosis. There is a trace amount of pulmonic regurgitation. Great Vessels The aortic root is normal size. The inferior vena cava appeared normal and decreased > 50% with respiration (RAP 5-10 mmHg). Effusions Small pericardial effusion. There are no echocardiographic indications of cardiac tamponade. : SIMEON REYES Anil
== END ==
LOC: SP 08:40
PROVIDERS: ATTEND Internal Medicine
DX: I10 Essential (primary) hypertension (principal); R07.9 Chest pain, unspecified; Z79.01 Long term (current) use of anticoagulants
CPT/HCPCS: 93306

== ENCOUNTER → 2020-06-21 | Outpatient (CLI) | payer MEDICARE, OTHER ==
--- NOTE | 2020-06-21 16:02 | RADIOLOGY REPORT (SQ) ---
EXAM DESCRIPTION: ARTERIAL LOWER EXTREM UNILAT IMAGES COMPLETED DATE/TIME: 06/21/2020 3:49 pm REASON FOR STUDY: HEMATOMA L76.32 POSTPROC HEMATOMA OF SKIN, SUBCU FOLLOWING OTHER PROC COMPARISON: None. TECHNIQUE: Dynamic and static grayscale images acquired of the localized site of clinical concern an d recorded on PACS. Additional selected color Doppler and spectral images recorded. SITE OF CONCERN: Right groin LIMITATIONS: None. FINDINGS: 6.8 x 4.6 cm hematoma. No evidence of pseudoaneurysm. IMPRESSION: No evidence of pseudoaneurysm. TECHNICAL DOCUMENTATION: JOB ID: [id number] [employer]- All Rights Reserved Reading location - IP/workstation name: [email or web address]
--- OUTSIDE RECORDS SUMMARY | 2020-06-22 15:20 | XMS REPORT ---
:1970 [facility] Address [address] [address] Care Team Providers Name Role Phone Setphan Vasquez M.D. Attending Clinician Unavailable Allergies, Adverse Reactions, Alerts Allergy Name Allergy Status Severity Reaction(s) Onset Inactive Treat ing Comments Type Date Date Clinician Erythromycin Allergy Active to Drug (Finding ) Latex Gloves Allergy Active to Drug (Finding ) Penicillin V Allergy Active Potassium to Drug (Ingredient(s): (Finding penicillin V) ) Percocet Allergy Active (Ingredient(s): to Drug acetaminophen / (Finding oxycodone) ) Potassium Allergy Active Phosphate to Drug (Finding ) Singulair Allergy Active (Ingredient(s): to Drug montelukast) (Finding ) Vicodin Allergy Active to Drug (Finding ) Zofran Allergy Active (Ingredient(s): to Drug ondansetron) (Finding ) Medications Ordered Filled Start Stop Current Ordering Indication Dosage Frequency Signature Comments Components Medication Medication Date Date Medication? Clinician (SIG) Name Name Aspirin Yes 1 11-25 00:00: 00 Eliquis Yes 2 12-12 00:00: 00 Hydration 2014-2014- No 1000mL 1000mL NS 11-16 00:00: 00:00 00 :00 Promethazin 2015- No 25mg Promethazi e HCl 11-16 ne HCl 00:00: 00:00 00 :00 Lovenox 2013-08- No 30mg 08-21 00:00: 00:00 00 :00 Enoxaparin 2015- No 1 Sodium 15 09-04 00:00: 15:41 00 :27 Coumadin 2016- No 1 11-18 00:00: 09:11 00 :16 Mephyton 2016- No .5 11-16 00:00: 00:00 00 :00 Advair Yes 1 Diskus Albuterol Yes 2 Aspirin Yes 1 Calcium Yes 1 Carbonate Colace Yes 1 Coumadin Yes 1 Fioricet Yes 1 Methocarbam Yes 1 ol Metoprolol Yes 1 Tartrate Omeprazole Yes 1 Promethazin Yes 1 e HCl Denise-Joshua Yes 1 Rx Synthroid Yes 1 Enoxaparin No 80mg Sodium 10-11 10:49 :49 Eszopiclone 2012- No 1 10-11 10:50 :34 Problems Condition Condition Condition Status Onset Resolution Last Treatin g Comments Name Details Category Date Date Treatment Clinician Date High risk High risk Diagnosis active 2014-08 drug drug 0- monitoring monitoring 00:00: status status 00 Dehydration Dehydration Diagnosis active 11-16 00:00: 00 Nausea Nausea Diagnosis active 11-16 00:00: 00 Needs Needs Diagnosis complet 2013-08 influenza influenza ed 0-01 immunizatio immunizatio 00:00: n n 00 Vascular Vascular Diagnosis active disorder of disorder of extremity extremity Subconjunct Subconjunct Diagnosis active ival ival hemorrhage hemorrhage H/O: H/O: Diagnosis active anticoagula anticoagula nt therapy nt therapy Hypercoagul Hypercoagul Diagnosis active ability ability state state Procedures Procedure Date / Time Performed Performing Clinician Devic e Multiple access surgeries thyroidectomy appendectomy tubal ligation Results Test Description Test Time Test Comments Text Results Atomic Results Result Comments WBC 2020-05-31 13:36:00 Test Item Value Reference Range Comments WBC (test code = WBC) 9.3000 4.0000-10.0000 Lymphocytes % (test code = Lymphocytes %) 19.9000 % 22.400 0-43.6000 MID% (test code = MID%) 5.4000 % 1.2000-11.2000 Neutrophils % (test code = Neutrophils %) 74.7000 % 48.900 0-69.9000 Lymphocytes (test code = Lymphocytes) 1.8000 1.2000-3.2 000 MID (test code = MID) 0.5000 0.1000-1.1000 Neutrophils (test code = Neutrophils) 7.0000 1.5000-6.7 000 RBC (test code = RBC) 3.7000 3.7000-4.9000 HGB (test code = HGB) 12.4000 g/dL 11.2000-18.0000 HCT (test code = HCT) 38.3000 % 34.0000-44.0000 MCV (test code = MCV) 103.7000 fL 80.0000-94.0000 MCH (test code = MCH) 33.5000 pg 27.0000-34.0000 MCHC (test code = MCHC) 32.3000 g/dL 31.5000-36.0000 RDW (test code = RDW) 17.1000 11.0000-18.0000 PLT (test code = PLT) 151.0000 140.0000-440.0000 MPV (test code = MPV) 9.6000 fL 6.8000-10.6000 [id number] 13:35:00 Test Item Value Reference Range Comments Creatinine (test code = Creatinine) 8.9300 mg/dL 0.5700-1.000 0 Cr Clearance (Est) (test code = Cr 8.3200 75.0000-115.0 000 Clearance (Est)) Glucose (test code = Glucose) 72.0000 mg/dL 65.0000-99.0000 BUN (test code = BUN) 32.0000 mg/dL 6.0000-24.0000 eGFR Wrd-Dtjdvzo-Oqbamxau (test code = 5.0000 eGFR Toc-Fquismb-Zehguhxl) eGFR -Filipino (test code = eGFR 5.0000 -Filipino) BUN/Creat Ratio (test code = BUN/Creat 4.0000 9.0000-23 .0000 Ratio) Sodium (test code = Sodium) 140.0000 mmol/L 134.0000-144.0000 Potassium (test code = Potassium) 5.2000 mmol/L 3.5000-5.2000 Chloride (test code = Chloride) 101.0000 mmol/L 96.0000-106.0000 CO2 (test code = CO2) 18.0000 mmol/L 20.0000-29.0000 Calcium (test code = Calcium) 8.7000 mg/dL 8.7000-10.2000 Protein, Total (test code = Protein, 7.3000 g/dL 6.0000-8.50 00 Total) Albumin (test code = Albumin) 4.8000 g/dL 3.8000-4.9000 Globulin (test code = Globulin) 2.5000 g/dL 1.5000-4.5000 A/G Ratio (test code = A/G Ratio) 1.9000 1.2000-2.2000 Bilirubin, Total (test code = Bilirubin, 0.4000 mg/dL 0.0000- 1.2000 Total) Alkaline Phosphatase (test code = 129.0000 39.0000-117.00 00 Alkaline Phosphatase) AST (SGOT) (test code = AST (SGOT)) 21.0000 0.0000-40.00 00 ALT (SGPT) (test code = ALT (SGPT)) 12.0000 0.0000-32.00 00 Iron, Total (test code = Iron, Total) 86.0000 27.0000-15 9.0000 TIBC (test code = TIBC) 194.0000 250.0000-450.0000 UIBC (test code = UIBC) 108.0000 131.0000-425.0000 % Iron Saturation (test code = % Iron 44.0000 % 15.0000-55 .0000 Saturation) Vitamin B12 (test code = Vitamin B12) 1351.0000 pg/mL 232.0000-1 245.0000 Ferritin (test code = Ferritin) 786.0000 ng/mL 15.0000-150.0000 [id number] 10:56:00 Test Item Value Reference Range Comments WBC (test code = WBC) 6.8000 4.0000-10.0000 Lymphocytes % (test code = Lymphocytes %) 24.3000 % 22.400 0-43.6000 MID% (test code = MID%) 5.8000 % 1.2000-11.2000 Neutrophils % (test code = Neutrophils %) 69.9000 % 48.900 0-69.9000 Lymphocytes (test code = Lymphocytes) 1.6000 1.2000-3.2 000 MID (test code = MID) 0.5000 0.1000-1.1000 Neutrophils (test code = Neutrophils) 4.7000 1.5000-6.7 000 RBC (test code = RBC) 4.4000 3.7000-4.9000 HGB (test code = HGB) 13.1000 g/dL 11.2000-18.0000 HCT (test code = HCT) 45.3000 % 34.0000-44.0000 MCV (test code = MCV) 103.0000 fL 80.0000-94.0000 MCH (test code = MCH) 29.9000 pg 27.0000-34.0000 MCHC (test code = MCHC) 29.0000 g/dL 31.5000-36.0000 RDW (test code = RDW) 18.6000 11.0000-18.0000 PLT (test code = PLT) 188.0000 140.0000-440.0000 MPV (test code = MPV) 9.9000 fL 6.8000-10.6000 [id number] 12:20:00 Test Item Value Reference Range Comments Creatinine (test code = Creatinine) 7.9400 mg/dL 0.5700-1.000 0 Cr Clearance (Est) (test code = Cr 9.3100 75.0000-115.0 000 Clearance (Est)) Glucose (test code = Glucose) 85.0000 mg/dL 65.0000-99.0000 BUN (test code = BUN) 26.0000 mg/dL 6.0000-24.0000 eGFR Ejr-Hzzsmnz-Clbjdidg (test code = 5.0000 eGFR Lmg-Zjtxewa-Offyshdt) eGFR -Filipino (test code = eGFR 6.0000 -Filipino) BUN/Creat Ratio (test code = BUN/Creat 3.0000 9.0000-23 .0000 Ratio) Sodium (test code = Sodium) 137.0000 mmol/L 134.0000-144.0000 Potassium (test code = Potassium) 4.4000 mmol/L 3.5000-5.2000 Chloride (test code = Chloride) 97.0000 mmol/L 96.0000-106.0000 CO2 (test code = CO2) 19.0000 mmol/L 20.0000-29.0000 Calcium (test code = Calcium) 8.4000 mg/dL 8.7000-10.2000 Protein, Total (test code = Protein, 7.0000 g/dL 6.0000-8.50 00 Total) Albumin (test code = Albumin) 4.4000 g/dL 3.5000-5.5000 Globulin (test code = Globulin) 2.6000 g/dL 1.5000-4.5000 A/G Ratio (test code = A/G Ratio) 1.7000 1.2000-2.2000 Bilirubin, Total (test code = Bilirubin, 0.3000 mg/dL 0.0000- 1.2000 Total) Alkaline Phosphatase (test code = 77.0000 39.0000-117.00 00 Alkaline Phosphatase) AST (SGOT) (test code = AST (SGOT)) 18.0000 0.0000-40.00 00 ALT (SGPT) (test code = ALT (SGPT)) 16.0000 0.0000-32.00 00 Iron, Total (test code = Iron, Total) 92.0000 27.0000-15 9.0000 TIBC (test code = TIBC) 178.0000 250.0000-450.0000 UIBC (test code = UIBC) 86.0000 131.0000-425.0000 % Iron Saturation (test code = % Iron 52.0000 % 15.0000-55 .0000 Saturation) Vitamin B12 (test code = Vitamin B12) 1744.0000 pg/mL 232.0000-1 245.0000 Folate (test code = Folate) 20.0000 ng/mL Ferritin (test code = Ferritin) 899.0000 ng/mL 15.0000-150.0000 [id number] 10:45:00 Test Item Value Reference Range Comments WBC (test code = WBC) 10.9000 4.0000-10.0000 Lymphocytes % (test code = Lymphocytes %) 12.6000 % 22.400 0-43.6000 MID% (test code = MID%) 3.8000 % 1.2000-11.2000 Neutrophils % (test code = Neutrophils %) 83.6000 % 48.900 0-69.9000 Lymphocytes (test code = Lymphocytes) 1.3000 1.2000-3.2 000 MID (test code = MID) 0.5000 0.1000-1.1000 Neutrophils (test code = Neutrophils) 9.1000 1.5000-6.7 000 RBC (test code = RBC) 2.9200 3.7000-4.9000 HGB (test code = HGB) 9.5000 g/dL 11.2000-18.0000 HCT (test code = HCT) 28.9000 % 34.0000-44.0000 MCV (test code = MCV) 98.7000 fL 80.0000-94.0000 MCH (test code = MCH) 32.6000 pg 27.0000-34.0000 MCHC (test code = MCHC) 33.0000 g/dL 31.5000-36.0000 RDW (test code = RDW) 16.0000 11.0000-18.0000 PLT (test code = PLT) 225.0000 140.0000-440.0000 MPV (test code = MPV) 9.2000 fL 6.8000-10.6000 [id number] 15:46:00 Test Item Value Reference Range Comments Creatinine (test code = Creatinine) 8.6800 mg/dL 0.5700-1.000 0 Cr Clearance (Est) (test code = Cr 8.0300 75.0000-115.0 000 Clearance (Est)) Glucose (test code = Glucose) 90.0000 mg/dL 65.0000-99.0000 BUN (test code = BUN) 29.0000 mg/dL 6.0000-24.0000 eGFR Dkq-Mharzwt-Rgctxwij (test code = 5.0000 eGFR Dbq-Mzzawyi-Uzfrmmmg) eGFR -Filipino (test code = eGFR 6.0000 -Filipino) BUN/Creat Ratio (test code = BUN/Creat 3.0000 9.0000-23 .0000 Ratio) Sodium (test code = Sodium) 142.0000 mmol/L 134.0000-144.0000 Potassium (test code = Potassium) 4.3000 mmol/L 3.5000-5.2000 Chloride (test code = Chloride) 98.0000 mmol/L 96.0000-106.0000 CO2 (test code = CO2) 22.0000 mmol/L 20.0000-29.0000 Calcium (test code = Calcium) 8.7000 mg/dL 8.7000-10.2000 Protein, Total (test code = Protein, 7.5000 g/dL 6.0000-8.50 00 Total) Albumin (test code = Albumin) 5.2000 g/dL 3.5000-5.5000 Globulin (test code = Globulin) 2.3000 g/dL 1.5000-4.5000 A/G Ratio (test code = A/G Ratio) 2.3000 1.2000-2.2000 Bilirubin, Total (test code = Bilirubin, 0.4000 mg/dL 0.0000- 1.2000 Total) Alkaline Phosphatase (test code = 99.0000 39.0000-117.00 00 Alkaline Phosphatase) AST (SGOT) (test code = AST (SGOT)) 18.0000 0.0000-40.00 00 ALT (SGPT) (test code = ALT (SGPT)) 15.0000 0.0000-32.00 00 Vitamin B12 (test code = Vitamin B12) 1766.0000 pg/mL 232.0000-1 245.0000 Folate (test code = Folate) 20.0000 ng/mL [id number] 09:43:00 Test Item Value Reference Range Comments WBC (test code = WBC) 11.3000 4.0000-10.0000 Lymphocytes % (test code = Lymphocytes %) 12.1000 % 22.400 0-43.6000 MID% (test code = MID%) 3.4000 % 1.2000-11.2000 Neutrophils % (test code = Neutrophils %) 84.5000 % 48.900 0-69.9000 Lymphocytes (test code = Lymphocytes) 1.3000 1.2000-3.2 000 MID (test code = MID) 0.4000 0.1000-1.1000 Neutrophils (test code = Neutrophils) 9.6000 1.5000-6.7 000 RBC (test code = RBC) 3.7500 3.7000-4.9000 HGB (test code = HGB) 12.3000 g/dL 11.2000-18.0000 HCT (test code = HCT) 38.4000 % 34.0000-44.0000 MCV (test code = MCV) 102.4000 fL 80.0000-94.0000 MCH (test code = MCH) 32.9000 pg 27.0000-34.0000 MCHC (test code = MCHC) 32.1000 g/dL 31.5000-36.0000 RDW (test code = RDW) 17.2000 11.0000-18.0000 PLT (test code = PLT) 176.0000 140.0000-440.0000 MPV (test code = MPV) 9.6000 fL 6.8000-10.6000 [id number] 13:21:00 Test Item Value Reference Range Comments Creatinine (test code = Creatinine) 6.2000 mg/dL 0.5000-1.200 0 Cr Clearance (Est) (test code = Cr 11.5500 75.0000-115.0 000 Clearance (Est)) Glucose (test code = Glucose) 96.0000 mg/dL 70.0000-118.0000 BUN (test code = BUN) 17.0000 mg/dL 7.0000-22.0000 Sodium (test code = Sodium) 142.0000 mmol/L 128.0000-145.0000 Potassium (test code = Potassium) 3.6000 mmol/L 3.6000-5.1000 Chloride (test code = Chloride) 99.0000 mmol/L 96.0000-108.0000 CO2 (test code = CO2) 32.0000 mmol/L 18.0000-33.0000 Calcium (test code = Calcium) 8.4500 mg/dL 8.0000-10.3000 Alkaline Phosphatase (test code = Alkaline 89.0000 42.00 00-141.0000 Phosphatase) ALT (SGPT) (test code = ALT (SGPT)) 11.0000 10.0000-47.0 000 AST (SGOT) (test code = AST (SGOT)) 18.0000 11.0000-37.0 000 Bilirubin, Total (test code = Bilirubin, 0.3000 mg/dL 0.0000- 1.6000 Total) Albumin (test code = Albumin) 4.3000 g/dL 3.5000-5.5000 Protein, Total (test code = Protein, 7.0000 g/dL 6.4000-8.10 00 Total) eGFR -Filipino (test code = eGFR 9.0000 60.0000- 200.0000 -Filipino) eGFR Aff-Lcuqqnh-Vrqlayox (test code = 7.0000 60.0000-2 00.0000 eGFR Rlh-Oapgaxl-Menssago) [id number] 13:02:00 Test Item Value Reference Range Comments Creatinine (test code = Creatinine) 5.8000 mg/dL 0.5000-1.200 0 Cr Clearance (Est) (test code = Cr 13.1100 75.0000-115.0 000 Clearance (Est)) Glucose (test code = Glucose) 120.0000 mg/dL 70.0000-118.0000 BUN (test code = BUN) 11.0000 mg/dL 7.0000-22.0000 Sodium (test code = Sodium) 136.0000 mmol/L 128.0000-145.0000 Potassium (test code = Potassium) 3.3000 mmol/L 3.6000-5.1000 Chloride (test code = Chloride) 101.0000 mmol/L 96.0000-108.0000 CO2 (test code = CO2) 31.0000 mmol/L 18.0000-33.0000 Calcium (test code = Calcium) 9.0300 mg/dL 8.0000-10.3000 Alkaline Phosphatase (test code = Alkaline 70.0000 42.00 00-141.0000 Phosphatase) ALT (SGPT) (test code = ALT (SGPT)) 10.0000 10.0000-47.0 000 AST (SGOT) (test code = AST (SGOT)) 14.0000 11.0000-37.0 000 Bilirubin, Total (test code = Bilirubin, 0.4000 mg/dL 0.0000- 1.6000 Total) Albumin (test code = Albumin) 4.4000 g/dL 3.5000-5.5000 Protein, Total (test code = Protein, 7.0000 g/dL 6.4000-8.10 00 Total) eGFR -Filipino (test code = eGFR 9.0000 60.0000- 200.0000 -Filipino) eGFR Apk-Vzqcext-Qcuyykgy (test code = 8.0000 60.0000-2 00.0000 eGFR Rki-Tqxlnxq-Blylgbgi) [id number] 11:02:00 Test Item Value Reference Range Comments WBC (test code = WBC) 7.0000 4.0000-10.0000 Lymphocytes % (test code = Lymphocytes %) 20.4000 % 22.400 0-43.6000 MID% (test code = MID%) 7.9000 % 1.2000-11.2000 Neutrophils % (test code = Neutrophils %) 71.7000 % 48.900 0-69.9000 Lymphocytes (test code = Lymphocytes) 1.4000 1.2000-3.2 000 MID (test code = MID) 0.6000 0.1000-1.1000 Neutrophils (test code = Neutrophils) 5.0000 1.5000-6.7 000 RBC (test code = RBC) 3.3500 3.7000-4.9000 HGB (test code = HGB) 10.4000 g/dL 11.2000-18.0000 HCT (test code = HCT) 32.7000 % 34.0000-44.0000 MCV (test code = MCV) 97.4000 fL 80.0000-94.0000 MCH (test code = MCH) 31.0000 pg 27.0000-34.0000 MCHC (test code = MCHC) 31.8000 g/dL 31.5000-36.0000 RDW (test code = RDW) 14.9000 11.0000-18.0000 PLT (test code = PLT) 171.0000 140.0000-440.0000 MPV (test code = MPV) 8.7000 fL 6.8000-10.6000 [id number] 11:02:00 Test Item Value Reference Range Comments Creatinine (test code = Creatinine) 5.1000 mg/dL 0.5000-1.200 0 Cr Clearance (Est) (test code = Cr 15.5500 75.0000-115.0 000 Clearance (Est)) Glucose (test code = Glucose) 71.0000 mg/dL 70.0000-118.0000 BUN (test code = BUN) 16.0000 mg/dL 7.0000-22.0000 Sodium (test code = Sodium) 134.0000 mmol/L 128.0000-145.0000 Potassium (test code = Potassium) 2.9000 mmol/L 3.6000-5.1000 Chloride (test code = Chloride) 100.0000 mmol/L 96.0000-108.0000 CO2 (test code = CO2) 31.0000 mmol/L 18.0000-33.0000 Calcium (test code = Calcium) 9.1600 mg/dL 8.0000-10.3000 Alkaline Phosphatase (test code = Alkaline 73.0000 42.00 00-141.0000 Phosphatase) ALT (SGPT) (test code = ALT (SGPT)) 8.0000 10.0000-47.0 000 AST (SGOT) (test code = AST (SGOT)) 14.0000 11.0000-37.0 000 Bilirubin, Total (test code = Bilirubin, 0.5000 mg/dL 0.0000- 1.6000 Total) Albumin (test code = Albumin) 4.2000 g/dL 3.5000-5.5000 Protein, Total (test code = Protein, 7.1000 g/dL 6.4000-8.10 00 Total) eGFR -Filipino (test code = eGFR 11.0000 60.0000- 200.0000 -Filipino) eGFR Hxr-Yphtjad-Cwpbhyqm (test code = 9.0000 60.0000-2 00.0000 eGFR Fkr-Zyxzjqm-Ckiejlmm) [id number] 09:25:00 Test Item Value Reference Range Comments WBC (test code = WBC) 7.8000 4.0000-10.0000 Lymphocytes % (test code = Lymphocytes %) 15.8000 % 22.400 0-43.6000 MID% (test code = MID%) 4.7000 % 1.2000-11.2000 Neutrophils % (test code = Neutrophils %) 79.5000 % 48.900 0-69.9000 Lymphocytes (test code = Lymphocytes) 1.2000 1.2000-3.2 000 MID (test code = MID) 0.4000 0.1000-1.1000 Neutrophils (test code = Neutrophils) 6.2000 1.5000-6.7 000 RBC (test code = RBC) 3.2800 3.7000-4.9000 HGB (test code = HGB) 10.8000 g/dL 11.2000-18.0000 HCT (test code = HCT) 33.0000 % 34.0000-44.0000 MCV (test code = MCV) 100.4000 fL 80.0000-94.0000 MCH (test code = MCH) 33.0000 pg 27.0000-34.0000 MCHC (test code = MCHC) 32.9000 g/dL 31.5000-36.0000 RDW (test code = RDW) 15.0000 11.0000-18.0000 PLT (test code = PLT) 204.0000 140.0000-440.0000 MPV (test code = MPV) 9.2000 fL 6.8000-10.6000 [id number] 09:25:00 Test Item Value Reference Range Comments Creatinine (test code = Creatinine) 9.9000 mg/dL 0.5000-1.200 0 Cr Clearance (Est) (test code = Cr 7.9500 75.0000-115.0 000 Clearance (Est)) Glucose (test code = Glucose) 89.0000 mg/dL 70.0000-118.0000 BUN (test code = BUN) 33.0000 mg/dL 7.0000-22.0000 Sodium (test code = Sodium) 135.0000 mmol/L 128.0000-145.0000 Potassium (test code = Potassium) 4.7000 mmol/L 3.6000-5.1000 Chloride (test code = Chloride) 105.0000 mmol/L 96.0000-108.0000 CO2 (test code = CO2) 25.0000 mmol/L 18.0000-33.0000 Calcium (test code = Calcium) 9.5900 mg/dL 8.0000-10.3000 Alkaline Phosphatase (test code = Alkaline 60.0000 42.00 00-141.0000 Phosphatase) ALT (SGPT) (test code = ALT (SGPT)) 14.0000 10.0000-47.0 000 AST (SGOT) (test code = AST (SGOT)) 16.0000 11.0000-37.0 000 Bilirubin, Total (test code = Bilirubin, 0.2000 mg/dL 0.0000- 1.6000 Total) Albumin (test code = Albumin) 4.5000 g/dL 3.5000-5.5000 Protein, Total (test code = Protein, 7.6000 g/dL 6.4000-8.10 00 Total) [id number] 10:26:00 Test Item Value Reference Range Comments WBC (test code = WBC) 6.6000 4.0000-10.0000 Lymphocytes % (test code = Lymphocytes %) 18.1000 % 22.400 0-43.6000 MID% (test code = MID%) 7.2000 % 1.2000-11.2000 Neutrophils % (test code = Neutrophils %) 74.7000 % 48.900 0-69.9000 Lymphocytes (test code = Lymphocytes) 1.2000 1.2000-3.2 000 MID (test code = MID) 0.5000 0.1000-1.1000 Neutrophils (test code = Neutrophils) 4.9000 1.5000-6.7 000 RBC (test code = RBC) 3.0300 3.7000-4.9000 HGB (test code = HGB) 10.3000 g/dL 11.2000-18.0000 HCT (test code = HCT) 30.4000 % 34.0000-44.0000 MCV (test code = MCV) 100.3000 fL 80.0000-94.0000 MCH (test code = MCH) 34.2000 pg 27.0000-34.0000 MCHC (test code = MCHC) 34.1000 g/dL 31.5000-36.0000 RDW (test code = RDW) 17.3000 11.0000-18.0000 PLT (test code = PLT) 202.0000 140.0000-440.0000 MPV (test code = MPV) 9.2000 fL 6.8000-10.6000 [id number] 10:26:00 Test Item Value Reference Range Comments Creatinine (test code = Creatinine) 10.1000 mg/dL 0.5000-1.200 0 Cr Clearance (Est) (test code = Cr 7.6700 75.0000-115.0 000 Clearance (Est)) Glucose (test code = Glucose) 70.0000 mg/dL 70.0000-118.0000 BUN (test code = BUN) 36.0000 mg/dL 7.0000-22.0000 Sodium (test code = Sodium) 131.0000 mmol/L 128.0000-145.0000 Potassium (test code = Potassium) 3.8000 mmol/L 3.6000-5.1000 Chloride (test code = Chloride) 102.0000 mmol/L 96.0000-108.0000 CO2 (test code = CO2) 29.0000 mmol/L 18.0000-33.0000 Calcium (test code = Calcium) 9.5800 mg/dL 8.0000-10.3000 Alkaline Phosphatase (test code = Alkaline 64.0000 42.00 00-141.0000 Phosphatase) ALT (SGPT) (test code = ALT (SGPT)) 9.0000 10.0000-47.0 000 AST (SGOT) (test code = AST (SGOT)) 13.0000 11.0000-37.0 000 Bilirubin, Total (test code = Bilirubin, 0.5000 mg/dL 0.0000- 1.6000 Total) Albumin (test code = Albumin) 4.5000 g/dL 3.5000-5.5000 Protein, Total (test code = Protein, 7.7000 g/dL 6.4000-8.10 00 Total) [id number] 15:45:00 Test Item Value Reference Range Comments WBC (test code = WBC) 9.0000 4.0000-10.0000 Lymphocytes % (test code = Lymphocytes %) 22.1000 % 22.400 0-43.6000 MID% (test code = MID%) 7.0000 % 1.2000-11.2000 Neutrophils % (test code = Neutrophils %) 70.9000 % 48.900 0-69.9000 Lymphocytes (test code = Lymphocytes) 2.0000 1.2000-3.2 000 MID (test code = MID) 0.6000 0.1000-1.1000 Neutrophils (test code = Neutrophils) 6.4000 1.5000-6.7 000 RBC (test code = RBC) 3.4200 3.7000-4.9000 HGB (test code = HGB) 10.5000 g/dL 11.2000-14.4000 HCT (test code = HCT) 32.9000 % 34.0000-44.0000 MCV (test code = MCV) 96.0000 fL 80.0000-94.0000 MCH (test code = MCH) 30.7000 pg 27.0000-34.0000 MCHC (test code = MCHC) 32.0000 g/dL 31.5000-36.0000 RDW (test code = RDW) 16.3000 11.0000-18.0000 PLT (test code = PLT) 118.0000 140.0000-440.0000 MPV (test code = MPV) 11.0000 fL 6.8000-10.6000 [id number] 15:51:00 Test Item Value Reference Range Comments WBC (test code = WBC) 9.3000 4.0000-10.0000 Lymphocytes % (test code = Lymphocytes %) 20.6000 % 22.400 0-43.6000 MID% (test code = MID%) 5.6000 % 1.2000-11.1999 Neutrophils % (test code = Neutrophils %) 73.8000 % 48.900 0-69.9000 Lymphocytes (test code = Lymphocytes) 1.9000 1.2000-3.2 000 MID (test code = MID) 0.6000 0.1000-1.1000 Neutrophils (test code = Neutrophils) 6.8000 1.5000-6.7 000 RBC (test code = RBC) 3.3300 3.7000-4.9000 HGB (test code = HGB) 10.9000 g/dL .1999-14.4000 HCT (test code = HCT) 35.5000 % 34.0000-44.0000 MCV (test code = MCV) 106.5000 fL 80.0000-94.0000 MCH (test code = MCH) 32.8000 pg 27.0000-34.0000 MCHC (test code = MCHC) 30.8000 g/dL 31.5000-36.0000 RDW (test code = RDW) 19.0000 11.0000-18.0000 PLT (test code = PLT) 166.0000 140.0000-440.0000 MPV (test code = MPV) 9.7000 fL 6.8000-10.6000 [id number] 15:10:00 Test Item Value Reference Range Comments WBC (test code = WBC) 10.9000 4.0000-10.0000 Lymphocytes % (test code = Lymphocytes %) 17.9000 % 22.400 0-43.6000 MID% (test code = MID%) 6.9000 % 1.2000-11.1999 Neutrophils % (test code = Neutrophils %) 75.2000 % 48.900 0-69.9000 Lymphocytes (test code = Lymphocytes) 1.9000 1.2000-3.2 000 MID (test code = MID) 0.8000 0.1000-1.1000 Neutrophils (test code = Neutrophils) 8.2000 1.5000-6.7 000 RBC (test code = RBC) 3.5400 3.7000-4.9000 HGB (test code = HGB) 11.9000 g/dL 11.2000-14.4000 HCT (test code = HCT) 35.5000 % 34.0000-44.0000 MCV (test code = MCV) 100.1000 fL 80.0000-94.0000 MCH (test code = MCH) 33.7000 pg 27.0000-34.0000 MCHC (test code = MCHC) 33.6000 g/dL 31.5000-36.0000 RDW (test code = RDW) 16.0000 11.0000-18.0000 PLT (test code = PLT) 145.0000 140.0000-440.0000 MPV (test code = MPV) 10.8000 fL 6.8000-10.6000 [id number] 15:10:00 Test Item Value Reference Range Comments Creatinine (test code = Creatinine) 11.3000 mg/dL 0.5000-1.200 0 Cr Clearance (Est) (test code = Cr 6.8500 75.0000-115.0 000 Clearance (Est)) Glucose (test code = Glucose) 86.0000 mg/dL 70.0000-118.0000 BUN (test code = BUN) 40.0000 mg/dL 7.0000-22.0000 Sodium (test code = Sodium) 139.0000 mmol/L 128.0000-145.0000 Potassium (test code = Potassium) 4.0000 mmol/L 3.6000-5.1000 Chloride (test code = Chloride) 99.0000 mmol/L 96.0000-108.0000 CO2 (test code = CO2) 25.0000 mmol/L 18.0000-33.0000 Calcium (test code = Calcium) 10.1300 mg/dL 8.0000-10.3000 Alkaline Phosphatase (test code = Alkaline 78.0000 42.00 00-141.0000 Phosphatase) ALT (SGPT) (test code = ALT (SGPT)) 9.0000 10.0000-47.0 000 AST (SGOT) (test code = AST (SGOT)) 12.0000 11.0000-37.0 000 Bilirubin, Total (test code = Bilirubin, 0.3000 mg/dL 0.0000- 1.6000 Total) Albumin (test code = Albumin) 4.5000 g/dL 3.5000-5.5000 Protein, Total (test code = Protein, 7.2000 g/dL 6.4000-8.10 00 Total) [id number] 10:50:00 Test Item Value Reference Range Comments PT (test code = PT) 22.3000 s 10.0000-14.0000 INR (test code = INR) 1.9000 0.0000-3.5000 Coumadin, Current [id number] 10:50:00 Test Item Value Reference Range Comments Coumadin, Current Dose (test held 1 day 9mg last night code = Coumadin, Current Dose) Coumadin, New Dose (test code = stop coumadin start Eliquis Coumadin, New Dose) tonight Creatinine (test code = 6.5000 mg/dL 0.5000-1.2000 Creatinine) Cr Clearance (Est) (test code = 11.9500 75.0000-115.0000 Cr Clearance (Est)) Glucose (test code = Glucose) 60.0000 mg/dL 70.0000-118.0000 BUN (test code = BUN) 18.0000 mg/dL 7.0000-22.0000 Sodium (test code = Sodium) 140.0000 mmol/L 128.0000-145.0000 Potassium (test code = 3.4000 mmol/L 3.6000-5.1000 Potassium) Chloride (test code = Chloride) 97.0000 mmol/L 96.0000-108.0000 CO2 (test code = CO2) 29.0000 mmol/L 18.0000-33.0000 Calcium (test code = Calcium) 6.9300 mg/dL 8.0000-10.3000 Alkaline Phosphatase (test code 66.0000 42.0000-141.0000 = Alkaline Phosphatase) ALT (SGPT) (test code = ALT 12.0000 10.0000-47.0000 (SGPT)) AST (SGOT) (test code = AST 13.0000 11.0000-37.0000 (SGOT)) Bilirubin, Total (test code = 0.5000 mg/dL 0.0000-1.6000 Bilirubin, Total) Albumin (test code = Albumin) 4.5000 g/dL 3.5000-5.5000 Protein, Total (test code = 7.4000 g/dL 6.4000-8.1000 Protein, Total) Return [id number] 10:50:00 Test Item Value Reference Range Comments Return Date (test code = Return Date) One month [id number] 12:09:00 Test Item Value Reference Range Comments WBC (test code = WBC) 8.7000 4.0000-10.0000 Lymphocytes % (test code = Lymphocytes %) 16.7000 % 22.400 0-43.6000 MID% (test code = MID%) 6.5000 % 1.2000-11.2000 Neutrophils % (test code = Neutrophils %) 76.8000 % 48.900 0-69.9000 Lymphocytes (test code = Lymphocytes) 1.4000 1.2000-3.2 000 MID (test code = MID) 0.6000 0.1000-1.1000 Neutrophils (test code = Neutrophils) 6.7000 1.5000-6.7 000 RBC (test code = RBC) 2.9100 3.7000-4.9000 HGB (test code = HGB) 10.0000 g/dL 11.2000-14.4000 HCT (test code = HCT) 28.8000 % 34.0000-44.0000 MCV (test code = MCV) 99.0000 fL 80.0000-94.0000 MCH (test code = MCH) 34.5000 pg 27.0000-34.0000 MCHC (test code = MCHC) 34.8000 g/dL 31.5000-36.0000 RDW (test code = RDW) 18.8000 11.0000-18.0000 PLT (test code = PLT) 219.0000 140.0000-440.0000 MPV (test code = MPV) 9.4000 fL 6.8000-10.6000 PT (test code = PT) 26.9000 s 10.0000-14.0000 INR (test code = INR) 2.2000 0.0000-3.5000 Coumadin, Current [id number] 12:09:00 Test Item Value Reference Range Comments Coumadin, Current Dose (test code = 9mg/10mg Coumadin, Current Dose) Coumadin, New Dose (test code = Coumadin, 9mg New Dose) Creatinine (test code = Creatinine) 8.7000 mg/dL 0.5000-1.200 0 Cr Clearance (Est) (test code = Cr 9.0300 75.0000-115.0 000 Clearance (Est)) Glucose (test code = Glucose) 104.0000 mg/dL 70.0000-118.0000 BUN (test code = BUN) 30.0000 mg/dL 7.0000-22.0000 Sodium (test code = Sodium) 141.0000 mmol/L 128.0000-145.0000 Potassium (test code = Potassium) 4.0000 mmol/L 3.6000-5.1000 Chloride (test code = Chloride) 98.0000 mmol/L 96.0000-108.0000 CO2 (test code = CO2) 26.0000 mmol/L 18.0000-33.0000 Calcium (test code = Calcium) 9.2000 mg/dL 8.0000-10.3000 Alkaline Phosphatase (test code = Alkaline 62.0000 42.00 00-141.0000 Phosphatase) ALT (SGPT) (test code = ALT (SGPT)) 8.0000 10.0000-47.0 000 AST (SGOT) (test code = AST (SGOT)) 15.0000 11.0000-37.0 000 Bilirubin, Total (test code = Bilirubin, 0.7000 mg/dL 0.0000- 1.6000 Total) Albumin (test code = Albumin) 4.4000 g/dL 3.5000-5.5000 Protein, Total (test code = Protein, 7.2000 g/dL 6.4000-8.10 00 Total) eGFR -Filipino (test code = eGFR 6.0000 60.0000- 125.0000 -Filipino) eGFR Uoq-Uheoprc-Vyqfxill (test code = 5.0000 60.0000-1 25.0000 eGFR Ltt-Lznzdtd-Rhdesjrf) Return [id number] 12:09:00 Test Item Value Reference Range Comments Return Date (test code = Return Date) [id number] 13:54:00 Test Item Value Reference Range Comments WBC (test code = WBC) 9.7000 4.0000-10.0000 Lymphocytes % (test code = Lymphocytes %) 20.4000 % 22.400 0-43.6000 MID% (test code = MID%) 5.8000 % 1.2000-11.2000 Neutrophils % (test code = Neutrophils %) 73.8000 % 48.900 0-69.9000 Lymphocytes (test code = Lymphocytes) 1.9000 1.2000-3.2 000 MID (test code = MID) 0.6000 0.1000-1.1000 Neutrophils (test code = Neutrophils) 7.2000 1.5000-6.7 000 RBC (test code = RBC) 3.0300 3.7000-4.9000 HGB (test code = HGB) 9.7000 g/dL 11.1999-14.4000 HCT (test code = HCT) 30.7000 % 34.0000-44.0000 MCV (test code = MCV) 101.3000 fL 80.0000-94.0000 MCH (test code = MCH) 31.9000 pg 27.0000-34.0000 MCHC (test code = MCHC) 31.5000 g/dL 31.5000-36.0000 RDW (test code = RDW) 19.1000 11.0000-18.0000 PLT (test code = PLT) 195.0000 140.0000-440.0000 MPV (test code = MPV) 9.6000 fL 6.8000-10.6000 PT (test code = PT) 64.6000 s 10.0000-14.0000 INR (test code = INR) 5.4000 0.0000-3.5000 Coumadin, Current [id number] 13:54:00 Test Item Value Reference Range Comments Coumadin, Current Dose (test alt 9mg & 10mg daily code = Coumadin, Current Dose) Coumadin, New Dose (test code No coumadin today Eat greens, = Coumadin, New Dose) 9mg tomorrow Return [id number] 13:54:00 Test Item Value Reference Range Comments Return Date (test code = Return Date) [id number] 15:14:00 Test Item Value Reference Range Comments WBC (test code = WBC) 9.1000 4.0000-10.0000 Lymphocytes % (test code = Lymphocytes %) 21.4000 % 22.400 0-43.6000 MID% (test code = MID%) 5.3000 % 1.2000-11.2000 Neutrophils % (test code = Neutrophils %) 73.3000 % 48.900 0-69.9000 Lymphocytes (test code = Lymphocytes) 1.9000 1.2000-3.2 000 MID (test code = MID) 0.5000 0.1000-1.1000 Neutrophils (test code = Neutrophils) 6.7000 1.5000-6.7 000 RBC (test code = RBC) 2.9200 3.7000-4.9000 HGB (test code = HGB) 9.3000 g/dL 11.2000-14.4000 HCT (test code = HCT) 29.1000 % 34.0000-44.0000 MCV (test code = MCV) 99.7000 fL 80.0000-94.0000 MCH (test code = MCH) 31.8000 pg 27.0000-34.0000 MCHC (test code = MCHC) 31.9000 g/dL 31.5000-36.0000 RDW (test code = RDW) 17.1000 11.0000-18.0000 PLT (test code = PLT) 167.0000 140.0000-440.0000 MPV (test code = MPV) 9.7000 fL 6.8000-10.6000 PT (test code = PT) 23.2000 s 10.0000-14.0000 INR (test code = INR) 1.9000 0.0000-3.5000 Coumadin, Current [id number] 15:14:00 Test Item Value Reference Range Comments Coumadin, Current Dose (test code = alt 9mg & 10mg daily Coumadin, Current Dose) Coumadin, New Dose (test code = 10mg daily Coumadin, New Dose) Return [id number] 15:14:00 Test Item Value Reference Range Comments Return Date (test code = Return Date) 1 week [id number] 16:34:00 Test Item Value Reference Range Comments PT (test code = PT) 15.1000 s 10.0000-14.0000 INR (test code = INR) 1.3000 0.0000-3.5000 Coumadin, Current [id number] 16:34:00 Test Item Value Reference Range Comments Coumadin, Current Dose (test code = Coumadin, HELD MEDS Current Dose) Coumadin, New Dose (test code = Coumadin, New 10MG/9MG Dose) Return [id number] 16:34:00 Test Item Value Reference Range Comments Return Date (test code = Return Date) 1 WEEK [id number] 11:59:00 Test Item Value Reference Range Comments PT (test code = PT) 89.9000 s 10.0000-14.0000 INR (test code = INR) 7.5000 0.0000-3.5000 Coumadin, Current [id number] 11:59:00 Test Item Value Reference Range Comments Coumadin, Current Dose (test code = Coumadin, see comments Current Dose) Coumadin, New Dose (test code = Coumadin, New see comments Dose) Return [id number] 11:59:00 Test Item Value Reference Range Comments Return Date (test code = 11/19/2015 General Comment : Return Date) Hold over the weekend and if can get the RX take half tab today thursday and thu General Comment : if not over the counter take 2 tab thursday, thursday and thursday11/19/2015 General Comment : joe Crouch [id number] 14:52:00 Test Item Value Reference Range Comments WBC (test code = WBC) 8.8000 4.0000-10.0000 Lymphocytes % (test code = Lymphocytes %) 21.5000 % 22.400 0-43.6000 MID% (test code = MID%) 4.8000 % 1.2000-11.2000 Neutrophils % (test code = Neutrophils %) 73.7000 % 48.900 0-69.9000 Lymphocytes (test code = Lymphocytes) 1.8000 1.2000-3.2 000 MID (test code = MID) 0.6000 0.1000-1.1000 Neutrophils (test code = Neutrophils) 6.4000 1.5000-6.7 000 RBC (test code = RBC) 3.3400 3.7000-4.9000 HGB (test code = HGB) 10.7000 g/dL 11.2000-14.4000 HCT (test code = HCT) 34.1000 % 34.0000-44.0000 MCV (test code = MCV) 102.0000 fL 80.0000-94.0000 MCH (test code = MCH) 32.1000 pg 27.0000-34.0000 MCHC (test code = MCHC) 31.5000 g/dL 31.5000-36.0000 RDW (test code = RDW) 17.1000 11.0000-18.0000 PLT (test code = PLT) 94.0000 140.0000-440.0000 MPV (test code = MPV) 10.2000 fL 6.8000-10.6000 PT (test code = PT) 75.8000 s 10.0000-14.0000 INR (test code = INR) 6.3000 0.0000-3.5000 Coumadin, Current [id number] 14:52:00 Test Item Value Reference Range Comments Coumadin, Current Dose (test 9mg tues & sat/10mg all o code = Coumadin, Current Dose) ther Coumadin, New Dose (test code = no meds Coumadin, New Dose) Return [id number] 14:52:00 Test Item Value Reference Range Comments Return Date (test code = Return Date) tomorrow [id number] 03:03:00 Test Item Value Reference Range Comments WBC (test code = WBC) 7.8000 4.0000-10.0000 Lymphocytes % (test code = Lymphocytes %) 28.9000 % 22.400 0-43.6000 MID% (test code = MID%) 5.6000 % 1.2000-11.2000 Neutrophils % (test code = Neutrophils %) 65.5000 % 48.900 0-69.9000 Lymphocytes (test code = Lymphocytes) 2.2000 1.2000-3.2 000 MID (test code = MID) 0.5000 0.1000-1.1000 Neutrophils (test code = Neutrophils) 5.1000 1.5000-6.7 000 RBC (test code = RBC) 3.9700 3.7000-4.9000 HGB (test code = HGB) 12.6000 g/dL 11.2000-14.4000 HCT (test code = HCT) 41.7000 % 34.0000-44.0000 MCV (test code = MCV) 104.9000 fL 80.0000-94.0000 MCH (test code = MCH) 31.9000 pg 27.0000-34.0000 MCHC (test code = MCHC) 30.4000 g/dL 31.5000-36.0000 RDW (test code = RDW) 17.1000 11.0000-18.0000 PLT (test code = PLT) 125.0000 140.0000-440.0000 MPV (test code = MPV) 10.8000 fL 6.8000-10.6000 PT (test code = PT) 23.3000 s 10.0000-14.0000 INR (test code = INR) 1.9000 0.0000-3.5000 Coumadin, Current [id number] 03:03:00 Test Item Value Reference Range Comments Coumadin, Current Dose (test 10 mg mon & Fri 9mg all o code = Coumadin, Current Dose) ther Coumadin, New Dose (test code = 10mg M,Tues,Wed,Fri 9mg a ll Coumadin, New Dose) other Return [id number] 03:03:00 Test Item Value Reference Range Comments Return Date (test code = Return Date) 1 week [id number] 03:04:00 Test Item Value Reference Range Comments PT (test code = PT) 49.4000 s 10.0000-14.0000 INR (test code = INR) 4.1000 0.0000-3.5000 Coumadin, Current [id number] 03:04:00 Test Item Value Reference Range Comments Coumadin, Current Dose (test 9mg/10mg code = Coumadin, Current Dose) Coumadin, New Dose (test code = Hold today 9mg all days e Coumadin, New Dose) xcept Mon & Fri 10MG Return [id number] 03:04:00 Test Item Value Reference Range Comments Return Date (test code = Return Date) 1 WEEK [id number] 02:09:00 Test Item Value Reference Range Comments PT (test code = PT) 19.9000 s 10.0000-14.0000 INR (test code = INR) 1.7000 0.0000-3.5000 Coumadin, Current [id number] 02:09:00 Test Item Value Reference Range Comments Coumadin, Current Dose (test none code = Coumadin, Current Dose) Coumadin, New Dose (test code = take 10mg Th,Fr,Sa alt 9mg & Coumadin, New Dose) 10mg daily Return [id number] 02:09:00 Test Item Value Reference Range Comments Return Date (test code = Return Date) 1 week [id number] 03:02:00 Test Item Value Reference Range Comments PT (test code = PT) 69.1000 s 10.0000-14.0000 INR (test code = INR) 5.8000 0.0000-3.5000 Coumadin, Current [id number] 03:02:00 Test Item Value Reference Range Comments Coumadin, Current Dose (test code = 10 mg qd Coumadin, Current Dose) Coumadin, New Dose (test code = hold today and tomorrow Coumadin, New Dose) Return [id number] 03:02:00 Test Item Value Reference Range Comments Return Date (test code = Return Date) october 17 [id number] 03:00:00 Test Item Value Reference Range Comments PT (test code = PT) 57.5000 s 10.0000-14.0000 INR (test code = INR) 4.8000 0.0000-3.5000 Coumadin, Current [id number] 03:00:00 Test Item Value Reference Range Comments Coumadin, Current Dose (test 10mg daily code = Coumadin, Current Dose) Coumadin, New Dose (test code hold today then alternate 9mg & = Coumadin, New Dose) 10mg daily Return [id number] 03:00:00 Test Item Value Reference Range Comments Return Date (test code = Return Date) Thursday [id number] 04:05:00 Test Item Value Reference Range Comments WBC (test code = WBC) 8.8000 4.0000-10.0000 Lymphocytes % (test code = Lymphocytes %) 26.7000 % 22.400 0-43.6000 MID% (test code = MID%) 5.5000 % 1.2000-11.2000 Neutrophils % (test code = Neutrophils %) 67.8000 % 48.900 0-69.9000 Lymphocytes (test code = Lymphocytes) 2.3000 1.2000-3.2 000 MID (test code = MID) 0.5000 0.1000-1.1000 Neutrophils (test code = Neutrophils) 6.0000 1.5000-6.7 000 RBC (test code = RBC) 4.0000 3.7000-4.9000 HGB (test code = HGB) 13.0000 g/dL 11.2000-14.4000 HCT (test code = HCT) 42.4000 % 34.0000-44.0000 MCV (test code = MCV) 106.0000 fL 80.0000-94.0000 MCH (test code = MCH) 32.6000 pg 27.0000-34.0000 MCHC (test code = MCHC) 30.8000 g/dL 31.5000-36.0000 RDW (test code = RDW) 18.9000 11.0000-18.0000 PLT (test code = PLT) 140.0000 140.0000-440.0000 MPV (test code = MPV) 10.1000 fL 6.8000-10.6000 PT (test code = PT) 72.1000 s 10.0000-14.0000 INR (test code = INR) 6.0000 0.0000-3.5000 Coumadin, Current [id number] 04:05:00 Test Item Value Reference Range Comments Coumadin, Current Dose (test 10mg Wed/Sat 12.5mg all o code = Coumadin, Current Dose) ther Coumadin, New Dose (test code = Hold today start 10mg SAT Coumadin, New Dose) Return [id number] 04:05:00 Test Item Value Reference Range Comments Return Date (test code = Return Date) return early next week [id number] 04:00:00 Test Item Value Reference Range Comments WBC (test code = WBC) 8.5000 4.0000-10.0000 Lymphocytes % (test code = Lymphocytes %) 23.6000 % 22.400 0-43.6000 MID% (test code = MID%) 5.5000 % 1.2000-11.2000 Neutrophils % (test code = Neutrophils %) 70.9000 % 48.900 0-69.9000 Lymphocytes (test code = Lymphocytes) 2.0000 1.2000-3.2 000 MID (test code = MID) 0.5000 0.1000-1.1000 Neutrophils (test code = Neutrophils) 6.0000 1.5000-6.7 000 RBC (test code = RBC) 3.8100 3.7000-4.9000 HGB (test code = HGB) 12.5000 g/dL 11.2000-14.4000 HCT (test code = HCT) 40.4000 % 34.0000-44.0000 MCV (test code = MCV) 106.0000 fL 80.0000-94.0000 MCH (test code = MCH) 32.8000 pg 27.0000-34.0000 MCHC (test code = MCHC) 30.9000 g/dL 31.5000-36.0000 RDW (test code = RDW) 18.1000 11.0000-18.0000 PLT (test code = PLT) 157.0000 140.0000-440.0000 MPV (test code = MPV) 9.3000 fL 6.8000-10.6000 PT (test code = PT) 25.3000 s 10.0000-14.0000 INR (test code = INR) 2.1000 0.0000-3.5000 Coumadin, Current [id number] 04:00:00 Test Item Value Reference Range Comments Coumadin, Current Dose (test code alt. 10mg, 12.5mg 12.5mg = Coumadin, Current Dose) Coumadin, New Dose (test code = 10mg Sat & Wed 12.5mg all Coumadin, New Dose) Return [id number] 04:00:00 Test Item Value Reference Range Comments Return Date (test code = Return Date) 1 week [id number] 04:09:00 Test Item Value Reference Range Comments WBC (test code = WBC) 9.1000 4.0000-10.0000 Lymphocytes % (test code = Lymphocytes %) 25.3000 % 22.400 0-43.6000 MID% (test code = MID%) 6.0000 % 1.2000-11.2000 Neutrophils % (test code = Neutrophils %) 68.7000 % 48.900 0-69.9000 Lymphocytes (test code = Lymphocytes) 2.3000 1.2000-3.2 000 MID (test code = MID) 0.6000 0.1000-1.1000 Neutrophils (test code = Neutrophils) 6.2000 1.5000-6.7 000 RBC (test code = RBC) 3.6000 3.7000-4.9000 HGB (test code = HGB) 11.9000 g/dL 11.2000-14.4000 HCT (test code = HCT) 38.0000 % 34.0000-44.0000 MCV (test code = MCV) 105.4000 fL 80.0000-94.0000 MCH (test code = MCH) 33.0000 pg 27.0000-34.0000 MCHC (test code = MCHC) 31.3000 g/dL 31.5000-36.0000 RDW (test code = RDW) 18.4000 11.0000-18.0000 PLT (test code = PLT) 155.0000 140.0000-440.0000 MPV (test code = MPV) 10.6000 fL 6.8000-10.6000 PT (test code = PT) 49.2000 s 10.0000-14.0000 INR (test code = INR) 4.1000 0.0000-3.5000 Coumadin, Current [id number] 04:09:00 Test Item Value Reference Range Comments Coumadin, Current Dose (test 12.5mg code = Coumadin, Current Dose) Coumadin, New Dose (test code = hold today 12.5mg sat,sun Coumadin, New Dose) wed,thurs, 10mg all other Return [id number] 04:09:00 Test Item Value Reference Range Comments Return Date (test code = Return Date) 1 week [id number] 03:07:00 Test Item Value Reference Range Comments WBC (test code = WBC) 9.0000 4.0000-10.0000 Lymphocytes % (test code = Lymphocytes %) 26.4000 % 22.400 0-43.6000 MID% (test code = MID%) 7.8000 % 1.2000-11.2000 Neutrophils % (test code = Neutrophils %) 65.8000 % 48.900 0-69.9000 Lymphocytes (test code = Lymphocytes) 2.3000 1.2000-3.2 000 MID (test code = MID) 0.8000 0.1000-1.1000 Neutrophils (test code = Neutrophils) 5.9000 1.5000-6.7 000 RBC (test code = RBC) 3.4800 3.7000-4.9000 HGB (test code = HGB) 11.7000 g/dL 11.2000-14.4000 HCT (test code = HCT) 36.9000 % 34.0000-44.0000 MCV (test code = MCV) 106.1000 fL 80.0000-94.0000 MCH (test code = MCH) 33.7000 pg 27.0000-34.0000 MCHC (test code = MCHC) 31.8000 g/dL 31.5000-36.0000 RDW (test code = RDW) 18.4000 11.0000-18.0000 PLT (test code = PLT) 152.0000 140.0000-440.0000 MPV (test code = MPV) 10.1000 fL 6.8000-10.6000 PT (test code = PT) 17.8000 s 10.0000-14.0000 INR (test code = INR) 1.5000 0.0000-3.5000 Coumadin, Current [id number] 03:07:00 Test Item Value Reference Range Comments Coumadin, Current Dose (test code = 10mg and shots Coumadin, Current Dose) Coumadin, New Dose (test code = 12.5mg daily and shots Coumadin, New Dose) Return [id number] 03:07:00 Test Item Value Reference Range Comments Return Date (test code = Return Date) 1 week [id number] 03:09:00 Test Item Value Reference Range Comments PT (test code = PT) 29.5000 s 10.0000-14.0000 INR (test code = INR) 2.5000 0.0000-3.5000 Coumadin, Current [id number] 03:09:00 Test Item Value Reference Range Comments Coumadin, Current Dose (test code = 10mg daily Coumadin, Current Dose) Coumadin, New Dose (test code = Continue same dosage Coumadin, New Dose) Return [id number] 03:09:00 Test Item Value Reference Range Comments Return Date (test code = Return Date) 2 weeks [id number] 03:08:00 Test Item Value Reference Range Comments WBC (test code = WBC) 7.6000 4.0000-10.0000 Lymphocytes % (test code = Lymphocytes %) 31.5000 % 22.400 0-43.6000 MID% (test code = MID%) 7.5000 % 1.2000-11.1999 Neutrophils % (test code = Neutrophils %) 61.0000 % 48.900 0-69.9000 Lymphocytes (test code = Lymphocytes) 2.4000 1.2000-3.2 000 MID (test code = MID) 0.6000 0.1000-1.1000 Neutrophils (test code = Neutrophils) 4.6000 1.5000-6.7 000 RBC (test code = RBC) 3.3800 3.7000-4.9000 HGB (test code = HGB) 11.1000 g/dL 11.2000-14.4000 HCT (test code = HCT) 36.6000 % 34.0000-44.0000 MCV (test code = MCV) 108.0000 fL 80.0000-94.0000 MCH (test code = MCH) 33.0000 pg 27.0000-34.0000 MCHC (test code = MCHC) 30.5000 g/dL 31.5000-36.0000 RDW (test code = RDW) 18.8000 11.0000-18.0000 PLT (test code = PLT) 105.0000 140.0000-440.0000 MPV (test code = MPV) 10.6000 fL 6.8000-10.6000 [id number] 02:03:00 Test Item Value Reference Range Comments WBC (test code = WBC) 9.2000 4.0000-10.0000 Lymphocytes % (test code = Lymphocytes %) 25.7000 % 22.400 0-43.6000 MID% (test code = MID%) 5.9000 % .1999-11.2000 Neutrophils % (test code = Neutrophils %) 68.4000 % 48.900 0-69.9000 Lymphocytes (test code = Lymphocytes) 2.3000 1.2000-3.2 000 MID (test code = MID) 0.6000 0.1000-1.1000 Neutrophils (test code = Neutrophils) 6.3000 1.5000-6.7 000 RBC (test code = RBC) 3.2500 3.7000-4.9000 HGB (test code = HGB) 10.6000 g/dL .1999-14.4000 HCT (test code = HCT) 34.0000 % 34.0000-44.0000 MCV (test code = MCV) 104.5000 fL 80.0000-94.0000 MCH (test code = MCH) 32.6000 pg 27.0000-34.0000 MCHC (test code = MCHC) 31.1000 g/dL 31.5000-36.0000 RDW (test code = RDW) 19.4000 11.0000-18.0000 PLT (test code = PLT) 194.0000 140.0000-440.0000 MPV (test code = MPV) 10.4000 fL 6.8000-10.6000 PT (test code = PT) 17.3000 s 10.0000-14.0000 INR (test code = INR) 1.4000 0.0000-3.5000 Coumadin, Current [id number] 02:03:00 Test Item Value Reference Range Comments Coumadin, Current Dose (test code = Coumadin, Current 9mg Dose) Coumadin, New Dose (test code = Coumadin, New Dose) 10mg Return [id number] 02:03:00 Test Item Value Reference Range Comments Return Date (test code = Return Date) 1 week [id number] 03:03:00 Test Item Value Reference Range Comments WBC (test code = WBC) 10.7000 4.0000-10.0000 Lymphocytes % (test code = Lymphocytes %) 20.8000 % 22.400 0-43.6000 MID% (test code = MID%) 6.9000 % 1.2000-11.1999 Neutrophils % (test code = Neutrophils %) 72.3000 % 48.900 0-69.9000 Lymphocytes (test code = Lymphocytes) 2.2000 1.2000-3.2 000 MID (test code = MID) 0.7000 0.1000-1.1000 Neutrophils (test code = Neutrophils) 7.8000 1.5000-6.7 000 RBC (test code = RBC) 3.1000 3.7000-4.9000 HGB (test code = HGB) 10.0000 g/dL 11.2000-14.4000 HCT (test code = HCT) 31.5000 % 34.0000-44.0000 MCV (test code = MCV) 101.5000 fL 80.0000-94.0000 MCH (test code = MCH) 32.4000 pg 27.0000-34.0000 MCHC (test code = MCHC) 31.9000 g/dL 31.5000-36.0000 RDW (test code = RDW) 17.3000 11.0000-18.0000 PLT (test code = PLT) 197.0000 140.0000-440.0000 MPV (test code = MPV) 9.9000 fL 6.8000-10.6000 [id number] 03:01:00 Test Item Value Reference Range Comments PT (test code = PT) 36.1000 s 10.0000-14.0000 INR (test code = INR) 3.0000 0.0000-3.5000 Coumadin, Current [id number] 03:01:00 Test Item Value Reference Range Comments Coumadin, Current Dose (test code 9mg daily & lovenox daily = Coumadin, Current Dose) Coumadin, New Dose (test code = Continue same dosage Coumadin, New Dose) Return [id number] 03:01:00 Test Item Value Reference Range Comments Return Date (test code = Return Date) 2 weeks [id number] 01:03:00 Test Item Value Reference Range Comments WBC (test code = WBC) 9.8000 4.0000-10.0000 Lymphocytes % (test code = Lymphocytes %) 17.5000 % 22.400 0-43.6000 MID% (test code = MID%) 4.6000 % 1.2000-11.2000 Neutrophils % (test code = Neutrophils %) 77.9000 % 48.900 0-69.9000 Lymphocytes (test code = Lymphocytes) 1.7000 1.2000-3.2 000 MID (test code = MID) 0.5000 0.1000-1.1000 Neutrophils (test code = Neutrophils) 7.6000 1.5000-6.7 000 RBC (test code = RBC) 2.9400 3.7000-4.9000 HGB (test code = HGB) 9.6000 g/dL 11.2000-14.4000 HCT (test code = HCT) 30.0000 % 34.0000-44.0000 MCV (test code = MCV) 102.1000 fL 80.0000-94.0000 MCH (test code = MCH) 32.7000 pg 27.0000-34.0000 MCHC (test code = MCHC) 32.0000 g/dL 31.5000-36.0000 RDW (test code = RDW) 17.4000 11.0000-18.0000 PLT (test code = PLT) 135.0000 140.0000-440.0000 MPV (test code = MPV) 10.3000 fL 6.8000-10.6000 PT (test code = PT) 19.7000 s 10.0000-14.0000 INR (test code = INR) 1.6000 0.0000-3.5000 Coumadin, Current [id number] 01:03:00 Test Item Value Reference Range Comments Coumadin, Current Dose (test code alt. 9mg M,W,Sa & 8mg all = Coumadin, Current Dose) Coumadin, New Dose (test code = 9mg daily Coumadin, New Dose) Return [id number] 01:03:00 Test Item Value Reference Range Comments Return Date (test code = Return Date) 1 week [id number] 02:05:00 Test Item Value Reference Range Comments PT (test code = PT) 22.6000 s 10.0000-14.0000 INR (test code = INR) 1.9000 0.0000-3.5000 Coumadin, Current [id number] 02:05:00 Test Item Value Reference Range Comments Coumadin, Current Dose (test code = m,w,sat,8mg-all oth 7mg Coumadin, Current Dose) Coumadin, New Dose (test code = same Coumadin, New Dose) Return [id number] 02:05:00 Test Item Value Reference Range Comments Return Date (test code = Return Date) 1 week [id number] 09:04:00 Test Item Value Reference Range Comments PT (test code = PT) 19.0000 s 10.0000-14.0000 INR (test code = INR) 1.6000 0.0000-3.5000 Coumadin, Current [id number] 09:04:00 Test Item Value Reference Range Comments Coumadin, Current Dose (test code 7mg = Coumadin, Current Dose) Coumadin, New Dose (test code = 8mg W,Sat,Mon 7mg all oth Coumadin, New Dose) Return [id number] 09:04:00 Test Item Value Reference Range Comments Return Date (test code = Return Date) 1 week [id number] 10:17:00 Test Item Value Reference Range Comments WBC (test code = WBC) 6.2000 4.2000-10.0000 Lymphocytes % (test code = Lymphocytes %) 23.6000 % 22.400 0-43.6000 MID% (test code = MID%) 6.9000 % 1.1999-11.1999 Neutrophils % (test code = Neutrophils %) 69.5000 % 48.900 0-69.9000 Lymphocytes (test code = Lymphocytes) 1.4000 1.2000-3.2 000 MID (test code = MID) 0.5000 0.1000-1.1000 Neutrophils (test code = Neutrophils) 4.3000 1.5000-6.7 000 RBC (test code = RBC) 2.6500 4.5000-6.3000 HGB (test code = HGB) 8.7000 g/dL 14.0000-18.0000 HCT (test code = HCT) 26.4000 % 41.0000-51.0000 MCV (test code = MCV) 99.6000 fL 80.0000-94.0000 MCH (test code = MCH) 32.8000 pg 27.0000-34.0000 MCHC (test code = MCHC) 32.9000 g/dL 31.5000-36.0000 RDW (test code = RDW) 15.9000 11.0000-18.0000 PLT (test code = PLT) 89.0000 140.0000-440.0000 MPV (test code = MPV) 10.6000 fL 6.8000-10.6000 PT (test code = PT) 13.7000 s 10.0000-14.0000 INR (test code = INR) 1.1000 0.0000-3.5000 Coumadin, Current [id number] 10:17:00 Test Item Value Reference Range Comments Coumadin, Current Dose (test 7mg/6mg on Thursday and code = Coumadin, Current Thursday Dose) Coumadin, New Dose (test code 7mg daily = Coumadin, New Dose) Return [id number] 10:17:00 Test Item Value Reference Range Comments Return Date (test code = Return Date) 1 week [id number] 10:13:00 Test Item Value Reference Range Comments PT (test code = PT) 14.8000 s 10.0000-14.0000 INR (test code = INR) 1.2000 0.0000-3.5000 Coumadin, Current [id number] 10:13:00 Test Item Value Reference Range Comments Coumadin, Current Dose (test code = Coumadin, Current same Dose) Coumadin, New Dose (test code = Coumadin, New Dose) same Return [id number] 10:13:00 Test Item Value Reference Range Comments Return Date (test code = Return Date) 1 week [id number] 10:01:00 Test Item Value Reference Range Comments WBC (test code = WBC) 10.5000 4.2000-10.0000 Lymphocytes % (test code = Lymphocytes %) 16.9000 % 22.400 0-43.6000 MID% (test code = MID%) 5.5000 % 1.2000-11.2000 Neutrophils % (test code = Neutrophils %) 77.6000 % 48.900 0-69.9000 Lymphocytes (test code = Lymphocytes) 1.7000 1.2000-3.2 000 MID (test code = MID) 0.7000 0.1000-1.1000 Neutrophils (test code = Neutrophils) 8.1000 1.5000-6.7 000 RBC (test code = RBC) 3.8000 4.5000-6.3000 HGB (test code = HGB) 12.1000 g/dL 14.0000-18.0000 HCT (test code = HCT) 37.7000 % 41.0000-51.0000 MCV (test code = MCV) 99.1000 fL 80.0000-94.0000 MCH (test code = MCH) 31.9000 pg 27.0000-34.0000 MCHC (test code = MCHC) 32.2000 g/dL 31.5000-36.0000 RDW (test code = RDW) 16.2000 11.0000-18.0000 PLT (test code = PLT) 132.0000 140.0000-440.0000 MPV (test code = MPV) 10.4000 fL 6.8000-10.6000 PT (test code = PT) 25.0000 s 10.0000-14.0000 INR (test code = INR) 2.1000 0.0000-3.5000 Coumadin, Current [id number] 10:01:00 Test Item Value Reference Range Comments Coumadin, Current Dose (test code = 6mg W,Sa 7mg all other Coumadin, Current Dose) Coumadin, New Dose (test code = continue same dosage Coumadin, New Dose) Return [id number] 10:01:00 Test Item Value Reference Range Comments Return Date (test code = Return Date) 2 weeks [id number] 10:32:00 Test Item Value Reference Range Comments WBC (test code = WBC) 14.1000 4.2000-10.0000 Lymphocytes % (test code = Lymphocytes %) 11.1000 % 22.400 0-43.6000 MID% (test code = MID%) 3.4000 % 1.2000-11.2000 Neutrophils % (test code = Neutrophils %) 85.5000 % 48.900 0-69.9000 Lymphocytes (test code = Lymphocytes) 1.5000 1.2000-3.2 000 MID (test code = MID) 0.6000 0.1000-1.1000 Neutrophils (test code = Neutrophils) 12.0000 1.5000-6.7 000 RBC (test code = RBC) 3.7200 4.5000-6.3000 HGB (test code = HGB) 11.9000 g/dL 14.0000-18.0000 HCT (test code = HCT) 36.9000 % 41.0000-51.0000 MCV (test code = MCV) 99.0000 fL 80.0000-94.0000 MCH (test code = MCH) 32.0000 pg 27.0000-34.0000 MCHC (test code = MCHC) 32.3000 g/dL 31.5000-36.0000 RDW (test code = RDW) 17.3000 11.0000-18.0000 PLT (test code = PLT) 111.0000 140.0000-440.0000 MPV (test code = MPV) 9.6000 fL 6.8000-10.6000 [id number] 10:27:00 Test Item Value Reference Range Comments PT (test code = PT) 41.6000 s 10.0000-14.0000 INR (test code = INR) 3.5000 0.0000-3.5000 Coumadin, Current [id number] 10:27:00 Test Item Value Reference Range Comments Coumadin, Current Dose (test code 7mg daily = Coumadin, Current Dose) Coumadin, New Dose (test code = 6mg W,Sa 7mg all other da Coumadin, New Dose) Return [id number] 10:27:00 Test Item Value Reference Range Comments Return Date (test code = Return Date) 1 week [id number] 09:02:00 Test Item Value Reference Range Comments WBC (test code = WBC) 10.3000 4.2000-10.0000 Lymphocytes % (test code = Lymphocytes %) 19.9000 % 22.400 0-43.6000 MID% (test code = MID%) 5.0000 % 1.2000-11.2000 Neutrophils % (test code = Neutrophils %) 75.1000 % 48.900 0-69.9000 Lymphocytes (test code = Lymphocytes) 2.0000 1.2000-3.2 000 MID (test code = MID) 0.5000 0.1000-1.1000 Neutrophils (test code = Neutrophils) 7.8000 1.5000-6.7 000 RBC (test code = RBC) 3.5000 4.5000-6.3000 HGB (test code = HGB) 11.5000 g/dL 14.0000-18.0000 HCT (test code = HCT) 34.9000 % 41.0000-51.0000 MCV (test code = MCV) 99.6000 fL 80.0000-94.0000 MCH (test code = MCH) 32.8000 pg 27.0000-34.0000 MCHC (test code = MCHC) 32.9000 g/dL 31.5000-36.0000 RDW (test code = RDW) 17.0000 11.0000-18.0000 PLT (test code = PLT) 164.0000 140.0000-440.0000 MPV (test code = MPV) 10.0000 fL 6.8000-10.6000 PT (test code = PT) 25.8000 s 10.0000-14.0000 INR (test code = INR) 2.2000 0.0000-3.5000 Coumadin, Current [id number] 09:02:00 Test Item Value Reference Range Comments Coumadin, Current Dose (test code = 7mg daily Coumadin, Current Dose) Coumadin, New Dose (test code = continue same dosage Coumadin, New Dose) Return [id number] 09:02:00 Test Item Value Reference Range Comments Return Date (test code = Return Date) 2 weeks [id number] 10:03:00 Test Item Value Reference Range Comments WBC (test code = WBC) 10.4000 4.2000-10.0000 Lymphocytes % (test code = Lymphocytes %) 20.5000 % 22.400 0-43.6000 MID% (test code = MID%) 6.1000 % 1.2000-11.2000 Neutrophils % (test code = Neutrophils %) 73.4000 % 48.900 0-69.9000 Lymphocytes (test code = Lymphocytes) 2.1000 1.2000-3.2 000 MID (test code = MID) 0.7000 0.1000-1.1000 Neutrophils (test code = Neutrophils) 7.6000 1.5000-6.7 000 RBC (test code = RBC) 3.4300 4.5000-6.3000 HGB (test code = HGB) 10.8000 g/dL 14.0000-18.0000 HCT (test code = HCT) 33.6000 % 41.0000-51.0000 MCV (test code = MCV) 98.0000 fL 80.0000-94.0000 MCH (test code = MCH) 31.6000 pg 27.0000-34.0000 MCHC (test code = MCHC) 32.2000 g/dL 31.5000-36.0000 RDW (test code = RDW) 16.7000 11.0000-18.0000 PLT (test code = PLT) 132.0000 140.0000-440.0000 MPV (test code = MPV) 10.2000 fL 6.8000-10.6000 PT (test code = PT) 16.8000 s 10.0000-14.0000 INR (test code = INR) 1.4000 0.0000-3.5000 Coumadin, Current [id number] 10:03:00 Test Item Value Reference Range Comments Coumadin, Current Dose (test code = none since Thursday Coumadin, Current Dose) Coumadin, New Dose (test code = Coumadin, 7mg daily New Dose) Return [id number] 10:03:00 Test Item Value Reference Range Comments Return Date (test code = Return Date) 1 week [id number] 10:09:00 Test Item Value Reference Range Comments PT (test code = PT) 20.0000 s 10.0000-14.0000 INR (test code = INR) 1.7000 0.0000-3.5000 Coumadin, Current [id number] 10:09:00 Test Item Value Reference Range Comments Coumadin, Current Dose (test code = Coumadin, 7mg daily Current Dose) Coumadin, New Dose (test code = Coumadin, New n/a Dose) Return [id number] 10:09:00 Test Item Value Reference Range Comments Return Date (test code = Return Date) 1 week [id number] 09:00:00 Test Item Value Reference Range Comments WBC (test code = WBC) 9.3000 4.2000-10.0000 Lymphocytes % (test code = Lymphocytes %) 25.7000 % 22.400 0-43.6000 MID% (test code = MID%) 6.2000 % 1.2000-11.2000 Neutrophils % (test code = Neutrophils %) 68.1000 % 48.900 0-69.9000 Lymphocytes (test code = Lymphocytes) 2.4000 1.2000-3.2 000 MID (test code = MID) 0.6000 0.1000-1.1000 Neutrophils (test code = Neutrophils) 6.3000 1.5000-6.7 000 RBC (test code = RBC) 3.8400 4.5000-6.3000 HGB (test code = HGB) 12.1000 g/dL 14.0000-18.0000 HCT (test code = HCT) 38.1000 % 41.0000-51.0000 MCV (test code = MCV) 99.3000 fL 80.0000-94.0000 MCH (test code = MCH) 31.6000 pg 27.0000-34.0000 MCHC (test code = MCHC) 31.8000 g/dL 31.5000-36.0000 RDW (test code = RDW) 17.6000 11.0000-18.0000 PLT (test code = PLT) 117.0000 140.0000-440.0000 MPV (test code = MPV) 10.0000 fL 6.8000-10.6000 PT (test code = PT) 23.1000 s 10.0000-14.0000 INR (test code = INR) 1.9000 0.0000-3.5000 Coumadin, Current [id number] 09:00:00 Test Item Value Reference Range Comments Coumadin, Current Dose (test not taking any for 2 days due code = Coumadin, Current to a procedure tomorrow Dose) Coumadin, New Dose (test code continue as directed = Coumadin, New Dose) Return [id number] 09:00:00 Test Item Value Reference Range Comments Return Date (test code = Return Date) 1 week [id number] 09:04:00 Test Item Value Reference Range Comments WBC (test code = WBC) 9.8000 4.2000-10.0000 Lymphocytes % (test code = Lymphocytes %) 26.6000 % 22.400 0-43.6000 MID% (test code = MID%) 6.9000 % 1.2000-11.2000 Neutrophils % (test code = Neutrophils %) 66.5000 % 48.900 0-69.9000 Lymphocytes (test code = Lymphocytes) 2.6000 1.2000-3.2 000 MID (test code = MID) 0.7000 0.1000-1.1000 Neutrophils (test code = Neutrophils) 6.5000 1.5000-6.7 000 RBC (test code = RBC) 3.9900 4.5000-6.3000 HGB (test code = HGB) 12.5000 g/dL 14.0000-18.0000 HCT (test code = HCT) 39.0000 % 41.0000-51.0000 MCV (test code = MCV) 97.7000 fL 80.0000-94.0000 MCH (test code = MCH) 31.4000 pg 27.0000-34.0000 MCHC (test code = MCHC) 32.2000 g/dL 31.5000-36.0000 RDW (test code = RDW) 18.7000 11.0000-18.0000 PLT (test code = PLT) 158.0000 140.0000-440.0000 MPV (test code = MPV) 9.2000 fL 6.8000-10.6000 PT (test code = PT) 28.0000 s 10.0000-14.0000 INR (test code = INR) 2.3000 0.0000-3.5000 Coumadin, Current [id number] 09:04:00 Test Item Value Reference Range Comments Coumadin, Current Dose (test code = Coumadin, 7MG DAILY Current Dose) Coumadin, New Dose (test code = Coumadin, New NO CHANGE Dose) Return [id number] 09:04:00 Test Item Value Reference Range Comments Return Date (test code = Return Date) 2 weeks [id number] 04:07:00 Test Item Value Reference Range Comments WBC (test code = WBC) 9.9000 4.2000-10.0000 Lymphocytes % (test code = Lymphocytes %) 28.8000 % 22.400 0-43.6000 MID% (test code = MID%) 7.1000 % 1.2000-11.2000 Neutrophils % (test code = Neutrophils %) 64.1000 % 48.900 0-69.9000 Lymphocytes (test code = Lymphocytes) 2.8000 1.2000-3.2 000 MID (test code = MID) 0.8000 0.1000-1.1000 Neutrophils (test code = Neutrophils) 6.3000 1.5000-6.7 000 RBC (test code = RBC) 3.6600 4.5000-6.3000 HGB (test code = HGB) 11.4000 g/dL 14.0000-18.0000 HCT (test code = HCT) 36.2000 % 41.0000-51.0000 MCV (test code = MCV) 98.9000 fL 80.0000-94.0000 MCH (test code = MCH) 31.1000 pg 27.0000-34.0000 MCHC (test code = MCHC) 31.4000 g/dL 31.5000-36.0000 RDW (test code = RDW) 20.1000 11.0000-18.0000 PLT (test code = PLT) 94.0000 140.0000-440.0000 MPV (test code = MPV) 10.2000 fL 6.8000-10.6000 PT (test code = PT) 25.1000 s 10.0000-14.0000 INR (test code = INR) 2.1000 0.0000-3.5000 Coumadin, Current [id number] 04:07:00 Test Item Value Reference Range Comments Coumadin, Current Dose (test code = 7mg jayden;y Coumadin, Current Dose) Coumadin, New Dose (test code = continue current dose Coumadin, New Dose) Return [id number] 04:07:00 Test Item Value Reference Range Comments Return Date (test code = Return Date) 2 weeks [id number] 09:06:00 Test Item Value Reference Range Comments WBC (test code = WBC) 7.5000 4.2000-10.0000 Lymphocytes % (test code = Lymphocytes %) 26.2000 % 22.400 0-43.6000 MID% (test code = MID%) 6.7000 % 1.2000-11.2000 Neutrophils % (test code = Neutrophils %) 67.1000 % 48.900 0-69.9000 Lymphocytes (test code = Lymphocytes) 1.9000 1.2000-3.2 000 MID (test code = MID) 0.6000 0.1000-1.1000 Neutrophils (test code = Neutrophils) 5.0000 1.5000-6.7 000 RBC (test code = RBC) 3.5100 4.5000-6.3000 HGB (test code = HGB) 10.8000 g/dL 14.0000-18.0000 HCT (test code = HCT) 34.7000 % 41.0000-51.0000 MCV (test code = MCV) 99.0000 fL 80.0000-94.0000 MCH (test code = MCH) 30.9000 pg 27.0000-34.0000 MCHC (test code = MCHC) 31.2000 g/dL 31.5000-36.0000 RDW (test code = RDW) 20.7000 11.0000-18.0000 PLT (test code = PLT) 101.0000 140.0000-440.0000 MPV (test code = MPV) 9.8000 fL 6.8000-10.6000 PT (test code = PT) 42.7000 s 10.0000-14.0000 INR (test code = INR) 3.6000 0.0000-3.5000 Coumadin, Current [id number] 09:06:00 Test Item Value Reference Range Comments Coumadin, Current Dose (test code = 8mg 2 days/ 7mg 5 days Coumadin, Current Dose) Coumadin, New Dose (test code = 7mg daily Coumadin, New Dose) Return [id number] 09:06:00 Test Item Value Reference Range Comments Return Date (test code = Return Date) 1 week [id number] 12:45:00 Test Item Value Reference Range Comments WBC (test code = WBC) 5.8000 4.2000-10.0000 Lymphocytes % (test code = Lymphocytes %) 28.8000 % 22.400 0-43.6000 MID% (test code = MID%) 6.0000 % 1.2000-11.2000 Neutrophils % (test code = Neutrophils %) 65.2000 % 48.900 0-69.9000 Lymphocytes (test code = Lymphocytes) 1.6000 1.2000-3.2 000 MID (test code = MID) 0.5000 0.1000-1.1000 Neutrophils (test code = Neutrophils) 3.7000 1.5000-6.7 000 RBC (test code = RBC) 3.4500 4.5000-6.3000 HGB (test code = HGB) 10.5000 g/dL 14.0000-18.0000 HCT (test code = HCT) 32.4000 % 41.0000-51.0000 MCV (test code = MCV) 93.7000 fL 80.0000-94.0000 MCH (test code = MCH) 30.4000 pg 27.0000-34.0000 MCHC (test code = MCHC) 32.4000 g/dL 31.5000-36.0000 RDW (test code = RDW) 19.7000 11.0000-18.0000 PLT (test code = PLT) 107.0000 140.0000-440.0000 MPV (test code = MPV) 9.4000 fL 6.8000-10.6000 PT (test code = PT) 22.5000 s 10.0000-14.0000 INR (test code = INR) 1.9000 0.0000-3.5000 Coumadin, Current [id number] 12:45:00 Test Item Value Reference Range Comments Coumadin, Current Dose (test code alt 7mg and 8mg daily = Coumadin, Current Dose) Coumadin, New Dose (test code = 8mg 5x a week, 7mg others Coumadin, New Dose) Return [id number] 12:45:00 Test Item Value Reference Range Comments Return Date (test code = Return Date) 1 week [id number] 08:06:00 Test Item Value Reference Range Comments WBC (test code = WBC) 7.8000 4.2000-10.0000 Lymphocytes % (test code = Lymphocytes %) 19.6000 % 22.400 0-43.6000 MID% (test code = MID%) 4.6000 % 1.2000-11.2000 Neutrophils % (test code = Neutrophils %) 75.8000 % 48.900 0-69.9000 Lymphocytes (test code = Lymphocytes) 1.5000 1.2000-3.2 000 MID (test code = MID) 0.4000 0.1000-1.1000 Neutrophils (test code = Neutrophils) 5.9000 1.5000-6.7 000 RBC (test code = RBC) 3.6200 4.5000-6.3000 HGB (test code = HGB) 10.8000 g/dL 14.0000-18.0000 HCT (test code = HCT) 33.7000 % 41.0000-51.0000 MCV (test code = MCV) 93.0000 fL 80.0000-94.0000 MCH (test code = MCH) 29.8000 pg 27.0000-34.0000 MCHC (test code = MCHC) 32.0000 g/dL 31.5000-36.0000 RDW (test code = RDW) 18.6000 11.0000-18.0000 PLT (test code = PLT) 193.0000 140.0000-440.0000 MPV (test code = MPV) 8.8000 fL 6.8000-10.6000 PT (test code = PT) 23.1000 s 10.0000-14.0000 INR (test code = INR) 1.9000 0.0000-3.5000 Coumadin, Current [id number] 08:06:00 Test Item Value Reference Range Comments Coumadin, Current Dose (test code = 7mg daily Coumadin, Current Dose) Coumadin, New Dose (test code = alt. 7mg & 8mg daily Coumadin, New Dose) Return [id number] 08:06:00 Test Item Value Reference Range Comments Return Date (test code = Return Date) 1 week [id number] 12:04:00 Test Item Value Reference Range Comments WBC (test code = WBC) 10.8000 4.2000-10.0000 Lymphocytes % (test code = Lymphocytes %) 23.0000 % 22.400 0-43.6000 MID% (test code = MID%) 5.1000 % 1.2000-11.1999 Neutrophils % (test code = Neutrophils %) 71.9000 % 48.900 0-69.9000 Lymphocytes (test code = Lymphocytes) 2.5000 1.2000-3.2 000 MID (test code = MID) 0.5000 0.1000-1.1000 Neutrophils (test code = Neutrophils) 7.8000 1.5000-6.7 000 RBC (test code = RBC) 3.5400 4.5000-6.3000 HGB (test code = HGB) 10.3000 g/dL 14.0000-18.0000 HCT (test code = HCT) 32.8000 % 41.0000-51.0000 MCV (test code = MCV) 92.6000 fL 80.0000-94.0000 MCH (test code = MCH) 29.2000 pg 27.0000-34.0000 MCHC (test code = MCHC) 31.5000 g/dL 31.5000-36.0000 RDW (test code = RDW) 17.9000 11.0000-18.0000 PLT (test code = PLT) 231.0000 140.0000-440.0000 MPV (test code = MPV) 9.6000 fL 6.8000-10.6000 [id number] 12:00:00 Test Item Value Reference Range Comments PT (test code = PT) 17.5000 s 10.0000-14.0000 INR (test code = INR) 1.5000 0.0000-3.5000 Coumadin, Current [id number] 12:00:00 Test Item Value Reference Range Comments Coumadin, Current Dose (test code = Coumadin, 6mg daily Current Dose) Coumadin, New Dose (test code = Coumadin, New 7mg daily Dose) Return [id number] 12:00:00 Test Item Value Reference Range Comments Return Date (test code = Return Date) 1 week [id number] 11:20:00 Test Item Value Reference Range Comments PT (test code = PT) 16.5000 s 10.0000-14.0000 INR (test code = INR) 1.4000 0.0000-3.5000 Coumadin, Current [id number] 11:20:00 Test Item Value Reference Range Comments Coumadin, Current Dose (test code = Coumadin, 7mg daily Current Dose) Coumadin, New Dose (test code = Coumadin, New 8mg daily Dose) Return [id number] 11:20:00 Test Item Value Reference Range Comments Return Date (test code = Return Date) 1 week [id number] 03:03:00 Test Item Value Reference Range Comments PT (test code = PT) 27.1000 s 10.0000-14.0000 INR (test code = INR) 2.3000 0.0000-3.5000 Coumadin, Current [id number] 03:03:00 Test Item Value Reference Range Comments Coumadin, Current Dose (test code = Coumadin, 7mg daily Current Dose) Coumadin, New Dose (test code = Coumadin, New n/a Dose) Return [id number] 03:03:00 Test Item Value Reference Range Comments Return Date (test code = Return Date) n/a [id number] 10:04:00 Test Item Value Reference Range Comments WBC (test code = WBC) 10.3000 4.2000-10.0000 Lymphocytes % (test code = Lymphocytes %) 20.1000 % 22.400 0-43.6000 MID% (test code = MID%) 4.8000 % 1.2000-11.2000 Neutrophils % (test code = Neutrophils %) 75.1000 % 48.900 0-69.9000 Lymphocytes (test code = Lymphocytes) 2.0000 1.2000-3.2 000 MID (test code = MID) 0.6000 0.1000-1.1000 Neutrophils (test code = Neutrophils) 7.7000 1.5000-6.7 000 RBC (test code = RBC) 3.6100 4.5000-6.3000 HGB (test code = HGB) 11.0000 g/dL 14.0000-18.0000 HCT (test code = HCT) 33.6000 % 41.0000-51.0000 MCV (test code = MCV) 93.2000 fL 80.0000-94.0000 MCH (test code = MCH) 30.4000 pg 27.0000-34.0000 MCHC (test code = MCHC) 32.6000 g/dL 31.5000-36.0000 RDW (test code = RDW) 16.3000 11.0000-18.0000 PLT (test code = PLT) 79.0000 140.0000-440.0000 MPV (test code = MPV) 10.0000 fL 6.8000-10.6000 PT (test code = PT) 29.8000 s 10.0000-14.0000 INR (test code = INR) 2.5000 0.0000-3.5000 Coumadin, Current [id number] 10:04:00 Test Item Value Reference Range Comments Coumadin, Current Dose (test code = 7mg daily Coumadin, Current Dose) Coumadin, New Dose (test code = continue current dose Coumadin, New Dose) Return [id number] 10:04:00 Test Item Value Reference Range Comments Return Date (test code = Return Date) 1 week [id number] 09:03:00 Test Item Value Reference Range Comments PT (test code = PT) 26.5000 s 10.0000-14.0000 INR (test code = INR) 2.2000 0.0000-3.5000 Coumadin, Current [id number] 09:03:00 Test Item Value Reference Range Comments Coumadin, Current Dose (test code 7mg daily = Coumadin, Current Dose) Coumadin, New Dose (test code = continue taking 7mg daily Coumadin, New Dose) Return [id number] 09:03:00 Test Item Value Reference Range Comments Return Date (test code = Return Date) 2 weeks [id number] 09:06:00 Test Item Value Reference Range Comments WBC (test code = WBC) 10.6000 4.2000-10.0000 Lymphocytes % (test code = Lymphocytes %) 15.7000 % 22.400 0-43.6000 MID% (test code = MID%) 4.8000 % 1.2000-11.2000 Neutrophils % (test code = Neutrophils %) 79.5000 % 48.900 0-69.9000 Lymphocytes (test code = Lymphocytes) 1.6000 1.2000-3.2 000 MID (test code = MID) 0.6000 0.1000-1.1000 Neutrophils (test code = Neutrophils) 8.4000 1.5000-6.7 000 RBC (test code = RBC) 3.9600 4.5000-6.3000 HGB (test code = HGB) 12.2000 g/dL 14.0000-18.0000 HCT (test code = HCT) 37.9000 % 41.0000-51.0000 MCV (test code = MCV) 95.5000 fL 80.0000-94.0000 MCH (test code = MCH) 30.8000 pg 27.0000-34.0000 MCHC (test code = MCHC) 32.2000 g/dL 31.5000-36.0000 RDW (test code = RDW) 16.8000 11.0000-18.0000 PLT (test code = PLT) 82.0000 140.0000-440.0000 MPV (test code = MPV) 11.0000 fL 6.8000-10.6000 [id number] 09:04:00 Test Item Value Reference Range Comments PT (test code = PT) 28.0000 s 10.0000-14.0000 INR (test code = INR) 2.3000 0.0000-3.5000 Coumadin, Current [id number] 09:04:00 Test Item Value Reference Range Comments Coumadin, Current Dose (test code = 7mg daily Coumadin, Current Dose) Coumadin, New Dose (test code = continue current dose Coumadin, New Dose) Return [id number] 09:04:00 Test Item Value Reference Range Comments Return Date (test code = Return Date) 1 week [id number] 10:03:00 Test Item Value Reference Range Comments PT (test code = PT) 13.5000 s 10.0000-14.0000 INR (test code = INR) 1.1000 0.0000-3.5000 Coumadin, Current [id number] 10:03:00 Test Item Value Reference Range Comments Coumadin, Current Dose (test code = Coumadin, 5mg daily Current Dose) Coumadin, New Dose (test code = Coumadin, New 7mg daily Dose) Return [id number] 10:03:00 Test Item Value Reference Range Comments Return Date (test code = Return Date) 1 week [id number] 10:02:00 Test Item Value Reference Range Comments WBC (test code = WBC) 13.6000 4.2000-10.0000 Lymphocytes % (test code = Lymphocytes %) 16.4000 % 22.400 0-43.6000 MID% (test code = MID%) 6.1000 % 1.2000-11.2000 Neutrophils % (test code = Neutrophils %) 77.5000 % 48.900 0-69.9000 Lymphocytes (test code = Lymphocytes) 2.2000 1.2000-3.2 000 MID (test code = MID) 0.9000 0.1000-1.1000 Neutrophils (test code = Neutrophils) 10.5000 1.5000-6.7 000 RBC (test code = RBC) 4.2600 4.5000-6.3000 HGB (test code = HGB) 13.4000 g/dL 14.0000-18.0000 HCT (test code = HCT) 41.9000 % 41.0000-51.0000 MCV (test code = MCV) 98.2000 fL 80.0000-94.0000 MCH (test code = MCH) 31.4000 pg 27.0000-34.0000 MCHC (test code = MCHC) 31.9000 g/dL 31.5000-36.0000 RDW (test code = RDW) 18.0000 11.0000-18.0000 PLT (test code = PLT) 59.0000 140.0000-440.0000 MPV (test code = MPV) 9.0000 fL 6.8000-10.6000 [id number] 10:56:00 Test Item Value Reference Range Comments WBC (test code = WBC) 13.5000 4.2000-10.0000 Lymphocytes % (test code = Lymphocytes %) 12.0000 % 22.400 0-43.6000 MID% (test code = MID%) 4.3000 % 1.2000-11.2000 Neutrophils % (test code = Neutrophils %) 83.7000 % 48.900 0-69.9000 Lymphocytes (test code = Lymphocytes) 1.6000 1.2000-3.2 000 MID (test code = MID) 0.6000 0.1000-1.1000 Neutrophils (test code = Neutrophils) 11.3000 1.5000-6.7 000 RBC (test code = RBC) 3.8300 4.5000-6.3000 HGB (test code = HGB) 12.3000 g/dL 14.0000-18.0000 HCT (test code = HCT) 36.9000 % 41.0000-51.0000 MCV (test code = MCV) 96.3000 fL 80.0000-94.0000 MCH (test code = MCH) 32.2000 pg 27.0000-34.0000 MCHC (test code = MCHC) 33.4000 g/dL 31.5000-36.0000 RDW (test code = RDW) 18.0000 11.0000-18.0000 PLT (test code = PLT) 65.0000 140.0000-440.0000 MPV (test code = MPV) 8.4000 fL 6.8000-10.6000 [id number] 10:08:00 Test Item Value Reference Range Comments WBC (test code = WBC) 14.8000 4.2000-10.0000 Lymphocytes % (test code = Lymphocytes %) 10.6000 % 22.400 0-43.6000 MID% (test code = MID%) 3.1000 % 1.2000-11.2000 Neutrophils % (test code = Neutrophils %) 86.3000 % 48.900 0-69.9000 Lymphocytes (test code = Lymphocytes) 1.5000 1.2000-3.2 000 MID (test code = MID) 0.5000 0.1000-1.1000 Neutrophils (test code = Neutrophils) 12.8000 1.5000-6.7 000 RBC (test code = RBC) 3.8700 4.5000-6.3000 HGB (test code = HGB) 12.2000 g/dL 14.0000-18.0000 HCT (test code = HCT) 37.8000 % 41.0000-51.0000 MCV (test code = MCV) 97.5000 fL 80.0000-94.0000 MCH (test code = MCH) 31.6000 pg 27.0000-34.0000 MCHC (test code = MCHC) 32.4000 g/dL 31.5000-36.0000 RDW (test code = RDW) 17.9000 11.0000-18.0000 PLT (test code = PLT) 54.0000 140.0000-440.0000 MPV (test code = MPV) 9.1000 fL 6.8000-10.6000 PT (test code = PT) 12.3000 s 10.0000-14.0000 INR (test code = INR) 1.0000 0.0000-3.5000 Coumadin, Current [id number] 10:08:00 Test Item Value Reference Range Comments Coumadin, Current Dose (test code = Coumadin, Current x Dose) Coumadin, New Dose (test code = Coumadin, New Dose) x Return [id number] 10:08:00 Test Item Value Reference Range Comments Return Date (test code = Return Date) x [id number] 09:02:00 Test Item Value Reference Range Comments PT (test code = PT) 20.7000 s 10.0000-14.0000 INR (test code = INR) 1.7000 0.0000-3.5000 Coumadin, Current [id number] 09:02:00 Test Item Value Reference Range Comments Coumadin, Current Dose (test code = Coumadin, Current 9mg Dose) Coumadin, New Dose (test code = Coumadin, New Dose) X Return [id number] 09:02:00 Test Item Value Reference Range Comments Return Date (test code = Return Date) X [id number] 03:05:00 Test Item Value Reference Range Comments PT (test code = PT) 13.3000 s 10.0000-14.0000 INR (test code = INR) 1.1000 0.0000-3.5000 Coumadin, Current [id number] 03:05:00 Test Item Value Reference Range Comments Coumadin, Current Dose (test code = Lovenox Shots Coumadin, Current Dose) Coumadin, New Dose (test code = continue as scheduledd Coumadin, New Dose) Return [id number] 03:05:00 Test Item Value Reference Range Comments Return Date (test code = Return Date) n/a [id number] 10:03:00 Test Item Value Reference Range Comments PT (test code = PT) 15.2000 s 10.0000-14.0000 INR (test code = INR) 1.3000 0.0000-3.5000 Coumadin, Current [id number] 10:03:00 Test Item Value Reference Range Comments Coumadin, Current Dose (test code = 8mg daily, lovenox Coumadin, Current Dose) Coumadin, New Dose (test code = cont. lovenox, 9mg daily Coumadin, New Dose) Return [id number] 10:03:00 Test Item Value Reference Range Comments Return Date (test code = Monday December 22, 2014 discuss Return Date) new plan (procedure) [id number] 02:02:00 Test Item Value Reference Range Comments PT (test code = PT) 14.1000 s 10.0000-14.0000 INR (test code = INR) 1.2000 0.0000-3.5000 Coumadin, Current [id number] 02:02:00 Test Item Value Reference Range Comments Coumadin, Current Dose (test code = NO COUMADIN ONLY LOVENOX Coumadin, Current Dose) Coumadin, New Dose (test code = TAKE 80 LOVENOX DAILY Coumadin, New Dose) Return [id number] 02:02:00 Test Item Value Reference Range Comments Return Date (test code = Return Date) 1 week [id number] 11:41:00 Test Item Value Reference Range Comments PT (test code = PT) 37.2000 s 10.0000-14.0000 INR (test code = INR) 3.1000 0.0000-3.5000 Coumadin, Current [id number] 11:41:00 Test Item Value Reference Range Comments Coumadin, Current Dose (test 8MG DAILY code = Coumadin, Current Dose) Coumadin, New Dose (test code CONTINUE TAKING 8MG EAT = Coumadin, New Dose) SOMETHING GREEN Return [id number] 11:41:00 Test Item Value Reference Range Comments Return Date (test code = Return Date) 1 week [id number] 10:21:00 Test Item Value Reference Range Comments PT (test code = PT) 20.5000 s 10.0000-14.0000 INR (test code = INR) 1.7000 0.0000-3.5000 Coumadin, Current [id number] 10:21:00 Test Item Value Reference Range Comments Coumadin, Current Dose (test code = Coumadin, Current 7mg Dose) Coumadin, New Dose (test code = Coumadin, New Dose) 8mg Return [id number] 10:21:00 Test Item Value Reference Range Comments Return Date (test code = Return Date) 1 week [id number] 09:08:00 Test Item Value Reference Range Comments PT (test code = PT) 16.1000 s 10.0000-14.0000 INR (test code = INR) 1.3000 0.0000-3.5000 Coumadin, Current [id number] 09:08:00 Test Item Value Reference Range Comments Coumadin, Current Dose (test code = Coumadin, 7MG Daily Current Dose) Coumadin, New Dose (test code = Coumadin, New seeing nurse Dose) Return [id number] 09:08:00 Test Item Value Reference Range Comments Return Date (test code = Return Date) seeing nurse [id number] 01:05:00 Test Item Value Reference Range Comments PT (test code = PT) 25.8000 s 10.0000-14.0000 INR (test code = INR) 2.2000 0.0000-3.5000 Coumadin, Current [id number] 01:05:00 Test Item Value Reference Range Comments Coumadin, Current Dose (test code = 7mg daily Coumadin, Current Dose) Coumadin, New Dose (test code = no change continue 7mg Coumadin, New Dose) Return [id number] 01:05:00 Test Item Value Reference Range Comments Return Date (test code = Return Date) 2 weeks [id number] 09:09:00 Test Item Value Reference Range Comments PT (test code = PT) 17.1000 s 10.0000-14.0000 INR (test code = INR) 1.4000 0.0000-3.5000 Coumadin, Current [id number] 09:09:00 Test Item Value Reference Range Comments Coumadin, Current Dose (test code = alt. 5mg & 7mg daily Coumadin, Current Dose) Coumadin, New Dose (test code = take 7mg daily Coumadin, New Dose) Return [id number] 09:09:00 Test Item Value Reference Range Comments Return Date (test code = Return Date) 1 week [id number] 11:36:00 Test Item Value Reference Range Comments PT (test code = PT) 2.8000 s 10.0000-14.0000 INR (test code = INR) 33.8000 0.0000-3.5000 Coumadin, Current [id number] 11:36:00 Test Item Value Reference Range Comments Coumadin, Current Dose (test code = 5&7ALT EVERY DAY Coumadin, Current Dose) Coumadin, New Dose (test code = Coumadin, no change New Dose) Return [id number] 11:36:00 Test Item Value Reference Range Comments Return Date (test code = Return Date) next week [id number] 11:14:00 Test Item Value Reference Range Comments PT (test code = PT) 38.4000 s 10.0000-14.0000 INR (test code = INR) 3.2000 0.0000-3.5000 Coumadin, Current [id number] 11:14:00 Test Item Value Reference Range Comments Coumadin, Current Dose (test code = none in 2 days Coumadin, Current Dose) Coumadin, New Dose (test code = alt 5mg & 7mg daily Coumadin, New Dose) Return [id number] 11:14:00 Test Item Value Reference Range Comments Return Date (test code = Return Date) 1 week [id number] 10:25:00 Test Item Value Reference Range Comments PT (test code = PT) 82.7000 s 10.0000-14.0000 INR (test code = INR) 6.9000 0.0000-3.5000 Coumadin, Current [id number] 10:25:00 Test Item Value Reference Range Comments Coumadin, Current Dose (test code = 7mg daily Coumadin, Current Dose) Coumadin, New Dose (test code = Coumadin, hold for 2 days New Dose) Return [id number] 10:25:00 Test Item Value Reference Range Comments Return Date (test code = Return return on Thursday for r Date) [id number] 04:05:00 Test Item Value Reference Range Comments PT (test code = PT) 30.6000 s 10.0000-14.0000 INR (test code = INR) 2.5000 0.0000-3.5000 Coumadin, Current [id number] 04:05:00 Test Item Value Reference Range Comments Coumadin, Current Dose (test code = Coumadin, 7mg daily Current Dose) Coumadin, New Dose (test code = Coumadin, New n/a Dose) Return [id number] 04:05:00 Test Item Value Reference Range Comments Return Date (test code = Return Date) 1 week [id number] 01:01:00 Test Item Value Reference Range Comments PT (test code = PT) 33.4000 s 10.0000-14.0000 INR (test code = INR) 2.8000 0.0000-3.5000 Coumadin, Current [id number] 01:01:00 Test Item Value Reference Range Comments Coumadin, Current Dose (test code = 10mg 2days 7other days Coumadin, Current Dose) Coumadin, New Dose (test code = 7mg daily Coumadin, New Dose) Return [id number] 01:01:00 Test Item Value Reference Range Comments Return Date (test code = Return Date) 1 week [id number] 09:01:00 Test Item Value Reference Range Comments PT (test code = PT) 16.7000 s 10.0000-14.0000 INR (test code = INR) 1.4000 0.0000-3.5000 Coumadin, Current [id number] 09:01:00 Test Item Value Reference Range Comments Coumadin, Current Dose (test 7mg daily missed 2 days code = Coumadin, Current Dose) Coumadin, New Dose (test code see comments take 10mg for 2 = Coumadin, New Dose) days then 7mg daily Return [id number] 09:01:00 Test Item Value Reference Range Comments Return Date (test code = Return Date) 1 week [id number] 09:08:00 Test Item Value Reference Range Comments PT (test code = PT) 39.3000 s 10.0000-14.0000 INR (test code = INR) 3.3000 0.0000-3.5000 Coumadin, Current [id number] 09:08:00 Test Item Value Reference Range Comments Coumadin, Current Dose (test code = Coumadin, 7mg daily Current Dose) Coumadin, New Dose (test code = Coumadin, New n/a Dose) Return [id number] 09:08:00 Test Item Value Reference Range Comments Return Date (test code = Return Date) 1 week [id number] 03:02:00 Test Item Value Reference Range Comments PT (test code = PT) 45.2000 s 10.0000-14.0000 INR (test code = INR) 3.8000 0.0000-3.5000 Coumadin, Current [id number] 03:02:00 Test Item Value Reference Range Comments Coumadin, Current Dose (test code = Coumadin, 7MG DAILY Current Dose) Coumadin, New Dose (test code = Coumadin, New N/A Dose) Return [id number] 03:02:00 Test Item Value Reference Range Comments Return Date (test code = Return Date) N/A [id number] 02:09:00 Test Item Value Reference Range Comments PT (test code = PT) 36.2000 s 10.0000-14.0000 INR (test code = INR) 3.0000 0.0000-3.5000 Coumadin, Current [id number] 02:09:00 Test Item Value Reference Range Comments Coumadin, Current Dose (test code = NONE TU-TH 7MG FROM FRI Coumadin, Current Dose) Coumadin, New Dose (test code = CONTINUE TAKING 7MG Coumadin, New Dose) Return [id number] 02:09:00 Test Item Value Reference Range Comments Return Date (test code = Return Date) 1 week [id number] 08:07:00 Test Item Value Reference Range Comments PT (test code = PT) 27.6000 s 10.0000-14.0000 INR (test code = INR) 2.3000 0.0000-3.5000 [id number] 01:00:00 Test Item Value Reference Range Comments PT (test code = PT) 96.0000 s 10.0000-14.0000 INR (test code = INR) 8.0000 0.0000-3.5000 [id number] 02:07:00 Test Item Value Reference Range Comments PT (test code = PT) 23.5000 s 10.0000-14.0000 INR (test code = INR) 2.0000 0.0000-3.5000 [id number] 02:04:00 Test Item Value Reference Range Comments WBC (test code = WBC) 10.9000 4.2000-10.0000 Lymphocytes % (test code = Lymphocytes %) 23.3000 % 22.400 0-43.6000 MID% (test code = MID%) 6.6000 % 1.2000-11.2000 Neutrophils % (test code = Neutrophils %) 70.1000 % 48.900 0-69.9000 Lymphocytes (test code = Lymphocytes) 2.5000 1.2000-3.2 000 MID (test code = MID) 0.8000 0.1000-1.1000 Neutrophils (test code = Neutrophils) 7.6000 1.5000-6.7 000 RBC (test code = RBC) 3.8000 4.5000-6.3000 HGB (test code = HGB) 12.2000 g/dL 14.0000-18.0000 HCT (test code = HCT) 39.0000 % 41.0000-51.0000 MCV (test code = MCV) 102.6000 fL 80.0000-94.0000 MCH (test code = MCH) 32.0000 pg 27.0000-34.0000 MCHC (test code = MCHC) 31.2000 g/dL 31.5000-36.0000 RDW (test code = RDW) 18.8000 11.0000-18.0000 PLT (test code = PLT) 236.0000 140.0000-440.0000 MPV (test code = MPV) 9.1999 fL 6.8000-10.6000 [id number] 10:27:00 Test Item Value Reference Range Comments WBC (test code = WBC) 12.1999 4.2000-10.0000 Lymphocytes % (test code = Lymphocytes %) 23.6000 % 22.400 0-43.6000 MID% (test code = MID%) 6.0000 % .1999-11.1999 Neutrophils % (test code = Neutrophils %) 70.4000 % 48.900 0-69.9000 Lymphocytes (test code = Lymphocytes) 2.9000 1.2000-3.2 000 MID (test code = MID) 0.7000 0.1000-1.1000 Neutrophils (test code = Neutrophils) 8.6000 1.5000-6.7 000 RBC (test code = RBC) 3.5100 4.5000-6.3000 HGB (test code = HGB) 11.2000 g/dL 14.0000-18.0000 HCT (test code = HCT) 35.5000 % 41.0000-51.0000 MCV (test code = MCV) 101.1000 fL 80.0000-94.0000 MCH (test code = MCH) 31.9000 pg 27.0000-34.0000 MCHC (test code = MCHC) 31.5000 g/dL 31.5000-36.0000 RDW (test code = RDW) 18.3000 11.0000-18.0000 PLT (test code = PLT) 247.0000 140.0000-440.0000 MPV (test code = MPV) 9.1999 fL 6.8000-10.6000 PT (test code = PT) 39.4000 s 10.0000-14.0000 INR (test code = INR) 3.3000 0.0000-3.5000 [id number] 08:07:00 Test Item Value Reference Range Comments WBC (test code = WBC) 14.3000 4.2000-10.0000 Lymphocytes % (test code = Lymphocytes %) 14.5000 % 22.400 0-43.6000 MID% (test code = MID%) 4.1000 % .1999- Neutrophils % (test code = Neutrophils %) 81.4000 % 48.900 0-69.9000 Lymphocytes (test code = Lymphocytes) 2.0000 1.2000-3.2 000 MID (test code = MID) 0.7000 0.1000-1.1000 Neutrophils (test code = Neutrophils) 11.6000 1.5000-6.7 000 RBC (test code = RBC) 3.5000 4.5000-6.3000 HGB (test code = HGB) 11.1000 g/dL 14.0000-18.0000 HCT (test code = HCT) 35.1000 % 41.0000-51.0000 MCV (test code = MCV) 100.2000 fL 80.0000-94.0000 MCH (test code = MCH) 31.7000 pg 27.0000-34.0000 MCHC (test code = MCHC) 31.6000 g/dL 31.5000-36.0000 RDW (test code = RDW) 18.1000 11.0000-18.0000 PLT (test code = PLT) 314.0000 140.0000-440.0000 MPV (test code = MPV) 9.2000 fL 6.8000-10.6000 PT (test code = PT) 30.3000 s 10.0000-14.0000 INR (test code = INR) 2.5000 0.0000-3.5000 [id number] 02:05:00 Test Item Value Reference Range Comments WBC (test code = WBC) 12.6000 4.2000-10.0000 Lymphocytes % (test code = Lymphocytes %) 13.8000 % 22.400 0-43.6000 MID% (test code = MID%) 4.8000 % 1.2000-11.2000 Neutrophils % (test code = Neutrophils %) 81.4000 % 48.900 0-69.9000 Lymphocytes (test code = Lymphocytes) 1.7000 1.2000-3.2 000 MID (test code = MID) 0.6000 0.1000-1.1000 Neutrophils (test code = Neutrophils) 10.3000 1.5000-6.7 000 RBC (test code = RBC) 3.2700 4.5000-6.3000 HGB (test code = HGB) 10.4000 g/dL 14.0000-18.0000 HCT (test code = HCT) 32.3000 % 41.0000-51.0000 MCV (test code = MCV) 98.8000 fL 80.0000-94.0000 MCH (test code = MCH) 32.0000 pg 27.0000-34.0000 MCHC (test code = MCHC) 32.3000 g/dL 31.5000-36.0000 RDW (test code = RDW) 18.4000 11.0000-18.0000 PLT (test code = PLT) 272.0000 140.0000-440.0000 MPV (test code = MPV) 8.9000 fL 6.8000-10.6000 PT (test code = PT) 31.4000 s 10.0000-14.0000 INR (test code = INR) 2.6000 0.0000-3.5000 [id number] 08:05:00 Test Item Value Reference Range Comments WBC (test code = WBC) 13.8000 4.2000-10.0000 Lymphocytes % (test code = Lymphocytes %) 15.4000 % 22.400 0-43.6000 MID% (test code = MID%) 4.5000 % 1.2000-11.2000 Neutrophils % (test code = Neutrophils %) 80.1000 % 48.900 0-69.9000 Lymphocytes (test code = Lymphocytes) 2.1000 1.2000-3.2 000 MID (test code = MID) 0.6000 0.1000-1.1000 Neutrophils (test code = Neutrophils) 11.1000 1.5000-6.7 000 RBC (test code = RBC) 2.1700 4.5000-6.3000 HGB (test code = HGB) 7.2000 g/dL 14.0000-18.0000 HCT (test code = HCT) 22.4000 % 41.0000-51.0000 MCV (test code = MCV) 103.1000 fL 80.0000-94.0000 MCH (test code = MCH) 33.4000 pg 27.0000-34.0000 MCHC (test code = MCHC) 32.4000 g/dL 31.5000-36.0000 RDW (test code = RDW) 18.7000 11.0000-18.0000 PLT (test code = PLT) 278.0000 140.0000-440.0000 MPV (test code = MPV) 9.4000 fL 6.8000-10.6000 [id number] 08:04:00 Test Item Value Reference Range Comments PT (test code = PT) 25.1000 s 10.0000-14.0000 INR (test code = INR) 2.1000 0.0000-3.5000 [id number] 09:03:00 Test Item Value Reference Range Comments PT (test code = PT) 33.6000 s 10.0000-14.0000 INR (test code = INR) 2.8000 0.0000-3.5000 [id number] 12:48:00 Test Item Value Reference Range Comments PT (test code = PT) 18.5000 s 10.0000-14.0000 INR (test code = INR) 1.5000 0.0000-3.5000 [id number] 08:00:00 Test Item Value Reference Range Comments PT (test code = PT) 12.8000 s 10.0000-14.0000 INR (test code = INR) 1.1000 0.0000-3.5000 [id number] 04:00:00 Test Item Value Reference Range Comments PT (test code = PT) 13.6000 s 10.0000-14.0000 INR (test code = INR) 1.1000 0.0000-3.5000 [id number] 09:06:00 Test Item Value Reference Range Comments PT (test code = PT) 27.3000 s 10.0000-14.0000 INR (test code = INR) 2.3000 0.0000-3.5000 [id number] 10:45:00 Test Item Value Reference Range Comments PT (test code = PT) 23.9000 s 10.0000-14.0000 INR (test code = INR) 2.0000 0.0000-3.5000 [id number] 03:06:00 Test Item Value Reference Range Comments PT (test code = PT) 18.3000 s 10.0000-14.0000 INR (test code = INR) 1.5000 0.0000-3.5000 [id number] 02:09:00 Test Item Value Reference Range Comments PT (test code = PT) 25.1000 s 10.0000-14.0000 INR (test code = INR) 2.1000 0.0000-3.5000 [id number] 10:09:00 Test Item Value Reference Range Comments PT (test code = PT) 23.2000 s 10.0000-14.0000 INR (test code = INR) 1.9000 0.0000-3.5000 [id number] 09:00:00 Test Item Value Reference Range Comments PT (test code = PT) 76.7000 s 10.0000-14.0000 INR (test code = INR) 6.4000 0.0000-3.5000 [id number] 09:04:00 Test Item Value Reference Range Comments PT (test code = PT) 34.5000 s 10.0000-14.0000 INR (test code = INR) 2.9000 0.0000-3.5000 [id number] 03:00:00 Test Item Value Reference Range Comments PT (test code = PT) 20.6000 s 10.0000-14.0000 INR (test code = INR) 1.7000 0.0000-3.5000 [id number] 04:00:00 Test Item Value Reference Range Comments PT (test code = PT) 29.1000 s 10.0000-14.0000 INR (test code = INR) 2.4000 0.0000-3.5000 [id number] 04:00:00 Test Item Value Reference Range Comments PT (test code = PT) 19.1000 s 10.0000-14.0000 INR (test code = INR) 1.6000 0.0000-3.5000 [id number] 08:06:00 Test Item Value Reference Range Comments PT (test code = PT) 19.8000 s 10.0000-14.0000 INR (test code = INR) 1.7000 0.0000-3.5000 [id number] 10:22:00 Test Item Value Reference Range Comments PT (test code = PT) 59.1000 s 10.0000-14.0000 INR (test code = INR) 4.9000 0.0000-3.5000 [id number] 01:01:00 Test Item Value Reference Range Comments PT (test code = PT) 38.2000 s 10.0000-14.0000 INR (test code = INR) 3.2000 0.0000-3.5000 [id number] 08:03:00 Test Item Value Reference Range Comments PT (test code = PT) 25.5000 s 10.0000-14.0000 INR (test code = INR) 2.1000 0.0000-3.5000 [id number] 08:08:00 Test Item Value Reference Range Comments PT (test code = PT) 34.0000 s 10.0000-14.0000 INR (test code = INR) 2.8000 0.0000-3.5000 [id number] 12:05:00 Test Item Value Reference Range Comments PT (test code = PT) 19.8000 s 10.0000-14.0000 INR (test code = INR) 1.6000 0.0000-3.5000 [id number] 09:04:00 Test Item Value Reference Range Comments PT (test code = PT) 25.8000 s 10.0000-14.0000 INR (test code = INR) 2.2000 0.0000-3.5000 [id number] 09:05:00 Test Item Value Reference Range Comments PT (test code = PT) 49.9000 s 10.0000-14.0000 INR (test code = INR) 4.2000 0.0000-3.5000 [id number] 01:09:00 Test Item Value Reference Range Comments PT (test code = PT) 6.9000 s 10.0000-14.0000 INR (test code = INR) 83.2000 0.0000-3.5000 [id number] 03:03:00 Test Item Value Reference Range Comments PT (test code = PT) 44.4000 s 10.0000-14.0000 INR (test code = INR) 3.7000 0.0000-3.5000 [id number] 12:28:00 Test Item Value Reference Range Comments PT (test code = PT) 32.4000 s 10.0000-14.0000 INR (test code = INR) 2.7000 0.0000-3.5000 [id number] 10:02:00 Test Item Value Reference Range Comments PT (test code = PT) 57.6000 s 10.0000-14.0000 INR (test code = INR) 4.8000 0.0000-3.5000 [id number] 03:07:00 Test Item Value Reference Range Comments PT (test code = PT) 26.5000 s 10.0000-14.0000 INR (test code = INR) 2.2000 0.0000-3.5000 [id number] 04:01:00 Test Item Value Reference Range Comments PT (test code = PT) 47.7000 s 10.0000-14.0000 INR (test code = INR) 4.0000 0.0000-3.5000 [id number] 09:07:00 Test Item Value Reference Range Comments PT (test code = PT) 35.7000 s 10.0000-14.0000 INR (test code = INR) 3.0000 0.0000-3.5000 [id number] 11:40:00 Test Item Value Reference Range Comments PT (test code = PT) 71.4000 s 10.0000-14.0000 INR (test code = INR) 6.0000 0.0000-3.5000 [id number] 11:58:00 Test Item Value Reference Range Comments PT (test code = PT) 52.4000 s 10.0000-14.0000 INR (test code = INR) 4.4000 0.0000-3.5000 [id number] 01:07:00 Test Item Value Reference Range Comments PT (test code = PT) 19.2000 s 10.0000-14.0000 INR (test code = INR) 1.6000 0.0000-3.5000 [id number] 09:01:00 Test Item Value Reference Range Comments PT (test code = PT) 19.0000 s 10.0000-14.0000 INR (test code = INR) 1.6000 0.0000-3.5000 [id number] 02:09:00 Test Item Value Reference Range Comments PT (test code = PT) 29.3000 s 10.0000-14.0000 INR (test code = INR) 2.4000 0.0000-3.5000 [id number] 01:04:00 Test Item Value Reference Range Comments PT (test code = PT) 16.5000 s 10.0000-14.0000 INR (test code = INR) 1.4000 0.0000-3.5000 [id number] 10:05:00 Test Item Value Reference Range Comments WBC (test code = WBC) 17.9000 4.2000-10.0000 Lymphocytes % (test code = Lymphocytes %) 18.7000 % 22.400 0-43.6000 MID% (test code = MID%) 4.6000 % 1.2000-11.1999 Neutrophils % (test code = Neutrophils %) 76.7000 % 48.900 0-69.9000 Lymphocytes (test code = Lymphocytes) 3.3000 1.2000-3.2 000 MID (test code = MID) 0.9000 0.1000-1.1000 Neutrophils (test code = Neutrophils) 13.7000 1.5000-6.7 000 RBC (test code = RBC) 2.8500 4.5000-6.3000 HGB (test code = HGB) 9.6000 g/dL 14.0000-18.0000 HCT (test code = HCT) 28.8000 % 41.0000-51.0000 MCV (test code = MCV) 101.0000 fL 80.0000-94.0000 MCH (test code = MCH) 33.6000 pg 27.0000-34.0000 MCHC (test code = MCHC) 33.2000 g/dL 31.5000-36.0000 RDW (test code = RDW) 17.6000 11.0000-18.0000 PLT (test code = PLT) 226.0000 140.0000-440.0000 MPV (test code = MPV) 9.1000 fL 6.8000-10.6000 [id number] 09:07:00 Test Item Value Reference Range Comments PT (test code = PT) 26.2000 s 10.0000-14.0000 INR (test code = INR) 2.2000 0.0000-3.5000 [id number] 11:16:00 Test Item Value Reference Range Comments PT (test code = PT) 40.9000 s 10.0000-14.0000 INR (test code = INR) 3.4000 0.0000-3.5000 [id number] 02:08:00 Test Item Value Reference Range Comments PT (test code = PT) 75.5000 s 10.0000-14.0000 INR (test code = INR) 6.3000 0.0000-3.5000 [id number] 10:11:00 Test Item Value Reference Range Comments PT (test code = PT) 56.0000 s 10.0000-14.0000 INR (test code = INR) 4.7000 0.0000-3.5000 [id number] 03:01:00 Test Item Value Reference Range Comments PT (test code = PT) 45.6000 s 10.0000-14.0000 INR (test code = INR) 3.8000 0.0000-3.5000 [id number] 08:02:00 Test Item Value Reference Range Comments PT (test code = PT) 63.8000 s 10.0000-14.0000 INR (test code = INR) 5.3000 0.0000-3.5000 [id number] 11:52:00 Test Item Value Reference Range Comments PT (test code = PT) 43.6000 s 10.0000-14.0000 INR (test code = INR) 3.6000 0.0000-3.5000 [id number] 10:40:00 Test Item Value Reference Range Comments PT (test code = PT) 32.9000 s 10.0000-14.0000 INR (test code = INR) 2.7000 0.0000-3.5000 [id number] 11:51:00 Test Item Value Reference Range Comments PT (test code = PT) 22.8000 s 10.0000-14.0000 INR (test code = INR) 1.9000 0.0000-3.5000 [id number] 02:02:00 Test Item Value Reference Range Comments PT (test code = PT) 19.8000 s 10.0000-14.0000 INR (test code = INR) 1.6000 0.0000-3.5000 [id number] 12:30:00 Test Item Value Reference Range Comments PT (test code = PT) 38.2000 s 10.0000-14.0000 INR (test code = INR) 3.2000 0.0000-3.5000 [id number] 09:03:00 Test Item Value Reference Range Comments PT (test code = PT) 61.4000 s 10.0000-14.0000 INR (test code = INR) 5.1000 0.0000-3.5000 [id number] 10:10:00 Test Item Value Reference Range Comments PT (test code = PT) 19.5000 s 10.0000-14.0000 INR (test code = INR) 1.6000 0.0000-3.5000 [id number] 08:06:00 Test Item Value Reference Range Comments PT (test code = PT) 65.4000 s 10.0000-14.0000 INR (test code = INR) 5.5000 0.0000-3.5000 [id number] 11:59:00 Test Item Value Reference Range Comments PT (test code = PT) 44.5000 s 10.0000-14.0000 INR (test code = INR) 3.7000 0.0000-3.5000 [id number] 12:53:00 Test Item Value Reference Range Comments PT (test code = PT) 27.8000 s 10.0000-14.0000 INR (test code = INR) 2.3000 0.0000-3.5000 [id number] 11:57:00 Test Item Value Reference Range Comments PT (test code = PT) 22.6000 s 10.0000-14.0000 INR (test code = INR) 1.9000 0.0000-3.5000 [id number] 10:35:55 Test Item Value Reference Range Comments PT (test code = PT) 51.3000 s 14.0000-20.0000 INR (test code = INR) 4.3000 Coumadin, New [id number] 10:35:55 Test Item Value Reference Range Comments Coumadin, New Dose (test code = hold x 1 day, then 8mg PO QD Coumadin, New Dose) Coumadin, Current Dose (test 10mg QD code = Coumadin, Current Dose) Return [id number] 10:35:55 Test Item Value Reference Range Comments Return Date (test code = Return Date) 1 week RTC [id number] 10:28:00 Test Item Value Reference Range Comments PT (test code = PT) 51.3000 s 10.0000-14.0000 INR (test code = INR) 4.3000 0.0000-3.5000 [id number] 09:03:00 Test Item Value Reference Range Comments PT (test code = PT) 31.3000 s 10.0000-14.0000 INR (test code = INR) 2.6000 0.0000-3.5000 [id number] 09:06:00 Test Item Value Reference Range Comments PT (test code = PT) 37.3000 s 10.0000-14.0000 INR (test code = INR) 3.1000 0.0000-3.5000 [id number] 10:26:00 Test Item Value Reference Range Comments PT (test code = PT) 34.8000 s 10.0000-14.0000 INR (test code = INR) 2.9000 0.0000-3.5000 [id number] 11:32:00 Test Item Value Reference Range Comments PT (test code = PT) 16.4000 s 10.0000-14.0000 INR (test code = INR) 1.4000 0.0000-3.5000 [id number] 09:02:00 Test Item Value Reference Range Comments PT (test code = PT) 1.6000 s 10.0000-14.0000 INR (test code = INR) 19.2000 0.0000-3.5000 [id number] 09:01:00 Test Item Value Reference Range Comments PT (test code = PT) 24.8000 s 10.0000-14.0000 INR (test code = INR) 2.1000 0.0000-3.5000 [id number] 08:05:00 Test Item Value Reference Range Comments PT (test code = PT) 27.2000 s 10.0000-14.0000 INR (test code = INR) 2.3000 0.0000-3.5000 [id number] 08:00:00 Test Item Value Reference Range Comments PT (test code = PT) 60.2000 s 10.0000-14.0000 INR (test code = INR) 5.0000 0.0000-3.5000 [id number] 13:50:26 Test Item Value Reference Range Comments PT (test code = PT) 1.6000 s 14.0000-20.0000 INR (test code = INR) 19.8000 Coumadin, New [id number] 13:50:26 Test Item Value Reference Range Comments Coumadin, New Dose (test code = 6mg Coumadin, New Dose) Coumadin, Current Dose (test 5mg QD 6mg on Dialysis days code = Coumadin, Current Dose) Return [id number] 13:50:26 Test Item Value Reference Range Comments Return Date (test code = Return Date) RTC on 03/12/13 [id number] 11:15:31 Test Item Value Reference Range Comments PT (test code = PT) 24.2000 s 14.0000-20.0000 INR (test code = INR) 2.0000 Coumadin, Current [id number] 11:15:31 Test Item Value Reference Range Comments Coumadin, Current Dose (test code = 5mg QD dialysis days 6mg Coumadin, Current Dose) [id number] 11:35:00 Test Item Value Reference Range Comments PT (test code = PT) 84.2000 s 10.0000-14.0000 INR (test code = INR) 7.0000 0.0000-3.5000 [id number] 13:38:00 Test Item Value Reference Range Comments PT (test code = PT) 21.5000 s 14.0000-20.0000 INR (test code = INR) 1.8000 Coumadin, Current [id number] 13:38:00 Test Item Value Reference Range Comments Coumadin, Current Dose (test code = Coumadin, Current 5mg QD Dose) [id number] 09:27:40 Test Item Value Reference Range Comments PT (test code = PT) 24.6000 s 14.0000-20.0000 INR (test code = INR) 2.0000 Coumadin, Current [id number] 09:27:40 Test Item Value Reference Range Comments Coumadin, Current Dose (test code = Coumadin, Current 6mg QD Dose) [id number] 08:58:11 Test Item Value Reference Range Comments PT (test code = PT) 31.8000 s 14.0000-20.0000 INR (test code = INR) 2.7000 [id number] 09:08:32 Test Item Value Reference Range Comments PT (test code = PT) 40.1000 s 14.0000-20.0000 INR (test code = INR) 3.3000 Coumadin, New [id number] 09:08:32 Test Item Value Reference Range Comments Coumadin, New Dose (test code = Coumadin, New No Change Dose) Coumadin, Current Dose (test code = Coumadin, 6mg QD Current Dose) [id number] 09:07:00 Test Item Value Reference Range Comments PT (test code = PT) 28.4000 s 10.0000-14.0000 INR (test code = INR) 2.4000 0.0000-3.5000 [id number] 14:44:31 Test Item Value Reference Range Comments PT (test code = PT) 20.5000 s 14.0000-20.0000 INR (test code = INR) 1.7000 Coumadin, New [id number] 14:44:31 Test Item Value Reference Range Comments Coumadin, New Dose (test code = Coumadin, New Dose) 7mg Coumadin, Current Dose (test code = Coumadin, Current 6mg QD Dose) Return [id number] 14:44:31 Test Item Value Reference Range Comments Return Date (test code = Return Date) RTC 1 Week [id number] 13:38:07 Test Item Value Reference Range Comments PT (test code = PT) 32.1000 s 14.0000-20.0000 INR (test code = INR) 2.7000 Coumadin, Current [id number] 13:38:07 Test Item Value Reference Range Comments Coumadin, Current Dose (test 4mg and 6mg on days of code = Coumadin, Current treatment (Dialysis) Dose) [id number] 15:48:36 Test Item Value Reference Range Comments PT (test code = PT) 46.8000 s 14.0000-20.0000 INR (test code = INR) 3.9000 Coumadin, New [id number] 15:48:36 Test Item Value Reference Range Comments Coumadin, New Dose (test code = 6mg tues & fri and 4mg all Coumadin, New Dose) other days Coumadin, Current Dose (test 6mg tues and fri 4mg all code = Coumadin, Current Dose) other days Return [id number] 15:48:36 Test Item Value Reference Range Comments Return Date (test code = Return Date) RTC 1wk [id number] 10:28:17 Test Item Value Reference Range Comments PT (test code = PT) 26.1000 s 14.0000-20.0000 INR (test code = INR) 2.2000 Coumadin, Current [id number] 10:28:17 Test Item Value Reference Range Comments Coumadin, Current Dose (test 5mg when doing dialysis and code = Coumadin, Current Dose) 4mg the other days Coumadin, New Dose (test code 6mg Tu & Fri, 4mg all other = Coumadin, New Dose) days [id number] 08:04:00 Test Item Value Reference Range Comments WBC (test code = WBC) 11.7000 4.2000-10.0000 Lymphocytes % (test code = Lymphocytes %) 19.9000 % 22.400 0-43.6000 MID% (test code = MID%) 5.5000 % 1.2000-11.2000 Neutrophils % (test code = Neutrophils %) 74.6000 % 48.900 0-69.9000 Lymphocytes (test code = Lymphocytes) 2.3000 1.2000-3.2 000 MID (test code = MID) 0.7000 0.1000-1.1000 Neutrophils (test code = Neutrophils) 8.7000 1.5000-6.7 000 RBC (test code = RBC) 3.8200 4.5000-6.3000 HGB (test code = HGB) 11.7000 g/dL 14.0000-18.0000 HCT (test code = HCT) 36.1000 % 41.0000-51.0000 MCV (test code = MCV) 94.5000 fL 80.0000-94.0000 MCH (test code = MCH) 30.6000 pg 27.0000-34.0000 MCHC (test code = MCHC) 32.4000 g/dL 31.5000-36.0000 RDW (test code = RDW) 19.3000 11.0000-14.6000 PLT (test code = PLT) 210.0000 140.0000-440.0000 MPV (test code = MPV) 8.7000 fL 6.8000-10.6000 [id number] 08:33:06 Test Item Value Reference Range Comments PT (test code = PT) 40.2000 s 14.0000-20.0000 INR (test code = INR) 3.3000 Coumadin, New [id number] 08:33:06 Test Item Value Reference Range Comments Coumadin, New Dose (test code continue current dose = Coumadin, New Dose) Coumadin, Current Dose (test 5mg day before dialysis & 4mg code = Coumadin, Current Dose) all other days Return [id number] 08:33:06 Test Item Value Reference Range Comments Return Date (test code = Return Date) RTC 1 wk [id number] 08:03:00 Test Item Value Reference Range Comments PT (test code = PT) 27.8000 s 10.0000-14.0000 INR (test code = INR) 2.3000 0.0000-3.5000 [id number] 03:04:00 Test Item Value Reference Range Comments PT (test code = PT) 44.6000 s 10.0000-14.0000 INR (test code = INR) 3.7000 0.0000-3.5000 [id number] 13:21:38 Test Item Value Reference Range Comments PT (test code = PT) 16.7000 s 14.0000-20.0000 INR (test code = INR) 1.4000 Coumadin, New [id number] 13:21:38 Test Item Value Reference Range Comments Coumadin, New Dose (test code = alternate 4mg and 5mg QD Coumadin, New Dose) Coumadin, Current Dose (test code = 4mg QD Coumadin, Current Dose) Return [id number] 13:21:38 Test Item Value Reference Range Comments Return Date (test code = Return Date) RTC 1 wk [id number] 09:53:15 Test Item Value Reference Range Comments PT (test code = PT) 16.7000 s 14.0000-20.0000 INR (test code = INR) 1.4000 Coumadin, New [id number] 09:53:15 Test Item Value Reference Range Comments Coumadin, New Dose (test code = Coumadin, New Dose) 4mg QD Coumadin, Current Dose (test code = Coumadin, Current hold Dose) Return [id number] 09:53:15 Test Item Value Reference Range Comments Return Date (test code = Return Date) RTC 1wk [id number] 15:39:19 Test Item Value Reference Range Comments PT (test code = PT) 78.9000 s 14.0000-20.0000 INR (test code = INR) 6.6000 [id number] 14:08:04 Test Item Value Reference Range Comments PT (test code = PT) 91.7000 s 14.0000-20.0000 INR (test code = INR) 7.6000 Coumadin, New [id number] 14:08:04 Test Item Value Reference Range Comments Coumadin, New Dose (test code hold 11/16 & 11/17(pt already = Coumadin, New Dose) took todays dose) Coumadin, Current Dose (test 5mg QD code = Coumadin, Current Dose) Return [id number] 14:08:04 Test Item Value Reference Range Comments Return Date (test code = Return Date) RTC 11/18/12 [id number] 02:00:00 Test Item Value Reference Range Comments PT (test code = PT) 38.9000 s 10.0000-14.0000 INR (test code = INR) 3.2000 0.0000-3.5000 [id number] 10:17:20 Test Item Value Reference Range Comments PT (test code = PT) 39.4000 s 14.0000-20.0000 INR (test code = INR) 3.3000 Coumadin, New [id number] 10:17:20 Test Item Value Reference Range Comments Coumadin, New Dose (test code = Coumadin, New Dose) 5mg QD Coumadin, Current Dose (test code = Coumadin, Current 5mg QD Dose) Return [id number] 10:17:20 Test Item Value Reference Range Comments Return Date (test code = Return Date) 11/08/12 [id number] 15:39:38 Test Item Value Reference Range Comments PT (test code = PT) 54.8000 s 14.0000-20.0000 INR (test code = INR) 4.6000 Coumadin, New [id number] 15:39:38 Test Item Value Reference Range Comments Coumadin, New Dose (test code hold tonight, start tomorrow = Coumadin, New Dose) 5mg QD Coumadin, Current Dose (test 5mg QD code = Coumadin, Current Dose) Return [id number] 15:39:38 Test Item Value Reference Range Comments Return Date (test code = Return Date) RTC 1Week [id number] 14:57:08 Test Item Value Reference Range Comments PT (test code = PT) 30.4000 s 14.0000-20.0000 INR (test code = INR) 2.5000 Coumadin, New [id number] 14:57:08 Test Item Value Reference Range Comments Coumadin, New Dose (test code = Coumadin, continue 5mg QD New Dose) Coumadin, Current Dose (test code = 5mg QD Coumadin, Current Dose) Return [id number] 14:57:08 Test Item Value Reference Range Comments Return Date (test code = Return Date) RTC 1 week [id number] 16:06:54 Test Item Value Reference Range Comments PT (test code = PT) 31.8000 s 14.0000-20.0000 INR (test code = INR) 2.7000 Coumadin, Current [id number] 16:06:54 Test Item Value Reference Range Comments Coumadin, Current Dose (test code = Coumadin, Current 5mg QD Dose) [id number] 10:42:00 Test Item Value Reference Range Comments WBC (test code = WBC) 11.1000 4.2000-10.0000 MID% (test code = MID%) 5.3000 % 1.2000-11.2000 Lymphocytes % (test code = Lymphocytes %) 20.0000 % 22.400 0-43.6000 Neutrophils % (test code = Neutrophils %) 74.7000 % 48.900 0-69.9000 Lymphocytes (test code = Lymphocytes) 2.2000 1.2000-3.2 000 MID (test code = MID) 0.6000 0.1000-1.1000 Neutrophils (test code = Neutrophils) 8.3000 1.5000-6.7 000 RBC (test code = RBC) 3.3900 4.5000-6.3000 HGB (test code = HGB) 10.4000 g/dL 14.0000-18.0000 HCT (test code = HCT) 32.5000 % 41.0000-51.0000 MCV (test code = MCV) 95.9000 fL 80.0000-94.0000 MCH (test code = MCH) 30.6000 pg 27.0000-34.0000 MCHC (test code = MCHC) 31.9000 g/dL 31.5000-36.0000 RDW (test code = RDW) 18.6000 11.0000-14.6000 PLT (test code = PLT) 206.0000 140.0000-440.0000 MPV (test code = MPV) 8.1000 fL 6.8000-10.6000 PT (test code = PT) 28.6000 s 10.0000-14.0000 INR (test code = INR) 2.4000 0.0000-3.5000 Encounters Start End Encounter Admission Attending Care Care Encounter Date/Time Date/Time Type Type Clinicians Facility Department ID 2020-05-31 2020-05-31 Outpatient Janethguerda Janethguerda n [id number] 00:00:00 00:00:00 [facility] 2020-05-10 2020-05-10 Outpatient Janeth Janethguerda n [id number] 00:00:00 00:00:00 [facility] 2020-01-25 2020-01-25 Outpatient Janethguerda Janethguerda n [id number] 00:00:00 00:00:00 [facility] 2019-12-16 2019-12-16 Outpatient Danielmichele Janethguerda Jackman rn [id number] 00:00:00 [facility] 2019-12-15 2019-12-15 Daniel Vasquezmichele [facility] [id number] 00:00:00 00:00:00 Dr. Stephan abdi [facility] [place] 2019-12-14 2019-12-14 Outpatient Lm Fowlerer n [id number] 00:00:00 00:00:00 [facility] [place] 2019-10-05 2019-10-05 Outpatient Janether Janether n [id number] 00:00:00 00:00:00 [facility] [place] 2019-08-19 2019-08-19 Outpatient Lm Fowlerer n [id number] 00:00:00 00:00:00 [facility] [place] 2019-07-12 2019-07-12 Outpatient Lm Fowlerer n [id number] 00:00:00 00:00:00 [facility] [place] 2019-06-30 2019-06-30 Gopi Vasquezgabe [facility] [id number] 00:00:00 00:00:00 Dr. Stephan abdi [facility] [place] 2019-06-14 2019-06-14 Outpatient Danielmichele Janethguerda Jackman rn [id number] 00:00:00 00:00:00 [facility] [place] 2019-06-10 2019-06-10 Outpatient Danielmichele Lm Gasper rn [id number] 00:00:00 00:00:00 [facility] 2019-01-07 2019-01-07 Outpatient Lm Amato n [id number] 00:00:00 00:00:00 [facility] 2018-12-21 2018-12-21 Outpatient DanielmicheleLm rn [id number] 00:00:00 00:00:00 [facility] On[facility] 2018-12-17 2018-12-17 Outpatient Lm Fowlerer n [id number] 00:00:00 00:00:00 [facility] 2018-12-16 2018-12-16 Pedro Boyd [facility] [id number] 00:00:00 00:00:00 Willa Rothman [facility] 2018-12-03 2018-12-03 Outpatient Janether Janether n [id number] 00:00:00 00:00:00 [facility] [place] 2018-11-25 2018-11-25 Outpatient Sout[facility] Sout[facility] n [id number] 00:00:00 00:00:00 [facility] 2018-07-13 2018-07-13 Outpatient Lm Vasquez rn [id number] 00:00:00 00:00:00 [facility] [place] 2018-06-25 2018-06-25 Outpatient Janether Janether n [id number] 00:00:00 00:00:00 [facility] 2018-02-25 2018-02-25 Outpatient Southeaster Sout[facility] n [id number] 00:00:00 00:00:00 [facility] 2018-01-22 2018-01-22 Pedro Vasquez [facility] [id number] 00:00:00 00:00:00 Dr. Stephan abdi [facility] [place] 2017-11-05 2017-11-05 Outpatient Lm Fowlerer n [id number] 00:00:00 00:00:00 [facility] [place] 2017-11-03 2017-11-03 Outpatient Lm Vasquez rn [id number] 00:00:00 00:00:00 [facility] [place] 2017-09-01 2017-09-01 Pedro Vasquez, [facility] [id number] 00:00:00 00:00:00 Dr. Stephan abdi [facility] [place] 2017-08-07 2017-08-07 Pedro Vasquez, [facility] [id number] 00:00:00 00:00:00 Dr. Stephan abdi [facility] [place] 2017-07-17 2017-07-17 Outpatient Lm Vasquez rn [id number] 00:00:00 [facility] [place] 2017-07-01 2017-07-01 Outpatient Lm Janether n [id number] 00:00:00 00:00:00 [facility] [place] 2017-05-01 2017-05-01 Pedro Vasquez, [facility] [id number] 00:00:00 00:00:00 Dr. Stephan abdi [facility] [place] 2017-04-14 2017-04-14 Outpatient Lm Vasqueze rn [id number] 00:00:00 00:00:00 Stephan abdi [facility] [place] 2017-03-25 2017-03-25 Outpatient [facility] n [id number] 00:00:00 00:00:00 [facility] [place] 2017-03-13 2017-03-13 Outpatient [facility] n [id number] 00:00:00 00:00:00 [facility] [place] 2017-02-06 2017-02-06 Outpatient [facility] n [id number] 00:00:00 00:00:00 [facility] [place] 2017-01-13 2017-01-13 Pedro Vasquez, [facility] [id number] 00:00:00 00:00:00 Dr. Stephan abdi [facility] [place] 2016-12-12 2016-12-12 Outpatient [facility] n [id number] 00:00:00 00:00:00 [facility] [place] 2016-12-10 2016-12-10 Outpatient [facility] n [id number] 00:00:00 00:00:00 [facility] [place] 2016-12-09 2016-12-09 Pedro Vasquez, [facility] [id number] 00:00:00 00:00:00 Dr. Stephan abdi [facility] [place] 2016-12-04 2016-12-04 Outpatient [facility] n [id number] 00:00:00 00:00:00 n [facility] [place] 2016-09-11 2016-09-11 Outpatient [facility] n [id number] 00:00:00 00:00:00 n [facility] [place] 2016-08-12 2016-08-12 Outpatient [facility] n [id number] 00:00:00 00:00:00 [facility] [place] 2016-05-23 2016-05-23 Outpatient [facility] n [id number] 00:00:00 00:00:00 n [facility] 2016-05-08 2016-05-08 Outpatient Danielmichele Janethguerda Jackman rn [id number] 00:00:00 00:00:00 [facility] On[facility] Oncology [facility] 2016-05-05 2016-05-05 Outpatient Danielmichele Lm Gasper rn [id number] 00:00:00 00:00:00 [facility] Oncology [facility] 2016-04-10 2016-04-10 Outpatient DanielmicheleLm rn [id number] 00:00:00 00:00:00 [facility] 2016-04-02 2016-04-02 Daniel Vasquezmichele [facility] [id number] 00:00:00 00:00:00 Dr. Stephan Rothman [facility] 2016-03-28 2016-03-28 Outpatient Janethguerda Fowlerguerda n [id number] 00:00:00 00:00:00 [facility] On[facility] 2016-03-27 2016-03-27 Outpatient Lm Janethguerda n [id number] 00:00:00 00:00:00 [facility] Oncology [facility] 2016-02-14 2016-02-14 Outpatient Janethguerda Fowlerguerda n [id number] 00:00:00 00:00:00 [facility] Oncology [facility] 2016-02-05 2016-02-05 Daniel Vasquezmichele [facility] [id number] 00:00:00 00:00:00 Dr. Stephan Rothman [facility] On[facility] Oncology [facility] 2016-01-28 2016-01-28 Outpatient Lm Vasquez rn [id number] 00:00:00 00:00:00 [facility] On[facility] Oncology [facility] 2016-01-17 2016-01-17 Outpatient Janethguerda Fowlerguerda n [id number] 00:00:00 00:00:00 [facility] On[facility] 2016-01-15 2016-01-15 Outpatient Lm Vasquez rn [id number] 00:00:00 00:00:00 [facility] Oncology [facility] 2015-12-26 2015-12-26 Outpatient Janethguerda Fowlerguerda n [id number] 00:00:00 00:00:00 [facility] Oncology [facility] 2015-12-14 2015-12-14 Outpatient Lm Vasquez Gasper rn [id number] 00:00:00 00:00:00 [facility] Oncology [facility] 2015-12-13 2015-12-13 Pedro Vasquez [facility] [id number] 00:00:00 00:00:00 Dr. Rothman [facility] On[facility] Oncology [facility] 2015-12-12 2015-12-12 Outpatient Lm Vasquez Gasper rn [id number] 00:00:00 00:00:00 [facility] Oncology [facility] 2015-12-11 2015-12-11 Outpatient Lm Vasqueze rn [id number] 00:00:00 00:00:00 [facility] On[facility] Oncology [facility] 2015-11-28 2015-11-28 Outpatient Lm Vasquez Gasper rn [id number] 00:00:00 00:00:00 [facility] Oncology [facility] 2015-11-19 2015-11-19 Outpatient Gopigabe Lm Gasper rn [id number] 00:00:00 00:00:00 [facility] On[facility] Oncology [facility] 2015-11-16 2015-11-16 Outpatient Lm Vasquezqasim rn [id number] 00:00:00 00:00:00 [facility] On[facility] Oncology [facility] 2015-11-15 2015-11-15 Outpatient Lm Vasquezqasim rn [id number] 00:00:00 00:00:00 [facility] On[facility] Oncology [facility] 2015-11-06 2015-11-06 Outpatient Gopigabe Lm Gasper rn [id number] 00:00:00 00:00:00 [facility] Oncology Oncology [facility] 2015-10-25 2015-10-25 Outpatient Lm Vasquez Janethe rn [id number] 00:00:00 00:00:00 [facility] On[facility] Oncology [facility] 2015-10-18 2015-10-18 Outpatient GopiLm bernal Janethe rn [id number] 00:00:00 00:00:00 [facility] Oncology Oncology [facility] 2015-10-16 2015-10-16 Outpatient Janethguerda Fowlerguerda n [id number] 00:00:00 00:00:00 [facility] Oncology [facility] 2015-10-10 2015-10-10 Outpatient Lm Janethguerda n [id number] 00:00:00 00:00:00 [facility] On[facility] 2015-10-04 2015-10-04 Outpatient Lm Janethguerda n [id number] 00:00:00 00:00:00 [facility] Oncology [facility] 2015-09-21 2015-09-21 Outpatient Lm Vasquez rn [id number] 00:00:00 00:00:00 [facility] On[facility] Oncology [facility] 2015-09-14 2015-09-14 Outpatient Lm Vasquez rn [id number] 00:00:00 00:00:00 [facility] On[facility] Oncology [facility] 2015-09-04 2015-09-04 Outpatient Lm Vasquez rn [id number] 00:00:00 00:00:00 [facility] On[facility] Oncology [facility] 2015-08-23 2015-08-23 Outpatient Lm Vasquez rn [id number] 00:00:00 00:00:00 [facility] On[facility] Oncology [facility] 2015-08-21 2015-08-21 Outpatient Lm Vasquez rn [id number] 00:00:00 00:00:00 [facility] Oncology [facility] 2015-08-14 2015-08-14 Outpatient Lm Vasquez rn [id number] 00:00:00 00:00:00 [facility] Oncology [facility] 2015-08-07 2015-08-07 Outpatient Lm Vasquez rn [id number] 00:00:00 00:00:00 [facility] Oncology [facility] 2015-08-06 2015-08-06 Outpatient Lm Vasquez rn [id number] 00:00:00 00:00:00 [facility] Oncology [facility] 2015-08-01 2015-08-01 Outpatient Lm Amato n [id number] 00:00:00 00:00:00 [facility] 2015-07-30 2015-07-30 Outpatient Lm Amato n [id number] 00:00:00 00:00:00 [facility] 2015-07-17 2015-07-17 Outpatient Lm Vasquez rn [id number] 00:00:00 00:00:00 [facility] 2015-07-11 2015-07-11 Outpatient Lm Vasquez rn [id number] 00:00:00 00:00:00 [facility] Oncology Oncology [facility] 2015-06-27 2015-06-27 Outpatient Lm Vasquez rn [id number] 00:00:00 00:00:00 [facility] Oncology Oncology [facility] 2015-06-25 2015-06-25 Outpatient Lm Vasquez rn [id number] 00:00:00 00:00:00 [facility] 2015-06-20 2015-06-20 Outpatient Lm Amato n [id number] 00:00:00 00:00:00 [facility] Oncology Oncology [facility] 2015-06-15 2015-06-15 Outpatient Lm Vasquez rn [id number] 00:00:00 00:00:00 [facility] Oncology Oncology [facility] 2015-06-06 2015-06-06 Outpatient Lm Vasquez rn [id number] 00:00:00 00:00:00 [facility] Oncology Oncology [facility] 2015-05-30 2015-05-30 Outpatient Lm Vasquez rn [id number] 00:00:00 00:00:00 [facility] Oncology Oncology [facility] 2015-05-10 2015-05-10 Outpatient Lm Amato n [id number] 00:00:00 00:00:00 [facility] Oncology Oncology [facility] 2015-05-09 2015-05-09 Outpatient Lm Vasquez rn [id number] 00:00:00 00:00:00 [facility] Oncology Oncology [facility] 2015-05-07 2015-05-07 Outpatient Lm Vasqueze rn [id number] 00:00:00 00:00:00 [facility] Oncology Oncology [facility] 2015-05-02 2015-05-02 Outpatient Lm Vasquez rn [id number] 00:00:00 00:00:00 [facility] Oncology Oncology [facility] 2015-04-19 2015-04-19 Pedro Vasquez [facility] [id number] 00:00:00 00:00:00 Dr. Rothman [facility] Oncology Oncology [facility] 2015-04-05 2015-04-05 Outpatient Lm Vasquez rn [id number] 00:00:00 00:00:00 [facility] Oncology Oncology [facility] 2015-03-28 2015-03-28 Outpatient Lm Vasquez rn [id number] 00:00:00 00:00:00 [facility] Oncology Oncology [facility] 2015-03-20 2015-03-20 Outpatient Lm Vasquez rn [id number] 00:00:00 00:00:00 [facility] Oncology Oncology [facility] 2015-03-19 2015-03-19 Outpatient Lm Vasquez rn [id number] 00:00:00 00:00:00 [facility] Oncology Oncology [facility] 2015-03-13 2015-03-13 Outpatient Lm Vasquez rn [id number] 00:00:00 00:00:00 [facility] Oncology Oncology [facility] 2015-03-08 2015-03-08 Outpatient Lm Vasquez rn [id number] 00:00:00 00:00:00 [facility] Oncology Oncology [facility] 2015-02-20 2015-02-20 Outpatient Lm Vasquez rn [id number] 00:00:00 00:00:00 [facility] Oncology Oncology [facility] 2015-02-12 2015-02-12 Outpatient Lm Vasquez rn [id number] 00:00:00 00:00:00 [facility] Oncology Oncology [facility] 2015-02-05 2015-02-05 Outpatient Lm Amato n [id number] 00:00:00 00:00:00 [facility] Oncology Oncology [facility] 2015-01-30 2015-01-30 Outpatient Lm Vasquez rn [id number] 00:00:00 00:00:00 [facility] Oncology Oncology [facility] 2015-01-22 2015-01-22 Outpatient Lm Vasquez rn [id number] 00:00:00 00:00:00 [facility] Oncology Oncology [facility] 2015-01-15 2015-01-15 Outpatient Lm Vasquez rn [id number] 00:00:00 00:00:00 [facility] 2015-01-10 2015-01-10 [facility] GopiifeomaLm bautista amadou [id number] 00:00:00 00:00:00 Eden Callejas [facility] Oncology Oncology [facility] 2015-01-05 2015-01-05 Outpatient Lm Amato n [id number] 00:00:00 00:00:00 [facility] Oncology Oncology [facility] 2015-01-04 2015-01-04 Dr. Pedro Ayala [facility] [id number] 00:00:00 00:00:00 Eugene Enamorado [facility] 2015-01-02 2015-01-02 Outpatient Lm Vasqueze rn [id number] 00:00:00 00:00:00 [facility] Oncology Oncology [facility] 2014-12-25 2014-12-25 Outpatient Lm Vasqueze rn [id number] 00:00:00 00:00:00 [facility] Oncology Oncology [facility] 2014-12-22 2014-12-22 Outpatient Lm Vasqueze rn [id number] 00:00:00 00:00:00 [facility] Oncology Oncology [facility] 2014-12-19 2014-12-19 Pedro Vasquez [facility] [id number] 00:00:00 00:00:00 Dr. Rothman [facility] Oncology Oncology [facility] 2014-12-17 2014-12-17 Outpatient Lm Amato n [id number] 00:00:00 00:00:00 [facility] Oncology Oncology [facility] 2014-12-12 2014-12-12 Outpatient Lm Vasquez rn [id number] 00:00:00 00:00:00 [facility] Oncology Oncology [facility] 2014-12-01 2014-12-01 Outpatient Lm Amato n [id number] 00:00:00 00:00:00 [facility] Oncology Oncology [facility] 2014-11-28 2014-11-28 Outpatient Lm Vasqueze rn [id number] 00:00:00 00:00:00 [facility] Oncology Oncology [facility] 2014-11-16 2014-11-16 Pedro Vasquez [facility] [id number] 00:00:00 00:00:00 Dr. Rothman [facility] Oncology Oncology [facility] 2014-11-09 2014-11-09 Outpatient Lm Vasquez rn [id number] 00:00:00 00:00:00 [facility] Oncology Oncology [facility] 2014-11-01 2014-11-01 Outpatient DanielmicheleLm rn [id number] 00:00:00 00:00:00 [facility] Oncology Oncology [facility] 2014-10-25 2014-10-25 Outpatient Lm Vasqueze rn [id number] 00:00:00 00:00:00 [facility] Oncology Oncology [facility] 2014-10-18 2014-10-18 Outpatient Lm Vasquez rn [id number] 00:00:00 00:00:00 [facility] Oncology Oncology [facility] 2014-10-16 2014-10-16 Outpatient Lm Vasquez rn [id number] 00:00:00 00:00:00 [facility] Oncology Oncology [facility] 2014-10-09 2014-10-09 Outpatient DanielmicheleLm rn [id number] 00:00:00 00:00:00 [facility] Oncology Oncology [facility] 2014-09-25 2014-09-25 Outpatient DanielmicheleLm rn [id number] 00:00:00 00:00:00 [facility] Oncology Oncology [facility] 2014-09-19 2014-09-19 Outpatient DanielmicheleLm rn [id number] 00:00:00 00:00:00 [facility] Oncology Oncology [facility] 2014-09-06 2014-09-06 Outpatient Lm Vasqueze rn [id number] 00:00:00 00:00:00 [facility] Oncology Oncology [facility] 2014-08-31 2014-08-31 Outpatient Lm Vasqueze rn [id number] 00:00:00 00:00:00 [facility] Oncology Oncology [facility] 2014-08-24 2014-08-24 Outpatient Lm Vasqueze rn [id number] 00:00:00 00:00:00 [facility] Oncology Oncology [facility] 2014-08-15 2014-08-15 Outpatient Lm Vasqueze rn [id number] 00:00:00 00:00:00 [facility] Oncology Oncology [facility] 2014-08-07 2014-08-07 Outpatient Lm Vasquez rn [id number] 00:00:00 00:00:00 [facility] Oncology Oncology [facility] 2014-08-01 2014-08-01 Outpatient Lm Amato n [id number] 00:00:00 00:00:00 [facility] Oncology Oncology [facility] 2014-07-28 2014-07-28 Outpatient Lm Vasquez rn [id number] 00:00:00 00:00:00 [facility] Oncology Oncology [facility] 2014-07-25 2014-07-25 Outpatient Lm Vasquez rn [id number] 00:00:00 00:00:00 [facility] Oncology Oncology [facility] 2014-07-21 2014-07-21 Outpatient Lm Vasquez rn [id number] 00:00:00 00:00:00 [facility] Oncology Oncology [facility] 2014-07-18 2014-07-18 AtkinsPedro [facility] [id number] 00:00:00 00:00:00 [facility] Oncology Oncology [facility] 2014-07-14 2014-07-14 Outpatient Lm Vasquez rn [id number] 00:00:00 00:00:00 [facility] Oncology Oncology [facility] 2014-07-10 2014-07-10 Outpatient Lm Vasquez rn [id number] 00:00:00 00:00:00 [facility] Oncology Oncology [facility] 2014-07-03 2014-07-03 Outpatient Lm Vasquez rn [id number] 00:00:00 00:00:00 [facility] Oncology Oncology [facility] 2014-06-26 2014-06-26 Outpatient Lm Vasquez rn [id number] 00:00:00 00:00:00 [facility] Oncology Oncology [facility] 2014-06-21 2014-06-21 Outpatient Lm Vasquez rn [id number] 00:00:00 00:00:00 [facility] Oncology Oncology [facility] 2014-06-12 2014-06-12 Outpatient Lm Vasquez rn [id number] 00:00:00 00:00:00 [facility] Oncology Oncology [facility] 2014-06-06 2014-06-06 Outpatient Lm Vasquez rn [id number] 00:00:00 00:00:00 [facility] Oncology Oncology [facility] 2014-05-29 2014-05-29 Outpatient Lm Vasquez rn [id number] 00:00:00 00:00:00 [facility] Oncology Oncology [facility] 2014-05-18 2014-05-18 Outpatient Lm Vasquez rn [id number] 00:00:00 00:00:00 [facility] Oncology Oncology [facility] 2014-05-10 2014-05-10 Outpatient Lm Vasquez rn [id number] 00:00:00 00:00:00 [facility] Oncology Oncology [facility] 2014-05-08 2014-05-08 Outpatient Lm Vasquez rn [id number] 00:00:00 00:00:00 [facility] Oncology Oncology [facility] 2014-04-18 2014-04-18 Outpatient Lm Amato n [id number] 00:00:00 00:00:00 [facility] Oncology Oncology [facility] 2014-04-17 2014-04-17 Outpatient Lm Vasquez rn [id number] 00:00:00 00:00:00 [facility] Oncology Oncology [facility] 2014-04-12 2014-04-12 Outpatient Lm Vasquez rn [id number] 00:00:00 00:00:00 [facility] Oncology Oncology [facility] 2014-04-03 2014-04-03 Outpatient Lm Vasquez rn [id number] 00:00:00 00:00:00 [facility] Oncology Oncology [facility] 2014-03-27 2014-03-27 Outpatient Lm Vasquez rn [id number] 00:00:00 00:00:00 [facility] Oncology Oncology [facility] 2014-03-22 2014-03-22 Outpatient Lm Vasquez rn [id number] 00:00:00 00:00:00 [facility] Oncology Oncology [facility] 2014-03-20 2014-03-20 Outpatient Lm Vasquez rn [id number] 00:00:00 00:00:00 [facility] 2014-03-06 2014-03-06 Outpatient Pedro Janethguerda Jackman rn [id number] 00:00:00 00:00:00 [facility] Oncology Oncology [facility] 2014-02-13 2014-02-13 Outpatient Lm Vasquez rn [id number] 00:00:00 00:00:00 [facility] Oncology Oncology [facility] 2014-01-30 2014-01-30 Outpatient Lm Vasquez rn [id number] 00:00:00 00:00:00 [facility] Oncology Oncology [facility] 2014-01-23 2014-01-23 Outpatient Lm Vasquez rn [id number] 00:00:00 00:00:00 [facility] Oncology Oncology [facility] 2014-01-16 2014-01-16 Outpatient Lm Amato n [id number] 00:00:00 00:00:00 [facility] Oncology Oncology [facility] 2014-01-09 2014-01-09 Outpatient Lm Vasquez rn [id number] 00:00:00 00:00:00 [facility] Oncology Oncology [facility] 2014-01-04 2014-01-04 Outpatient Danielmicheel Janethguerda Jackman rn [id number] 00:00:00 00:00:00 [facility] Oncology Oncology [facility] 2013-12-26 2013-12-26 Outpatient Danielmichele Janethguerda Jackman rn [id number] 00:00:00 00:00:00 [facility] Oncology Oncology [facility] 2013-12-19 2013-12-19 Outpatient Lm Vasquez rn [id number] 00:00:00 00:00:00 [facility] Oncology Oncology [facility] 2013-12-12 2013-12-12 Outpatient Lm Vasquez rn [id number] 00:00:00 00:00:00 [facility] Oncology Oncology [facility] 2013-12-05 2013-12-05 Outpatient Lm Amato n [id number] 00:00:00 00:00:00 [facility] Oncology Oncology [facility] 2013-12-02 2013-12-02 Lm Burch [id number] 00:00:00 00:00:00 [facility] Oncology Oncology [facility] 2013-11-07 2013-11-07 Outpatient Lm Vasquez rn [id number] 00:00:00 00:00:00 [facility] Oncology Oncology [facility] 2013-10-31 2013-10-31 Outpatient Lm Vasquez rn [id number] 00:00:00 00:00:00 [facility] Oncology Oncology [facility] 2013-10-24 2013-10-24 Outpatient Lm Amato n [id number] 00:00:00 00:00:00 [facility] Oncology Oncology [facility] 2013-10-17 2013-10-17 Outpatient Lm Vasquez rn [id number] 00:00:00 00:00:00 [facility] Oncology Oncology [facility] 2013-10-10 2013-10-10 Outpatient Lm Vasquez rn [id number] 00:00:00 00:00:00 [facility] Oncology Oncology [facility] 2013-10-03 2013-10-03 Outpatient Lm Amato n [id number] 00:00:00 00:00:00 [facility] Oncology Oncology [facility] 2013-09-26 2013-09-26 Outpatient Lm Vasquez rn [id number] 00:00:00 00:00:00 [facility] Oncology Oncology [facility] 2013-09-19 2013-09-19 Outpatient Lm Vasquez rn [id number] 00:00:00 00:00:00 [facility] Oncology Oncology [facility] 2013-09-12 2013-09-12 Outpatient Lm Vasquez rn [id number] 00:00:00 00:00:00 [facility] Oncology Oncology [facility] 2013-09-05 2013-09-05 Outpatient Lm Vasqueze rn [id number] 00:00:00 00:00:00 [facility] Oncology Oncology [facility] 2013-08-31 2013-08-31 Miss Pedro Hogan [facility] amadou [id number] 00:00:00 00:00:00 Eden Callejas [facility] Oncology Oncology [facility] 2013-08-29 2013-08-29 Outpatient Lm Vasqueze rn [id number] 00:00:00 00:00:00 [facility] Oncology Oncology [facility] 2013-08-26 2013-08-26 Outpatient Lm Vasquez rn [id number] 00:00:00 00:00:00 [facility] Oncology Oncology [facility] 2013-08-22 2013-08-22 Outpatient Lm Vasquez rn [id number] 00:00:00 00:00:00 [facility] Oncology Oncology [facility] 2013-08-15 2013-08-15 Outpatient Lm Vasquez rn [id number] 00:00:00 00:00:00 [facility] Oncology Oncology [facility] 2013-08-08 2013-08-08 Outpatient Lm Vasquez rn [id number] 00:00:00 00:00:00 [facility] Oncology Oncology [facility] 2013-08-01 2013-08-01 Outpatient Lm Amato n [id number] 00:00:00 00:00:00 [facility] Oncology Oncology [facility] 2013-07-27 2013-07-27 Outpatient Lm Vasquez rn [id number] 00:00:00 00:00:00 [facility] Oncology Oncology [facility] 2013-07-25 2013-07-25 Outpatient Lm Amato n [id number] 00:00:00 00:00:00 [facility] Oncology Oncology [facility] 2013-07-20 2013-07-20 Outpatient Lm Vasquez rn [id number] 00:00:00 00:00:00 [facility] Oncology Oncology [facility] 2013-07-18 2013-07-18 Outpatient Lm Vasquez rn [id number] 00:00:00 00:00:00 [facility] Oncology Oncology [facility] 2013 2013 Outpatient Lm Vasquez rn [id number] 00:00:00 00:00:00 [facility] Oncology Oncology [facility] 2013-07-11 2013-07-11 Outpatient Lm Vasquez rn [id number] 00:00:00 00:00:00 [facility] Oncology Oncology [facility] 2013-07-04 2013-07-04 Outpatient Lm Vasquez rn [id number] 00:00:00 00:00:00 [facility] Oncology Oncology [facility] 2013-06-27 2013-06-27 Outpatient Lm Vasquez rn [id number] 00:00:00 00:00:00 [facility] Oncology Oncology [facility] 2013-06-20 2013-06-20 Outpatient Lm Vasquez rn [id number] 00:00:00 00:00:00 [facility] Oncology Oncology [facility] 2013-06-13 2013-06-13 Outpatient Lm Vasquez rn [id number] 00:00:00 00:00:00 [facility] Oncology Oncology [facility] 2013-06-02 2013-06-02 Outpatient Lm Vasquez rn [id number] 00:00:00 00:00:00 [facility] Oncology Oncology [facility] 2013-05-24 2013-05-24 Outpatient Lm Vasquez rn [id number] 00:00:00 00:00:00 [facility] Oncology Oncology [facility] 2013-05-19 2013-05-19 Outpatient Lm Vasquez rn [id number] 00:00:00 00:00:00 [facility] Oncology Oncology [facility] 2013-05-11 2013-05-11 Outpatient Lm Vasquez rn [id number] 00:00:00 00:00:00 [facility] Oncology [facility] 2013-05-05 2013-05-05 Outpatient Lm Vasquez rn [id number] 00:00:00 00:00:00 [facility] Oncology Oncology [facility] 2013-04-27 2013-04-27 Pedro Vasquez [facility] [id number] 00:00:00 00:00:00 Dr. Rothman [facility] Oncology Oncology [facility] 2013-04-25 2013-04-25 Outpatient Lm Vasquez rn [id number] 00:00:00 00:00:00 [facility] Oncology Oncology [facility] 2013-04-20 2013-04-20 Outpatient Lm Vasquez rn [id number] 00:00:00 00:00:00 [facility] Oncology Oncology [facility] 2013-04-18 2013-04-18 Outpatient Lm Vasquez rn [id number] 00:00:00 00:00:00 [facility] Oncology Oncology [facility] 2013-04-14 2013-04-14 Outpatient Lm Vasquez rn [id number] 00:00:00 00:00:00 [facility] Oncology Oncology [facility] 2013-04-13 2013-04-13 Outpatient Lm Fowlerguerda n [id number] 00:00:00 00:00:00 [facility] Oncology Oncology [facility] 2013-04-12 2013-04-12 Outpatient Lm Vasquez rn [id number] 00:00:00 00:00:00 [facility] Oncology Oncology [facility] 2013-04-04 2013-04-04 Outpatient Lm Vasquez rn [id number] 00:00:00 00:00:00 [facility] Oncology Oncology [facility] 2013-03-28 2013-03-28 Outpatient Lm Vasquez rn [id number] 00:00:00 00:00:00 [facility] Oncology Oncology [facility] 2013-03-23 2013-03-23 Outpatient Lm Vasquez rn [id number] 00:00:00 00:00:00 [facility] Oncology Oncology [facility] 2013-03-14 2013-03-14 Outpatient Janethguerda Janethguerda n [id number] 00:00:00 00:00:00 [facility] Oncology Oncology [facility] 2013-03-07 2013-03-07 Outpatient Lm Janethguerda n [id number] 00:00:00 00:00:00 [facility] Oncology Oncology [facility] 2013-02-28 2013-02-28 Outpatient Lm Vasquez rn [id number] 00:00:00 00:00:00 [facility] Oncology Oncology [facility] 2013-02-21 2013-02-21 Outpatient Lm Vasquez rn [id number] 00:00:00 00:00:00 [facility] Oncology Oncology [facility] 2013-02-15 2013-02-15 Outpatient Lm Vasquez rn [id number] 00:00:00 00:00:00 [facility] Oncology Oncology [facility] 2013-02-07 2013-02-07 Outpatient Lm Amato n [id number] 00:00:00 00:00:00 [facility] Oncology Oncology [facility] 2013-02-02 2013-02-02 Outpatient Lm Vasquez rn [id number] 00:00:00 00:00:00 [facility] Oncology Oncology [facility] 2013-01-31 2013-01-31 Outpatient Lm Vasquezqasim rn [id number] 00:00:00 00:00:00 [facility] Oncology Oncology [facility] 2013-01-27 2013-01-27 Outpatient Lm Vasquezqasim rn [id number] 00:00:00 00:00:00 [facility] Oncology Oncology [facility] 2013-01-12 2013-01-12 DanielPedro bautista [facility] [id number] 00:00:00 00:00:00 Stephan [facility] Oncology Oncology [facility] 2013-01-10 2013-01-10 Outpatient Danielmichele Lm Gasper rn [id number] 00:00:00 00:00:00 [facility] Oncology Oncology [facility] 2013-01-04 2013-01-04 Outpatient Danielmichele Lm Gasper rn [id number] 00:00:00 00:00:00 [facility] Oncology Oncology [facility] 2012-12-27 2012-12-27 Outpatient GopiLm bernalqasim rn [id number] 00:00:00 00:00:00 [facility] Oncology Oncology [facility] 2012-12-20 2012-12-20 Outpatient GopiLm bernalqasim rn [id number] 00:00:00 00:00:00 [facility] Oncology Oncology [facility] 2012-12-13 2012-12-13 Outpatient Danielmichele Lm Fowlerqasim rn [id number] 00:00:00 00:00:00 [facility] Oncology Oncology [facility] 2012-12-06 2012-12-06 Outpatient Danielmichele Lm Gasper rn [id number] 00:00:00 00:00:00 [facility] Oncology Oncology [facility] 2012-11-30 2012-11-30 Outpatient Danielmichele Lm Gasper rn [id number] 00:00:00 00:00:00 [facility] Oncology Oncology [facility] 2012-11-22 2012-11-22 Outpatient Danielmichele Lm Gasper rn [id number] 00:00:00 00:00:00 [facility] Oncology Oncology [facility] 2012-11-18 2012-11-18 Outpatient Lm Vasqueze rn [id number] 00:00:00 00:00:00 [facility] 2012-11-16 2012-11-16 Outpatient Lm Vasqueze rn [id number] 00:00:00 00:00:00 [facility] 2012-11-15 2012-11-15 Outpatient Gopigabe Lm Fowlere rn [id number] 00:00:00 00:00:00 [facility] 2012-11-11 2012-11-11 Outpatient GopiLm bernale rn [id number] 00:00:00 00:00:00 [facility] 2012-11-10 2012-11-10 Outpatient Gopigabe Lm Fowlere rn [id number] 00:00:00 00:00:00 [facility] Oncology Oncology [facility] 2012-11-08 2012-11-08 Edison Lm Myers amadou [id number] 00:00:00 00:00:00 Eden Callejas [facility] Oncology [facility] 2012-11-03 2012-11-03 Outpatient Lm Amato n [id number] 00:00:00 00:00:00 [facility] Oncology Oncology [facility] 2012-11-01 2012-11-01 Outpatient Lm Amato n [id number] 00:00:00 00:00:00 [facility] Oncology Oncology [facility] 2012-10-25 2012-10-25 Outpatient Lm Amato n [id number] 00:00:00 00:00:00 [facility] On[facility] 2012-10-18 2012-10-18 Outpatient Gopigabe Lm Fowlere rn [id number] 00:00:00 00:00:00 [facility] 2012-10-13 2012-10-13 Outpatient Lm Amato n [id number] 00:00:00 00:00:00 [facility] On[facility] 2012-10-11 2012-10-11 Daniel Vasquezmichele Janethguerda [facility] [id number] 00:00:00 00:00:00 Dr. Stephan Rothman [facility] Oncology Oncology [facility] 2012-10-07 2012-10-07 Outpatient [facility] n [id number] 00:00:00 00:00:00 n [facility] Oncology Oncology [facility] 2012-09-27 2012-09-27 Outpatient [facility] n [id number] 00:00:00 00:00:00 n [facility] Immunizations Ordered Immunization Filled Immunization Date Status Commen ts Refusal Reason Name Name Influenza Virus 2014-05-10 Completed Vaccine Split 00:00:00 Influenza Virus 2014-05-10 Completed Vaccine Split 00:00:00 Social History Smoking Status Start Date Stop Date Never 2020-05-31 00:00:00 Social History Observation Description Sex Female Vital Signs Vital Name Observation Time Observation Value Comments BMI 2020-05-31 14:37:30 30.5300 BP olea 2020-05-31 14:37:30 89.0000 mm[Hg] Bdy height 2020-05-31 14:37:30 62.7500 [in_i] SaO2% BldA PulseOx 2020-05-31 14:37:30 94.0000 % Heart rate 2020-05-31 14:37:30 91.0000 /min Resp rate 2020-05-31 14:37:30 16.0000 /min BP sys 2020-05-31 14:37:30 126.0000 mm[Hg] Body temperature 2020-05-31 14:37:30 99.1000 [degF] Weight 2020-05-31 14:37:30 171.0000 [lb_av] BMI 2019-12-15 10:56:06 27.8200 BP olea 2019-12-15 10:56:06 75.0000 mm[Hg] Bdy height 2019-12-15 10:56:06 62.7500 [in_i] SaO2% BldA PulseOx 2019-12-15 10:56:06 96.0000 % Heart rate 2019-12-15 10:56:06 86.0000 /min Resp rate 2019-12-15 10:56:06 16.0000 /min BP sys 2019-12-15 10:56:06 100.0000 mm[Hg] Body temperature 2019-12-15 10:56:06 98.0000 [degF] Weight 2019-12-15 10:56:06 155.8000 [lb_av] BMI 2019-06-30 11:21:27 27.3900 BP olea 2019-06-30 11:21:27 72.0000 mm[Hg] Bdy height 2019-06-30 11:21:27 62.7500 [in_i] SaO2% BldA PulseOx 2019-06-30 11:21:27 95.0000 % Heart rate 2019-06-30 11:21:27 81.0000 /min Resp rate 2019-06-30 11:21:27 16.0000 /min BP sys 2019-06-30 11:21:27 121.0000 mm[Hg] Body temperature 2019-06-30 11:21:27 97.4000 [degF] Weight 2019-06-30 11:21:27 153.4000 [lb_av] BMI 2018-12-16 09:01:17 25.8200 BP olea 2018-12-16 09:01:17 100.0000 mm[Hg] Bdy height 2018-12-16 09:01:17 62.7500 [in_i] Heart rate 2018-12-16 09:01:17 107.0000 /min Resp rate 2018-12-16 09:01:17 18.0000 /min BP sys 2018-12-16 09:01:17 162.0000 mm[Hg] Body temperature 2018-12-16 09:01:17 98.0000 [degF] Weight 2018-12-16 09:01:17 144.6000 [lb_av] BMI 2018-01-22 13:53:17 26.2500 BP olea 2018-01-22 13:53:17 93.0000 mm[Hg] Bdy height 2018-01-22 13:53:17 62.7500 [in_i] Heart rate 2018-01-22 13:53:17 88.0000 /min Resp rate 2018-01-22 13:53:17 16.0000 /min BP sys 2018-01-22 13:53:17 145.0000 mm[Hg] Body temperature 2018-01-22 13:53:17 98.4000 [degF] Weight 2018-01-22 13:53:17 147.0000 [lb_av] BMI 2017-09-01 11:48:43 27.6400 BP olea 2017-09-01 11:48:43 90.0000 mm[Hg] Bdy height 2017-09-01 11:48:43 62.7500 [in_i] Heart rate 2017-09-01 11:48:43 80.0000 /min Resp rate 2017-09-01 11:48:43 16.0000 /min BP sys 2017-09-01 11:48:43 127.0000 mm[Hg] Body temperature 2017-09-01 11:48:43 98.0000 [degF] Weight 2017-09-01 11:48:43 154.8000 [lb_av] BMI 2017-08-07 13:34:23 27.8500 BP olea 2017-08-07 13:34:23 95.0000 mm[Hg] Bdy height 2017-08-07 13:34:23 62.7500 [in_i] Heart rate 2017-08-07 13:34:23 92.0000 /min Resp rate 2017-08-07 13:34:23 16.0000 /min BP sys 2017-08-07 13:34:23 156.0000 mm[Hg] Body temperature 2017-08-07 13:34:23 98.2000 [degF] Weight 2017-08-07 13:34:23 156.0000 [lb_av] BMI 2017-05-01 11:21:02 28.7500 BP olea 2017-05-01 11:21:02 99.0000 mm[Hg] Bdy height 2017-05-01 11:21:02 62.7500 [in_i] Heart rate 2017-05-01 11:21:02 87.0000 /min Resp rate 2017-05-01 11:21:02 18.0000 /min BP sys 2017-05-01 11:21:02 143.0000 mm[Hg] Body temperature 2017-05-01 11:21:02 97.6000 [degF] Weight 2017-05-01 11:21:02 161.0000 [lb_av] BMI 2017-01-13 09:51:09 28.5300 BP olea 2017-01-13 09:51:09 93.0000 mm[Hg] Bdy height 2017-01-13 09:51:09 62.7500 [in_i] Heart rate 2017-01-13 09:51:09 83.0000 /min Resp rate 2017-01-13 09:51:09 16.0000 /min BP sys 2017-01-13 09:51:09 138.0000 mm[Hg] Body temperature 2017-01-13 09:51:09 97.2000 [degF] Weight 2017-01-13 09:51:09 159.8000 [lb_av] BMI 2016-12-09 10:56:17 28.0700 BP olea 2016-12-09 10:56:17 104.0000 mm[Hg] Bdy height 2016-12-09 10:56:17 62.7500 [in_i] Heart rate 2016-12-09 10:56:17 84.0000 /min Resp rate 2016-12-09 10:56:17 14.0000 /min BP sys 2016-12-09 10:56:17 150.0000 mm[Hg] Body temperature 2016-12-09 10:56:17 97.0000 [degF] Weight 2016-12-09 10:56:17 157.2000 [lb_av] BMI 2016-04-02 10:24:15 27.2500 BP olea 2016-04-02 10:24:15 66.0000 mm[Hg] Bdy height 2016-04-02 10:24:15 62.7500 [in_i] Heart rate 2016-04-02 10:24:15 93.0000 /min Resp rate 2016-04-02 10:24:15 14.0000 /min BP sys 2016-04-02 10:24:15 98.0000 mm[Hg] Body temperature 2016-04-02 10:24:15 97.9000 [degF] Weight 2016-04-02 10:24:15 152.6000 [lb_av] BMI 2016-02-05 15:32:40 27.7500 BP olea 2016-02-05 15:32:40 87.0000 mm[Hg] Bdy height 2016-02-05 15:32:40 62.7500 [in_i] Heart rate 2016-02-05 15:32:40 90.0000 /min Resp rate 2016-02-05 15:32:40 18.0000 /min BP sys 2016-02-05 15:32:40 121.0000 mm[Hg] Body temperature 2016-02-05 15:32:40 97.7800 [degF] Weight 2016-02-05 15:32:40 155.4000 [lb_av] BMI 2015-12-13 08:48:01 27.8500 BP olea 2015-12-13 08:48:01 96.0000 mm[Hg] Bdy height 2015-12-13 08:48:01 62.7500 [in_i] Heart rate 2015-12-13 08:48:01 85.0000 /min Resp rate 2015-12-13 08:48:01 14.0000 /min BP sys 2015-12-13 08:48:01 143.0000 mm[Hg] Body temperature 2015-12-13 08:48:01 97.5000 [degF] Weight 2015-12-13 08:48:01 156.0000 [lb_av] BMI 2015-04-19 10:22:59 28.1800 BP olea 2015-04-19 10:22:59 100.0000 mm[Hg] Bdy height 2015-04-19 10:22:59 62.7500 [in_i] Heart rate 2015-04-19 10:22:59 69.0000 /min Resp rate 2015-04-19 10:22:59 18.0000 /min BP sys 2015-04-19 10:22:59 160.0000 mm[Hg] Body temperature 2015-04-19 10:22:59 96.7000 [degF] Weight 2015-04-19 10:22:59 157.8000 [lb_av] BP olea 2015-01-10 10:35:42 100.0000 mm[Hg] Bdy height 2015-01-10 10:35:42 62.7500 [in_i] Heart rate 2015-01-10 10:35:42 85.0000 /min Resp rate 2015-01-10 10:35:42 16.0000 /min BP sys 2015-01-10 10:35:42 139.0000 mm[Hg] Body temperature 2015-01-10 10:35:42 98.4000 [degF] BMI 2015-01-04 09:13:53 28.5300 BP olea 2015-01-04 09:13:53 87.0000 mm[Hg] Bdy height 2015-01-04 09:13:53 62.7500 [in_i] Heart rate 2015-01-04 09:13:53 86.0000 /min Resp rate 2015-01-04 09:13:53 18.0000 /min BP sys 2015-01-04 09:13:53 125.0000 mm[Hg] Body temperature 2015-01-04 09:13:53 97.1000 [degF] Weight 2015-01-04 09:13:53 159.8000 [lb_av] BMI 2014-11-16 09:25:14 27.3900 BP olea 2014-11-16 09:25:14 86.0000 mm[Hg] Bdy height 2014-11-16 09:25:14 62.7500 [in_i] Heart rate 2014-11-16 09:25:14 93.0000 /min Resp rate 2014-11-16 09:25:14 18.0000 /min BP sys 2014-11-16 09:25:14 128.0000 mm[Hg] Body temperature 2014-11-16 09:25:14 96.8000 [degF] Weight 2014-11-16 09:25:14 153.4000 [lb_av] BMI 2014-07-18 08:56:08 29.5000 BP olea 2014-07-18 08:56:08 89.0000 mm[Hg] Bdy height 2014-07-18 08:56:08 62.7500 [in_i] SaO2% BldA PulseOx 2014-07-18 08:56:08 96.0000 % Heart rate 2014-07-18 08:56:08 83.0000 /min Resp rate 2014-07-18 08:56:08 18.0000 /min BP sys 2014-07-18 08:56:08 121.0000 mm[Hg] Body temperature 2014-07-18 08:56:08 97.7000 [degF] Weight 2014-07-18 08:56:08 165.2000 [lb_av] BMI 2013-12-02 16:12:02 30.7800 BP olea 2013-12-02 16:12:02 93.0000 mm[Hg] Bdy height 2013-12-02 16:12:02 62.7500 [in_i] Heart rate 2013-12-02 16:12:02 75.0000 /min Resp rate 2013-12-02 16:12:02 16.0000 /min BP sys 2013-12-02 16:12:02 130.0000 mm[Hg] Body temperature 2013-12-02 16:12:02 97.8000 [degF] Weight 2013-12-02 16:12:02 172.4000 [lb_av] BMI 2013-08-31 10:18:55 29.8200 BP olea 2013-08-31 10:18:55 79.0000 mm[Hg] Bdy height 2013-08-31 10:18:55 62.7500 [in_i] Heart rate 2013-08-31 10:18:55 91.0000 /min Resp rate 2013-08-31 10:18:55 16.0000 /min BP sys 2013-08-31 10:18:55 110.0000 mm[Hg] Body temperature 2013-08-31 10:18:55 97.5000 [degF] Weight 2013-08-31 10:18:55 167.0000 [lb_av] BMI 2013-04-27 08:39:19 29.1400 BP olea 2013-04-27 08:39:19 95.0000 mm[Hg] Bdy height 2013-04-27 08:39:19 62.7500 [in_i] Heart rate 2013-04-27 08:39:19 83.0000 /min Resp rate 2013-04-27 08:39:19 16.0000 /min BP sys 2013-04-27 08:39:19 135.0000 mm[Hg] Body temperature 2013-04-27 08:39:19 98.5000 [degF] Weight 2013-04-27 08:39:19 163.2000 [lb_av] BMI 2013-01-12 13:39:34 30.1800 BP olea 2013-01-12 13:39:34 79.0000 mm[Hg] Bdy height 2013-01-12 13:39:34 62.7500 [in_i] Heart rate 2013-01-12 13:39:34 96.0000 /min Resp rate 2013-01-12 13:39:34 16.0000 /min BP sys 2013-01-12 13:39:34 108.0000 mm[Hg] Body temperature 2013-01-12 13:39:34 97.9000 [degF] Weight 2013-01-12 13:39:34 169.0000 [lb_av] BMI 2012-11-08 14:15:13 31.9600 BP olea 2012-11-08 14:15:13 88.0000 mm[Hg] Bdy height 2012-11-08 14:15:13 62.7500 [in_i] Heart rate 2012-11-08 14:15:13 94.0000 /min Resp rate 2012-11-08 14:15:13 18.0000 /min BP sys 2012-11-08 14:15:13 131.0000 mm[Hg] Body temperature 2012-11-08 14:15:13 97.7000 [degF] Weight 2012-11-08 14:15:13 179.0000 [lb_av] BMI 2012-10-11 10:41:48 32.6400 BP olea 2012-10-11 10:41:48 90.0000 mm[Hg] Bdy height 2012-10-11 10:41:48 62.7500 [in_i] Heart rate 2012-10-11 10:41:48 90.0000 /min Resp rate 2012-10-11 10:41:48 16.0000 /min BP sys 2012-10-11 10:41:48 129.0000 mm[Hg] Body temperature 2012-10-11 10:41:48 98.1000 [degF] Weight 2012-10-11 10:41:48 182.8000 [lb_av]
== END ==
LOC: SP 10:48
PROVIDERS: ATTEND Internal Medicine
DX: L76.32 Postprocedural hematoma of skin and subcutaneous tissue following other procedure (principal)
CPT/HCPCS: 93926

== ENCOUNTER 2020-06-22 10:42 | Emergency (ER) | payer MEDICARE, OTHER ==
--- NOTE | 2020-06-22 11:10 | ER Document Report ---
ED Medical Screen (RME) - General Chief Complaint: Post Surgical Pain Stated Complaint: LEG PAIN/POST OP COMPICATIONS Time Seen by Provider: 06/22/20 10:59 Primary Care Provider: SIMEON REYES MD [Primary Care Provider] - Follow up as needed Mode of Arrival: Wheelchair Information source: Patient Notes: 49 year-old female presents to ED for complaint of severe pain to the right leg since her heart cath on Thursday. She states they did a heart cath and there was no evidence of any heart blockage but she has had excruciating pain in this left thigh since the surgery. They did do a arteriogram after the surgery but they have not done a venous Doppler and she states the whole leg is hurting since this. She does have large bruises to the area of the heart cath. She states she did go to dialysis today and her blood pressure was triple over triple she is not sure of the exact number and she asked to see the doctor dialysis and they told her there was no doctor in the building and then she tried calling her primary and they told her there was no doctor in the building so she is come to the ER to be evaluated. I have greeted and performed a rapid initial assessment of this patient. A comprehensive ED assessment and evaluation of the patient, analysis of test results and completion of medical decision making process will be conducted by an additional ED providers. TRAVEL OUTSIDE OF THE [place] IN LAST 30 DAYS: No - Related Data Allergies/Adverse Reactions: montelukast sodium [From Singulair] Allergy (Intermediate, Verified 06/22/20 11:07) Shortness of Breath codeine Allergy (Mild, Verified 06/22/20 11:07) Swelling of Throat banana Allergy (Verified 06/22/20 11:07) erythromycin base [Erythromycin Base] Allergy (Verified 06/22/20 11:07) sob, hives hydrocodone bitartrate [From Vicodin] Allergy (Verified 06/22/20 11:07) sob, hives ondansetron HCl [From Zofran] Allergy (Verified 06/22/20 11:07) sob, rash oxycodone HCl [From Percocet] Allergy (Verified 06/22/20 11:07) sob, rash penicillin G [Penicillin G] Allergy (Verified 06/22/20 11:07) sob, rash Penicillins Allergy (Verified 06/22/20 11:07) potassium Allergy (Verified 06/22/20 11:07) valacyclovir Allergy (Verified 06/22/20 11:07) latex Allergy (Severe, Uncoded 06/22/20 11:07) sob, hives analgesics Allergy (Uncoded 06/22/20 11:07) antiasthmatics Allergy (Uncoded 06/22/20 11:07) bronchodialators Allergy (Uncoded 06/22/20 11:07) iv contrast Allergy (Uncoded 06/22/20 11:07) microfiber tape Allergy (Uncoded 06/22/20 11:07) adhesives Adverse Reaction (Severe, Uncoded 06/22/20 11:07) hung Past Medical History - Social History Family history: Hypertension, Other - kidney failure - Past Medical History Cardiac Medical History: Reports: Hx Hypertension Pulmonary Medical History: Reports: Hx Asthma, Hx Pneumonia, Hx Sleep Apnea Neurological Medical History: Reports: Hx Migraine Endocrine Medical History: Reports: Hx Hypothyroidism Renal/ Medical History: Reports: Hx End Stage Renal Disease, Hx Hemodialysis. Denies: Hx Peritoneal Dialysis GI Medical History: Reports: Hx Gastroesophageal Reflux Disease, Hx Ulcer Musculoskeltal Medical History: Reports Hx Arthritis Past Surgical History: Reports: Hx Appendectomy, Hx Hysterectomy, Hx Oral Surgery, Hx Thyroid Surgery - thyroidectomy, Hx Tubal Ligation, Hx Vascular Surgery - left port in chest-put in on 06/23/12 - Immunizations Immunizations up to date: Yes Hx Diphtheria, Pertussis, Tetanus Vaccination: Yes Physical Exam - Vital signs Vitals: Temp Pulse Resp BP Pulse Ox 98.9 F 89 18 165/98 H 98 06/22/20 10:47 06/22/20 10:47 06/22/20 10:47 06/22/20 10:47 06/22/20 10:47 Course - Vital Signs Vital signs: Temp Pulse Resp BP Pulse Ox 98.9 F 89 18 165/98 H 98 06/22/20 10:47 06/22/20 10:47 06/22/20 10:47 06/22/20 10:47 06/22/20 10:47 Doctor's Discharge - Discharge Referrals: SIMEON REYES MD [Primary Care Provider] - Follow up as needed
[2020-06-22 11:33] LABS: ABSOLUTE EOSINOPHILS # (AUTO) 0.3 10^3/uL (0.0-0.6); ABSOLUTE LYMPHOCYTES (AUTO) 1.1 10^3/uL (0.5-4.7); ABSOLUTE MONOCYTES (AUTO) 1.1 10^3/uL (0.1-1.4); BASOPHILS % (AUTO) 0.4 % (0-2); EOSINOPHILS % (AUTO) 3.3 % (0-6); HEMATOCRIT 31.7 % (36.0-47.0); HEMOGLOBIN 10.4 g/dL (12.0-15.5); LYMPHOCYTES % (AUTO) 11.1 % (13-45); MEAN CORPUSCULAR HEMOGLOBIN 32.8 pg (27.0-33.4); MEAN CORPUSCULAR HGB CONC 32.8 g/dL (32.0-36.0); MEAN CORPUSCULAR VOLUME 100 fl (80-97); MONOCYTES % (AUTO) 11.3 % (3-13); PLATELET COUNT 169 10^3/uL (150-450); RED BLOOD COUNT 3.16 10^6/uL (3.72-5.28); RED CELL DISTRIBUTION WIDTH 14.2 % (11.5-14.0); SEGMENTED NEUTROPHILS % (AUTO) 73.9 % (42-78); TOTAL CELLS COUNTED % (AUTO) 100 %; WHITE BLOOD COUNT 9.5 10^3/uL (4.0-10.5)
[2020-06-22 11:57] LABS: ALBUMIN 4.5 g/dL (3.5-5.0); ALKALINE PHOSPHATASE 140 U/L (38-126); ANION GAP 12 (5-19); ASPARTATE AMINO TRANSFERASE 23 U/L (14-36); BILIRUBIN,DIRECT 0.3 mg/dL (0.0-0.4); BILIRUBIN,TOTAL 0.7 mg/dL (0.2-1.3); BLOOD UREA NITROGEN 21 mg/dL (7-20); CALCIUM 8.7 mg/dL (8.4-10.2); CARBON DIOXIDE 29 mmol/L (22-30); CHLORIDE 100 mmol/L (98-107); GLUCOSE 97 mg/dL (75-110); PHOSPHORUS 3.5 mg/dL (2.5-4.5); POTASSIUM 3.7 mmol/L (3.6-5.0); TOTAL PROTEIN 7.7 g/dL (6.3-8.2)
--- NOTE | 2020-06-22 13:29 | RADIOLOGY REPORT (SQ) ---
EXAM DESCRIPTION: VENOUS UNILATERAL LOWER IMAGES COMPLETED DATE/TIME: 06/22/2020 1:21 pm REASON FOR STUDY: Right lower leg heart cath on Thursday continued lynne COMPARISON: None. TECHNIQUE: Dynamic and static pond scale and color images acquired of the right leg venous system. S elected spectral images acquired with additional compression and augmentation maneuvers. The contrala teral common femoral vein and saphenofemoral junction were also imaged. Images stored on PACS. LIMITATIONS: None. FINDINGS: COMMON FEMORAL: Normal phasicity, compression and augmentation. No visualized echogenic ma terial on pond scale. No defects on color images. FEMORAL: Normal compression and augmentation. No visualized echogenic material on pond scale. No defe cts on color images. POPLITEAL: Normal compression, augmentation. No visualized echogenic material on pond scale. No defec ts on color images. CALF VESSELS: Normal compression, augmentation. No visualized echogenic material on pond scale. No de fects on color images. GSV and SSV: Normal compression, augmentation. No visualized echogenic material on pond scale. No def ects on color images. ANY DEEP VENOUS INSUFFICIENCY: Not evaluated. ANY EVIDENCE OF POPLITEAL CYST: No. OTHER: No other significant finding. CONTRALATERAL COMMON FEMORAL VEIN AND SAPHENOFEMORAL JUNCTION: Normal phasicity, compression and augmentation. No visualized echogenic material on pond scale. No de fects on color images. IMPRESSION: NO EVIDENCE DVT OR SVT IN THE RIGHT LEG. TECHNICAL DOCUMENTATION: JOB ID: [id number] 2010 [employer]- All Rights Reserved Reading location - IP/workstation name: [email or web address]
[2020-06-22] MEDS ORDERED: MORPHINE SULFATE 10 MG/ML INJ IV ONE (21:56)
[2020-06-22] MEDS ORDERED: CLINDAMYCIN 600 MG/D5W RTU 600 MG/50 ML RTUPB IV ONE (21:57)
[2020-06-22] MEDS ORDERED: PROMETHAZINE HCL INJ 25 MG/1 ML VIAL IV ONE (21:59)
--- NOTE | 2020-06-22 23:18 | RADIOLOGY REPORT (SQ) ---
EXAM DESCRIPTION: CT ABDOMEN PELVIS WITHOUT IV CONTRAST COMPLETED DATE/TME: 06/22/2020 22:42 CLINICAL HISTORY: abscess COMPARISON: 09/05/2018 TECHNIQUE: CT of the abdomen and pelvis without IV contrast. Evaluation of the solid organs and vasculature is suboptimal due to lack of IV contrast. FINDINGS: Lung Bases: The visualized lung bases are clear. Bones: Mild endplate spondylosis of the spine. Abdomen: Liver: The liver has normal size and density. Gallbladder: No calcified gallstones. Spleen, Pancreas, and Adrenal Glands: The spleen, pancreas, and adrenal glands are unremarkable. Kidneys: Bilateral renal atrophy. Right renal cyst. Vasculature: Aortoiliac atherosclerosis. IVC is unremarkable. Stomach: The stomach and duodenum have normal course. Other: No free intraperitoneal air. Edema within the subcutaneous soft tissues of the anterior right thigh and groin region. There is ill-defined hypodensity fluid in the right groin region measuring 8.0 x 2.8 x 5.3 cm. Pelvis: Bladder: Urinary bladder is unremarkable. Bowel: No dilated loops of large or small bowel. Scattered diverticula of the colon. Appendix: Not identified. Pelvis: Left common femoral dialysis catheter. Prior hysterectomy. IMPRESSION: 1. In the right inguinal region there is a 8.0 cm ill-defined hyperdense fluid collection is indeterminate but density suggests blood products however abscess could also produce this appearance. Evaluation for active contrast extravasation is suboptimal due to lack of IV contrast. Edema within the right knee soft tissues. Directed right groin ultrasound could provide additional characterization. 2. Diverticulosis without evidence of acute diverticulitis. 3. Bilateral renal atrophy. This exam was performed according to our departmental dose-optimization program, which includes automated exposure control, adjustment of the mA and/or kV according to patient size and/or use of iterative reconstruction technique.
--- NOTE | 2020-06-22 23:57 | ER Document Report ---
Doctor's Note Notes: 06/22/20 23:54 I was asked to see the patient by the JAD. Patient states that she had a cardiac catheterization done recently to the right groin area. She developed swelling and pain to that area that wraps around her right thigh. Denies fevers or chills. She has pain with movement. Patient had a negative DVT ultrasound. On exam, she has induration to the right groin as well as the right hip. Area feels warm. It is tender to touch. No evidence of cellulitis in the perineum or Jeannine's gangrene. Vitals are within normal limits. She is alert and oriented. I recommended we obtain a CT as I am concerned for abscess. Patient has an allergy to contrast dye and does not get dialysis until Thursday. We will c susannah to monitor. Disposition is pending results of the CT scan. 06/23/20 02:44
--- NOTE | 2020-06-23 00:23 | ER Document Report ---
ED General - General Chief Complaint: Post Surgical Pain Stated Complaint: LEG PAIN/POST OP COMPICATIONS Time Seen by Provider: 06/22/20 10:59 Primary Care Provider: SIMEON REYES MD [ACTIVE STAFF] - Follow up as needed Mode of Arrival: Wheelchair Information source: Patient Notes: Patient is a 49-year-old female came to the emergency room early today with complaint of having right leg pain and swelling. Patient states that she had a heart catheterization in [place] last Thursday and after the event occurred she started having swelling in the right groin. It is progressively gotten worse over the course of time she has not followed up with the radio station manager. Patient denies any fevers. She does state that the pain is getting more intensified. Patient is also an end-stage renal disease patient is on hemodialysis. She had her last hemodialysis today. Her normal is Wednesdays and Fridays. TRAVEL OUTSIDE OF THE [place] IN LAST 30 DAYS: No - HPI Onset: Last week Onset/Duration: Gradual, Persistent, Worse Quality of pain: Pressure, Sharp, Throbbing Severity: Severe Pain Level: 4 Associated symptoms: Leg swelling, Nausea Exacerbated by: Movement, Walking Relieved by: Denies Similar symptoms previously: Yes Recently seen / treated by doctor: No - Related Data Allergies/Adverse Reactions: montelukast sodium [From Singulair] Allergy (Intermediate, Verified 06/22/20 11:07) Shortness of Breath codeine Allergy (Mild, Verified 06/22/20 11:07) Swelling of Throat banana Allergy (Verified 06/22/20 11:07) erythromycin base [Erythromycin Base] Allergy (Verified 06/22/20 11:07) sob, hives hydrocodone bitartrate [From Vicodin] Allergy (Verified 06/22/20 11:07) sob, hives ondansetron HCl [From Zofran] Allergy (Verified 06/22/20 11:07) sob, rash oxycodone HCl [From Percocet] Allergy (Verified 06/22/20 11:07) sob, rash penicillin G [Penicillin G] Allergy (Verified 06/22/20 11:07) sob, rash Penicillins Allergy (Verified 06/22/20 11:07) potassium Allergy (Verified 06/22/20 11:07) valacyclovir Allergy (Verified 06/22/20 11:07) latex Allergy (Severe, Uncoded 06/22/20 11:07) sob, hives analgesics Allergy (Uncoded 06/22/20 11:07) antiasthmatics Allergy (Uncoded 06/22/20 11:07) bronchodialators Allergy (Uncoded 06/22/20 11:07) iv contrast Allergy (Uncoded 06/22/20 11:07) microfiber tape Allergy (Uncoded 06/22/20 11:07) adhesives Adverse Reaction (Severe, Uncoded 06/22/20 11:07) hung Past Medical History - General Information source: Patient - Social History Smoking Status: Never Smoker Cigarette use (# per day): No Chew tobacco use (# tins/day): No Smoking Education Provided: No Frequency of alcohol use: None Drug Abuse: None Lives with: Family Family History: Reviewed & Not Pertinent Patient has homicidal ideation: No - Past Medical History Cardiac Medical History: Reports: Hx Hypertension Pulmonary Medical History: Reports: Hx Asthma, Hx Pneumonia, Hx Sleep Apnea Neurological Medical History: Reports: Hx Migraine Endocrine Medical History: Reports: Hx Hypothyroidism Renal/ Medical History: Reports: Hx End Stage Renal Disease, Hx Hemodialysis. Denies: Hx Peritoneal Dialysis GI Medical History: Reports: Hx Gastroesophageal Reflux Disease, Hx Ulcer Musculoskeletal Medical History: Reports Hx Arthritis Past Surgical History: Reports: Hx Appendectomy, Hx Hysterectomy, Hx Oral Surgery, Hx Thyroid Surgery - thyroidectomy, Hx Tubal Ligation, Hx Vascular Surgery - left port in chest-put in on 06/23/12 - Immunizations Immunizations up to date: Yes Hx Diphtheria, Pertussis, Tetanus Vaccination: Yes Hx Pneumococcal Vaccination: 05/19/13 Review of Systems - Review of Systems Constitutional: Fever EENT: No symptoms reported Cardiovascular: No symptoms reported Respiratory: No symptoms reported Gastrointestinal: No symptoms reported Genitourinary: No symptoms reported Female Genitourinary: No symptoms reported Musculoskeletal: See HPI, Muscle pain, Leg swelling Skin: See HPI Hematologic/Lymphatic: No symptoms reported Neurological/Psychological: No symptoms reported -: Yes All other systems reviewed and negative Physical Exam - Vital signs Vitals: Temp Pulse Resp BP Pulse Ox 98.9 F 89 18 165/98 H 98 06/22/20 10:47 06/22/20 10:47 06/22/20 10:47 06/22/20 10:47 06/22/20 10:47 Interpretation: Hypertensive - Notes Notes: PHYSICAL EXAMINATION: GENERAL: Patient is a well-nourished well-developed 49-year-old female who is in no apparent distress but appears very uncomfortable. HEAD: Atraumatic, normocephalic. LUNGS: Breath sounds clear to auscultation bilaterally and equal. No wheezes rales or rhonchi. HEART: Regular rate and rhythm without murmurs ABDOMEN: Soft, nontender, nondistended abdomen. No guarding, no rebound. No masses appreciated. Female : deferred Musculoskeletal: Examination patient's area concern is her right upper leg and groin area. Examination shows this to be a very swollen indurated area extending from the lateral side of the right hip down into the inguinal area to approximately just above mid thigh. It is very hot to palpation and very tender to palpation. No pulsatile masses felt. Patient does appear to have a good femoral pulse though. She has distal dorsalis pedal pulse with no change in color in the distal extremity on the right side. She also has a good popliteal pulse. Limited motion from the left groin and hip thigh area noted secondary to pain swelling and discomfort. NEUROLOGICAL: . Normal speech, normal gait. Normal sensory, motor exams PSYCH: Normal mood, normal affect. SKIN: See musculoskeletal above for full description Course - Re-evaluation Re-evalutation: 06/23/20 02:04 Patient has had a very long drawn out stay here in the emergency room she came in after her dialysis this morning with complaint of leg swelling on the right side. Patient was seen in triage and ordered labs and a DVT study. She was brought back to the room late evening where I did my initial examination finding patient to have a very indurated-looking area. I discussed the case with my attending and she also came in to examine the patient. We discussed the idea that patient probably needed to have a CT with contrast however patient is an end-stage dialysis patient who still does urinate. Was decided that since she would probably not receive dialysis until Thursday that we would do a plain CT. Patient's CT report states in essence #1 the right inguinal region there is a 8.0 cm ill-defined hyperdense fluid collection is indeterminate but density suggest blood products however abscess could also produce this appearance there is evidence of edema within the right knee and soft tissue. Direct right groin ultrasound could provide additional characterization. With this information I contacted .I then contacted our surgeon here Dr. Nuñez and read him the CT report as well. Dr. Nuñez suggested that this is a complicated case and that he recommended that we contact divide and group. Primarily cardiology or vascular. He did not feel comfortable in opening up a inguinal hematoma caused by a cardiac catheterization. He felt that it probably needed vascular involvement. I then contacted the facility where patient had her cath done which was a [facility] in [place]. I talked to the transfer center there Bekah he informed me that he was getting Dr. Pandey the cardiac fellow on-call [facility]. We had a three-way conversation and the physician with the transfer person who at that time had in front of her the CT and DVT study. After after reviewing this information Dr. Pandey stated that she did not feel that this was a cardiac problem and suggested that I recontact the surgeon here at [facility] and explained again that there was no pseudoaneurysm seen on the ultrasound. I did do this and again talk to Dr. Nuñez who once again informed me that he did not feel comfortable and opening up this type of a hematoma abscess caused by cardiac catheterization because they have a tendency to have high complications and possibility the need of a vascular surgeon present which we do not have at this facility. While it was on this call Bekah from the transfer center contacted me back and requested by the cardiac fellow Dr. Pandey that we perform a arterial ultrasound of the area. I explained to him at that time that we do not have that mitigation supervisor here [facility] it would be tomorrow before this procedure could be done and he informed me he would relay that message. In the meantime I had a conversation with my attending again Dr. Nam we decided that we would [facility] to [facility] to discuss the case with the hospitalist and general surgeon. When I talked to Bekah again at the transfer center he informed me that patient had been accepted by Dr. Bell who is with the cardiac intermediate unit and has been accepted. He informed me that there was still no beds available until discharges in the morning but patient would be one of the first to have a bed. He did emphasize to me that Dr. Pandey requested that if patient was still here early enough in the morning that we go ahead and get the arterial Doppler of that right inguinal area. I relayed this message to my attending 1 last time and she is in agreement with this decision we will keep patient here in the ER until transfer has been arranged and if we are able to get an arterial Doppler in the morning of the area it will be performed here if not they will proceed with that [facility]. - Vital Signs Vital signs: Temp Pulse Resp BP Pulse Ox 99.7 F 89 18 135/89 H 98 06/22/20 20:52 06/22/20 10:47 06/23/20 00:09 06/23/20 00:09 06/23/20 00:09 06/23/20 02:14 Patient has been resting comfortably and I have checked on her multiple times. I have given her for morphine which is adequate at this time for pain control she has been given clindamycin since she has multiple antibiotic allergies and again this was in agreement with my attending. - Laboratory Result Diagrams: 06/22/20 11:19 06/22/20 11:19 Laboratory results interpreted by me: 06/22/20 06/22/20 06/22/20 11:19 11:19 23:53 RBC 3.16 L Hgb 10.4 L Hct 31.7 L MCV 100 H RDW 14.2 H Lymph % (Auto) 11.1 L BUN 21 H Creatinine 6.33 H Est GFR ( Amer) 8 L Est GFR (MDRD) Non-Af 7 L Lactic Acid 0.6 L Alkaline Phosphatase 140 H Discharge - Discharge Clinical Impression: Abscess of groin, right Hematoma of groin Qualifiers: Encounter type: initial encounter Qualified Code(s): S30.1XXA - Contusion of abdominal wall, initial encounter Condition: Stable Disposition: [facility] Referrals: SIMEON REYES MD [ACTIVE STAFF] - Follow up as needed
[2020-06-23] MEDS ORDERED: MORPHINE SULFATE 10 MG/ML INJ IV ONE ×2 (08:18→20:08)
--- NOTE | 2020-06-23 08:23 | RADIOLOGY REPORT (SQ) ---
EXAM DESCRIPTION: U/S EXTREMITY NONVASCULAR LTD IMAGES COMPLETED DATE/TIME: 06/23/2020 3:00 am REASON FOR STUDY: Evaluation of right inguinal abscess/hematoma COMPARISON: 06/22/2020 venous Doppler TECHNIQUE: Static and real time pond scale ultrasound Doppler spectral analysis, and color Doppler a cquired in the right inguinal region LIMITATIONS: None. FINDINGS: In the right inguinal region, a hypoechoic fluid collection is present measuring 5 x 4 x 2 cm unchanged from venous Doppler yesterday. This could represent a hematoma or abscess. No color f low in the fluid collection worrisome for pseudoaneurysm IMPRESSION: Persistent 5 x 4 x 2 cm right inguinal fluid collection likely hematoma TECHNICAL DOCUMENTATION: JOB ID: [id number] 2010 [employer]- All Rights Reserved Reading location - IP/workstation name: [id number]
[2020-06-23] MEDS ORDERED: ACETAMINOPHEN 325 MG TABLET PO ONE ×2 (09:56→20:50)
--- NOTE | 2020-06-23 13:46 | RADIOLOGY REPORT (SQ) ---
EXAM DESCRIPTION: ARTERIAL LOWER EXTREM UNILAT IMAGES COMPLETED DATE/TIME: 06/23/2020 10:08 am REASON FOR STUDY: post op hematoma/infection; swelling. Postop cardiac catheterization in the right groin. Right lower extremity pain. COMPARISON: None. TECHNIQUE: Dynamic and static pond scale and color images acquired of the lower extremity arteries. Additional selected spectral images recorded. ABIs recorded. LIMITATIONS: Difficult examination. FINDINGS: RIGHT LEG: ABIS: 0.6 in the dorsalis pedis. INFLOW ARTERIES: Normal, no obstruction evident. FEMORAL ARTERIES:Multiphasic waveforms. Normal, no velocity elevation to suggest focal stenosis. Norm al color Doppler evaluation. No aneurysm. POPLITEAL ARTERY:Multiphasic waveforms. Normal, no velocity elevation to suggest focal stenosis. Norm al color Doppler evaluation. No aneurysm. PATENT TIBIOPERONEAL TRUNK AND 3 VESSEL RUNOFF: Yes, vascular flow is seen in all 3 vessels. There i s retrograde flow noted in the distal anterior tibial artery. Collateralization is seen. TBI: Not performed. OTHER: No other significant finding. LEFT LEG: Not performed. Vascular flow is seen in the left dorsalis pedis artery at the ankle. IMPRESSION: Moderate ischemia right lower extremity. [facility] NORMAL: Greater than 1.0 (1.2 If Heavy Calcifications) NORMAL TO MILD ISCHEMIA: 0.8 to 1.0 MODERATE ISCHEMIA: 0.4 to 0.8 SEVERE ISCHEMIA: Less than 0.4 TECHNICAL DOCUMENTATION: JOB ID: [id number] [employer]- All Rights Reserved Reading location - IP/workstation name: [id number]
[2020-06-23] MEDS ORDERED: CLINDAMYCIN 900 MG/D5W RTU 900 MG/50 ML RTUPB IV ONE (20:09)
[2020-06-23] MEDS ORDERED: ONDANSETRON HCL INJ/PF 4 MG/2 ML SDV IV ONE (20:49)
[2020-06-23] MEDS ORDERED: ACETAMINOPHEN 325 MG TABLET ONE (20:51)
[2020-06-23] MEDS ORDERED: ONDANSETRON HCL INJ/PF 4 MG/2 ML SDV ONE (20:51)
[2020-06-23] MEDS ORDERED: PROMETHAZINE HCL INJ 25 MG/1 ML VIAL IV ONE (20:55)
[2020-06-23 21:05] LABS: ABSOLUTE EOSINOPHILS # (AUTO) 0.2 10^3/uL (0.0-0.6); ABSOLUTE MONOCYTES (AUTO) 1.3 10^3/uL (0.1-1.4); PLATELET COUNT 169 10^3/uL (150-450); RED BLOOD COUNT 3.15 10^6/uL (3.72-5.28); TOTAL CELLS COUNTED % (AUTO) 100 %
[2020-06-23 21:09] LABS: ABSOLUTE LYMPHOCYTES (AUTO) 1.3 10^3/uL (0.5-4.7); ABSOLUTE NEUT (AUTO) 8.2 10^3/uL (1.7-8.2); BASOPHILS % (AUTO) 0.3 % (0-2); EOSINOPHILS % (AUTO) 1.7 % (0-6); HEMATOCRIT 32.5 % (36.0-47.0); HEMOGLOBIN 10.7 g/dL (12.0-15.5); LYMPHOCYTES % (AUTO) 11.6 % (13-45); MEAN CORPUSCULAR HEMOGLOBIN 33.9 pg (27.0-33.4); MEAN CORPUSCULAR HGB CONC 32.9 g/dL (32.0-36.0); MEAN CORPUSCULAR VOLUME 103 fl (80-97); MONOCYTES % (AUTO) 11.5 % (3-13); RED CELL DISTRIBUTION WIDTH 14.7 % (11.5-14.0); SEGMENTED NEUTROPHILS % (AUTO) 74.9 % (42-78); WHITE BLOOD COUNT 10.9 10^3/uL (4.0-10.5)
[2020-06-24 08:52] LABS: ABSOLUTE EOSINOPHILS # (AUTO) 0.2 10^3/uL (0.0-0.6); ABSOLUTE MONOCYTES (AUTO) 1.4 10^3/uL (0.1-1.4); ABSOLUTE NEUT (AUTO) 8.1 10^3/uL (1.7-8.2); BASOPHILS % (AUTO) 0.4 % (0-2); EOSINOPHILS % (AUTO) 1.7 % (0-6); HEMOGLOBIN 10.7 g/dL (12.0-15.5); LYMPHOCYTES % (AUTO) 17.2 % (13-45); MEAN CORPUSCULAR HEMOGLOBIN 32.9 pg (27.0-33.4); MEAN CORPUSCULAR HGB CONC 32.4 g/dL (32.0-36.0); MEAN CORPUSCULAR VOLUME 102 fl (80-97); MONOCYTES % (AUTO) 11.8 % (3-13); PLATELET COUNT 192 10^3/uL (150-450); RED BLOOD COUNT 3.25 10^6/uL (3.72-5.28); RED CELL DISTRIBUTION WIDTH 14.7 % (11.5-14.0); SEGMENTED NEUTROPHILS % (AUTO) 68.9 % (42-78); TOTAL CELLS COUNTED % (AUTO) 100 %; WHITE BLOOD COUNT 11.7 10^3/uL (4.0-10.5)
[2020-06-24 09:12] LABS: ANION GAP 16 (5-19); BLOOD UREA NITROGEN 51 mg/dL (7-20); CALCIUM 9.1 mg/dL (8.4-10.2); CARBON DIOXIDE 27 mmol/L (22-30); CHLORIDE 98 mmol/L (98-107); GLUCOSE 74 mg/dL (75-110); POTASSIUM 5.1 mmol/L (3.6-5.0)
--- NOTE | 2020-06-24 09:52 | ER Document Report ---
Doctor's Note Notes: 06/24/20 08:30 Patient requesting to sit up to eat her breakfast. Patient complains of continued right inguinal tenderness although denies needing any medications at this time. Patient is still awaiting transfer to [facility]. Patient does have a history of dialysis and last dialysis was on Thursday. Patient does normally di alyzed on Thursday schedule. Patient is attempting to get a list of her usual doses of her medications so they can be resumed. 06/24/20 09:40 Patient with 2+ dorsalis pedis pulse and posterior pulse at this time with good cap refill to the toes of the right foot. SCDs are in place. A call has been placed to hospitalist for medical management given protracted transfer course. Dr. Franco will call back. Patient declines any needs at this time. 06/24/20 10:[address] Franco who agrees to come and evaluate patient. 06/24/20 11:20 Patient has a ready bed at [facility] and is awaiting transport at this time. 06/24/20 11:57 Patient requesting pain medication prior to transfer as well as some nausea medication. Patient stable for transfer at this time. 06/24/20 12:15 Transport is here, patient stable for transfer at this time.
[2020-06-24] MEDS: LEVOTHYROXINE SODIUM 0.1 MG TABLET PO SCH ×2 (09:53→10:01)
[2020-06-24] MEDS: METOPROLOL TARTRATE 100 MG TABLET PO SCH ×2 (09:53→10:07)
[2020-06-24] MEDS: LEVOTHYROXINE SODIUM 0.025 MG TABLET PO SCH ×2 (09:53→10:07)
[2020-06-24] MEDS ORDERED: ACETAMINOPHEN 325 MG TABLET PO ONE (09:59)
[2020-06-24] MEDS ORDERED: SODIUM BICARBONATE 650 MG TABLET PO SCH (10:00)
[2020-06-24] MEDS ORDERED: MAGNESIUM OXIDE 400 MG TABLET PO SCH (10:00)
[2020-06-24] MEDS ORDERED: GABAPENTIN 100 MG CAPSULE PO SCH (10:00)
[2020-06-24] MEDS ORDERED: APIXABAN 5 MG TABLET PO SCH (10:00)
[2020-06-24] MEDS ORDERED: ASPIRIN 81 MG TABLET, CHEWABLE PO SCH (10:00)
[2020-06-24] MEDS ORDERED: AMLODIPINE BESYLATE 10 MG TABLET PO SCH ×2 (10:00→22:00)
[2020-06-24] MEDS ORDERED: HYDRALAZINE HCL 50 MG TABLET PO SCH (10:00)
[2020-06-24] MEDS ORDERED: FLUTICASONE NASAL SPRAY 50 MCG/SPRY 120 SPRAY/16 GM NASL SCH (10:00)
[2020-06-24] MEDS ORDERED: METHOCARBAMOL 500 MG TABLET PO SCH (10:00)
[2020-06-24] MEDS ORDERED: MORPHINE SULFATE 10 MG/ML INJ IV ONE (11:56)
[2020-06-24] MEDS ORDERED: PROMETHAZINE HCL 25 MG TABLET PO ONE (11:57)
[2020-06-24 12:04] VITALS: BP 114/86
[2020-06-24] MEDS ORDERED: CLINDAMYCIN 900 MG/D5W RTU 900 MG/50 ML RTUPB IV ONE (12:12)
== END 2020-06-24 12:28 | disposition short-term general hospital (02) ==
LOC: ER 10:42
DX: G89.18 Other acute postprocedural pain (principal); L02.214 Cutaneous abscess of groin; S30.1XXA Contusion of abdominal wall, initial encounter; Y84.0 Cardiac catheterization as the cause of abnormal reaction of the patient, or of later complication, without mention of misadventure at the time of the procedure; R11.0 Nausea; I12.0 Hypertensive chronic kidney disease with stage 5 chronic kidney disease or end stage renal disease; N18.6 End stage renal disease; Z99.2 Dependence on renal dialysis
CPT/HCPCS: 96376 ×2; 99285; 96375; 96365; 96366; 36415; 87040; 83605; 83735; 84100; 85025; 80048; 80053; 93971; 74176; A9270 ×12; J3490 ×2; J2270 ×2; J2550